=== PATIENT | male | born 1935 | race Caucasian/White ===

== ENCOUNTER 2017-01-01 19:19 | Emergency (ER) | payer OTHER ==
[~2017-01-01] VITALS: Ht 165.1 cm; Wt 78.4 kg
[~2017-01-01 19:19] MED LIST: APOA1CAP PO; CYAN10005 PO; ELDP5 PO; GABA1CAP5 PO; MULT-513 PO; SIMV-151 PO
[2017-01-01 19:21] VITALS: TEMP 36.4; Ht 165.1 cm; Wt 78.4 kg
--- NOTE | 2017-01-01 19:50 | EMERGENCY ROOM VISIT NOTE ---
History Report prepared by Regine: Dominguez Martinez Under the Supervision of: Dr. Jose Elmore M.D. First contact with patient: 19:26 Chief Complaint: NEURO SYMPTOMS Stated Complaint: MEMORY LOSS, FUNNY FEELING IN LEFT ARM Nursing Triage Summary: Pt to triage with . reports pt having difficulty with memory. went to the movies, couldn't remember where he was or if he was able to go into the bathroom, unable to remember his way home. states "he's acting the same way he did 2 years ago when he martino a mini stroke". pt c/o left arm numbness. per and pt everything else is normal for pt. History of Present Illness The patient is an 81 year old male who presents to the Emergency Room with complaints of persistent confusion that started earlier today. The patient was at a movie with his when he noticed that he was unable to understand what he was watching. The patient had left arm numbness during the movie as well, which is resolved. He also was confused when he attempted to use a public restroom after the movie. The patient had similar confusion two years ago when he was diagnosed with a TIA, as per his . She also notes that his sense of direction has seemed to be off since the TIA. He denies fevers or recent illness , headache, vision changes, chest pain, shortness of breath, nausea, vomiting, or abdominal pain. The patient has not taken his baby aspirin for one week. He is not on other blood thinners. The patient has a history of Parkinson's Disease. He is not diabetic. He has not started any new medications. Source of History: patient, spouse/significant other Onset: today Position: other (mentation) Quality: other (confusion) Timing: other (persistent) Associated Symptoms: + numbness, No SOB, No abdominal pain, No chest pain, No fevers, No headache, No nausea, No vomiting Review of Systems See HPI for pertinent positives & negatives. A total of 10 systems reviewed and were otherwise negative. Past Medical & Surgical Medical Problems: (1) Arthritis (2) Hyperlipemia (3) Parkinson disease Surgical Problems: (1) H/O hernia repair (2) Previous back surgery Old medical records were reviewed. Nurse's notes were reviewed and I agree with. Family History Cancer Heart disease Hypertension Social History Smoking Status: Never Smoker Marital Status: Housing Status: lives with significant other Occupation Status: retired Current/Historical Medications Scheduled Apoaequorin (Prevagen), 1 CAP PO QAM Cyanocobalamin (Vitamin B-12), 1,000 MCG PO QAM Gabapentin (Neurontin), 400 MG PO TID Multivitamins/Minerals (Mvi With Minerals), 1 TAB PO QAM Selegiline HCl (Selegiline HCl), 5 MG PO BID Simvastatin (Simvastatin), 20 MG PO QPM Allergies Coded Allergies: Amoxicillin (Verified Allergy, Unknown, RASH, 01/01/17) Lidocaine (Verified Allergy, Unknown, LIDOCAINE SPRAY-COULDN'T REMEMBER AFTER DOSE, 01/01/17) Physical Exam Vital Signs Date Time Temp Pulse Resp B/P Pulse Ox O2 Delivery O2 Flow Rate FiO2 01/01/17 22:04 78 16 134/82 99 01/01/17 21:23 68 16 132/78 97 Room Air 01/01/17 19:38 78 01/01/17 19:21 36.4 80 18 157/88 94 Room Air Physical Exam General: Non ill appearing older male in no acute distress, normal speech, awake alert and oriented x 3. HEENT: Normal cephalic atraumatic. Pupils are equal round and reactive to light. Extraocular movements are intact. Oropharynx is pink with moist mucous membranes. No swelling of the mouth lips or tongue. Neck: Supple with a midline trachea. No meningeal signs or stiffness, no JVD or bruits. No Stridor. Chest: Clear to auscultation bilaterally. No wheezes or rhonchi. No increased work of breathing. Heart: regular rate and rhythm. Abdomen: Soft nontender, nondistended without rebound guarding or rigidity. Extremities: No cyanosis clubbing or edema. No calf tenderness or assymetry Spine/Back. Non tender to palpation. No CVA tenderness Skin: Good turgor without rashes. Neurologic exam: Cranial nerves two through 12 are intact. Motor and sensation are intact and symmetrical throughout. Mild tremor secondary to Parkinson's. Medical Decision & Procedures ER Provider Diagnostic Interpretation: Radiology results as stated below per my review and radiologist interpretation: CHEST ONE VIEW PORTABLE HISTORY: Atypical CHEST PAIN COMPARISON: Chest 02/29/2016. FINDINGS: There are again noted bilateral calcified pleural plaques. No new focal lung consolidations. No evidence for pulmonary edema. The heart remains mildly enlarged. No pleural effusions. No pneumothorax. IMPRESSION: No significant change compared to the prior study. No acute process. Stable cardiomegaly and bilateral calcified pleural plaques. Electronically signed by: Fabian Srinivasan M.D. 01/01/2017 9:00 PM Dictated Date/Time: 01/01/2017 8:[address] CT DOSE: 537.48 mGy.cm HISTORY: eval for episode of confusion, left arm weakness TECHNIQUE: Multiaxial CT images of the head were performed without the use of intravenous contrast. Automated exposure control was utilized for this study. Comparison: Head CT 05/21/2015. Findings: The paranasal sinuses and mastoid air cells are clear. The calvarium and skull base are intact. There is no mass, hematoma, midline shift, acute infarct. White matter hypodensity is nonspecific but suggestive of microvascular ischemic change. The ventricles and sulci demonstrate mild age-related involutional changes. Impression: No significant change compared to the prior study. No acute intracranial abnormality. Electronically signed by: Fabian Srinivasan M.D. 01/01/2017 8:23 PM Dictated Date/Time: 01/01/2017 8:15 PM Laboratory Results 01/01/17 19:50 Red Blood Count 4.36, Mean Corpuscular Volume 99.8, Mean Corpuscular Hemoglobin 34.4, Mean Corpuscular Hemoglobin Concent 34.5, Mean Platelet Volume 9.3, Neutrophils (%) (Auto) 72.2, Lymphocytes (%) (Auto) 14.4, Monocytes (%) (Auto) 9.5, Eosinophils (%) (Auto) 3.5, Basophils (%) (Auto) 0.2, Neutrophils # (Auto) 4.36, Lymphocytes # (Auto) 0.87, Monocytes # (Auto) 0.57, Eosinophils # (Auto) 0.21, Basophils # (Auto) 0.01 01/01/17 19:50 Test 01/01/17 19:50 01/01/17 19:57 01/01/17 21:00 White Blood Count 6.03 K/uL (4.8-10.8) Red Blood Count 4.36 M/uL (4.7-6.1) Hemoglobin 15.0 g/dL (14.0-18.0) Hematocrit 43.5 % (42-52) Mean Corpuscular Volume 99.8 fL (80-100) Mean Corpuscular Hemoglobin 34.4 pg (25-34) Mean Corpuscular Hemoglobin Concent 34.5 g/dl (32-36) Platelet Count 216 K/uL (130-400) Mean Platelet Volume 9.3 fL (7.4-10.4) Neutrophils (%) (Auto) 72.2 % Lymphocytes (%) (Auto) 14.4 % Monocytes (%) (Auto) 9.5 % Eosinophils (%) (Auto) 3.5 % Basophils (%) (Auto) 0.2 % Neutrophils # (Auto) 4.36 K/uL (1.4-6.5) Lymphocytes # (Auto) 0.87 K/uL (1.2-3.4) Monocytes # (Auto) 0.57 K/uL (0.11-0.59) Eosinophils # (Auto) 0.21 K/uL (0-0.5) Basophils # (Auto) 0.01 K/uL (0-0.2) RDW Standard Deviation 43.9 fL (36.4-46.3) RDW Coefficient of Variation 12.1 % (11.5-14.5) Immature Granulocyte % (Auto) 0.2 % Immature Granulocyte # (Auto) 0.01 K/uL (0.00-0.02) Anion Gap 4.0 mmol/L (3-11) Est Creatinine Clear Calc Drug Dose 55.9 ml/min Estimated GFR () 81.4 Estimated GFR (Non- 70.3 BUN/Creatinine Ratio 17.5 (10-20) Calcium Level 8.8 mg/dl (8.5-10.1) Total Bilirubin 0.4 mg/dl (0.2-1) Direct Bilirubin 0.1 mg/dl (0-0.2) Aspartate Amino Transf (AST/SGOT) 23 U/L (15-37) Alanine Aminotransferase (ALT/SGPT) 33 U/L (12-78) Alkaline Phosphatase 84 U/L (45-117) Total Creatine Kinase 232 U/L (39-308) Creatine Kinase MB 2.6 ng/ml (0.5-3.6) Creatine Kinase MB Ratio 1.1 (0-3.0) Total Protein 7.9 gm/dl (6.4-8.2) Albumin 4.1 gm/dl (3.4-5.0) Lipase 140 U/L (73-393) Thyroid Stimulating Hormone (TSH) 2.500 uIu/ml (0.300-4.500) Bedside Troponin I 0.000 ng/ml (0-0.045) Urine Color YELLOW Urine Appearance CLEAR (CLEAR) Urine pH 7.0 (4.5-7.5) Urine Specific [place] 1.022 (1.000-1.030) Urine Protein NEG (NEG) Urine Glucose (UA) NEG (NEG) Urine Ketones NEG (NEG) Urine Occult Blood NEG (NEG) Urine Nitrite NEG (NEG) Urine Bilirubin NEG (NEG) Urine Urobilinogen NEG (NEG) Urine Leukocyte Esterase NEG (NEG) Laboratory studies as stated above per my review. ECG Indication: altered mental status Rate (beats per minute): 71 Rhythm: normal sinus Findings: no acute ischemic change, left axis deviation, no ectopy Comparison ECG Date: 2014 Change: no significant change ED Course 1936: Past medical records reviewed. The patient was evaluated in room C3, and a complete history and physical examination were performed. 2149: The patient is back at baseline. He would like to go home. I told him to follow up with his doctor. Medical Decision Differential diagnosis includes TIA, CVA, electrolyte or metabolic abnormality, arrhythmia, sepsis. This patient comes in as described above. He fell that he couldn't understand the movie as well as typical that he was in today and had some mild pain in his left arm. He also was a little bit confused after he left his back at normal. His said since he had an episode 2 years ago he does get confused with directions. He has a normal neurologic exam at present and no deficits. He had no chest pain. IV access established and he was placed on a curriculum development specialist in room C3 and had an extensive workup and was observed for several hours in the emergency department. During that time, he remained stable and asymptomatic. CAT scan of his head is unremarkable. He has nothing to suggest CVA or intracranial hemorrhage. EKG is unremarkable and he has nothing to suggest acute coronary syndrome or arrhythmia. He has no acute electrolyte or metabolic abnormalities. He has nothing to suggest infection or sepsis. I talked to the patient and his at length and offered him admission for possible TIA or transient global amnesia. He declines and he wants to go home. I think this is reasonable. He typically takes aspirin but has been holding it as he supposed to have hand surgery done this week under local anesthesia. I encouraged him to call his doctor tomorrow or neurologist in check and prior to that. The patient was also encouraged to return if he has recurrence of symptoms, worsening of symptoms, any new problems concerns. He was happy with the plan and discharged to home. Impression Primary Impression: Episode of confusion Scribe Attestation The scribe's documentation has been prepared under my direction and personally reviewed by me in its entirety. I confirm that the note above accurately reflects all work, treatment, procedures, and medical decision making performed by me. Departure Information Dispostion Home / Self-Care Referrals Jorge A Perkins M.D. (PCP) Forms HOME CARE DOCUMENTATION FORM, IMPORTANT VISIT INFORMATION, WORK / SCHOOL INSTRUCTIONS Patient Instructions My [facility] Additional Instructions Rest Return if: worsening of symptoms, numbness or weakness, any new problems or concerns Follow-up with your doctor tommorrow for recheck
[2017-01-01 20:03] LABS: BASO % 0.2 %; BASO ABS # 0.01 K/uL (0-0.2); COMPLETE YES; EOS % 3.5 %; HEMATOCRIT 43.5 % (42-52); IG% 0.2 %; LYMPH % 14.4 %; LYMPH ABS # 0.87 K/uL (1.2-3.4); MEAN CELL VOLUME 99.8 fL (80-100); MEAN CORPUSCULAR HEMOGLOBIN 34.4 pg (25-34); MEAN CORPUSCULAR HGB CONC 34.5 g/dl (32-36); MEAN PLATELET VOLUME 9.3 fL (7.4-10.4); MONO % 9.5 %; NEUT % 72.2 %; PLATELET COUNT 216 K/uL (130-400); RED BLOOD COUNT 4.36 M/uL (4.7-6.1); WHITE BLOOD COUNT 6.03 K/uL (4.8-10.8)
[2017-01-01 20:20] LABS: BUN/CREATININE RATIO 17.5 (10-20); CALCIUM 8.8 mg/dl (8.5-10.1); POTASSIUM 4.3 mmol/L (3.5-5.1)
--- NOTE | 2017-01-01 20:25 | DIAGNOSTIC IMAGING REPORT ---
HEAD CT NONCONTRAST CT DOSE: 537.48 mGy.cm HISTORY: eval for episode of confusion, left arm weakness TECHNIQUE: Multiaxial CT images of the head were performed without the use of intravenous contrast. Automated exposure control was utilized for this study. Comparison: Head CT 05/21/2015. Findings: The paranasal sinuses and mastoid air cells are clear. The calvarium and skull base are intact. There is no mass, hematoma, midline shift, acute infarct. White matter hypodensity is nonspecific but suggestive of microvascular ischemic change. The ventricles and sulci demonstrate mild age-related involutional changes. Impression: No significant change compared to the prior study. No acute intracranial abnormality. Electronically signed by: Fabian Srinivasan M.D. 01/01/2017 8:23 PM Dictated Date/Time: 01/01/2017 8:15 PM
[2017-01-01 20:31] LABS: CKMB/CK RATIO 1.1 (0-3.0); THYROID STIMULATING HORMONE 2.5 uIu/ml (0.300-4.500)
--- NOTE | 2017-01-01 21:02 | DIAGNOSTIC IMAGING REPORT ---
CHEST ONE VIEW PORTABLE HISTORY: Atypical CHEST PAIN COMPARISON: Chest 02/29/2016. FINDINGS: There are again noted bilateral calcified pleural plaques. No new focal lung consolidations. No evidence for pulmonary edema. The heart remains mildly enlarged. No pleural effusions. No pneumothorax. IMPRESSION: No significant change compared to the prior study. No acute process. Stable cardiomegaly and bilateral calcified pleural plaques. Electronically signed by: Fabian Srinivasan M.D. 01/01/2017 9:00 PM Dictated Date/Time: 01/01/2017 8:59 PM
[2017-01-01 22:04] VITALS: BP 134/82; PULSE 78; O2SAT 99
[2017-01-01 22:08] LABS: MANUAL MICROSCOPIC REQUIRED? NO; REVIEW REQ? NO; URINE APPEARANCE CLEAR (CLEAR); URINE BILIRUBIN NEG (NEG); URINE COLOR YELLOW; URINE NITRITE NEG (NEG); URINE SPECIFIC GRAVITY 1.022 (1.000-1.030); UROBILINOGEN NEG (NEG)
[2017-01-18] MEDS ORDERED: ACET-749 PO (07:54)
[2017-07-05] MEDS ORDERED: ASPI81TA28 PO (12:07)
== END 2017-01-01 22:05 | disposition home or self-care (01) ==
LOC: C.EDB 19:20 → C.EDC 22:05
DX: R41.0 Disorientation, unspecified (principal); E78.5 Hyperlipidemia, unspecified; G20 Parkinson's disease; M19.90 Unspecified osteoarthritis, unspecified site; Z98.890 Other specified postprocedural states; Z79.899 Other long term (current) drug therapy; Z88.1 Allergy status to other antibiotic agents; Z88.8 Allergy status to other drugs, medicaments and biological substances; Z80.9 Family history of malignant neoplasm, unspecified; Z82.49 Family history of ischemic heart disease and other diseases of the circulatory system

== ENCOUNTER → 2017-01-18 | Day surgery (SDC) | payer OTHER ==
[2016-12-27 10:00] VITALS: Ht 165.1 cm; Wt 76.4 kg
[~2017-01-18] VITALS: Ht 165.1 cm; Wt 76.4 kg
[~2017-01-18] MED LIST changes: +ACET-749 PO; +ACETAMINOPHEN/CODEINE 300/30MG TAB PO PRN; +ASPI81TA28 PO; +ATROPINE SULFATE 0.1 MG/ML 5ML SYR IV PRN; +BUPIVACAINE 0.5 % 5 MG/1 ML PF 10ML VIAL ONE; +CEFAZOLIN 1000MG/55 ML D5W IV SCH; +EpHEDrine SULFATE INJ 50 MG/ML AMP IV PRN; +FENTANYL CITRATE INJ 50 MCG/1 ML 2 ML VIAL IV PRN; +FENTANYL CITRATE INJ 50 MCG/1 ML 2 ML VIAL ONE; +LACTATED RINGER'S 1000ML 1,000 ML IV SCH; +LIDOCAINE HCL 2% 2 ML VIAL (20MG/ML) ONE; +LIDOCAINE HCL 2% LOCAL 20 ML VIAL ONE; +MIDAZOLAM HCL 1 MG/ML 2ML VIAL ONE; +ONDANSETRON INJ 2 MG/ML 2 ML VIAL ONE; +PROPOFOL IV EMULSION 10 MG/ML 20 ML VIAL IV ONE; +SODIUM CHLORIDE 0.9% 1000ML 1,000 ML IV SCH
--- NOTE | 2017-01-18 06:54 | History & Physical Bridge - SC ---
H&P Re-Evaluation Bridge Note: I have examined the patient, reviewed the History & Physical and in the interval since the performance of the History & Physical I have noted the following changes of clinical significance: No changes noted
[2017-01-18 07:53] VITALS: TEMP 36.9
--- NOTE | 2017-01-18 07:56 | Discharge Instructions-SurgCtr ---
Discharge Instructions Date of Service January 18, 2017. Visit Reason for Visit: Right Carpal Tunnel Syndrome & Radial Styloid Teno Discharge Discharge Diagnosis / Problem: RIGHT CARPAL TUNNEL SYNDROME AND DEQUARVAIN'S TENOSYNOVITIS Discharge Goals Goal(s): Decrease discomfort, Improve function, Therapeutic intervention Activity Recommendations Activity Limitations: per Instructions/Follow-up section LIMITED USE OF RIGHT HAND. KEEP SPLINT CLEAN AND DRY. Anesthesia . Post Anesthesia Instructions: If you have had General Anesthesia or IV Sedation: * Do not drive today. * Resume driving when surgeon permits. * Do not make important decisions or sign legal documents today. * Call surgeon for: 1. Temperature elevations greater than 101 degrees F. 2. Uncontrollable pain. 3. Excessive bleeding. 4. Persistent nausea and vomiting. 5. Medication intolerance (nausea, vomiting or rash). * For nausea and vomiting use only clear liquids such as: tea, soda, bouillon until nausea subsides, then gradually increase diet as tolerated. * If you have any concerns or questions, call your surgeon's office. If physician is unavailable and it is an emergency, call 911 or go to the nearest emergency room. . Instructions / Follow-Up Instructions / Follow-Up MEDICATIONS: * Resume previous medications unless instructed otherwise by your surgeon. * Always take pain medication on a full stomach or with food to avoid upset stomach. * Do not drink alcohol or drive while taking narcotics. * Ibuprofen or Tylenol may be taken if narcotic not needed. SPECIAL CARE INSTRUCTIONS: __ None __ Keep extremity elevated and iced x 48 hours; apply ice 20-30 minutes 8-10 times/day. May remove at night. __ Sling __24 hrs/day __ Remove at night __ Shoulder Immobilizer __ 24 hrs/day __ Remove at night _X_ Dressing _X_ Maintain until seen in office, may shower with plastic over site __ Remove dressings in 24-48 hours and then may shower __ Cover incisions with band-aids after showering __ Do not remove steri-strips Call physician if chills or temperature rises above 102 degrees or pain unrelieved by prescribed pain medications at . . FOLLOW UP IN 2 WEEKS Diet Recommendations Home Diet: resume previous diet Procedures Procedures Performed: Right Carpal Tunnel And Dequervain's Release Pending Studies Studies pending at discharge: no Medical Emergencies . Who to Call and When: Medical Emergencies: If at any time you feel your situation is an emergency, please call 911 immediately. . Non-Emergent Contact Non-Emergency issues call your: Surgeon . . "Provider Documentation" section prepared by Darryl Hoffman. .
--- NOTE | 2017-01-18 08:00 | [facility] Post Operative Brief Note ---
Immediate Operative Summary Operative Date January 18, 2017. Pre-Operative Diagnosis Right Carpal Tunnel Syndrome and Radial DeQuervain"s Tenosynovitis Post-Operative Diagnosis Same Procedure(s) Performed Right Carpal Tunnel And Dequervain's Release Surgeon Dr. Jackelyn Gomez Talcer Surgeon(s) Amy Hoffman PA-C Estimated Blood Loss 5 CC Findings Right Carpal Tunnel Syndrome + DeQuervain's Tenosynovitis Specimens None Anesthesia Local with sedation Complication(s) None Disposition Recovery Room / PACU
[2017-01-18 08:24] VITALS: BP 129/82; PULSE 65; O2SAT 95
--- NOTE | 2017-01-18 08:32 | Anesthesia Progress Nt - [facility] ---
Anesthesia Post Op Note Date & Time January 18, 2017 at 08:33 Vital Signs Pain Intensity: 0 Vital Signs Past 12 Hours Date Time Temp Pulse Resp B/P Pulse Ox O2 Delivery O2 Flow Rate FiO2 01/18/17 08:24 65 16 129/82 95 Room Air 01/18/17 07:53 36.9 74 16 156/85 95 Room Air 01/18/17 06:30 36.5 72 18 137/83 94 Room Air Notes Mental Status: alert / awake / arousable, participated in evaluation Pt Amnestic to Procedure: Yes Nausea / Vomiting: adequately controlled Pain: adequately controlled Airway Patency, RR, SpO2: stable & adequate BP & HR: stable & adequate Hydration State: stable & adequate Anesthetic Complications: no major complications apparent
--- NOTE | 2017-01-18 09:17 | OPERATIVE REPORT ---
DATE OF OPERATION: 01/18/2017 SURGEON: Dr. Loco Gomez. VEGETABLE PACKER: WENDY Galindo. PREOPERATIVE DIAGNOSES: 1. Right carpal tunnel syndrome. 2. Right de Quervain's tenosynovitis. POSTOPERATIVE DIAGNOSES: Same. PROCEDURES PERFORMED: 1. Right carpal tunnel release. 2. Right de Quervain's/first dorsal compartment release. COMPLICATIONS: None. ESTIMATED BLOOD LOSS: 5 mL. TOURNIQUET TIME: 14 minutes at 250 mmHg. ANESTHESIA: Local with IV sedation. OPERATIVE INDICATIONS: The patient is an 81-year-old gentleman who has had a fairly long history of bilateral hand pain, discomfort and numbness, right side greater than left. He failed conservative treatment. Nerve studies revealed carpal tunnel syndrome. He also had pretty significant swelling and tenderness over the first dorsal compartment with pain with thumb motion. He elected to proceed with de Quervain's release as well. OPERATIVE PROCEDURE: The patient was taken to the operating room, identified and placed on the operating table in supine position. All contact areas were appropriately padded. IV antibiotics were provided by the anesthesia team. A right forearm tourniquet was placed. Some IV sedation was provided. A 20 mL of a 50:50 combination of 0.5% Marcaine and 2% lidocaine were then injected in and around the proposed incision sites. The right hand was then prepped and draped in the usual sterile fashion. The right arm was elevated and exsanguinated with the use of an Esmarch and tourniquet was placed at 250 mmHg. A 2.5-cm incision was made in the palm just ulnar to the palmaris longus tendon. Blunt dissection was carried through to the subcutaneous tissues down to the level of the palmar fascia. The palmar fascia was incised longitudinally in line with skin incision. The underlying transverse carpal ligament was identified. It was transected distally with use of a Lares blade knife and then bluntly spread. Attention was drawn proximally. Blunt dissection was carried out above and below the ligament proximally. The ligament was transected for a minimum distance of 3 cm proximal to the wrist flexion crease. The ligament was bluntly spread and found to be completely released. The wound was irrigated with copious amounts of normal saline. Attention was drawn to the radial styloid. A slightly oblique incision was made just proximal to the radial styloid. Blunt dissection was carried out through to the subcutaneous tissue down to the extensor retinaculum. I then identified the first dorsal compartment. With the use of scissors, I released this on the dorsal side, leaving a large flap for volar stability. I dissected proximally and distally and released both the abductor pollicis longus and extensor pollicis tendon in this. I retracted them out of the compartment to make sure all compartments were released. There were no separate compartments. There were multiple slips of the abductor and there was clear degeneration of the tendon right in the area of the retinaculum. Once this was completely released, the wound was irrigated. The tourniquet was then let down for a tourniquet time of 14 minutes. Hemostasis was assured with use of electrocautery. Both wounds were then irrigated. The carpal tunnel incision was closed with 5-0 nylon suture in a horizontal mattress fashion. The radial styloid incision was closed with 3-0 Vicryl suture in the subcutaneous tissues in a buried interrupted fashion. The skin was closed with 5-0 nylon suture in a horizontal mattress fashion. The hand was then cleaned and dried and a sterile dressing of Xeroform, 4 x 4's, sterile cast padding, and a volar splint with the wrist in slightly extension were applied. The patient then transferred to the recovery room in stable condition. The patient tolerated the procedure well with no complications. All needle and sponge counts were correct at the end of the operation. I attest to the content of the Intraoperative Record and any orders documented therein. Any exceptio ns are noted below.
== END | disposition home or self-care (01) ==
LOC: X.SURG 06:18
PROVIDERS: ATTEND Orthopaedic Surgery Sports Medicine
DX: G56.01 Carpal tunnel syndrome, right upper limb (principal); M65.4 Radial styloid tenosynovitis [de Quervain]; M19.90 Unspecified osteoarthritis, unspecified site; G20 Parkinson's disease; Z88.0 Allergy status to penicillin; Z98.890 Other specified postprocedural states; Z86.73 Personal history of transient ischemic attack (TIA), and cerebral infarction without residual deficits

== ENCOUNTER → 2017-02-28 | Outpatient (CLI) | payer OTHER ==
[~2017-02-28] MED LIST changes: -ACETAMINOPHEN/CODEINE 300/30MG TAB PO PRN; -ATROPINE SULFATE 0.1 MG/ML 5ML SYR IV PRN; -BUPIVACAINE 0.5 % 5 MG/1 ML PF 10ML VIAL ONE; -CEFAZOLIN 1000MG/55 ML D5W IV SCH; -EpHEDrine SULFATE INJ 50 MG/ML AMP IV PRN; -FENTANYL CITRATE INJ 50 MCG/1 ML 2 ML VIAL IV PRN; -FENTANYL CITRATE INJ 50 MCG/1 ML 2 ML VIAL ONE; -LACTATED RINGER'S 1000ML 1,000 ML IV SCH; -LIDOCAINE HCL 2% 2 ML VIAL (20MG/ML) ONE; -LIDOCAINE HCL 2% LOCAL 20 ML VIAL ONE; -MIDAZOLAM HCL 1 MG/ML 2ML VIAL ONE; -ONDANSETRON INJ 2 MG/ML 2 ML VIAL ONE; -PROPOFOL IV EMULSION 10 MG/ML 20 ML VIAL IV ONE; -SODIUM CHLORIDE 0.9% 1000ML 1,000 ML IV SCH
--- NOTE | 2017-02-28 08:39 | DIAGNOSTIC IMAGING REPORT ---
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 Diminished and STIR volumes. Some crowding of the bronchovascular markings. Mild stable cardiomegaly. IMPRESSION: Stable bilateral calcified pleural plaques. Prominent pulmonary vasculature. Electronically signed by: Sorin Lazo M.D. 02/28/2017 8:37 AM Dictated Date/Time: 02/28/2017 8:36 AM
== END | disposition home or self-care (01) ==
LOC: C.RAD1850 08:15
PROVIDERS: ATTEND Internal Medicine Pulmonary Disease
DX: J92.0 Pleural plaque with presence of asbestos (principal)

== ENCOUNTER → 2017-06-15 | Outpatient (CLI) | payer OTHER ==
[~2017-06-15] MED LIST changes: -ASPI81TA28 PO
[2017-06-15 13:52] LABS: ALB/GLOB RATIO 1.1 (0.9-2); ALT/SGPT 31 U/L (12-78); BLOOD UREA NITROGEN 19 mg/dl (7-18); BUN/CREATININE RATIO 18.8 (10-20); CALCIUM 8.6 mg/dl (8.5-10.1); CARBON DIOXIDE 28 mmol/L (21-32); CHLORIDE 107 mmol/L (98-107); GLUCOSE 89 mg/dl (70-99); POTASSIUM 4.3 mmol/L (3.5-5.1); SODIUM 140 mmol/L (136-145)
[2017-06-15 14:02] LABS: ALKALINE PHOSPHATASE 84 U/L (45-117); AST/SGOT 25 U/L (15-37); CHOLESTEROL 117 mg/dl (0-200); CHOLESTEROL/HDL RATIO 2.4; HDL CHOLESTEROL 49 mg/dl; LDL CHOLESTEROL CALCULATED 57 mg/dl; TRIGLYCERIDES 54 mg/dl (0-150); VERY LOW DENSITY LIPOPROT CALC 11 mg/dl
== END | disposition home or self-care (01) ==
LOC: C.LABPVFM 07:21
PROVIDERS: ATTEND Family Medicine
DX: Z00.00 Encounter for general adult medical examination without abnormal findings (principal); E78.5 Hyperlipidemia, unspecified

== ENCOUNTER → 2017-07-05 | Day surgery (SDC) | payer OTHER ==
[2017-06-20 09:49] VITALS: Ht 165.1 cm; Wt 76.4 kg
[~2017-07-05] VITALS: Ht 165.1 cm; Wt 76.4 kg
[~2017-07-05] MED LIST changes: -ACET-749 PO; +ASPI81TA28 PO; +ATROPINE SULFATE 0.1 MG/ML 5ML SYR IV PRN; +BUPIVACAINE 0.5 % 5 MG/1 ML MPF 30ML VIAL ONE; +CLINDAMYCIN PHOS 150 MG/ML 2 ML VIAL IV SCH; +DEXAMETHASONE SOD INJ 4 MG/ML VIAL ONE; +EpHEDrine SULFATE INJ 50 MG/ML AMP IV PRN; +FENTANYL CITRATE INJ 50 MCG/1 ML 2 ML VIAL IV PRN; +FENTANYL CITRATE INJ 50 MCG/1 ML 2 ML VIAL ONE; +LACTATED RINGER'S 1000ML 1,000 ML IV SCH; +LIDOCAINE HCL 2% 2 ML VIAL (20MG/ML) ONE; +LIDOCAINE HCL 2% LOCAL 20 ML VIAL ONE; +MIDAZOLAM HCL 1 MG/ML 2ML VIAL ONE; +ONDANSETRON INJ 2 MG/ML 2 ML VIAL IV PRN; +ONDANSETRON INJ 2 MG/ML 2 ML VIAL ONE; +PROPOFOL IV EMULSION 10 MG/ML 20 ML VIAL IV ONE; +SODIUM CHLORIDE 0.9% 1000ML 1,000 ML IV SCH
--- NOTE | 2017-07-05 14:24 | Discharge Instructions-SurgCtr ---
Discharge Instructions Date of Service Jul 05, 2017. Visit Reason for Visit: Left Ring Trigger Finger, Left Cts Discharge Discharge Diagnosis / Problem: left ring trigger finger, carpal tunnel syndrome Discharge Goals Goal(s): Decrease discomfort, Improve function, Therapeutic intervention Activity Recommendations Activity Limitations: per Instructions/Follow-up section Anesthesia . Post Anesthesia Instructions: If you have had General Anesthesia or IV Sedation: * Do not drive today. * Resume driving when surgeon permits. * Do not make important decisions or sign legal documents today. * Call surgeon for: 1. Temperature elevations greater than 101 degrees F. 2. Uncontrollable pain. 3. Excessive bleeding. 4. Persistent nausea and vomiting. 5. Medication intolerance (nausea, vomiting or rash). * For nausea and vomiting use only clear liquids such as: tea, soda, bouillon until nausea subsides, then gradually increase diet as tolerated. * If you have any concerns or questions, call your surgeon's office. If physician is unavailable and it is an emergency, call 911 or go to the nearest emergency room. . Instructions / Follow-Up Instructions / Follow-Up MEDICATIONS: * Resume previous medications unless instructed otherwise by your surgeon. * Always take pain medication on a full stomach or with food to avoid upset stomach. * Do not drink alcohol or drive while taking narcotics. * Ibuprofen or Tylenol may be taken if narcotic not needed. SPECIAL CARE INSTRUCTIONS: __ None __ Keep extremity elevated and iced x 48 hours; apply ice 20-30 minutes 8-10 times/day. May remove at night. __ Sling __24 hrs/day __ Remove at night __ Shoulder Immobilizer __ 24 hrs/day __ Remove at night _x_ Dressing _x_ Maintain until seen in office, may shower with plastic over site __ Remove dressings in 24-48 hours and then may shower __ Cover incisions with band-aids after showering __ Do not remove steri-strips Call physician if chills or temperature rises above 102 degrees or pain unrelieved by prescribed pain medications at . . follow up in 2 weeks Diet Recommendations Home Diet: resume previous diet Procedures Procedures Performed: Left Ring Trigger Finger Release; Left Carpal Tunnel Release Pending Studies Studies pending at discharge: no Medical Emergencies . Who to Call and When: Medical Emergencies: If at any time you feel your situation is an emergency, please call 911 immediately. . Non-Emergent Contact Non-Emergency issues call your: Surgeon . . "Provider Documentation" section prepared by Darryl Hoffman. .
[2017-07-05 14:25] VITALS: TEMP 36.7
--- NOTE | 2017-07-05 14:40 | Anesthesiology Progress Note ---
Anesthesia Post Op Note Date & Time Jul 05, 2017 at 14:39 Vital Signs Pain Intensity: 0 Vital Signs Past 12 Hours Date Time Temp Pulse Resp B/P (MAP) Pulse Ox O2 Delivery O2 Flow Rate FiO2 07/05/17 12:09 36.5 60 18 127/71 (89) 94 Room Air Notes Mental Status: alert / awake / arousable, participated in evaluation Pt Amnestic to Procedure: Yes Nausea / Vomiting: adequately controlled Pain: adequately controlled Airway Patency, RR, SpO2: stable & adequate BP & HR: stable & adequate Hydration State: stable & adequate Anesthetic Complications: no major complications apparent
[2017-07-05 14:58] VITALS: BP 126/73; PULSE 61; O2SAT 95
--- NOTE | 2017-07-05 20:20 | OPERATIVE REPORT ---
DATE OF OPERATION: 07/05/2017 SURGEON: Loco Gomez MD. FINANCIAL REPORTING SPECIALIST: WENDY Galindo. PREOPERATIVE DIAGNOSES: 1. Left carpal tunnel syndrome. 2. Left ring trigger finger. POSTOPERATIVE DIAGNOSES: 1. Left carpal tunnel syndrome. 2. Left ring trigger finger. PROCEDURE PERFORMED: 1. Left carpal tunnel release. 2. Left ring trigger finger release. COMPLICATIONS: None. ESTIMATED BLOOD LOSS: Minimal. TOURNIQUET TIME: 8 minutes at 250 mmHg. ANESTHESIA: Local with IV sedation. HISTORY OF PRESENT ILLNESS: The patient is an 81-year-old gentleman fairly hampered by underlying Parkinson's disease. He had a several year history of bilateral hand pain, discomfort and numbness. He underwent a right carpal tunnel release and a de Quervain's release several months ago with good result. He has continued to have numbness and tingling in his left hand as well as triggering of his ring finger. He had nerve studies that revealed moderate carpal tunnel syndrome. He elected to proceed with operative treatment. OPERATIVE PROCEDURE: The patient was taken to the operating room, identified and placed on the operating table in supine position. All contact areas were appropriately padded. IV antibiotics were provided by anesthesia team. A left forearm tourniquet was placed. Some IV sedation was provided. I then cleaned the hand with alcohol and injected locally in the carpal tunnel area as well as the base of the ring finger with a total of 15 mL of a combination of 0.5% Marcaine and 2% lidocaine. The right hand was then prepped and draped in usual sterile fashion. Left arm was elevated and exsanguinated with Esmarch and tourniquet was placed at 250 mmHg. Attention was first drawn to the trigger finger. A transverse incision was made at the base of the ring finger just distal to the distal palmar crease. Blunt dissection was carried out through the subcutaneous tissue directly down to the flexor tendon sheath. The A1 gerry was identified and cleaned of soft tissues. It was transected with use of scissors. The finger was taken through an active and active assisted range of motion and there was no further catching or locking. Attention was then drawn to the carpal tunnel release. A 3 cm incision was made in the palm just ulnar to the palmaris longus tendon. Blunt dissection was carried through the subcutaneous tissue down to the level of the palmar fascia. The palmar fascia was incised longitudinally in line with skin incision. The underlying transverse carpal ligament was identified. It was cleaned of all soft tissues. Transected distally with use of a [place] blade knife and then bluntly spread. Attention was then drawn proximally. Blunt dissection was carried out above and below the ligament proximally. The ligament was then transected for a minimum distance of 3 cm proximal to the wrist flexion crease. The ligament was bluntly spread and found to be completely released. The wound was irrigated with copious amounts of normal saline. The tourniquet was then let down for a tourniquet time of 8 minutes. Hemostasis was assured with use of electrocautery. Both incisions were then closed with 5-0 nylon suture in a horizontal mattress fashion. The hand was then cleaned and dried and a sterile dressing of Xeroform, 4 x 4, sterile cast padding and Job bandage were applied. The patient then transferred to the recovery room in stable condition. The patient tolerated the procedure without complications. All needle and sponge counts were correct at the end of the operation. I attest to the content of the Intraoperative Record and any orders documented therein. Any exceptions are noted below. MTDD
== END | disposition home or self-care (01) ==
LOC: X.SURG 11:34
PROVIDERS: ATTEND Orthopaedic Surgery Sports Medicine
DX: G56.02 Carpal tunnel syndrome, left upper limb (principal); M65.342 Trigger finger, left ring finger; G20 Parkinson's disease; Z86.73 Personal history of transient ischemic attack (TIA), and cerebral infarction without residual deficits; K44.9 Diaphragmatic hernia without obstruction or gangrene; M19.90 Unspecified osteoarthritis, unspecified site; Z85.820 Personal history of malignant melanoma of skin

== ENCOUNTER 2019-11-10 05:56 | Inpatient (IN) ==
[2019-11-10 06:38] LABS: Hematocrit (blood only) 27.5 % (42-52); Mean Corpuscular Hemoglobin 33.3 pg (25-34); Mean Corpuscular Hgb Conc 32.7 g/dL (32-36); Mean Corpuscular Volume 101.9 fL (80-100); RDW Coefficient of Variation 16.2 % (11.5-14.5); RDW Standard Deviation 60.7 fL (36.4-46.3); White Blood Count 11.94 K/uL (4.8-10.8)
[2019-11-10 06:47] LABS: INR 1.2 (0.9-1.1); Partial Thromboplastin Ratio 0.9; Partial Thromboplastin Time 25.1 Seconds (21.0-31.0); Prothrombin Time 11.9 Seconds (9.0-12.0)
--- NOTE | 2019-11-10 06:51 | Emergency Department Note ---
Entered by Allen Saab acting as a scribe for Narayan Echols DO History of Present Illness General Chief complaint: Cardiac Assessment Stated complaint: HIP PAIN Time Seen by Provider: 11/10/19 06:23 Source: patient History of Present Illness Onset (ago): hour(s) (5.5) Location: chest Pain Consistency: + now resolved Quality: + sharp Associated symptoms: + denies other symptoms (abdominal pain) and + shortness of breath; no nausea/vomiting The patient is an 84 y/o male who presents to the ED w/ CC of now resolved, sharp, chest pain that occurred 5.5 hours ago. The patient states he was sleeping last night when he developed a sharp pain in his side that moved up into his chest. He reports he was also short of breath, and his discomfort lasted for quite a while. The patient notes he would sit up in his bed and feel better and then comeback when he lays back down. He states he has had intermittent back pain for a month now and is not sure if this caused it. The patient reports he now feels well after receiving aspirin from EMS. He notes a history of two TIAs. The patient denies a history of reflux, MO, nausea, vomiting, and abdominal pain. Home Medications Home Medications Medication Instructions Recorded Confirmed Type carbidopa-levodopa [Sinemet] 1 tab PO TID 07/01/18 11/10/19 History gabapentin [Neurontin] 400 mg PO TID 07/01/18 11/10/19 History selegiline HCl 5 mg PO BID 07/01/18 11/10/19 History meloxicam 15 mg tablet 15 mg PO DAILY PRN 05/24/19 11/10/19 History apixaban 2.5 mg tablet 2.5 mg PO BID 06/26/19 11/10/19 History oxycodone 10 mg tablet 10 mg PO Q6H PRN tab 07/03/19 11/10/19 History doxycycline hyclate 100 mg tablet 100 mg PO BID #60 tab 10/24/19 11/10/19 Rx acetaminophen [Tylenol Extra 500 mg PO Q6H PRN 10/25/19 11/10/19 History Strength] baclofen 10 mg PO TID PRN 10/25/19 11/10/19 History hydromorphone [Dilaudid] 4 mg PO Q6H PRN #10 tab 10/25/19 11/10/19 Rx simvastatin 20 mg tablet See Rx Instructions .ROUTE 10/31/19 11/10/19 Rx .COMPLEX #90 tablet dexamethasone 4 mg PO DIRECTED 11/10/19 11/10/19 History omeprazole 20 mg PO DAILY 11/10/19 11/10/19 History Allergies Allergy/AdvReac Type Severity Reaction Status Date / Time Cephalosporins Allergy Intermediate Rash Verified 11/10/19 06:17 doxycycline Allergy Intermediate skin Verified 11/10/19 06:17 irritation Penicillins Allergy Intermediate HIVES Verified 11/10/19 06:17 amoxicillin Allergy Unknown RASH Verified 11/10/19 06:17 sulfamethoxazole AdvReac Intermediate skin rash Verified 11/10/19 06:17 [From Bactrim] trimethoprim [From Bactrim] AdvReac Intermediate skin rash Verified 11/10/19 06:17 Past Med/Surg History Family History Mother Coronary heart disease Myocardial infarction Stroke Father Glaucoma Unknown Acute urticaria Sister Breast cancer Other Family history non-contributory Denies family history of Ovarian cancer Prostate cancer Diabetes Dyslipidemia Colorectal cancer Hypertension Social History Preferred Language: [place] Visual Impairment: Limited Hearing Ability: Normal Beliefs That Will Affect Care: None marital status: Current Living Situation: Spouse current occupational status: retired Feels Safe at Home: Yes Smoking Status: Never smoker Hx Alcohol Use: Yes Alcohol type: beer Alcohol Intake Frequency: Weekly Hx Substance Use: No Review of Systems See HPI for pertinent positives & negatives. and A total of 10 systems reviewed and were otherwise negative Physical Exam Vital Signs Vital Signs - 24 hr 11/10/19 06:02 11/10/19 06:04 11/10/19 06:23 Temperature 37 C Temperature Source Oral Pulse Rate 102 H Pulse Rate [Finger] 95 H Pulse Rhythm Pulse Rhythm [Finger] Regular Pulse Strength [Finger] Normal Respiratory Rate 18 18 Respiratory Effort / Characteristics Non-Labored Spontaneous Respiratory Depth Normal Respiratory Pattern Regular Blood Pressure 163/88 H Blood Pressure [Right Arm] 150/80 H Blood Pressure Mean 113 Blood Pressure Mean [Right Arm] 103 Blood Pressure Position [Right Arm] Lying Pulse Oximetry 95 95 95 Oxygen Delivery Method Room Air Room Air Room Air Sepsis Recent Fever Within 48 Hours No Sepsis Action Taken by Nursing No Action Required 11/10/19 06:31 Temperature Temperature Source Pulse Rate 95 H Pulse Rate [Finger] Pulse Rhythm Regular Pulse Rhythm [Finger] Pulse Strength [Finger] Respiratory Rate 18 Respiratory Effort / Characteristics Respiratory Depth Respiratory Pattern Blood Pressure Blood Pressure [Right Arm] Blood Pressure Mean Blood Pressure Mean [Right Arm] Blood Pressure Position [Right Arm] Pulse Oximetry 95 Oxygen Delivery Method Room Air Sepsis Recent Fever Within 48 Hours Sepsis Action Taken by Nursing CONSTITUTIONAL/VITAL SIGNS: Reviewed / noted above. GENERAL: Non-toxic in appearance. INTEGUMENTARY: Warm, dry, and [place]. HEAD: Normocephalic. EYES: without scleral icterus or trauma. ENT/OROPHARYNX: clear and moist. LYMPHADENOPATHY/NECK: Is supple without lymphadenopathy or meningismus. RESPIRATORY: Lungs clear and equal. CARDIOVASCULAR: Regular rate and rhythm. GI/ABDOMEN: Soft and nontender. No organomegaly or pulsatile mass. No rebound or guarding. Normal bowel sounds. EXTREMITIES: Warm and well perfused. BACK: No CVA tenderness. NEUROLOGICAL: Intact without focal deficits. PSYCHIATRIC: normal affect. MUSCULOSKELETAL: Normally developed with good muscle tone. Course Course 0636: Past medical records reviewed. The patient was evaluated in room B07. A complete history and physical exam was performed. 0731: Upon reevaluation, the patient is resting comfortably. I discussed laboratory and radiographic results with the patient and family. They verbalized agreement of the treatment plan. The patient will be evaluated for further management and care. 0741: I reviewed the patient's case with Dr. Jordan, [facility] Hospitalist. He will evaluate the patient for further management. Administered Medications Discontinued Medications Sodium Chloride (Nss 1000ml) 500 mls @ 999 mls/hr IV .Q31M ONE Stop: 11/10/19 07:27 Last Admin: 11/10/19 07:45 Dose: 999 mls/hr Documented by: [id number] Medical Decision Making Differential Diagnosis The differential that was considered includes acute myocardial infarction, acute coronary syndrome, myocarditis, pericarditis, pericardial effusions /tamponade, esophageal perforation, thoracic aortic dissection, pulmonary embolism, pneumonia, pneumothorax, pancreatitis, shingles, acute cholecystitis, perforated abdominal viscus. Medical Records Attestation: I reviewed the patient's medical records. Home Medications Current Medication List: was personally reviewed by me Laboratory Data Attestation: I reviewed the patient's lab results. Result diagrams: 11/10/19 06:13 11/10/19 06:13 Lab Results 11/10/19 11/10/19 11/10/19 Range/Units 06:13 06:13 06:13 WBC 11.94 H (4.8-10.8) K/uL RBC 2.70 L (4.7-6.1) M/uL Hgb 9.0 L (14.0-18.0) g/dL Hct 27.5 L (42-52) % MCV 101.9 H (80-100) fL MCH 33.3 (25-34) pg MCHC 32.7 (32-36) g/dL RDW Std Deviation 60.7 H (36.4-46.3) fL RDW Coeff of Rahul 16.2 H (11.5-14.5) % Plt Count 68 L (130-400) K/uL MPV 11.8 H (7.4-10.4) fL Immature Gran % (Auto) 0.6 % Neut % (Auto) 85.4 % Lymph % (Auto) 7.0 % [place] % (Auto) 5.1 % Eos % (Auto) 1.8 % Baso % (Auto) 0.1 % Immature Gran # (Auto) 0.07 H (0.00-0.02) K/uL Neut # (Auto) 10.21 H (1.4-6.5) K/uL Lymph # (Auto) 0.83 L (1.2-3.4) K/uL [place] # (Auto) 0.61 H (0.11-0.59) K/uL Eos # (Auto) 0.21 (0-0.5) K/uL Baso # (Auto) 0.01 (0-0.2) K/uL Platelet Estimate Decreased L (Normal) PT 11.9 (9.0-12.0) Seconds INR 1.2 H (0.9-1.1) APTT 25.1 (21.0-31.0) Seconds PTT Ratio 0.9 Sodium 144 (136-145) mmol/L Potassium 4.1 (3.5-5.1) mmol/L Chloride 111 H (98-107) mmol/L Carbon Dioxide 29 (21-32) mmol/L Anion Gap 4.0 (3-11) BUN 49 H (7-18) mg/dl Creatinine 1.97 H (0.6-1.4) mg/dl Est Cr Clr Drug Dosing 27.0 ml/min Est GFR ( Amer) 35.1 Est GFR (Non-Af Amer) 30.3 BUN/Creatinine Ratio 24.6 H (10-20) Glucose 99 (70-99) mg/dl Calcium 9.3 (8.5-10.1) mg/dl Total Bilirubin 0.6 (0.2-1) mg/dl AST 25 (15-37) U/L ALT 11 L (12-78) U/L Alkaline Phosphatase 79 (45-117) U/L Total Creatine Kinase 30 L (39-308) U/L Troponin I 0.192 H* (0-0.045) ng/ml Total Protein 6.2 L (6.4-8.2) gm/dl Albumin 2.0 L (3.4-5.0) gm/dl Globulin 4.2 H (2.5-4.0) gm/dl Albumin/Globulin Ratio 0.5 L (0.9-2) Lipase 42 L (73-393) U/L Imaging Data Radiologist's Impression: Radiology results as stated below per my review and the radiologist's interpretation: XR chest 1V portable HISTORY: 84 years-old Male Chest Pain acute atypical chest pain COMPARISON: Chest radiograph 01/01/2017, PET CT 06/24/2019 TECHNIQUE: Portable AP view of the chest FINDINGS: Cardiac silhouette is enlarged, unchanged. Calcified plaque of the thoracic aorta. No pneumothorax, large pleural effusion, overt pulmonary edema or airspace consolidation typical for pneumonia. Bilateral calcified pleural plaques with multifocal bilateral interstitial coarsening redemonstrated. Degenerative changes of the shoulders and spine. IMPRESSION: 1. Cardiomegaly without acute process. 2. 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 ACT 112: Negative or not required by law. The above report was generated using voice recognition software. It may contain grammatical, syntax or spelling errors. Electronically signed by: Arturo Oviedo M.D. 11/10/2019 7:37 AM ABDOMEN AND PELVIS CT WITHOUT CONTRAST CT DOSE: 439.19 mGy.cm HISTORY: Acute right-sided flank pain rt flank pain TECHNIQUE: Multiaxial CT images of the abdomen and pelvis were performed without contrast. A dose lowering technique was utilized adhering to the principles of ALARA. COMPARISON STUDY: Chest radiograph of same day, PET CT 06/24/2019, CT abdomen 02/12/2007 FINDINGS: Calcified bilateral pleural plaques redemonstrated with bibasilar subpleural reticulation groundglass densities suggestive of fibrosis with atelectasis. No pneumatosis or pneumoperitoneum. The imaged inferior cardiac chambers are moderately enlarged with coronary arterial calcifications. Limited evaluation of the solid abdominal organs without the use of IV contrast. Within the limitations of the study, the spleen, pancreas, adrenal glands, gallbladder and liver appear unremarkable. Hypodense circumscribed lesion of the right hepatic lobe measuring 4.6 cm previously measured 2.1 cm in 2006 and measured 4.5 cm and 06/24/2019 suggestive of a probable cyst. Mild nonspecific bilateral perinephric stranding. 2.0 cm hypodense lesion of the inferior pole left kidney suggest probable cyst. Additional probable cyst involves the superior pole left kidney. There are a few hyperdense foci of the inferior pole right kidney measuring up to 3 mm suggestive of nonobstructing calculi. No ureteral calculi or obstructive uropathy. Partial distention of the bladder with wall thickening. Mild prostamegaly. Soft tissue density of the left inguinal Canal suggest prior hernia repair. Moderate calcified plaque the abdominal aorta without aneurysm. No adenopathy. Partially calcified subpleural nodule of the level of the medial right lung base measuring 1.9 x 0.8 cm is suggestive of a probable lymph node. No bowel obstruction or bowel wall thickening. Colonic diverticulosis without acute diverticulitis. Moderate fecal retention. Terminal ileum and appendix are unremarkable. Degenerative changes of the spine, pelvis and hips. There are m ultiple ill-defined lucent foci noted throughout the vertebral bodies and to lesser extent within the ribs including a with 0.6 cm lucent lesion of the L1 vertebral body on image 122 series 3 which appear to be new/progressed from comparison PET/CT. 12 mm lucent lesion involving the L3 vertebral body previously measured 8 mm. No epidural extension identified. 20% anterior endplate compression deformity of the T11 vertebral body without retropulsion is new from 06/24/2019. 20% superior endplate compression deformity of the L1 vertebral body is also new. Less than 20% superior endplate compression deformity at T12. IMPRESSION: 1. Nonobstructing right nephrolithiasis. No ureteral calculi or obstructive uropathy. 2. Mild prostamegaly with urinary bladder wall thickening and partial distenti on. Correlate with urinalysis. 3. No bowel obstruction or bowel wall thickening. Normal appendix. 4. Colonic diverticulosis without acute diverticulitis. 5. Moderate fecal retention. 6. Multiple scattered lucent osseous lesions are suggestive of patient's stated clinical history of multiple myeloma. Mild superior endplate compression deformities of the T11, T12 and L1 vertebral bodies are new from the 06/24/2019 exam compatible with acute or subacute fractures and may be on a pathologic basi s. No associated retropulsion or significant central canal narrowing. 7. Additional findings as above. ACT 112: Negative or not required by law. The above report was generated using voice recognition software. It may contain grammatical, syntax or spelling errors. Electronically signed by: Arturo Oviedo M.D. 11/10/2019 7:56 AM ECG Data Attestation: I personally reviewed and interpreted this ECG as follows: Indication: + chest pain Rate (beats per minute): 99 Rhythm: + normal sinus ECG Intervals/blocks: + Normal QT-c ECG ST segments: no ST elevation ECG Findings: no PVCs Comparison ECG Date: from (01/01/17) Change: no significant change Additional Comments: Blood Pressure Blood Pressure Findings: Elevated blood pressure Blood Pressure Disposition: further management by hospitalist JUAN MANUEL Chu This is a 84-year-old male who presents to the ED with a chief complaint of chest pain and dyspnea overnight. The patient reported a sharp chest pain. So me of the history was obtained from the as the patient did not seem to recall what symptoms he had. The patient apparently started having the discomfort around 2 AM. Sitting up in bed seem to help with symptoms. He was brought to the ED for evaluation by the this morning for his symptoms. The patient does have a history of melanoma and last received chemotherapy in August. The patient's pain was on the right side of his chest. Currently he is not having any of the pain in his chest but does report some right-sided flank pain. He is sitting in bed comfortably. He did receive aspirin by EMS. The patient's vital signs reveal hypertension. He was initially tachycardic with a heart rate of 102 as well. This improved during his stay. Twelve-lead EKG shows a normal sinus rhythm at a rate of 99 without acute injury. I did compare this to an EKG from 2017 and there is no significant change other than the rate being slightly increased. The CBC is unremarkable. Chemistry panel reveals an elevated BUN of 49 and a creatinine of 1.97. The patient's troponin is elevated. The patient did receive aspirin by EMS. He is currently not having any symptoms. He will be seen by the hospitalist for further inpatient evaluation and care. CT scan of the abdomen pelvis was performed. The patient does have findings of multiple myeloma which is already known. The patient also has what appears to be some new compression fractures of the T11-L1 vertebrae's. There is no acute abnormalities with regards to the kidneys. Impression & Plan Non-ST elevation MO (NSTEMI), Acute renal failure (ARF), Compression fracture Discharge Plan Visit Data Chief Complaint: Cardiac Assessment Stated Complaint: HIP PAIN ED Provider: Narayan Echols Discharge Problem: Non-ST elevation MO (NSTEMI), Acute renal failure (ARF), Compression fracture Patient Disposition: Being Evaluated by Hospitalist Forms Stand Alone Forms: My [facility] [employer] Prescriptions Prescriptions: No Action oxycodone 10 mg tablet 10 mg PO Q6H PRN (Reason: Pain) RF: 0 doxycycline hyclate 100 mg tablet 100 mg PO BID Qty: 60 RF: 5 Eliquis 2.5 mg tablet 2.5 mg PO BID RF: 0 simvastatin 20 mg tablet See Rx Instructions .ROUTE .COMPLEX Qty: 90 RF: 1 meloxicam [Mobic] 15 mg tablet 15 mg PO DAILY PRN (Reason: arthritis) RF: 0 Hold Instructions: on blood thinner gabapentin [Neurontin] 400 mg capsule 400 mg PO TID RF: 0 selegiline HCl 5 mg tablet 5 mg PO BID RF: 0 carbidopa-levodopa [Sinemet] 25-100 mg tablet 1 tab PO TID RF: 0 acetaminophen [Tylenol Extra Strength] 500 mg Tablet 500 mg PO Q6H PRN (Reason: Pain) RF: 0 baclofen 10 mg tablet 10 mg PO TID PRN (Reason: Muscle Spasm) RF: 0 hydromorphone [Dilaudid] 4 mg tablet 4 mg PO Q6H PRN (Reason: pain) Qty: 10 RF: 0 dexamethasone 4 mg Tablet 4 mg PO DIRECTED RF: 0 omeprazole 20 mg Tablet,Delayed Release (Dr/Ec) 20 mg PO DAILY RF: 0 Referrals Referrals: Teodora Mancini MD [Primary Care Provider] - Discharge Problem: Acute renal failure (ARF) Qualifiers: Acute renal failure type: unspecified Qualified Code(s): N17.9 - Acute kidney failure, unspecified The scribe's documentation has been prepared under my direction and personally reviewed by me in its entirety. I confirm that the note above accurately reflects all work, treatment, procedures, and medical decision making performed by me.
[2019-11-10 06:52] LABS: BUN Creatinine Ratio 24.6 (10-20); Calcium 9.3 mg/dl (8.5-10.1); Est GFR (African American) 35.1; Est GFR (Non-African American) 30.3; Potassium 4.1 mmol/L (3.5-5.1)
[2019-11-10] MEDS ORDERED: SODIUM CHLORIDE 0.9% 1000ML 500 ML IV ONE (06:57)
[2019-11-10 07:01] LABS: Basophils # (auto) 0.01 K/uL (0-0.2); Basophils % (auto) 0.1 %; Eosinophils # (auto) 0.21 K/uL (0-0.5); Eosinophils % (auto) 1.8 %; Immature Granulocytes # (auto) 0.07 K/uL (0.00-0.02); Immature Granulocytes % (auto) 0.6 %; Lymphocytes # (auto) 0.83 K/uL (1.2-3.4); Mean Platelet Volume 11.8 fL (7.4-10.4); Monocytes # (auto) 0.61 K/uL (0.11-0.59); Monocytes % (auto) 5.1 %; Neutrophils # (auto) 10.21 K/uL (1.4-6.5); Neutrophils % (auto) 85.4 %; Platelet Count 68 K/uL (130-400); Platelet Estimate Decreased (Normal)
[2019-11-10 07:02] LABS: Albumin Globulin Ratio 0.5 (0.9-2); Bilirubin,Total 0.6 mg/dl (0.2-1); Globulin 4.2 gm/dl (2.5-4.0); Total Protein 6.2 gm/dl (6.4-8.2); Troponin I 0.192 ng/ml (0-0.045)
--- NOTE | 2019-11-10 07:38 | XRay Report ---
XR chest 1V portable HISTORY: 84 years-old Male Chest Pain acute atypical chest pain COMPARISON: Chest radiograph 01/01/2017, PET CT 06/24/2019 TECHNIQUE: Portable AP view of the chest FINDINGS: Cardiac silhouette is enlarged, unchanged. Calcified plaque of the thoracic aorta. No pneumothorax, l arge pleural effusion, overt pulmonary edema or airspace consolidation typical for pneumonia. Bilater al calcified pleural plaques with multifocal bilateral interstitial coarsening redemonstrated. Degene rative changes of the shoulders and spine. IMPRESSION: 1. Cardiomegaly without acute process. 2. 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 ACT 112: Negative or not required by law. The above report was generated using voice recognition software. It may contain grammatical, syntax o r spelling errors. Electronically signed by: Arturo Oviedo M.D. 11/10/2019 7:37 AM
--- NOTE | 2019-11-10 07:57 | CT Scan Report ---
ABDOMEN AND PELVIS CT WITHOUT CONTRAST CT DOSE: 439.19 mGy.cm HISTORY: Acute right-sided flank pain rt flank pain TECHNIQUE: Multiaxial CT images of the abdomen and pelvis were performed without contrast. A dose lo wering technique was utilized adhering to the principles of ALARA. COMPARISON STUDY: Chest radiograph of same day, PET CT 06/24/2019, CT abdomen 02/12/2007 FINDINGS: Calcified bilateral pleural plaques redemonstrated with bibasilar subpleural reticulation groundglass densities suggestive of fibrosis with atelectasis. No pneumatosis or pneumoperitoneum. The imaged in ferior cardiac chambers are moderately enlarged with coronary arterial calcifications. Limited evaluation of the solid abdominal organs without the use of IV contrast. Within the limitatio ns of the study, the spleen, pancreas, adrenal glands, gallbladder and liver appear unremarkable. Hyp odense circumscribed lesion of the right hepatic lobe measuring 4.6 cm previously measured 2.1 cm in 2006 and measured 4.5 cm and 06/24/2019 suggestive of a probable cyst. Mild nonspecific bilateral perinephric stranding. 2.0 cm hypodense lesion of the inferior pole left k idney suggest probable cyst. Additional probable cyst involves the superior pole left kidney. There a re a few hyperdense foci of the inferior pole right kidney measuring up to 3 mm suggestive of nonobst ructing calculi. No ureteral calculi or obstructive uropathy. Partial distention of the bladder with wall thickening. Mild prostamegaly. Soft tissue density of the left inguinal Canal suggest prior indy ia repair. Moderate calcified plaque the abdominal aorta without aneurysm. No adenopathy. Partially c alcified subpleural nodule of the level of the medial right lung base measuring 1.9 x 0.8 cm is sugge stive of a probable lymph node. No bowel obstruction or bowel wall thickening. Colonic diverticulosis without acute diverticulitis. M oderate fecal retention. Terminal ileum and appendix are unremarkable. Degenerative changes of the sp ine, pelvis and hips. There are multiple ill-defined lucent foci noted throughout the vertebral nj s and to lesser extent within the ribs including a with 0.6 cm lucent lesion of the L1 vertebral body on image 122 series 3 which appear to be new/progressed from comparison PET/CT. 12 mm lucent lesion involving the L3 vertebral body previously measured 8 mm. No epidural extension identified. 20% anter ior endplate compression deformity of the T11 vertebral body without retropulsion is new from 019. 20% superior endplate compression deformity of the L1 vertebral body is also new. Less than 20% superior endplate compression deformity at T12. IMPRESSION: 1. Nonobstructing right nephrolithiasis. No ureteral calculi or obstructive uropathy. 2. Mild prostamegaly with urinary bladder wall thickening and partial distention. Correlate with urin alysis. 3. No bowel obstruction or bowel wall thickening. Normal appendix. 4. Colonic diverticulosis without acute diverticulitis. 5. Moderate fecal retention. 6. Multiple scattered lucent osseous lesions are suggestive of patient's stated clinical history of m ultiple myeloma. Mild superior endplate compression deformities of the T11, T12 and L1 vertebral bodi es are new from the 06/24/2019 exam compatible with acute or subacute fractures and may be on a patho logic basis. No associated retropulsion or significant central canal narrowing. 7. Additional findings as above. ACT 112: Negative or not required by law. The above report was generated using voice recognition software. It may contain grammatical, syntax o r spelling errors. Electronically signed by: Arturo Oviedo M.D. 11/10/2019 7:56 AM
--- NOTE | 2019-11-10 08:07 | History & Physical Report ---
Date of Service November 10, 2019 Assessment & Plan (1) Non-ST elevation DE (NSTEMI): Presenting symptoms, risk factors (family history CAD, HTN, hyperlipidemia), EKG changes (lateral ST changes), etc along with his rising troponin are consistent with mild NSTEMI. He is chest-pain free with stable vitals. Plan: * admit to telemetry * hold eliquis * start heparin drip about 12 hours after last dose of eliquis; plan 48 hours of heparin * start asa 81mg daily * start metoprolol 25mg BID * cont statin; check lipids in am * serial troponins until peak is seen * echo to check EF and wall motion * spoke with Dr Oglesby, on-call cardiology, and he recommends formal consult in am; plan as above is acceptable * in light of comorbidities, low platelets, ARF, etc he is poor cath candidate; medical management may be best * EKG again in am (2) Acute renal failure (ARF): FeNa >1 c/w intrinsic cause. ATN? Medication (cyclophosphamide)? NSAID use (meloxicam)? other? Check u/a and micro, look for casts. Give 1 L of NS then saline lock. Repeat BMP tonight and again in am. Will lower gabapentin dose due to ARF. NO NSAIDs except asa. (3) Multiple myeloma: Follows with Dr Dick Antony, [facility]. CBC abnormalities are 2nd to multiple myeloma. To be complete consider checking b12/folate given the mild macrocytosis. CBC in am for stability. Low threshold to consult Dr Antony if any worsening of his CBC parameters. 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 Numerous vasculitic lesions/ulcers on legs. Takes doxycycline chronically for suppressive therapy as he has had MRSA in the past. Wound care consult in am. Contact isolation precautions. Is vasculitis playing any role in NSTEMI? (5) Hyperlipemia: Continue statin. Check lipids am. (6) Parkinson disease: Continue sinemet. Continue selegiline. PT, OT while here. (7) Altered mental status: Etiology uncertain. Obtain head CT, rule out ICH given his chronic anticoagulation use. Check u/a, r/o UTI. HOLD po dilaudid. LOWER gabapentin dose in light of acute renal failure. HOLD baclofen. HOLD oxycodone. Recent heavy steroid use for multiple myeloma could contribute. Avoid benzos/sedatives. (8) Foot pain, bilateral: Likely due to vasculitis. Check b/l foot x-rays - r/o fracture, etc - to be complete. (9) Right hip pain: Check hip x-rays although recent pelvic x-rays were negative. Low suspicion for fracture. Exam not c/w trochanteric bursitis. Hip OA? Referred pain from lumbar spine? other? Pain control. Follow. (10) Wound of lower extremity: Numerous, due to vasculitis. Wound care consult. Continue dressings. (11) GERD (gastroesophageal reflux disease): Continue PPI. (12) Anemia: 2nd to multiple myeloma. CBC am. Consider Fe studies, b12, folate to be complete. (13) Thrombocytopenia: Platelet count of 68 today. He has known multiple myeloma and is currently undergoing treatment for such. Platelet count has decreased steadily over time. Check CBC in am. Heparin drip to be started for NSTEMI this evening. VERY LOW THRESHOLD to stop heparin if platelets go any lower as risks may outweigh benefits. (14) Chronic kidney disease, stage 3a: baseline CrCl 40s now with superimposed JULY/ARF see above in "acute renal failure" (15) Subconjunctival hemorrhage of left eye: Reassurance given to patient & family. NO rx needed. Family updated at bedside. Full code but would not want prolonged intubation time, long-term vent, etc. Obtain Pt/Ot consults. History of Present Illness Chief Complaint: chest pain Primary Care Provider: Teodora Mancini MD 84yo male with history of multiple myeloma and cryoglobulinemic vasculitis presents with right-sided chest pain and shortness of breath that awoke him from sleep about 0200 this am. The patient is confused and a very poor historian; thus, his provides most of the historical details. His reports that he had to sit up in bed to get comfortable. He apparently tried to go back to sleep but couldn't due to ongoing pain. He did not take anything for the pain. At about 0400 his summoned EMS to their house. By report he was given aspirin by EMS. Upon arrival to [facility] he was chest-pain free and had no shortness of breath. During my admission assessment the patient was quite focused on his right hip pain. reports this was relatively new in the last day or so. Patient has not had chest pain prior to this morning. Additionally, the patient's family reports confusion over the last 2 weeks, perhaps longer. They attribute this to pain meds given by the ER over the last 1-2 weeks (pain in both legs). Patient is followed by Dr Dick Antony at [facility]. His current regimen for the multiple myeloma - decadron 40mg and cyclophosphamide - both are due this . He also takes Velcade 2.5mg IM x 1 weekly but did not have it this past week. Follows with wound care center for his vasculitic lesions on his legs. Allergies Allergy/AdvReac Type Severity Reaction Status Date / Time Cephalosporins Allergy Intermediate Rash Verified 11/10/19 06:17 doxycycline Allergy Intermediate skin Verified 11/10/19 06:17 irritation Penicillins Allergy Intermediate HIVES Verified 11/10/19 06:17 amoxicillin Allergy Unknown RASH Verified 11/10/19 06:17 sulfamethoxazole AdvReac Intermediate skin rash Verified 11/10/19 06:17 [From Bactrim] trimethoprim [From Bactrim] AdvReac Intermediate skin rash Verified 11/10/19 06:17 Home Medications Home Medications Medication Instructions Recorded Confirmed Type carbidopa-levodopa [Sinemet] 1 tab PO TID 07/01/18 11/10/19 History gabapentin [Neurontin] 400 mg PO TID 07/01/18 11/10/19 History selegiline HCl 5 mg PO BID 07/01/18 11/10/19 History meloxicam 15 mg tablet 15 mg PO DAILY PRN 05/24/19 11/10/19 History apixaban 2.5 mg tablet 2.5 mg PO BID 06/26/19 11/10/19 History oxycodone 10 mg tablet 10 mg PO Q6H PRN tab 07/03/19 11/10/19 History doxycycline hyclate 100 mg tablet 100 mg PO BID #60 tab 10/24/19 11/10/19 Rx acetaminophen [Tylenol Extra 500 mg PO Q6H PRN 10/25/19 11/10/19 History Strength] baclofen 10 mg PO TID PRN 10/25/19 11/10/19 History hydromorphone [Dilaudid] 4 mg PO Q6H PRN #10 tab 10/25/19 11/10/19 Rx simvastatin 20 mg tablet See Rx Instructions .ROUTE 10/31/19 11/10/19 Rx .COMPLEX #90 tablet dexamethasone 4 mg PO DIRECTED 11/10/19 11/10/19 History omeprazole 20 mg PO DAILY 11/10/19 11/10/19 History Past Med/Surg History Family History (Updated 11/10/19 @ 08:15 by Rigoberto Jordan) Mother , in her 70s Coronary heart disease Myocardial infarction Stroke Father , age 94 Glaucoma Unknown Acute urticaria Sister Breast cancer Denies family history of Ovarian cancer Prostate cancer Diabetes Dyslipidemia Colorectal cancer Hypertension Social History (Updated 11/10/19 @ 08:16 by Rigoberto Jordan) Preferred Language: Vietnamese Communication Ability: Effective Visual Impairment: Limited Hearing Ability: Normal Reciprocating Drill Operator Required: No Beliefs That Will Affect Care: None marital status: marital status details: 2 children Current Living Situation: Spouse current occupational status: retired Other Information That Helps Us Care for You: No other: 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 Feels Safe at Home: Yes Safety Concerns: Feels Safe At This Time Smoking Status: Never smoker Hx Alcohol Use: Yes Alcohol type: hard liquor Alcohol Intake Frequency: Holidays/Special Occasions Hx Substance Use: No Review of Systems Constitutional: no fever, no anorexia and no weight loss Eyes: + problem reported (left eye subconjunctival hemorrhage - happened overnight ) Ear, Nose, Mouth, Throat: no sore throat and no dysphagia Respiratory: + dyspnea (middle of night ) and + dyspnea on exertion (going up steps ); no cough Cardiovascular: + chest pain (just this am; no prior episodes ) and + orthopnea (just last night ) Gastrointestinal: + constipation; no abdominal pain, no nausea and no vomiting Genitourinary: + nocturia; no dysuria Musculoskeletal: legs, both heels, right hip Integumentary: + non-healing lesions (legs - due to cryoglobulinemia ) Neurologic: + tremor(s) Psychiatric: + confusion Endocrine: + polydipsia and + polyuria Hematologic / Lymphatic: + easy bruising Physical Exam Constitutional: + altered mental status and + frail appearing; no acute distress tremors of facial muscles noted Eyes: + conjunctival abnormality (subconjunctival hemorrhage, left eye) and PERRL (lens implants b/l ) ENMT: Ears: no TM abnormality Mouth: + dry oral mucous membranes (mild) Neck: trachea midline, no thyromegaly Respiratory: normal respiratory effort, lungs clear to auscultation no respiratory distress Cardiovascular: Rate/Rhythm: regular rate and regular rhythm Heart Sounds: normal S1 and normal S2; no murmur Vessels: posterior tibial pulses present and dorsalis pedis pulses present; no JVD Extremities: + edema (focal, over both feet, R>L ) Chest (Breasts): Additional Comments: no reproducible chest wall pain to palpation Gastrointestinal (Abdomen): normal bowel sounds, soft, nontender, no hepatosplenomegaly Musculoskeletal: no tenderness to palpation over trochanteric bursa, right hip; no tenderness of right hip with passive flexion/extension or rotation right heel on plantar surface is tender to palpation and swollen relative to left heel Skin: numerous vasculitic ulcerations on both shins and posterior distal legs; numerous smaller vasculitic type lesions on both feet; no superimposed cellulitis process of either leg. Tips of both ears with healed vasculitic lesions. Gelfoam type dressings are in place over the ulcerations. Neurologic: deep tendon reflexes 2+ bilaterally and moves all extremities Motor/Sensory: + tremor Psychiatric: Orientation: alert, oriented to person and oriented to place; + not oriented to time Lymphatic: no cervical lymphadenopathy Results & Data Vital Signs (Past 12 Hours) Vital Signs Temp Pulse Pulse Resp BP BP Pulse Ox 11/10/19 06:31 95 H 18 95 11/10/19 06:23 95 H 18 150/80 H 95 11/10/19 06:04 95 11/10/19 06:02 37 C 102 H 18 163/88 H 95 Laboratory Results Laboratory Results - last 24 hr 11/10/19 11/10/19 11/10/19 06:13 06:13 06:13 WBC 11.94 H RBC 2.70 L Hgb 9.0 L Hct 27.5 L MCV 101.9 H MCH 33.3 MCHC 32.7 RDW Std Deviation 60.7 H RDW Coeff of Rahul 16.2 H Plt Count 68 L MPV 11.8 H Immature Gran % (Auto) 0.6 Neut % (Auto) 85.4 Lymph % (Auto) 7.0 [place] % (Auto) 5.1 Eos % (Auto) 1.8 Baso % (Auto) 0.1 Immature Gran # (Auto) 0.07 H Neut # (Auto) 10.21 H Lymph # (Auto) 0.83 L [place] # (Auto) 0.61 H Eos # (Auto) 0.21 Baso # (Auto) 0.01 Platelet Estimate Decreased L PT 11.9 INR 1.2 H APTT 25.1 PTT Ratio 0.9 Sodium 144 Potassium 4.1 Chloride 111 H Carbon Dioxide 29 Anion Gap 4.0 BUN 49 H Creatinine 1.97 H Est Cr Clr Drug Dosing 27.0 Est GFR ( Amer) 35.1 Est GFR (Non-Af Amer) 30.3 BUN/Creatinine Ratio 24.6 H Glucose 99 Calcium 9.3 Total Bilirubin 0.6 AST 25 ALT 11 L Alkaline Phosphatase 79 Total Creatine Kinase 30 L Troponin I 0.192 H* Total Protein 6.2 L Albumin 2.0 L Globulin 4.2 H Albumin/Globulin Ratio 0.5 L Lipase 42 L Ur Random Creatinine Ur Random Sodium 11/10/19 11/10/19 11/10/19 06:45 11:57 18:13 WBC RBC Hgb Hct MCV MCH MCHC RDW Std Deviation RDW Coeff of Rahul Plt Count MPV Immature Gran % (Auto) Neut % (Auto) Lymph % (Auto) [place] % (Auto) Eos % (Auto) Baso % (Auto) Immature Gran # (Auto) Neut # (Auto) Lymph # (Auto) [place] # (Auto) Eos # (Auto) Baso # (Auto) Platelet Estimate PT INR APTT PTT Ratio Sodium 140 Potassium 4.0 Chloride 108 H Carbon Dioxide 28 Anion Gap 4.0 BUN 44 H Creatinine 1.97 H Est Cr Clr Drug Dosing 27.0 Est GFR ( Amer) 35.1 Est GFR (Non-Af Amer) 30.3 BUN/Creatinine Ratio 22.3 H Glucose 128 H Calcium 8.9 Total Bilirubin AST ALT Alkaline Phosphatase Total Creatine Kinase Troponin I 1.160 H* 1.600 H* Total Protein Albumin Globulin Albumin/Globulin Ratio Lipase Ur Random Creatinine 63.6 Ur Random Sodium 62 Diagnostic Findings 1. cxr - IMPRESSION: 1. Cardiomegaly without acute process. 2. 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 2. EKG - my reading - NSR, voltage criteria for LVH; V4-V6 mild ST depression Code Status & VTE Plan Code Status full code VTE Prophylaxis Plan VTE Prophylaxis will be ordered: Yes PG Care Time/CCT Total # of Minutes Spent Total Time Spent with Patient: Total time spent is greater than 50% in coordination of care (as documented) at patient's floor/unit and/or counseling patient: Coding Level of Care Code 11327 Initial Inpt Care Lvl 3 Diagnoses Non-ST elevation DE (NSTEMI) I21.4 Acute renal failure (ARF) N17.9 Acute renal failure type: unspecified Multiple myeloma C90.00 Multiple myeloma remission status: unspecified Cryoglobulinemic vasculitis D89.1 Hyperlipemia E78.2 Hyperlipidemia type: mixed hyperlipidemia Parkinson disease G20 Altered mental status R41.0 Altered mental status type: delirium Foot pain, bilateral M79.671; M79.672 Right hip pain M25.551 Wound of lower extremity S81.809A Encounter type: initial encounter Laterality: unspecified laterality GERD (gastroesophageal reflux disease) K21.9 Esophagitis presence: without esophagitis Anemia D64.89 Anemia type: other cause Other causes of anemia: other cause, not classified Thrombocytopenia D69.6 Chronic kidney disease, stage 3a N18.3 Subconjunctival hemorrhage of left eye H11.32 (1) Acute renal failure (ARF) Acute renal failure type: unspecified Qualified Code(s): N17.9 - Acute kidney failure, unspecified (2) Hyperlipemia Hyperlipidemia type: mixed hyperlipidemia Qualified Code(s): E78.2 - Mixed hyperlipidemia (3) Multiple myeloma Multiple myeloma remission status: unspecified Qualified Code(s): C90.00 - Multiple myeloma not having achieved remission (4) Altered mental status Altered mental status type: delirium Qualified Code(s): R41.0 - Disorientation, unspecified (5) Wound of lower extremity Encounter type: initial encounter Laterality: unspecified laterality Qualified Code(s): S81.809A - Unspecified open wound, unspecified lower leg, initial encounter (6) GERD (gastroesophageal reflux disease) Esophagitis presence: without esophagitis Qualified Code(s): K21.9 - Gastro- esophageal reflux disease without esophagitis (7) Anemia Anemia type: other cause Other causes of anemia: other cause, not classified Qualified Code(s): D64.89 - Other specified anemias
--- NOTE | 2019-11-10 09:32 | CT Scan Report ---
CT head/brain wo con CLINICAL HISTORY: 84 years-old Male with confusion, on blood thinners; eval ICH. Acutely altered men rocío status TECHNIQUE: Multiple axial CT images of the head were obtained without contrast. A dose lowering tech nique was utilized adhering to the principles of ALARA. CT DOSE: 537.48 mGy.cm COMPARISON: Head CT 07/01/2018. FINDINGS: No acute intracranial hemorrhage, midline shift, intracranial mass, hydrocephalus, territorial ischem ia or abnormal extra-axial collection. Age-related involutional changes. Moderate white matter hypode nsities suggest chronic microvascular ischemic disease. Cerebral vascular calcifications are noted. The calvarium is intact. Mastoid air cells are clear. Moderate mucosal thickening of the ethmoid air cells with mucosal thickening also noted within the maxillary sinuses. Secretions are seen within th e nasal turbinates. Soft tissues are unremarkable. Prior bilateral lens replacement. IMPRESSION: No acute intracranial abnormality. ACT 112: Negative or not required by law. The above report was generated using voice recognition software. It may contain grammatical, syntax o r spelling errors. Electronically signed by: Arturo Oviedo M.D. 11/10/2019 9:30 AM
--- NOTE | 2019-11-10 10:29 | XRay Report ---
XR hip RT min 2V HISTORY: 84 years-old Male right hip pain; multiple myeloma acute right hip pain with multiple myelo ma COMPARISON: CT abdomen and pelvis of same day, right femur radiographs 10/24/2019 TECHNIQUE: 2 views of the right hip FINDINGS: Moderate right hip osteoarthritis with chondrocalcinosis. No acute fracture, dislocation, or avascula r necrosis. Multiple tiny lucent foci are noted within the medullary space. No cortical erosive lesio ns or acute pathologic fracture. IMPRESSION: 1. No acute fracture or dislocation. 2. Moderate right hip osteoarthritis with chondrocalcinosis. 3. Ill-defined subcentimeter lucent foci throughout the medullary space are suggestive of pathologic lesions associated with patient's reported clinical history of multiple melanoma. ACT 112: Negative or not required by law. The above report was generated using voice recognition software. It may contain grammatical, syntax o r spelling errors. Electronically signed by: Arturo Oviedo M.D. 11/10/2019 10:28 AM
--- NOTE | 2019-11-10 10:38 | XRay Report ---
XR foot LT 2V, XR foot RT 2V HISTORY: 84 years-old Male left heel pain/swelling acute bilateral foot pain COMPARISON: None TECHNIQUE: 2 views of the bilateral feet FINDINGS: LEFT: Severe osteoarthritis with prominent subcortical cystic changes of the first MTP joint. Mostly mild m ultidigit interphalangeal and metatarsal phalangeal osteoarthritis with mild osteoarthritis of the mi dfoot and hindfoot. No acute fracture or dislocation. Small plantar enthesophyte of the plantar calca neus. Arterial calcifications are noted. Moderate dorsal forefoot soft tissue swelling. RIGHT: Severe osteoarthritis with prominent marginal osteophytic spurring of the first MTP joint. Mostly mil d multidigit interphalangeal and metatarsal phalangeal osteoarthritis with additional mild osteoarthr itis of the midfoot and hindfoot. Minimal marginal spurring of the calcaneus. No acute fracture or di slocation. Diffuse soft tissue prominence, spouse within the dorsal forefoot. Arterial calcifications are noted. IMPRESSION: 1. Bilateral soft tissue swelling without acute fracture or dislocation. 2. Osteoarthritis of the bilateral feet as above, severe within the first MTP joints. ACT 112: Negative or not required by law. The above report was generated using voice recognition software. It may contain grammatical, syntax o r spelling errors. Electronically signed by: Arturo Oviedo M.D. 11/10/2019 10:37 AM
[2019-11-10] MEDS ORDERED: ONDANSETRON INJ 2 MG/ML 2 ML VIAL IV PRN (11:32)
[2019-11-10] MEDS ORDERED: SODIUM CHLORIDE 0.9% 1000ML 1,000 ML IV SCH (11:32)
[2019-11-10] MEDS ORDERED: ACETAMINOPHEN 500 MG TAB PO PRN (11:32)
[2019-11-10] MEDS ORDERED: NITROGLYCERIN SL 0.4 MG/TAB TAB SL PRN (11:32)
[2019-11-10] MEDS: PANTOprazole 40 MG TAB PO SCH (12:43)
[2019-11-10] MEDS: APIXABAN 2.5 MG TAB PO SCH (12:43)
[2019-11-10] MEDS: GABAPENTIN 100 MG CAP PO SCH ×3 (12:43→21:53)
[2019-11-10] MEDS: POLYETHYLENE (MIRALAX) 17 GM PACK PO SCH (12:43)
[2019-11-10] MEDS: SELEGILINE HCL 5 MG TAB PO SCH ×2 (12:43→21:52)
[2019-11-10] MEDS: CARBIDOPA/LEVODOPA 25/100MG TAB PO SCH ×3 (12:44→21:53)
[2019-11-10] MEDS: SIMVASTATIN 20 MG TAB PO SCH (12:44)
[2019-11-10 12:46] LABS: Creatinine Urine Random 63.6 mg/dl
--- NOTE | 2019-11-10 12:55 | Electrocardiogram Report ---
Test Reason : Blood Pressure : / mmHG Vent. Rate : 099 BPM Atrial Rate : 099 BPM P-R Int : 154 ms QRS Dur : 100 ms QT Int : 348 ms P-R-T Axes : 048 -29 008 degrees QTc Int : 446 ms Normal sinus rhythm Minimal voltage criteria for LVH, may be normal variant Nonspecific ST and T wave abnormality Abnormal ECG When compared with ECG of 01-JAN-2017 19:30, ST now depressed in Lateral leads Confirmed by David Oglesby ([id number]) on 11/10/2019 12:55:35 PM Referred By: REFERRED SELF Confirmed By:David Oglesby
[2019-11-10] MEDS: HYDROCODONE/ACETAMOPHEN 5/325MG TAB PO PRN (18:23)
[2019-11-10 18:43] LABS: BUN Creatinine Ratio 22.3 (10-20); Calcium 8.9 mg/dl (8.5-10.1); Est GFR (African American) 35.1; Est GFR (Non-African American) 30.3
[2019-11-10 19:07] LABS: Troponin I 1.6 ng/ml (0-0.045)
[2019-11-10] MEDS: MoRPHine SULFATE 2 MG/ML CARP IV PRN (19:46)
[2019-11-10] MEDS: DOXYCYCLINE HYCLATE 100 MG CAP PO SCH (21:54)
[2019-11-10] MEDS: METOPROLOL TARTRATE 25 MG TAB PO SCH (22:07)
[2019-11-10] MEDS ORDERED: Heparin IV Standard *NO* Bolus IV SCH (23:00)
[2019-11-11] MEDS ORDERED: Heparin Adult STANDARD Wt-Based Dextrose 5% 25,000 units/500 mL IV SCH
[2019-11-11 02:39] LABS: Appearance Urine Clear (Clear); Bacteria Urine Automated Negative (Negative); Bilirubin Urine Negative (Negative); Blood Urine 2+ (Negative); Color Urine Yellow; Glucose Urine UA Negative (Negative); Ketones Urine Negative (Negative); Leukocyte Esterase Urine Negative (Negative); Nitrite Urine Negative (Negative); Protein Urine 1+ (Negative); Specific Gravity Urine 1.015 (1.000-1.030); Urobilinogen Urine Negative (Negative)
[2019-11-11 06:06] LABS: Hematocrit (blood only) 27.3 % (42-52); Hemoglobin 8.9 g/dL (14.0-18.0); Mean Corpuscular Hemoglobin 33.1 pg (25-34); Mean Corpuscular Hgb Conc 32.6 g/dL (32-36); Mean Corpuscular Volume 101.5 fL (80-100); RDW Coefficient of Variation 15.7 % (11.5-14.5); RDW Standard Deviation 58.2 fL (36.4-46.3); Red Blood Count 2.69 M/uL (4.7-6.1); White Blood Count 12.94 K/uL (4.8-10.8)
[2019-11-11 06:08] LABS: Mean Platelet Volume 11.5 fL (7.4-10.4); Platelet Count 65 K/uL (130-400)
[2019-11-11 06:31] LABS: Partial Thromboplastin Ratio 3.9
[2019-11-11] MEDS: MoRPHine SULFATE 2 MG/ML CARP IV PRN (06:32)
[2019-11-11 06:38] LABS: BUN Creatinine Ratio 19.2 (10-20); Creatinine Clr Calc Pharmacy 28.5 ml/min; Est GFR (African American) 37.4; Est GFR (Non-African American) 32.3
[2019-11-11 06:49] LABS: Troponin I 1.55 ng/ml (0-0.045)
[2019-11-11] MEDS: SIMVASTATIN 20 MG TAB PO SCH (07:34)
[2019-11-11] MEDS: DOXYCYCLINE HYCLATE 100 MG CAP PO SCH ×2 (07:34→20:01)
[2019-11-11] MEDS: METOPROLOL TARTRATE 25 MG TAB PO SCH ×2 (07:35→20:03)
[2019-11-11] MEDS: ASPIRIN 81 MG ECTAB PO SCH (07:35)
[2019-11-11] MEDS: GABAPENTIN 100 MG CAP PO SCH ×3 (07:36→20:02)
[2019-11-11] MEDS: PANTOprazole 40 MG TAB PO SCH (07:37)
[2019-11-11] MEDS: SELEGILINE HCL 5 MG TAB PO SCH ×2 (07:38→20:02)
[2019-11-11] MEDS: CARBIDOPA/LEVODOPA 25/100MG TAB PO SCH ×3 (07:38→20:02)
[2019-11-11] MEDS: POLYETHYLENE (MIRALAX) 17 GM PACK PO SCH (07:39)
--- NOTE | 2019-11-11 09:41 | Cardiology Consultation ---
Date of Consultation November 11, 2019 Assessment & Plan (1) Elevated troponin: Minor troponin elevation of uncertain significance. The patient has numerous risk factors for coronary artery disease. At this point, would simply follow conservative measures with aspirin, metoprolol, simvastatin, and Eliquis. (2) Abnormal EKG: The patient is minor nonspecific ST T wave changes. (3) Hyperlipemia: Continue simvastatin. (4) Aortic valve insufficiency: Mild in degree on echocardiogram performed in May 2015. History of Present Illness Attending Physician: Mike Ferrari MD History of Present Illness Mr. Smith is an 84-year-old male admitted earlier today with a chest pain syndrome and elevated troponin. This consultation was ordered to assist in his management. History is obtained from the chart as the patient is currently confused. Apparently, the patient awoke at 2 o'clock this morning with a right-sided chest discomfort and shortness of breath. His discomfort seemed to improve when sitting up verses supine. No other associated symptoms were identified. The ambulance was summoned at approximately 4 a.m. and the patient received aspirin upon their arrival. When the patient presented to our emergency room, he was chest pain-free. There is no apparent history of coronary artery disease. The patient follows closely [facility] due to lower extremity lesions. Currently, the patient is resting comfortably in bed without complaints. Past medical and surgical history 1. Hypercholesterolemia 2. Chronic renal failure 3. Parkinson's disease 4. Multiple myeloma 5. Cryoglobulinemia vasculitis 6. GERD 7. DJD 8. History of CVA x2 Social history and lives with his No tobacco Rare alcohol Family history Mother in her 70s from a CVA Father at 94 from "old age." Review of systems A 10 point review of systems was negative except for that described above. Allergies Allergy/AdvReac Type Severity Reaction Status Date / Time Cephalosporins Allergy Intermediate Rash Verified 11/10/19 06:17 doxycycline Allergy Intermediate skin Verified 11/10/19 06:17 irritation Penicillins Allergy Intermediate HIVES Verified 11/10/19 06:17 amoxicillin Allergy Unknown RASH Verified 11/10/19 06:17 sulfamethoxazole AdvReac Intermediate skin rash Verified 11/10/19 06:17 [From Bactrim] trimethoprim [From Bactrim] AdvReac Intermediate skin rash Verified 11/10/19 06:17 Home Medications Home Medications Medication Instructions Recorded Confirmed Type carbidopa-levodopa [Sinemet] 1 tab PO TID 07/01/18 11/10/19 History gabapentin [Neurontin] 400 mg PO TID 07/01/18 11/10/19 History selegiline HCl 5 mg PO BID 07/01/18 11/10/19 History meloxicam 15 mg tablet 15 mg PO DAILY PRN 05/24/19 11/10/19 History apixaban 2.5 mg tablet 2.5 mg PO BID 06/26/19 11/10/19 History oxycodone 10 mg tablet 10 mg PO Q6H PRN tab 07/03/19 11/10/19 History doxycycline hyclate 100 mg tablet 100 mg PO BID #60 tab 10/24/19 11/10/19 Rx acetaminophen [Tylenol Extra 500 mg PO Q6H PRN 10/25/19 11/10/19 History Strength] baclofen 10 mg PO TID PRN 10/25/19 11/10/19 History hydromorphone [Dilaudid] 4 mg PO Q6H PRN #10 tab 10/25/19 11/10/19 Rx simvastatin 20 mg tablet See Rx Instructions .ROUTE 10/31/19 11/10/19 Rx .COMPLEX #90 tablet dexamethasone 4 mg PO DIRECTED 11/10/19 11/10/19 History omeprazole 20 mg PO DAILY 11/10/19 11/10/19 History Patient History Family History (Updated 11/10/19 @ 08:15 by Rigoberto Jordan) Mother , in her 70s Coronary heart disease Myocardial infarction Stroke Father , age 94 Glaucoma Unknown Acute urticaria Sister Breast cancer Denies family history of Ovarian cancer Prostate cancer Diabetes Dyslipidemia Colorectal cancer Hypertension Social History (Updated 11/10/19 @ 08:16 by Rigoberto Jordan) Preferred Language: Taiwanese Communication Ability: Effective Visual Impairment: Limited Hearing Ability: Normal Pattern Fitter Required: No Beliefs That Will Affect Care: None marital status: marital status details: 2 children Current Living Situation: Spouse current occupational status: retired Other Information That Helps Us Care for You: No other: 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 HEENT exam is negative. Neck is supple with full carotid upstrokes. No carotid bruits. Jugular venous pressure is flat at 90 degrees. There is no thyromegaly. Cardiovascular exam reveals a regular rhythm with normal S1 and S2. A 1/6 decrescendo diastolic murmur is heard along left sternal border. No S3 or S4. Lungs are clear without rales, rhonchi or wheezes. Abdomen is soft without bruits. Extremities reveal intact radial artery pulses bilaterally. Large ecchymosis seen on the left thigh. Pretibial regions are dressed. 2+ pedal edema is noted. Results & Data ([facility]) Vital Signs (Past 12 Hours) Vital Signs Temp Pulse Pulse Resp BP BP Pulse Ox 11/11/19 07:34 36.7 C 87 18 161/79 H 94 11/11/19 04:44 36.6 C 80 20 154/77 H 95 11/11/19 01:00 94 H 11/11/19 00:13 36.5 C 76 20 145/76 H 93 Laboratory Results CBC notes a hemoglobin of 8.9, hematocrit 27.3, white count 12.94, [place] [address]. Electrolytes noted a sodium of 139, potassium 4.0, chloride 107, bicarb 29, BUN 36, creatinine 1.87, and glucose of 99. Initial troponin was 0.192 with follow-up values of 1.16, 1.6, 1.75, and 1.55. LDL cholesterol is 42 with an HDL low at 35. Diagnostic Findings EKG notes normal sinus rhythm and a nonspecific ST and T-wave abnormality. chest x-ray notes cardiomegaly but no acute disease. PG Care Time/CCT Total # of Minutes Spent Total Time Spent with Patient: Total time spent is greater than 50% in coordination of care (as documented) at patient's floor/unit and/or counseling patient: Coding Level of Care Code 81063 Initial Inpt Care Lvl 3 Diagnoses Elevated troponin R79.89 Abnormal EKG R94.31 Hyperlipemia E78.2 Hyperlipidemia type: mixed hyperlipidemia Aortic valve insufficiency I35.1 (1) Hyperlipemia Hyperlipidemia type: mixed hyperlipidemia Qualified Code(s): E78.2 - Mixed hyperlipidemia
--- NOTE | 2019-11-11 09:56 | XCELERA ---
[id number] \\[email or web address]\[id number]_[email or web address]\[id number]
--- NOTE | 2019-11-11 11:05 | Electrocardiogram Report ---
Test Reason : Blood Pressure : / mmHG Vent. Rate : 084 BPM Atrial Rate : 084 BPM P-R Int : 138 ms QRS Dur : 096 ms QT Int : 360 ms P-R-T Axes : 051 -23 -01 degrees QTc Int : 425 ms Normal sinus rhythm Nonspecific ST and T wave abnormality Abnormal ECG When compared with ECG of 10-NOV-2019 06:04, No significant change was found Confirmed by Anton Kang ([id number]) on 11/11/2019 11:05:09 AM Referred By: REFERRED SELF Confirmed By:Anton Kang
--- NOTE | 2019-11-11 13:08 | Hospitalist Progress Note ---
Date of Service November 11, 2019 Assessment & Plan (1) Non-ST elevation PR (NSTEMI): Presenting symptoms, risk factors (family history CAD, HTN, hyperlipidemia), EKG changes (lateral ST changes), and rising troponin were consistent with mild NSTEMI. - Troponin peaked at 1.7, down by 11/10. - Seen by cardiology -> Given CKD from his myeloma and low troponin, no role for intervention. - Continue home medical therapy: ASA, apixaban, and statin (2) Multiple myeloma: Follows with Dr Dick Antony, [facility]. CBC abnormalities are 2nd to multiple myeloma. - Will continue cyclophosphamide, Decadron, & Velcade as outpatient weekly. Per , last dose was on , 11/07/2019. - Discussed with Dr. Antony on 11/10. 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 Takes doxycycline chronically for suppressive therapy as he has had MRSA in the past. - Wound care consult in am. - Contact isolation precautions. (4) Parkinson disease: Clear signs on exam today. Per daughter, he can only walk 10 feet at home with 2-person support. - Continue Sinemet & selegiline. - PT, OT. Likely placement. (5) Chronic kidney disease, stage 3a: Baseline Cr ~2 per oncologist; eGFR ~30. - At baseline (6) Altered mental status: On presentation, though appears to be back to baseline by 11/10. Per oncologist, oral Dilaudid caused sedation, so medications may play a role. - Lower dose of pain medications. - Avoid benzos/sedatives as able (7) GERD (gastroesophageal reflux disease): No complaints today. - Continue PPI. 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 - Monitor (9) Thrombocytopenia: He has known multiple myeloma and is currently undergoing treatment for such. - Platelet count of 65 today. - Monitor (10) Subconjunctival hemorrhage of left eye: Reassurance given to patient & family. reports it is improved today. - NO rx needed. (11) DVT prophylaxis: Apixaban Admission and Anticipated Discharge Date Admission Date: November 10, 2019 Subjective Feels well overall. No indication of chest pain to me on interview. Has pain in his lower legs. Reports no fevers/chills, chest pain, shortness of breath, abdominal pain, nausea, or vomiting. Physical Exam Constitutional: WD/WN, vitals as above Eyes: EOM intact bilaterally; no conjunctival abnormality ENMT: external ear and nose normal, oropharynx normal Neck: trachea midline, no thyromegaly normal visual inspection Respiratory: normal respiratory effort, lungs clear to auscultation no respiratory distress Cardiovascular: RRR, no murmur, no edema Gastrointestinal (Abdomen): Inspection/Auscultation: abdomen normal to inspection; abdomen not distended Musculoskeletal: no cyanosis or clubbing, extremities motor strength 5/5 Skin: + ulcer (Areas of black necrotic tissue.) Neurologic: moves all extremities and awake Psychiatric: Orientation: alert, oriented to person and cooperative Results & Data ([facility]) Vital Signs (Past 12 Hours) Vital Signs Temp Pulse Pulse Resp BP BP Pulse Ox 11/11/19 12:04 36.7 C 80 18 148/80 H 94 11/11/19 07:34 36.7 C 87 18 161/79 H 94 11/11/19 04:44 36.6 C 80 20 154/77 H 95 11/11/19 01:00 94 H PG Care Time/CCT Total # of Minutes Spent Total Time Spent with Patient: Total time spent is greater than 50% in coordination of care (as documented) at patient's floor/unit and/or counseling patient: Coding Level of Care Code 32526 Subseq Hosp Care Lvl 3 Diagnoses Non-ST elevation PR (NSTEMI) I21.4 Multiple myeloma C90.00 Multiple myeloma remission status: unspecified Cryoglobulinemic vasculitis D89.1 Parkinson disease G20 Chronic kidney disease, stage 3a N18.3 Altered mental status R41.0 Altered mental status type: delirium GERD (gastroesophageal reflux disease) K21.9 Esophagitis presence: without esophagitis Anemia D64.89 Anemia type: other cause Other causes of anemia: other cause, not classified Thrombocytopenia D69.6 Subconjunctival hemorrhage of left eye H11.32 DVT prophylaxis Z29.9 (1) Multiple myeloma Multiple myeloma remission status: unspecified Qualified Code(s): C90.00 - Multiple myeloma not having achieved remission (2) Altered mental status Altered mental status type: delirium Qualified Code(s): R41.0 - Disorientation, unspecified (3) GERD (gastroesophageal reflux disease) Esophagitis presence: without esophagitis Qualified Code(s): K21.9 - Gastro-esophageal reflux disease without esophagitis (4) Anemia Anemia type: other cause Other causes of anemia: other cause, not classified Qualified Code(s): D64.89 - Other specified anemias
[2019-11-11 14:56] LABS: Partial Thromboplastin Ratio 4.2
[2019-11-11 15:11] LABS: Partial Thromboplastin Time 112.9 Seconds (21.0-31.0)
[2019-11-11] MEDS ORDERED: HEPARIN DRIP~STOP ORDER ONE (18:00)
[2019-11-11] MEDS: APIXABAN 2.5 MG TAB PO SCH (23:54)
[2019-11-12 07:31] LABS: Hematocrit (blood only) 27.3 % (42-52); Mean Corpuscular Hemoglobin 33.3 pg (25-34); Mean Corpuscular Volume 101.1 fL (80-100); RDW Coefficient of Variation 15.2 % (11.5-14.5); RDW Standard Deviation 56.5 fL (36.4-46.3)
[2019-11-12 07:34] LABS: Mean Platelet Volume 11.9 fL (7.4-10.4); Platelet Count 80 K/uL (130-400)
[2019-11-12 07:41] LABS: Partial Thromboplastin Ratio 1.3; Partial Thromboplastin Time 33.9 Seconds (21.0-31.0)
[2019-11-12] MEDS: DOXYCYCLINE HYCLATE 100 MG CAP PO SCH ×2 (07:51→21:32)
[2019-11-12] MEDS: METOPROLOL TARTRATE 25 MG TAB PO SCH ×2 (07:52→21:30)
[2019-11-12] MEDS: SELEGILINE HCL 5 MG TAB PO SCH ×2 (07:52→21:29)
[2019-11-12] MEDS: SIMVASTATIN 20 MG TAB PO SCH (07:52)
[2019-11-12] MEDS: GABAPENTIN 100 MG CAP PO SCH ×3 (07:53→21:31)
[2019-11-12] MEDS: ASPIRIN 81 MG ECTAB PO SCH (07:54)
[2019-11-12] MEDS: APIXABAN 2.5 MG TAB PO SCH ×2 (07:54→21:30)
[2019-11-12] MEDS: POLYETHYLENE (MIRALAX) 17 GM PACK PO SCH (07:54)
[2019-11-12 07:55] LABS: Alanine Aminotransferase < 6 U/L (12-78); Albumin Level 1.9 gm/dl (3.4-5.0); Aspartate Aminotransferase 28 U/L (15-37); Blood Urea Nitrogen 35 mg/dl (7-18); Calcium 9.2 mg/dl (8.5-10.1); Carbon Dioxide 27 mmol/L (21-32); Chloride 107 mmol/L (98-107); Creatinine Clr Calc Pharmacy 28.5 ml/min; Est GFR (African American) 38.2; Est GFR (Non-African American) 32.9; Glucose 99 mg/dl (70-99); Magnesium 1.9 mg/dl (1.8-2.4); Potassium 3.8 mmol/L (3.5-5.1); Sodium 140 mmol/L (136-145)
[2019-11-12] MEDS: CARBIDOPA/LEVODOPA 25/100MG TAB PO SCH ×3 (07:55→21:31)
[2019-11-12] MEDS: PANTOprazole 40 MG TAB PO SCH (07:55)
[2019-11-12 07:58] LABS: Albumin Globulin Ratio 0.4 (0.9-2); Alkaline Phosphatase 74 U/L (45-117); Bilirubin,Total 0.7 mg/dl (0.2-1); Globulin 4.3 gm/dl (2.5-4.0); Total Protein 6.2 gm/dl (6.4-8.2)
--- NOTE | 2019-11-12 09:15 | Palliative Care Consultation ---
Date of Consultation November 12, 2019 Assessment & Plan (1) Goals of care, counseling/discussion: This is an 84 year old male who presented to the [facility] with symptoms of chest pain. This patient has an extensive past medical history that includes: Parkinson's disease, CAD, Multiple Myeloma, cryoglobuline microvascular vasculitis, HTN, HLD, and GERD. The patient sees Dr. Dick Antony for management of his Multiple Myeloma and his last chemotherapy was September 2019, but he is due on November 13. His current regimen is Decadron 40mg and cyclophosphamide. He also takes Velcade 2.5mg IM x 1 weekly but did not have it this past week. He lives in a 2 story home with his , Cheryl and has two adult children, his son a nurse at [employer]. Cardiology was consulted and conservative medical management was recommended as he is not a good catheterization candidate with his extensive history. Physical Therapy and Occupational Therapy have been involved in his care, with recommendations for some post hospitalization rehabilitation. The patient has had some 'wifty' mental status since his admission, but appears to be returning to his baseline and possibly related to overall steady cognitive decline. Palliative Care was consulted to discuss goals of care. -I met with the patient and his , Cheryl in room 277. The patient was sitting upright in his bedside chair in no apparent distress. -He is awake, alert, oriented x3, but does have flat affect and is an overall poor historian regarding the details for his hospitalization. -The patient lives at home with his in a 2-story home. He realizes that he can no longer do the steps to get upstairs as it 'takes it out of him'. -The patient and his feel he has restored to his baseline. He reports no chest pain but does state that his knees and legs 'hurt' fromthe vasculitis. He is on Neurontin 200mg po TID which was decreased due to altered mental status. This was discussed with Dr. Ferrari (hospitalist) and dosing will return to pre- hospital dosing. 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 He reports that he does have a goal to return home but understands that he may need some rehab. -We discussed [facility] [facility] vs SNF and its capabilities and expectations. They decided that, if accepted, they would want to go to [facility] as their son is a nurse there and can provide additional support too. -The patients stated that she has been in contact with Case Management and has had a hospital bed, bedside table and commode delivered to the house. -At baseline the patient can walk with a walker, but his provides assistance with all of his ADL's otherwise. She appears in well health. -He does have weekly and sometimes bi-weekly appointments at the wound clinic for his legs and they will start utilizing the [facility] van that will make transportation easier and he will use a wheelchair for this. -We discussed supplemental at home caregivers to have extra support. She was willing to have case management provide a list of agencies typically used/. -We discussed code status and both were in agreement that he is to remain a Full Code at this time. They both stated that should he require intubation and be on a vent, they would like to try that but would want him to be terminally extubated should no improvement be noticed within 3 days of the event. -The patient and his were happy to hear about Palliative Care and how it can be utilized. An outpatient follow up could be helpful to continue with evolving goals of care down the line. -PPS: 40% -Should palliative care be of benefit further, please let us know. (2) Chronic kidney disease, stage 3a: (3) Non-ST elevation ND (NSTEMI): (4) Multiple myeloma: Multiple myeloma remission status: unspecified Qualified Code(s): C90.00 - Multiple myeloma not having achieved remission (5) Cryoglobulinemic vasculitis: (6) Aortic valve insufficiency: Supervising Physician Co-Signing Physician Notes Chart reviewed, patient seen and examined. Patient's at bedside Patient fatigued after walking with PT. Patient requesting pain medication for his lower extremity pain. reports that symptoms of his cryoglobulin vasculitis started in May. PE: Patient awake, fatigued HEENT: EOMI, ALTURAS, necrotic lesion seen on left outer pinna Respirations: Unlabored CV: Regular rate on exam Abdomen: Soft, nontender Extremities: Lower extremity dressings in place, large area of necrotic skin across left knee and thigh-painful Neuro: Alert, positive cognitive deficits Agree with above note, assessment and plan as per ESTHELA Camacho-goal at this time is for patient to go to rehab and be able to return home. History of Present Illness Reason for Consultation: goals of care Requesting Physician: Dr. Ferrari Attending Physician: Mike Ferrari MD History of Present Illness This is an 84 year old male who presented to the [facility] with symptoms of chest pain. This patient has an extensive past medical history that includes: Parkinson's disease, CAD, Multiple Myeloma, cryoglobuline microvascular vasculitis, HTN, HLD, and GERD. The patient sees Dr. Dick Antony for management of his Multiple Myeloma and his last chemotherapy was September 2019, but he is due on November 13. His current regimen is Decadron 40mg and cyclophosphamide. He also takes Velcade 2.5mg IM x 1 weekly but did not have it this past week. He lives in a 2 story home with his , Cheryl and has two adult children, his son a nurse at [employer]. Cardiology was consulted and conservative medical management was recommended as he is not a good cath eterization candidate with his extensive history. Physical Therapy and Occupational Therapy have been involved in his care, with recommendations for some post hospitalization rehabilitation. The patient has had some 'wifty' mental status since his admission, but appears to be returning to his baseline and possibly related to overall steady cognitive decline. Palliative Care was consulted to discuss goals of care. Please see A/P for further details. Thank you kindly for involving the Palliative Care team with this patient. We will follow as needed. Allergies Allergy/AdvReac Type Severity Reaction Status Date / Time Cephalosporins Allergy Intermediate Rash Verified 11/10/19 06:17 doxycycline Allergy Intermediate skin Verified 11/10/19 06:17 irritation Penicillins Allergy Intermediate HIVES Verified 11/10/19 06:17 amoxicillin Allergy Unknown RASH Verified 11/10/19 06:17 sulfamethoxazole AdvReac Intermediate skin rash Verified 11/10/19 06:17 [From Bactrim] trimethoprim [From Bactrim] AdvReac Intermediate skin rash Verified 11/10/19 06:17 Home Medications Home Medications Medication Instructions Recorded Confirmed Type carbidopa-levodopa [Sinemet] 1 tab PO TID 07/01/18 11/10/19 History gabapentin [Neurontin] 400 mg PO TID 07/01/18 11/10/19 History selegiline HCl 5 mg PO BID 07/01/18 11/10/19 History meloxicam 15 mg tablet 15 mg PO DAILY PRN 05/24/19 11/10/19 History apixaban 2.5 mg tablet 2.5 mg PO BID 06/26/19 11/10/19 History oxycodone 10 mg tablet 10 mg PO Q6H PRN tab 07/03/19 11/10/19 History doxycycline hyclate 100 mg tablet 100 mg PO BID #60 tab 10/24/19 11/10/19 Rx acetaminophen [Tylenol Extra 500 mg PO Q6H PRN 10/25/19 11/10/19 History Strength] baclofen 10 mg PO TID PRN 10/25/19 11/10/19 History hydromorphone [Dilaudid] 4 mg PO Q6H PRN #10 tab 10/25/19 11/10/19 Rx simvastatin 20 mg tablet See Rx Instructions .ROUTE 10/31/19 11/10/19 Rx .COMPLEX #90 tablet dexamethasone 4 mg PO DIRECTED 11/10/19 11/10/19 History omeprazole 20 mg PO DAILY 11/10/19 11/10/19 History Patient History Medical History (Updated 11/12/19 @ 09:17 by ESTHELA Camacho) Abnormal EKG (Acute) Acid reflux disease Altered mental status (Acute) Arthritis (Chronic) Basal cell carcinoma (BCC) Chest pain syndrome (Acute 05/20/14) Confusion (Acute) Cryoglobulinemic vasculitis (Acute) Goals of care, counseling/discussion Hyperlipemia (Chronic) Multiple myeloma (Acute) Parkinson disease (Chronic) Shortness of breath (Acute 05/20/14) Surgical History H/O hernia repair (Resolved) inguinal History of back surgery x 2 History of carpal tunnel surgery Family History Mother , in her 70s Coronary heart disease Myocardial infarction Stroke Father , age 94 Glaucoma Unknown Acute urticaria Sister Breast cancer Denies family history of Ovarian cancer Prostate cancer Diabetes Dyslipidemia Colorectal cancer Hypertension Social History Preferred Language: Telugu Communication Ability: Effective Visual Impairment: Limited Hearing Ability: Normal Director Of Dietary Required: No Beliefs That Will Affect Care: None marital status: marital status details: 2 children Current Living Situation: Spouse current occupational status: retired Other Information That Helps Us Care for You: No 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 Feels Safe at Home: Yes Safety Concerns: Feels Safe At This Time Smoking Status: Never smoker Hx Alcohol Use: Yes Alcohol type: hard liquor Alcohol Intake Frequency: Holidays/Special Occasions Hx Substance Use: No Review of Systems Review of Systems: General: Patient reports pain in bilateral lower ext remities HEENT: Pt denies BARONE, dizziness CV: Pt denies chest pain, palpitations Resp: Pt denies shortness of breath GI: Pt reports poor appetite, (-) N/V/D : Pt denies urinary changes Skin: Pt reports multiple open seeping areas on legs/knees Musculoskeletal: Pt reports some weakness Physical Exam Constitutional: + frail appearing, cooperative and comfortable Respiratory: normal respiratory effort, lungs clear to auscultation symmetric chest movement Cardiovascular: RRR, no murmur, no edema Gastrointestinal (Abdomen): normal bowel sounds, soft, nontender, no hepatosplenomegaly Musculoskeletal: Extremities: strength 5/5 throughout (bilateral UE strength 4/5, bilateral LE strength 4/5 ) Skin: + lesion and + eschar multiple necoritc seeping lesions on his bilateral shins, calves, and heels. Additional lesions noted on his left knee and lower thigh. Psychiatric: Orientation: alert, oriented x 3 and cooperative Eye Contact: + fair eye contact Affect: + flat affect and + tearful affect Insight: + limited insight Judgement: + limited judgement Results & Data Vital Signs (Past 12 Hours) Vital Signs Temp Pulse Pulse Resp BP BP Pulse Ox 11/12/19 07:28 36.4 C L 87 19 161/75 H 94 11/12/19 04:07 36.4 C L 82 18 157/76 H 94 11/12/19 01:53 61 11/12/19 00:00 36.7 C 80 20 149/74 H 95 PG Care Time/CCT Total # of Minutes Spent Total Time Spent with Patient: Total time spent is greater than 50% in coordination of care (as documented) at patient's floor/unit and/or counseling patient: 70 Coding Level of Care Code 00280 Inpt Consult Level 3 Diagnoses Goals of care, counseling/discussion Z71.89 Chronic kidney disease, stage 3a N18.3 Non-ST elevation ND (NSTEMI) I21.4 Multiple myeloma C90.00 Multiple myeloma remission status: unspecified Cryoglobulinemic vasculitis D89.1 Aortic valve insufficiency I35.1 Time Spent (min) 70 Time Spent Midlevel Total time spent 70 minutes with > 50% of that time spent assessing the patient, discussing goals of care and code status with the patient and . Attending Spent 20 minutes in addition to this 70 minutes spent by ESTHELA Camacho for a total of 90 minutes with greater than 50% of the time spent at bedside discussing goals of care.
--- NOTE | 2019-11-12 13:20 | Hospitalist Progress Note ---
Date of Service November 12, 2019 Assessment & Plan (1) Non-ST elevation HI (NSTEMI): Presenting symptoms, risk factors (family history CAD, HTN, hyperlipidemia), EKG changes (lateral ST changes), and rising troponin were consistent with mild NSTEMI. - Troponin peaked at 1.7, down by 11/10. - Seen by cardiology -> Given CKD from his myeloma and low troponin, no role for intervention. - Continue home medical therapy: ASA, apixaban, and statin (2) Multiple myeloma: Follows with Dr Dick Antony, [facility]. CBC abnormalities are 2nd to multiple myeloma. - Will continue cyclophosphamide, Decadron, & Velcade as outpatient weekly. Per , last dose was on , 11/07/2019. - Discussed with Dr. Antony on 11/10 & 11/11. Will resume chemo as able. 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 Takes doxycycline chronically for suppressive therapy as he has had MRSA in the past. - Wound care consult in am. - Contact isolation precautions. (4) Parkinson disease: Clear signs on exam today. Per daughter, he can only walk 10 feet at home with 2-person support. - Continue Sinemet & selegiline. - PT, OT. Likely placement. Requesting [facility]. (5) Chronic kidney disease, stage 3a: Baseline Cr ~2 per oncologist; eGFR ~30. - At baseline (6) Altered mental status: On presentation, though appears to be back to baseline by 11/10. Per oncologist, oral Dilaudid caused sedation, so medications may play a role. - Lower dose of pain medications. - Avoid benzos/sedatives as able (7) GERD (gastroesophageal reflux disease): No complaints today. - Continue PPI. 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 - Monitor (9) Thrombocytopenia: He has known multiple myeloma and is currently undergoing treatment for such. - Platelet count of 80 today. - Monitor (10) Subconjunctival hemorrhage of left eye: Reassurance given to patient & family. reports it is improved today. - No rx needed. (11) DVT prophylaxis: Apixaban Admission and Anticipated Discharge Date Admission Date: November 10, 2019 Subjective Doing better today. No chest pain. Legs are painful. Reports no fevers/chills, chest pain, shortness of breath, abdominal pain, nausea, or vomiting. Physical Exam Constitutional: WD/WN, vitals as above Eyes: EOM intact bilaterally; no conjunctival abnormality ENMT: external ear and nose normal, oropharynx normal Neck: trachea midline, no thyromegaly normal visual inspection Respiratory: normal respiratory effort, lungs clear to auscultation no respiratory distress Cardiovascular: RRR, no murmur, no edema Gastrointestinal (Abdomen): Inspection/Auscultation: abdomen normal to inspection; abdomen not distended Musculoskeletal: no cyanosis or clubbing, extremities motor strength 5/5 Skin: + ulcer (Areas of black necrotic tissue.) Neurologic: moves all extremities and awake Psychiatric: Orientation: alert, oriented to person and cooperative Results & Data ([facility]) Vital Signs (Past 12 Hours) Vital Signs Temp Pulse Pulse Resp BP BP Pulse Ox 11/12/19 11:39 36.6 C 78 18 107/62 90 11/12/19 07:28 36.4 C L 87 19 161/75 H 94 11/12/19 04:07 36.4 C L 82 18 157/76 H 94 11/12/19 01:53 61 PG Care Time/CCT Total # of Minutes Spent Total Time Spent with Patient: Total time spent is greater than 50% in coordination of care (as documented) at patient's floor/unit and/or counseling patient: Coding Level of Care Code 26039 Subseq Hosp Care Lvl 3 Diagnoses Non-ST elevation HI (NSTEMI) I21.4 Multiple myeloma C90.00 Multiple myeloma remission status: unspecified Cryoglobulinemic vasculitis D89.1 Parkinson disease G20 Chronic kidney disease, stage 3a N18.3 Altered mental status R41.0 Altered mental status type: delirium GERD (gastroesophageal reflux disease) K21.9 Esophagitis presence: without esophagitis Anemia D64.89 Anemia type: other cause Other causes of anemia: other cause, not classified Thrombocytopenia D69.6 Subconjunctival hemorrhage of left eye H11.32 DVT prophylaxis Z29.9 (1) Multiple myeloma Multiple myeloma remission status: unspecified Qualified Code(s): C90.00 - Multiple myeloma not having achieved remission (2) Altered mental status Altered mental status type: delirium Qualified Code(s): R41.0 - Disorientation, unspecified (3) GERD (gastroesophageal reflux disease) Esophagitis presence: without esophagitis Qualified Code(s): K21.9 - Gastro- esophageal reflux disease without esophagitis (4) Anemia Anemia type: other cause Other causes of anemia: other cause, not classified Qualified Code(s): D64.89 - Other specified anemias
[2019-11-12] MEDS: HYDROCODONE/ACETAMOPHEN 5/325MG TAB PO PRN ×2 (15:00→21:25)
[2019-11-13] MEDS: DOXYCYCLINE HYCLATE 100 MG CAP PO SCH (08:39)
[2019-11-13] MEDS: SIMVASTATIN 20 MG TAB PO SCH (08:39)
[2019-11-13] MEDS: PANTOprazole 40 MG TAB PO SCH (08:39)
[2019-11-13] MEDS: GABAPENTIN 100 MG CAP PO SCH ×2 (08:39→14:28)
[2019-11-13] MEDS: ASPIRIN 81 MG ECTAB PO SCH (08:39)
[2019-11-13] MEDS: METOPROLOL TARTRATE 25 MG TAB PO SCH (08:39)
[2019-11-13] MEDS: CARBIDOPA/LEVODOPA 25/100MG TAB PO SCH ×2 (08:40→14:28)
[2019-11-13] MEDS: SELEGILINE HCL 5 MG TAB PO SCH (08:41)
[2019-11-13] MEDS: APIXABAN 2.5 MG TAB PO SCH (08:41)
[2019-11-13] MEDS: POLYETHYLENE (MIRALAX) 17 GM PACK PO SCH (08:42)
[2019-11-13 08:50] LABS: Hematocrit (blood only) 27.3 % (42-52); Hemoglobin 9.2 g/dL (14.0-18.0); Mean Corpuscular Hemoglobin 33.6 pg (25-34); Mean Corpuscular Hgb Conc 33.7 g/dL (32-36); Mean Corpuscular Volume 99.6 fL (80-100); Mean Platelet Volume 12.1 fL (7.4-10.4); Platelet Count 61 K/uL (130-400); RDW Coefficient of Variation 15.4 % (11.5-14.5); RDW Standard Deviation 55.6 fL (36.4-46.3); Red Blood Count 2.74 M/uL (4.7-6.1); White Blood Count 10.12 K/uL (4.8-10.8)
[2019-11-13 09:00] LABS: Partial Thromboplastin Time 28.4 Seconds (21.0-31.0)
[2019-11-13 09:15] LABS: BUN Creatinine Ratio 20.4 (10-20); Creatinine Clr Calc Pharmacy 32.7 ml/min; Est GFR (African American) 45.9; Est GFR (Non-African American) 39.6; Potassium 3.3 mmol/L (3.5-5.1)
[2019-11-13] MEDS: HYDROCODONE/ACETAMOPHEN 5/325MG TAB PO PRN (09:59)
[2019-11-13] MEDS ORDERED: POTASSIUM CHLORIDE 20 MEQ TABCR PO ONE (10:15)
--- NOTE | 2019-11-13 16:50 | Discharge Summary ---
Date of Service November 13, 2019 Admission HPI Per Admitting Provider 84yo male with history of multiple myeloma and cryoglobulinemic vasculitis presents with right-sided chest pain and shortness of breath that awoke him from sleep about 0200 this am. The patient is confused and a very poor historian; thus, his provides most of the historical details. His reports that he had to sit up in bed to get comfortable. He apparently tried to go back to sleep but couldn't due to ongoing pain. He did not take anything for the pain. At about 0400 his summoned EMS to their house. By report he was given aspirin by EMS. Upon arrival to [facility] he was chest-pain free and had no shortness of breath. During my admission assessment the patient was quite focused on his right hip pain. reports this was relatively new in the last day or so. Patient has not had chest pain prior to this morning. Additionally, the patient's family reports confusion over the last 2 weeks, perhaps longer. They attribute this to pain meds given by the ER over the last 1-2 weeks (pain in both legs). Patient is followed by Dr Dick Antony at [facility]. His current regimen for the multiple myeloma - decadron 40mg and cyclophosphamide - both are due this . He also takes Velcade 2.5mg IM x 1 weekly but did not have it this past week. Follows with wound care center for his vasculitic lesions on his legs. Principal Diagnosis NSTEMI Discharge Exam Constitutional WD/WN, vitals as above Eyes EOM intact bilaterally; no conjunctival abnormality ENMT external ear and nose normal, oropharynx normal Neck trachea midline, no thyromegaly normal visual inspection Respiratory normal respiratory effort, lungs clear to auscultation no respiratory distress Cardiovascular RRR, no murmur, no edema Gastrointestinal (Abdomen) Inspection/Auscultation: abdomen normal to inspection; abdomen not distended Musculoskeletal no cyanosis or clubbing, extremities motor strength 5/5 Skin + ulcer (Areas of black necrotic tissue.) Neurologic moves all extremities and awake Psychiatric Orientation: alert, oriented to person and cooperative Discharge Data Allergies Allergy/AdvReac Type Severity Reaction Status Date / Time Cephalosporins Allergy Intermediate Rash Verified 11/10/19 06:17 doxycycline Allergy Intermediate skin Verified 11/10/19 06:17 irritation Penicillins Allergy Intermediate HIVES Verified 11/10/19 06:17 amoxicillin Allergy Unknown RASH Verified 11/10/19 06:17 sulfamethoxazole AdvReac Intermediate skin rash Verified 11/10/19 06:17 [From Bactrim] trimethoprim [From Bactrim] AdvReac Intermediate skin rash Verified 11/10/19 06:17 Consultations 11/10/19 07:28 ED Decision to Admit Stat 11/10/19 07:51 ED Decision to Admit Stat 11/11/19 08:00 Consult Cardiology Routine 11/11/19 13:09 Consult Palliative Care Routine Ordered Studies 11/10/19 06:59 CT abd pelvis wo con Stat 11/10/19 09:07 CT head/brain wo con Stat Hospital Course (1) Non-ST elevation SC (NSTEMI): Presenting symptoms, risk factors (family history CAD, HTN, hyperlipidemia), EKG changes (lateral ST changes), and rising troponin were consistent with mild NSTEMI. - Troponin peaked at 1.7, down by 11/10. - Seen by cardiology -> Given CKD from his myeloma and low troponin, no role for intervention. - Continue home medical therapy: ASA, apixaban, beta-sergey, and statin - Discussed with Dr. Antony. We will have to watch his platelets on aspirin and stop if plts fall below 50. (2) Multiple myeloma: Follows with Dr Dick Antony, [facility]. CBC abnormalities are 2nd to multiple myeloma. - Will continue cyclophosphamide, Decadron, & Velcade as outpatient weekly. Per , last dose was on , 11/07/2019. - He was instructed to take his normal dose of Decadron on , 11/14/2019. Dr. Antony will discuss with him taking his other chemotherapy medications in the future. 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 Takes doxycycline chronically for suppressive therapy as he has had MRSA in the past. - Wound care consult in am. - Contact isolation precautions. (4) Parkinson disease: Clear signs on exam today. Per daughter, he can only walk 10 feet at home with 2-person support. - Continue Sinemet & selegiline. (5) Chronic kidney disease, stage 3a: Baseline Cr ~2 per oncologist; eGFR ~30. - At baseline (6) Altered mental status: On presentation, though appears to be back to baseline by 11/10. Per oncologist, oral Dilaudid caused sedation, so medications may play a role. - Lower dose of pain medications. - Lowered dose of gabapentin to 200 mg PO TID. - Avoid benzos/sedatives as able (7) GERD (gastroesophageal reflux disease): No complaints today. - Continue PPI. 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 - Monitor (9) Thrombocytopenia: He has known multiple myeloma and is currently undergoing treatment for such. - Platelet count of 80 today. - Monitor (10) Subconjunctival hemorrhage of left eye: Reassurance given to patient & family. reports it is improved today. - No rx needed. Essentially resolved by discharge. (11) DVT prophylaxis: Apixaban Total Time Total Time Spent Total Time Spent (In Minutes): 35 Discharge Plan Discharge Items Patient Disposition: Transfer Inpatient Rehab Fac Reason For Visit: CHEST PAIN, ACUTE RENAL FAILURE Discharge Diagnosis: Very mild heart attack Activity: Resume your previous activity Non-emergency contact: Primary Care Provider and Oncologist Call non-emergency contact if: your symptoms worsen and your temperature is above 101 Follow-up/Referrals: Teodora Mancini MD [Primary Care Provider] - 11/19/19 1:00 pm (Your hospital follow up is scheduled with Yuli Alva on 11/19/19 at 1:00 pm) Dick Antony MD [Surgeon] - (Please follow up with Dr. Antony at your next normal visit.) Diet: Dialysis Renal Addtl Attending Provider Instructions: You were admitted to the hospital with chest pain. Our testing indicated a very mild heart attack. Your peak troponin was only 1.7 which is very low as an indication of any stress or damage to your heart. Given our concern of your kidneys (from your multiple myeloma), we did not want to do a catheterization. We did start aspirin for you. This is something to take for now while your platelets remain stable. We also started metoprolol which helps reduce stress on the heart. We did lower the gabapentin by half to 200 mg PO TID which we hope will help you be more alert and have less confusion. If your platelets go lower with chemotherapy, we may need to hold your aspirin for some time. For now, Dr. Antony wants you to take the dexamethasone only tomorrow (). You can use your home supply and work with the doctors and nurses at [facility] to get it. Dr. Antony does not want you to take your Cytoxan (cyclophosphamide) tomorrow and you will not get the Velcade (the injection) either. Dr. Antony will monitor your counts and discuss when to restart those medications. Pending Studies at Discharge: No Stand-Alone Forms: My [facility] Skilled Items Patient informed of condition?: Yes DNR: No Discharge Level of Care: Acute rehab Communicable Disease: Yes (MRSA) Discharge Prognosis: Stable Lines: None Urinary Catheter: No Medications and DC Order Prescriptions: New aspirin 81 mg Tablet,Delayed Release (Dr/Ec) 81 mg PO QAM Qty: 1 RF: 0 metoprolol tartrate 25 mg Tablet 25 mg PO BID Qty: 1 RF: 0 Continued oxycodone 10 mg tablet 10 mg PO Q6H PRN (Reason: Pain) RF: 0 doxycycline hyclate 100 mg tablet 100 mg PO BID Qty: 60 RF: 5 Eliquis 2.5 mg tablet 2.5 mg PO BID RF: 0 simvastatin 20 mg tablet See Rx Instructions .ROUTE .COMPLEX Qty: 90 RF: 1 selegiline HCl 5 mg tablet 5 mg PO BID RF: 0 carbidopa-levodopa [Sinemet] 25-100 mg tablet 1 tab PO TID RF: 0 acetaminophen [Tylenol Extra Strength] 500 mg Tablet 500 mg PO Q6H PRN (Reason: Pain) RF: 0 baclofen 10 mg tablet 10 mg PO TID PRN (Reason: Muscle Spasm) RF: 0 dexamethasone 4 mg Tablet 4 mg PO DIRECTED RF: 0 omeprazole 20 mg Tablet,Delayed Release (Dr/Ec) 20 mg PO DAILY RF: 0 Changed gabapentin [Neurontin] 400 mg capsule 200 mg PO TID Qty: 0 RF: 0 Discontinued meloxicam [Mobic] 15 mg tablet 15 mg PO DAILY PRN (Reason: arthritis) RF: 0 Hold Instructions: on blood thinner hydromorphone [Dilaudid] 4 mg tablet 4 mg PO Q6H PRN (Reason: pain) Qty: 10 RF: 0 Discharge Orders: Discharge Order (Routine); Ordered 11/13/19 Ordered By: Mike Ferrari Admission Data Admit Date/Time: 11/10/19 08:57 Attending Provider: Mike Ferrari Admit Provider: Rigoberto Jordan Primary Care Provider: Teodora Mancini Other Providers: David Fisher ; Mike Ferrari ; Rashmi Nath ; [facility] Coding Level of Care Code D/C Day Management >30 mins Diagnoses Non-ST elevation SC (NSTEMI) I21.4 Multiple myeloma C90.00 Multiple myeloma remission status: unspecified Cryoglobulinemic vasculitis D89.1 Parkinson disease G20 Chronic kidney disease, stage 3a N18.3 Altered mental status R41.0 Altered mental status type: delirium GERD (gastroesophageal reflux disease) K21.9 Esophagitis presence: without esophagitis Anemia D64.89 Anemia type: other cause Other causes of anemia: other cause, not classified Thrombocytopenia D69.6 Subconjunctival hemorrhage of left eye H11.32 DVT prophylaxis Z29.9
== END 2019-11-13 18:18 | DRG 281 ==
LOC: ED 05:56 → SUATTDRO 08:57 → 2N 08:57 → 2W 11-12 20:04

== ENCOUNTER 2020-03-24 10:28 | Inpatient (IN) ==
--- NOTE | 2020-03-24 11:26 | Emergency Department Note ---
Impression & Plan Weakness, Anemia, Thrombocytopenia, Hypercalcemia, Parkinson disease ED Provider Note NAME: ABBE ARCEO AGE: 84 SEX: M : 1935 ARRIVES VIA: Walk-In INFORMANT: Patient, ED PROVIDER(S): Caleb Nagel MD Chief Complaint: Fall, confusion, back pain, weak HPI: Patient does present status post fall. The patient has had some recurrent falls but last night had gotten up out of the bed which he normally does not do and did have a subsequent fall. The patient has complained of some right-sided mid lumbar paraspinal discomfort. The patient has had some worsening falls secondary to weakness and the patient does have an history of Parkinson's as well as multiple myeloma. Patient is currently on apixaban. The patient did take an oxycodone this morning which did help his back pain. The patient has no enid some lower extremity weakness but does not complain of any focal weakness or slurred speech. The did state that she thought he was somewhat confused last evening but when describing the confusion she states that he had to take a very long time to think about his answers. The patient has not had any slurred speech. The patient did not strike his head during the falls. No LOC. Patient's weakness is gotten progressively worse. Patient is also had recurrence of falls and the patient does use a walker. Patient does have physical therapy that does come into the home twice per week but this is soon to and. Patient has stated he is had some constipation but is passing gas. Patient denies any saddle anesthesia or bowel or bladder incontinence. ROS: See HPI for pertinent positives and negatives. A total of 10 systems were reviewed and otherwise negative. Past medical history: See below Surgical history: See below Social history: See below Physical Exam: GENERAL: Wearing a mask. NAD, non-toxic. EYE EXAM: Normal conjunctiva. PERRL, no anisocoria and EOM's grossly intact w/o pain. Head: Normocephalic atraumatic without pain or obvious deformity. NECK: Supple, no nuchal rigidity, no adenopathy, non-tender. No signs of meningismus. No midline C-spine TTP LUNGS: Clear to auscultation. Normal chest wall mechanics. HEART: NSR, no MRG. ABDOMEN: Abdomen soft, non-tender, normo-active bowel sounds, no masses, no rebound or guarding. BACK: Mild pain to the right mid lumbar paraspinal area without obvious skin changes or bruising. SKIN: No rashes and no bruising. UPPER EXTREMITIES: Upper extremities are grossly normal. TTP no bruising and no pain. LOWER EXTREMITIES: Grossly normal, no edema. No TTP no bruising no pain. NEURO EXAM: A&O x3, cranial nerves II-XII grossly intact, normal speech, bilateral upper extremities with good strength, 2 out of 5 strength bilateral lower extremities, no saddle anesthesia. Differential diagnoses: Infection, dehydration, metabolic abnormality, hypo/hyperglycemia, electrolyte disturbance, anemia, hypoxia, cardiac sources, intracerebral event, toxicologic, neurologic, as well as other pathologies. Course: Patient was seen and evaluated the bedside. Full history physical exam was performed. EKG: Indication: Weakness Normal sinus rhythm, rate of 93, normal intervals, left axis deviation, no obvious ST elevations. Nonspecific ST-T wave abnormality. No significant change from November 11, 2019 with the exception of nonspecific T wave no other present inferiorly. There is a fair amount of motion artifact likely secondary to the patient's essential tremor and associated Parkinson's. Imaging Studies: Radiology results as stated below per my review in the radiologist's interpretation: CT SCAN OF THE BRAIN WITHOUT IV CONTRAST CLINICAL HISTORY: Recent fall. Posterior head injury. COMPARISON STUDY: CT of the brain dated 11/10/2019. TECHNIQUE: Unenhanced axial CT scan of the brain is performed from the vertex to the skull base. A dose lowering technique was utilized adhering to the principles of ALARA. CT DOSE: 1458.63 mGy.cm FINDINGS: Brain parenchyma: There are age-related involutional changes noting moderate confluent subcortical and periventricular microangiopathic change. There is no hemorrhage, mass effect, or evidence of acute territorial ischemia by CT criteria. Yoder-white matter differentiation is preserved. No extra-axial fluid collection is seen. Ventricles, sulci, cisterns: Prominent secondary to involutional change. Intracranial vasculature: There is atherosclerotic calcification of the cavernous carotid and vertebral arteries. Calvarium: The skeletal structures are osteopenic. No depressed calvarial fracture is identified. Sinuses and mastoids: There is trace mucosal thickening within the maxillary antra. Mild mucosal thickening is also seen in the posterior ethmoid sinuses. The remaining visualized paranasal sinuses are clear. The mastoid air cells are well pneumatized. Orbits: The bony orbits are grossly intact. There are bilateral ocular lens implants. IMPRESSION: There is no hemorrhage, mass effect, or evidence of acute territorial ischemia by CT criteria. ACT 112: Negative or not required by law. Electronically signed by: Lincoln Tucker M.D. 03/24/2020 12:40 PM Dictated: 03/24/20 1235 Transcribed: 03/24/[address] abd pelvis wo con CT DOSE: HISTORY: Trauma. Pain. fall back pain TECHNIQUE: Multiaxial CT images of the abdomen and pelvis were performed without contrast. A dose lowering technique was utilized adhering to the principles of ALARA. COMPARISON STUDY: 11/10/2019 FINDINGS: Chronic pleural and parenchymal changes both lung bases. Chronic pleural plaques are stable. Hepatic cysts are unaltered. Kidneys negative for hydronephrosis. Exophytic left renal cyst is unchanged. Chronic colonic diverticulosis. No evidence for acute diverticulitis. Moderate increase in fecal load within the transverse and ascending colonic r egions. Stable lytic changes of the abdomen and pelvis. Degenerative changes of the thoracolumbar spine. Slight wedge deformity superior endplate T12 and T11. T11 is consider old with T12 possibly acute/subacute. IMPRESSION: 1. Extensive chronic changes with no acute abnormality of the abdomen or pelvis. 2. Slight wedge deformity superior endplate T12 considered acute/subacute. 3. No evidence for compromise of the spinal canal. 4. Multifocal lytic changes which have been described previously and are unchanged. ACT 112: Negative or not required by law. The above report was generated using voice recognition software. It may contain grammatical, syntax or spelling errors. Electronically signed by: Sorin Lazo M.D. 03/24/2020 12:43 PM Dictated: 03/24/20 1236 Transcribed: 03/24/20 1236 XR chest 1V portable CLINICAL HISTORY: weakness dyspnea COMPARISON STUDY: 11/10/2019 FINDINGS: Chronic pleural plaques bilaterally. Lungs are clear. No acute infiltrate. Diaphragms are smooth. IMPRESSION: Chronic change. No acute process. ACT 112: Negative or not required by law. The above report was generated using voice recognition software. It may contain grammatical, syntax or spelling errors. Electronically signed by: Sorin Lazo M.D. 03/24/2020 12:02 PM MRI OF THE BRAIN WITHOUT IV CONTRAST CLINICAL HISTORY: Strokelike symptoms. COMPARISON STUDY: CT of the brain dated 03/24/2020. TECHNIQUE: MRI of the brain was performed utilizing various T1 and T2-weighted sequences in the axial, sagittal, and coronal planes. IV contrast was not administered for this examination. FINDINGS: Brain parenchyma: There is age-related involutional change noting moderate confluent subcortical and periventricular microangiopathic disease. There is no hemorrhage or mass effect. There is no restricted diffusion to suggest acute ischemia. Yoder-white matter differentiation is preserved. No extra-axial fluid collection is seen. The cerebellar tonsils are normal in configuration. Ventricles, sulci, and cisterns: Prominent secondary to involutional change. Pituitary and sella: Unremarkable. Intracranial vasculature: Normal flow voids are maintained at the skull base. Orbits: The bony orbits are grossly intact. Orbital contents are normal in appearance noting bilateral ocular lens implants. Sinuses and mastoids: There is trace mucosal thickening in the right maxillary antrum. Moderate mucosal thickening is noted in the posterior ethmoid sinuses. The mastoid air cells are clear. Calvarium: Unremarkable. Cervical cord: Partially visualized cervical spinal cord is normal in morphology and signal intensity. IMPRESSION: No acute intracranial abnormality. ACT 112: Negative or not required by law. Electronically signed by: Lincoln Tucker M.D. 03/24/2020 4:24 PM Dictated: 03/24/20 1622 Transcribed: 03/24/20 1622 Dictated: 03/24/20 1159 Transcribed: 03/24/20 1159 Cardiac monitoring: An order was placed for continuous cardiac monitoring. The monitor shows a rate of 90 with [] rhythm. MDM: Patient seen due to concern for weakness, fall, back pain and confusion. Blood work was obtained along with urinalysis. The patient was given IV fluids and did have a CT of the head and CT abdomen pelvis completed along with EKG. Patient has a normal white count chronic and stable anemia. The patient does have thrombocytopenia which is fairly unchanged from prior. The patient does have an elevated bicarb. Patient has not been hypoxic and is not on chronic oxygen. The patient does have slight elevated calcium at 10.7. The patient did receive IV fluids. Troponin is not checked well. EKG with no acute changes and the patient denies chest pains or shortness of breath. CT of the abdomen pelvis did show a possible T12 fracture. The patient does have chronic changes with nothing acute and does have his lytic changes which are likely given his known history of multiple myeloma. CT the head is negative and the patient's chest x-ray does not show any acute findings at this time. Patient was able to ambulate but still was unable to give a urine. The patient was given additional IV fluids. Patient did have an acute change in mental status. I did evaluate the patient. The patient was not following commands and was not was cleared with his speech with a very questionable left-sided facial droop. Code stroke was initiated. The patient did have CT of the head and CT of the head neck. 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 I had spoken with the on-call tele-stroke neurologist who recommended looking for possible bleed versus large vessel occlusion but given the patient is on Eliquis aspirin and is thrombocytopenic would not be a TPA candidate. I did speak the on-call hospitalist Dr. Herrera. Patient was admitted to the [facility] physician group service. Past Med/Surg History Medical History Abnormal EKG (Inactive) Acute renal failure (ARF) (Inactive) Altered mental status (Inactive) Arthritis (Chronic) Basal cell carcinoma (BCC) Bursitis of right hip Chest pain syndrome (Resolved 05/20/14) Non-ST elevation PR (NSTEMI) (Inactive) Sacroiliac dysfunction Family History Mother , in her 70s Coronary heart disease Myocardial infarction Stroke Father , age 94 Glaucoma Unknown Acute urticaria Sister Breast cancer Denies family history of Ovarian cancer Prostate cancer Diabetes Dyslipidemia Colorectal cancer Hypertension Social History Preferred Language: Bengali Communication Ability: Effective Visual Impairment: Limited Hearing Ability: Normal Group Home Supervisor Required: No Beliefs That Will Affect Care: None marital status: marital status details: 2 children Current Living Situation: Spouse current occupational status: retired Other Information That Helps Us Care for You: No other: 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 Feels Safe at Home: Yes Safety Concerns: Feels Safe At This Time Smoking Status: Never smoker Hx Alcohol Use: Yes Alcohol type: hard liquor Alcohol Intake Frequency: Holidays/Special Occasions Hx Substance Use: No Allergies Allergies Allergy/AdvReac Type Severity Reaction Status Date / Time Cephalosporins Allergy Intermediate Rash Verified 03/24/20 12:04 doxycycline Allergy Intermediate skin Verified 03/24/20 12:04 irritation Penicillins Allergy Intermediate HIVES Verified 03/24/20 12:04 amoxicillin Allergy Unknown RASH Verified 03/24/20 12:04 sulfamethoxazole AdvReac Intermediate skin rash Verified 03/24/20 12:04 [From Bactrim] trimethoprim [From Bactrim] AdvReac Intermediate skin rash Verified 03/24/20 12:04 Home Meds Home Medications Medication Instructions Recorded Confirmed carbidopa-levodopa [Sinemet] 1 tab PO TID 07/01/18 03/24/20 selegiline HCl 5 mg PO TID 07/01/18 03/24/20 apixaban 2.5 mg tablet 2.5 mg PO BID 06/26/19 03/24/20 oxycodone 10 mg tablet 10 mg PO Q6H PRN tab 07/03/19 03/24/20 dexamethasone 4 mg PO TH@0800 11/10/19 03/24/20 Prevagen 1 cap PO DAILY@1500 03/24/20 03/24/20 acyclovir 400 mg PO BID 03/24/20 03/24/20 aspirin 81 mg PO DAILY@1500 03/24/20 03/24/20 bortezomib [Velcade] 0 mg IV TH 03/24/20 03/24/20 cyclophosphamide 0 mg PO TH@0800 03/24/20 03/24/20 docusate sodium [Colace] 300 mg PO HS 03/24/20 03/24/20 gabapentin 400 mg PO TID 03/24/20 03/24/20 hydrochlorothiazide 25 mg PO QAM 03/24/20 03/24/20 omeprazole 20 mg PO QAM 03/24/20 03/24/20 oxycodone 5 mg PO Q4H PRN 03/24/20 03/24/20 prochlorperazine maleate 10 mg PO QAM 03/24/20 03/24/20 simvastatin 20 mg PO HS 03/24/20 03/24/20 Previous Rx's Medication Instructions Recorded doxycycline hyclate 100 mg tablet 100 mg PO BID #60 tab 12/24/19 metoprolol tartrate 25 mg tablet 6.25 mg PO BID #30 tab 01/21/20 Results & Data (ED) Vital Signs Vital Signs - 24 hr 03/24/20 10:47 03/24/20 11:40 03/24/20 12:46 Temperature 36.8 C Temperature Source Oral Pulse Rate 90 Pulse Rate [Left Finger] 99 H Pulse Rhythm Regular Pulse Strength Normal Respiratory Rate 18 20 Respiratory Effort / Characteristics Non-Labored Spontaneous Respiratory Depth Normal Blood Pressure 95/60 L Blood Pressure [Left Arm] 115/61 Blood Pressure Mean 71 Blood Pressure Mean [Left Arm] 79 Blood Pressure Position Sitting Pulse Oximetry 96 94 91 Oxygen Delivery Method Room Air Room Air Room Air Sepsis Recent Fever Within 48 Hours No Sepsis New/Unexplained Change in Mental Status Yes Sepsis Action Taken by Nursing No Action Required 03/24/20 14:25 Temperature Temperature Source Pulse Rate Pulse Rate [Left Finger] 115 H Pulse Rhythm Pulse Strength Respiratory Rate 24 Respiratory Effort / Characteristics Respiratory Depth Blood Pressure Blood Pressure [Left Arm] 123/56 L Blood Pressure Mean Blood Pressure Mean [Left Arm] 78 Blood Pressure Position Pulse Oximetry 91 Oxygen Delivery Method Room Air Sepsis Recent Fever Within 48 Hours Sepsis New/Unexplained Change in Mental Status Sepsis Action Taken by Detention Medications Current Medication List: was personally reviewed by me Laboratory Data Attestation: I reviewed the patient's lab results. Result diagrams: 03/24/20 11:40 03/24/20 11:40 Lab Results 03/24/20 03/24/20 03/24/20 Range/Units 11:40 11:40 11:40 WBC 8.37 (4.8-10.8) K/uL RBC 2.80 L (4.7-6.1) M/uL Hgb 9.1 L (14.0-18.0) g/dL Hct 28.4 L (42-52) % MCV 101.4 H (80-100) fL MCH 32.5 (25-34) pg MCHC 32.0 (32-36) g/dL RDW Std Deviation 63.0 H (36.4-46.3) fL RDW Coeff of Rahul 16.9 H (11.5-14.5) % Plt Count 75 L (130-400) K/uL MPV 11.6 H (7.4-10.4) fL Immature Gran % (Auto) 0.6 % Neut % (Auto) 89.2 % Lymph % (Auto) 3.0 % [place] % (Auto) 2.6 % Eos % (Auto) 4.4 % Baso % (Auto) 0.2 % Neut # (Auto) 7.46 H (1.4-6.5) K/uL Lymph # (Auto) 0.25 L (1.2-3.4) K/uL [place] # (Auto) 0.22 (0.11-0.59) K/uL Eos # (Auto) 0.37 (0-0.5) K/uL Baso # (Auto) 0.02 (0-0.2) K/uL Immature Gran # (Auto) 0.05 H (0.00-0.02) K/uL PT 11.9 (9.0-12.0) Seconds INR 1.1 (0.9-1.1) Sodium 140 (136-145) mmol/L Potassium 3.9 (3.5-5.1) mmol/L Chloride 104 (98-107) mmol/L Carbon Dioxide 33 H (21-32) mmol/L Anion Gap 3.0 (3-11) BUN 23 H (7-18) mg/dl Creatinine 1.28 (0.6-1.4) mg/dl Est Cr Clr Drug Dosing 37.4 ml/min Est GFR ( Amer) 59.2 Est GFR (Non-Af Amer) 51.1 BUN/Creatinine Ratio 18.0 (10-20) Glucose 98 (70-99) mg/dl Calcium 10.7 H (8.5-10.1) mg/dl Magnesium 2.1 (1.8-2.4) mg/dl Total Bilirubin 0.4 (0.2-1) mg/dl AST 34 (15-37) U/L ALT 6 L (12-78) U/L Alkaline Phosphatase 116 (45-117) U/L Troponin I < 0.015 (0-0.045) ng/ml Total Protein 6.9 (6.4-8.2) gm/dl Albumin 2.1 L (3.4-5.0) gm/dl Globulin 4.8 H (2.5-4.0) gm/dl Albumin/Globulin Ratio 0.4 L (0.9-2) TSH 2.300 (0.300-4.500) uIu/ml Urine Color Urine Appearance (Clear) Urine pH (4.5-7.5) Ur Specific [place] (1.000-1.030) Urine Protein (Negative) Urine Glucose (UA) (Negative) Urine Ketones (Negative) Urine Blood (Negative) Urine Nitrite (Negative) Urine Bilirubin (Negative) Urine Urobilinogen (Negative) Ur Leukocyte Esterase (Negative) Urine WBC (Auto) (0-5) /hpf Urine RBC (Auto) (0-4) /hpf U Hyaline Cast (Auto) (0-5) /lpf U Epithel Cells (Auto) (0-5) /lpf Urine Bacteria (Auto) (Negative) 03/24/20 Range/Units 15:20 WBC (4.8-10.8) K/uL RBC (4.7-6.1) M/uL Hgb (14.0-18.0) g/dL Hct (42-52) % MCV (80-100) fL MCH (25-34) pg MCHC (32-36) g/dL RDW Std Deviation (36.4-46.3) fL RDW Coeff of Rahul (11.5-14.5) % Plt Count (130-400) K/uL MPV (7.4-10.4) fL Immature Gran % (Auto) % Neut % (Auto) % Lymph % (Auto) % [place] % (Auto) % Eos % (Auto) % Baso % (Auto) % Neut # (Auto) (1.4-6.5) K/uL Lymph # (Auto) (1.2-3.4) K/uL [place] # (Auto) (0.11-0.59) K/uL Eos # (Auto) (0-0.5) K/uL Baso # (Auto) (0-0.2) K/uL Immature Gran # (Auto) (0.00-0.02) K/uL PT (9.0-12.0) Seconds INR (0.9-1.1) Sodium (136-145) mmol/L Potassium (3.5-5.1) mmol/L Chloride (98-107) mmol/L Carbon Dioxide (21-32) mmol/L Anion Gap (3-11) BUN (7-18) mg/dl Creatinine (0.6-1.4) mg/dl Est Cr Clr Drug Dosing ml/min Est GFR ( Amer) Est GFR (Non-Af Amer) BUN/Creatinine Ratio (10-20) Glucose (70-99) mg/dl Calcium (8.5-10.1) mg/dl Magnesium (1.8-2.4) mg/dl Total Bilirubin (0.2-1) mg/dl AST (15-37) U/L ALT (12-78) U/L Alkaline Phosphatase (45-117) U/L Troponin I (0-0.045) ng/ml Total Protein (6.4-8.2) gm/dl Albumin (3.4-5.0) gm/dl Globulin (2.5-4.0) gm/dl Albumin/Globulin Ratio (0.9-2) TSH (0.300-4.500) uIu/ml Urine Color Yellow Urine Appearance Clear (Clear) Urine pH 5.5 (4.5-7.5) Ur Specific [place] 1.023 (1.000-1.030) Urine Protein Trace H (Negative) Urine Glucose (UA) Negative (Negative) Urine Ketones Negative (Negative) Urine Blood Negative (Negative) Urine Nitrite Negative (Negative) Urine Bilirubin Negative (Negative) Urine Urobilinogen Negative (Negative) Ur Leukocyte Esterase Negative (Negative) Urine WBC (Auto) 1-5 (0-5) /hpf Urine RBC (Auto) 0-4 (0-4) /hpf U Hyaline Cast (Auto) 1-5 (0-5) /lpf U Epithel Cells (Auto) 5-10 H (0-5) /lpf Urine Bacteria (Auto) Negative (Negative) Administered Medications Ioversol (Optiray 320 125ml) 112 ml IV ONCE PRN PRN Reason: Interaction Checking Stop: 03/28/20 14:34 Last Admin: 03/24/20 14:36 Dose: 112 ml Documented by: [id number] Discontinued Medications Sodium Chloride (Nss) 500 mls @ 999 mls/hr IV .Q31M ELIDA Stop: 03/24/20 12:00 Last Infusion: 03/24/20 14:35 Dose: 0 mls/hr Documented by: [id number] Admin: 03/24/20 12:45 Dose: 999 mls/hr Documented by: [id number] Lorazepam (Ativan) 0.5 mg in 1 mls @ 1 mls/min IV NOW STA Stop: 03/24/20 14:23 Last Admin: 03/24/20 15:27 Dose: Not Given Documented by: [id number] Discharge Plan Visit Data Chief Complaint: Fall Stated Complaint: AMS/CONFUSION ED Provider: Caleb Nagel Discharge Problem: Weakness, Anemia, Thrombocytopenia, Hypercalcemia, Parkinson disease Forms Stand Alone Forms: [facility] [employer] Prescriptions Prescriptions: No Action oxycodone 10 mg tablet 10 mg PO Q6H PRN (Reason: Pain) RF: 0 metoprolol tartrate 25 mg tablet 6.25 mg PO BID Qty: 30 RF: 2 doxycycline hyclate 100 mg tablet 100 mg PO BID Qty: 60 RF: 3 Eliquis 2.5 mg tablet 2.5 mg PO BID RF: 0 selegiline HCl 5 mg tablet 5 mg PO TID RF: 0 carbidopa-levodopa [Sinemet] 25-100 mg tablet 1 tab PO TID RF: 0 prochlorperazine maleate 10 mg Tablet 10 mg PO QAM RF: 0 acyclovir 400 mg tablet 400 mg PO BID RF: 0 docusate sodium [Colace] 100 mg Capsule 300 mg PO HS RF: 0 hydrochlorothiazide 25 mg tablet 25 mg PO QAM RF: 0 oxycodone 5 mg tablet 5 mg PO Q4H PRN (Reason: Pain) RF: 0 Velcade 3.5 mg Recon Soln 0 mg IV TH RF: 0 cyclophosphamide 50 mg Capsule 0 mg PO TH@0800 RF: 0 Prevagen 1 cap PO DAILY@1500 RF: 0 aspirin 81 mg tablet,delayed release (DR/EC) 81 mg PO DAILY@1500 RF: 0 simvastatin 20 mg tablet 20 mg PO HS RF: 0 omeprazole 20 mg tablet,delayed release (DR/EC) 20 mg PO QAM RF: 0 gabapentin 400 mg capsule 400 mg PO TID RF: 0 dexamethasone 4 mg Tablet 4 mg PO TH@0800 RF: 0 Discharge Problem: Anemia Qualifiers: Anemia type: other cause Other causes of anemia: other cause, not classified Qualified Code(s): D64.89 - Other specified anemias
[2020-03-24] MEDS ORDERED: SODIUM CHLORIDE 0.9% 500 ML IV SCH (11:30)
[2020-03-24 11:53] LABS: Hematocrit (blood only) 28.4 % (42-52); Hemoglobin 9.1 g/dL (14.0-18.0); Mean Corpuscular Hemoglobin 32.5 pg (25-34); Mean Corpuscular Volume 101.4 fL (80-100); Mean Platelet Volume 11.6 fL (7.4-10.4); Platelet Count 75 K/uL (130-400); RDW Coefficient of Variation 16.9 % (11.5-14.5); White Blood Count 8.37 K/uL (4.8-10.8)
[2020-03-24 12:03] LABS: INR 1.1 (0.9-1.1); Prothrombin Time 11.9 Seconds (9.0-12.0)
--- NOTE | 2020-03-24 12:03 | XRay Report ---
XR chest 1V portable CLINICAL HISTORY: weakness dyspnea COMPARISON STUDY: 11/10/2019 FINDINGS: Chronic pleural plaques bilaterally. Lungs are clear. No acute infiltrate. Diaphragms are smooth. IMPRESSION: Chronic change. No acute process. ACT 112: Negative or not required by law. The above report was generated using voice recognition software. It may contain grammatical, syntax or spelling errors. Electronically signed by: Sorin Lazo M.D. 03/24/2020 12:02 PM
[2020-03-24 12:09] LABS: Alanine Aminotransferase 6 U/L (12-78); Albumin Level 2.1 gm/dl (3.4-5.0); Aspartate Aminotransferase 34 U/L (15-37); Blood Urea Nitrogen 23 mg/dl (7-18); Calcium 10.7 mg/dl (8.5-10.1); Carbon Dioxide 33 mmol/L (21-32); Chloride 104 mmol/L (98-107); Creatinine Clr Calc Pharmacy 37.4 ml/min; Est GFR (African American) 59.2; Est GFR (Non-African American) 51.1; Glucose 98 mg/dl (70-99); Magnesium 2.1 mg/dl (1.8-2.4); Potassium 3.9 mmol/L (3.5-5.1); Sodium 140 mmol/L (136-145)
[2020-03-24 12:20] LABS: Albumin Globulin Ratio 0.4 (0.9-2); Alkaline Phosphatase 116 U/L (45-117); Bilirubin,Total 0.4 mg/dl (0.2-1); Globulin 4.8 gm/dl (2.5-4.0); Total Protein 6.9 gm/dl (6.4-8.2); Troponin I < 0.015 ng/ml (0-0.045)
[2020-03-24 12:28] LABS: Basophils # (auto) 0.02 K/uL (0-0.2); Basophils % (auto) 0.2 %; Eosinophils # (auto) 0.37 K/uL (0-0.5); Eosinophils % (auto) 4.4 %; Immature Granulocytes # (auto) 0.05 K/uL (0.00-0.02); Immature Granulocytes % (auto) 0.6 %; Lymphocytes # (auto) 0.25 K/uL (1.2-3.4); Monocytes # (auto) 0.22 K/uL (0.11-0.59); Monocytes % (auto) 2.6 %; Neutrophils # (auto) 7.46 K/uL (1.4-6.5); Neutrophils % (auto) 89.2 %
--- NOTE | 2020-03-24 12:41 | CT Scan Report ---
CT SCAN OF THE BRAIN WITHOUT IV CONTRAST CLINICAL HISTORY: Recent fall. Posterior head injury. COMPARISON STUDY: CT of the brain dated 11/10/2019. TECHNIQUE: Unenhanced axial CT scan of the brain is performed from the vertex to the skull base. A do se lowering technique was utilized adhering to the principles of ALARA. CT DOSE: 1458.63 mGy.cm FINDINGS: Brain parenchyma: There are age-related involutional changes noting moderate confluent subcortical a nd periventricular microangiopathic change. There is no hemorrhage, mass effect, or evidence of acute territorial ischemia by CT criteria. Yoder-white matter differentiation is preserved. No extra-axial fluid collection is seen. Ventricles, sulci, cisterns: Prominent secondary to involutional change. Intracranial vasculature: There is atherosclerotic calcification of the cavernous carotid and vertebr al arteries. Calvarium: The skeletal structures are osteopenic. No depressed calvarial fracture is identified. Sinuses and mastoids: There is trace mucosal thickening within the maxillary antra. Mild mucosal thic kening is also seen in the posterior ethmoid sinuses. The remaining visualized paranasal sinuses are clear. The mastoid air cells are well pneumatized. Orbits: The bony orbits are grossly intact. There are bilateral ocular lens implants. IMPRESSION: There is no hemorrhage, mass effect, or evidence of acute territorial ischemia by CT alexandria hua. ACT 112: Negative or not required by law. Electronically signed by: Lincoln Tucker M.D. 03/24/2020 12:40 PM
--- NOTE | 2020-03-24 12:44 | CT Scan Report ---
CT abd pelvis wo con CT DOSE: HISTORY: Trauma. Pain. fall back pain TECHNIQUE: Multiaxial CT images of the abdomen and pelvis were performed without contrast. A dose lo wering technique was utilized adhering to the principles of ALARA. COMPARISON STUDY: 11/10/2019 FINDINGS: Chronic pleural and parenchymal changes both lung bases. Chronic pleural plaques are stable . Hepatic cysts are unaltered. Kidneys negative for hydronephrosis. Exophytic left renal cyst is unchanged. Chronic colonic diverticulosis. No evidence for acute diverticulitis. Moderate increase in fecal load within the transverse and ascending colonic regions. Stable lytic bianca nges of the abdomen and pelvis. Degenerative changes of the thoracolumbar spine. Slight wedge deformi ty superior endplate T12 and T11. T11 is consider old with T12 possibly acute/subacute. IMPRESSION: 1. Extensive chronic changes with no acute abnormality of the abdomen or pelvis. 2. Slight wedge deformity superior endplate T12 considered acute/subacute. 3. No evidence for compromise of the spinal canal. 4. Multifocal lytic changes which have been described previously and are unchanged. ACT 112: Negative or not required by law. The above report was generated using voice recognition software. It may contain grammatical, syntax or spelling errors. Electronically signed by: Sorin Lazo M.D. 03/24/2020 12:43 PM
[2020-03-24] MEDS ORDERED: LORazepam 0.5 MG/1 ML VIAL IV STA (14:22)
[2020-03-24] MEDS ORDERED: OPTIRAY 320 125ml IV PRN (14:35)
--- NOTE | 2020-03-24 14:47 | CT Scan Report ---
CT head/brain wo con CT DOSE: HISTORY: Mental status change not following commands, baseline tremor TECHNIQUE: Multiaxial CT images of the head were performed without the use of intravenous contrast. A dose lowering technique was utilized adhering to the principles of ALARA. Comparison: 03/24/2020 Findings: The paranasal sinuses and mastoid air cells are clear. The calvarium and skull base are int act. The ventricles and sulci are within normal limits. There is no mass, hematoma, midline shift, or acute infarct. Impression: No acute intracranial abnormality. Age-related atrophy and chronic small vessel change ACT 112: Negative or not required by law. The above report was generated using voice recognition software. It may contain grammatical, syntax or spelling errors. Electronically signed by: Sorin Lazo M.D. 03/24/2020 2:45 PM
--- NOTE | 2020-03-24 14:49 | CT Scan Report ---
CT angio head w con CLINICAL HISTORY: Acute stroke TECHNIQUE: CT angiography of the head was performed in a dynamic helical fashion during intravenous a dministration of 112 cc of Optiray 320. MIP imaging was performed. A dose lowering technique was util ized adhering to the principles of ALARA. CT DOSE: COMPARISON STUDY: No previous studies for comparison. FINDINGS: There are no lesion suspicious for aneurysm. There are no major intracranial branch occlusi ons. The dural venous sinuses appear patent. There mild atheromatous changes involving the carotid si phons and distal vertebral arteries. IMPRESSION: 1. No evidence of aneurysm 2. No evidence of major intracranial branch occlusion or major intracranial stenosis ACT 112: Negative or not required by law. Electronically signed by: Bal Bay M.D. 03/24/2020 2:48 PM
--- NOTE | 2020-03-24 14:56 | CT Scan Report ---
CT ANGIOGRAM OF THE NECK CLINICAL HISTORY: Change in mental status. COMPARISON STUDY: Carotid artery ultrasound dated 05/21/2015. TECHNIQUE: Following the IV administration of 112 of Optiray 320, CT angiogram of the neck was perfor med from the aortic arch to the skull base. Images are reviewed in the axial, sagittal, and coronal p lanes. 3-D MIPS images are created and assessed. IV contrast was administered without complication. A ll measurements were calculated based on NASCET criteria. A dose lowering technique was utilized adh ering to the principles of ALARA. CT DOSE: 1090.53 mGy.cm FINDINGS: Thoracic aorta: There is atherosclerotic calcification of the thoracic aorta. Visualized portions of the thoracic aorta are normal in caliber. The aortic arch demonstrates standard 3-vessel anatomy. Right carotid arterial system: The right common carotid artery is widely patent. There is advanced at herosclerotic plaque in the carotid bulb with greater than 75% focal stenosis of the proximal right i nternal carotid artery. This extends approximately 7 mm in length, and is best seen on axial image #1 89. The mid to distal right internal carotid artery are patent. There is tortuosity and focal ectasia of the distal internal carotid artery below the skull base measuring up to 8 mm. There is mild steno sis of the origin of the right external carotid artery. Left carotid arterial system: The left common carotid artery is widely patent, as are the left senior internet sales consultant al and external carotid arteries. Advanced atherosclerotic plaque is noted in the carotid bulb. There is tortuosity of the distal internal carotid artery. Vertebral arteries: Vertebral arteries are patent bilaterally and codominant in the neck. Subclavian arteries: Widely patent bilaterally. Intracranial vasculature: The partially imaged intracranial vessels at the skull base appear patent. Jugular veins: Widely patent bilaterally. Brain parenchyma: The visualized brain parenchyma the skull base is within normal limits noting age-r elated involutional change. Lung apices: Calcified pleural plaques are present in the upper lobes bilaterally, left greater than right. No airspace consolidation is seen in the upper lobe lung parenchyma. Soft tissues: The visualized pharyngeal soft tissues are normal in appearance noting angiographic pha se technique. The oropharyngeal airway appears widely patent. The salivary and thyroid glands are nor mal in appearance. No cervical lymphadenopathy is seen. Sinuses and mastoids: There is trace mucosal thickening within the maxillary antra. Mild to moderate mucosal thickening seen within the posterior ethmoid sinuses. The mastoid air cells are well pneumati zed. Skeletal structures: The skeletal structures are osteopenic. The visualized calvarium at the skull ba se appears intact. The imaged cervical spine is maintained noting multilevel spondylosis. No lytic or blastic lesion is seen. There are mild superior endplate compression deformities of T3, T4, and T5. IMPRESSION: 1. There is greater than 75% focal stenosis of the proximal right internal carotid artery. 2. The remainder of the right internal carotid artery is patent. 3. The left internal carotid artery and the vertebral arteries are clear. 4. 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 ACT 112: Negative or not required by law. Electronically signed by: Lincoln Tucker M.D. 03/24/2020 2:55 PM
--- NOTE | 2020-03-24 15:39 | Electrocardiogram Report ---
Test Reason : Blood Pressure : / mmHG Vent. Rate : 093 BPM Atrial Rate : 093 BPM P-R Int : 116 ms QRS Dur : 094 ms QT Int : 340 ms P-R-T Axes : 043 -25 049 degrees QTc Int : 422 ms Poor data quality, interpretation may be adversely affected Normal sinus rhythm Nonspecific ST and T wave abnormality Abnormal ECG When compared with ECG of 11-NOV-2019 06:25, Nonspecific T wave abnormality no longer evident in Inferior leads Confirmed by Juma Yoon ([id number]) on 03/24/2020 3:38:42 PM Referred By: REFERRED SELF Confirmed By:Gigi Yoon
--- NOTE | 2020-03-24 15:40 | History & Physical Report ---
Date of Service March 24, 2020 Assessment & Plan (1) Fall: Patient had a fall at home with subsequent back pain patient was brought into the ER and is being worked up for TIA/stroke eval. No acute injuries were seen on the CT head but there is some concern for right internal carotid artery stenosis. This patient looks like he is sustained a T12 superior endplate compression fracture with a fall which is resulted in his back pain. Is unclear if the carotid stenosis has significant impact will ask neurology to weigh in however given his age and comorbidities surgery may not be an option. Patient is already therapeutically coagulated on antiplatelet agents. Since his initial fall was associated going to the bathroom of those urinalysis is unremarkable he did have some urinary frequency symptoms and subsequently a urine culture will be sent that this could create encephalopathy which would result in his falls (2) Vertebral compression fracture: We will pursue a plan of pain control with scheduled Tylenol Lidoderm patch and mild PRN opiates. The patient is previously been on opiates so he may have a tolerance PT OT to be evaluated (3) Hypercalcemia: Patient has mild hypercalcemia associate with multiple myeloma will hydrate him initially try to determine if he would require any bisphosphonates for calcium control or when his last dose was (4) Thrombocytopenia: This is noted in mild, counts are 75 on presentation. Likely related to his history of multiple myeloma and also use of chemotherapeutic medications (5) Chronic kidney disease, stage 3a: BUN and creatinine are stable on presentation avoid nephrotoxic medications (6) Multiple myeloma: (7) Parkinson disease: Patient will continue on his Sinemet and selegiline (8) Anemia: Patient has anemia of chronic disease associated with his multiple myeloma. 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 He is following with the wound care center wound care nursing consult be placed at this time History of Present Illness Primary Care Provider: ESTHELA Salinas I was asked to meet this patient for TIA work-up. The patient had a fall last evening which is not unusual for him but the circumstances around it are slightly unusual. Patient typically calls his asked for help when ambulating to the bathroom with a walker he did not do this. His found him on the ground. He was found to have a T12 acute subacute superior endplate compression fracture, the patient has complained of some right-sided mid lumbar paraspinal discomfort. 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 He has a previous history of thrombophilia and pulmonary embolism patient is currently on apixaban. The patient did take an oxycodone this morning which did help his back pain. Patient did not sustain any injuries from his fall being on anticoagulation. There is no evidence of stroke. There is a suggestion of a right internal carotid artery 75% stenosis on angiogram. MRI of the brain is pending at this time. Patiently admitted for stroke protocol, he will see Dr. Dotson or a partner of Dr. Dotson within the stroke protocol work-up as Dr. Dotson is his typical outpatient neurologist. Patient does have physical therapy that does come into the home twice per week but this is soon to end. In the emergency department patient had no focal loss but did have obvious parkinsonian symptoms and was bradykinetic and slow with speech Allergies Allergy/AdvReac Type Severity Reaction Status Date / Time Cephalosporins Allergy Intermediate Rash Verified 03/24/20 12:04 doxycycline Allergy Intermediate skin Verified 03/24/20 12:04 irritation Penicillins Allergy Intermediate HIVES Verified 03/24/20 12:04 amoxicillin Allergy Unknown RASH Verified 03/24/20 12:04 sulfamethoxazole AdvReac Intermediate skin rash Verified 03/24/20 12:04 [From Bactrim] trimethoprim [From Bactrim] AdvReac Intermediate skin rash Verified 03/24/20 12:04 Home Medications Home Medications Medication Instructions Recorded Confirmed Type carbidopa-levodopa [Sinemet] 1 tab PO TID 07/01/18 03/24/20 History selegiline HCl 5 mg PO TID 07/01/18 03/24/20 History apixaban 2.5 mg tablet 2.5 mg PO BID 06/26/19 03/24/20 History oxycodone 10 mg tablet 10 mg PO Q6H PRN tab 07/03/19 03/24/20 History dexamethasone 4 mg PO TH@0800 11/10/19 03/24/20 History doxycycline hyclate 100 mg tablet 100 mg PO BID #60 tab 12/24/19 03/24/20 Rx metoprolol tartrate 25 mg tablet 6.25 mg PO BID #30 tab 01/21/20 03/24/20 Rx Prevagen 1 cap PO DAILY@1500 03/24/20 03/24/20 History acyclovir 400 mg PO BID 03/24/20 03/24/20 History aspirin 81 mg PO DAILY@1500 03/24/20 03/24/20 History bortezomib [Velcade] 0 mg IV TH 03/24/20 03/24/20 History cyclophosphamide 0 mg PO TH@0800 03/24/20 03/24/20 History docusate sodium [Colace] 300 mg PO HS 03/24/20 03/24/20 History gabapentin 400 mg PO TID 03/24/20 03/24/20 History hydrochlorothiazide 25 mg PO QAM 03/24/20 03/24/20 History omeprazole 20 mg PO QAM 03/24/20 03/24/20 History oxycodone 5 mg PO Q4H PRN 03/24/20 03/24/20 History prochlorperazine maleate 10 mg PO QAM 03/24/20 03/24/20 History simvastatin 20 mg PO HS 03/24/20 03/24/20 History Past Med/Surg History Medical History Abnormal EKG (Inactive) Acute renal failure (ARF) (Inactive) Altered mental status (Inactive) Arthritis (Chronic) Basal cell carcinoma (BCC) Bursitis of right hip Chest pain syndrome (Resolved 05/20/14) Non-ST elevation RI (NSTEMI) (Inactive) Sacroiliac dysfunction Family History Mother , in her 70s Coronary heart disease Myocardial infarction Stroke Father , age 94 Glaucoma Unknown Acute urticaria Sister Breast cancer Denies family history of Ovarian cancer Prostate cancer Diabetes Dyslipidemia Colorectal cancer Hypertension Social History Preferred Language: Faroese Communication Ability: Effective Visual Impairment: Limited Hearing Ability: Normal Cloth Sander Required: No Beliefs That Will Affect Care: None marital status: marital status details: 2 children Current Living Situation: Spouse current occupational status: retired Other Information That Helps Us Care for You: No other: 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 Feels Safe at Home: Yes Safety Concerns: Feels Safe At This Time Smoking Status: Never smoker Hx Alcohol Use: Yes Alcohol type: hard liquor Alcohol Intake Frequency: Holidays/Special Occasions Hx Substance Use: No Review of Systems Review of Systems: Mild distress and fatigue no headache, blurry or double vision no speech or swallowing issues but very slow methodical speech no chest pain, pressure or palpitations no shortness of breath, cough or wheezes no abdominal pain, nausea or vomiting, diarrhea or constipation no dysuria, hematuria or frequency He has significant discomfort associate with his dermatitis Focal lower back pain, without CVA tenderness or radicular pain Significant petechiae bilateral lower extremities multiple areas of open dermatitis including the worst being on his lower left anterior thigh and knee no focal signs of weakness or numbness or altered sensation but markedly weak bradykinetic and slow of speech and movement with resting tremors no complaints or anxiety or depression. Physical Exam Physical Exam: The patient appeared chronically ill and limited by his Parkinson's disease Vital signs as documented. Head exam is normocephalic atraumatic no scleral icterus pupils however are small and he did receive opiates earlier in the day Neck is without JVD, thyromegaly, or carotid bruits. Lungs are clear to auscultation, no focal loss of breath sounds Cardiac exam, Rhythm is regular.. No murmurs, rubs or gallops. Abdominal exam reveals normal bowel sounds, soft non tender, no masses Extremities are nonedematous and both pedal pulses are normal. Neurologic exam is alert and oriented x2, no focal loss of strength or sensation, resting tremors present Skin is with marked changes including significant petechia to his lower legs areas of abrasions and eschar and small areas on both lower legs and a large left distal upper thigh denuded area with granulation tissue seen Results & Data Results & Data ([facility]) Vital Signs (Past 12 Hours) Vital Signs Temp Pulse Pulse Resp BP BP Pulse Ox 03/24/20 14:25 115 H 24 123/56 L 91 03/24/20 12:46 99 H 20 115/61 91 03/24/20 11:40 94 03/24/20 10:47 98.2 F 90 18 95/[address] brain 03/24/2020 no hemorrhage mass-effect or acute ischemia, there are 2 studies 1 at 11 AM and [address] angiogram of head 03/24/2020no evidence of aneurysms or intracranial branch occlusion or stenosis CT angiogram of neck 03/24/2020 greater than 75% focal stenosis of the proximal right internal carotid artery remainder is patent left internal carotid artery and vertebral arteries are clear CT abdomen pelvis 03/24/2020 no acute abnormality in the abdomen or pelvis, wedge deformity superior endplate T12 considered acute/subacute. Multifocal lytic changes consistent with history of multiple myeloma Chest x-ray 03/24/2020 unremarkable EKG 03/24/2020 normal sinus rhythm with baseline tremor seen PG Care Time/CCT Total # of Minutes Spent Total Time Spent with Patient: Total time spent is greater than 50% in c oordination of care (as documented) at patient's floor/unit and/or counseling patient: Coding Level of Care Code 91671 Initial Inpt Care Lvl 3 Diagnoses Fall W19.XXXA Vertebral compression fracture M48.50XA Hypercalcemia E83.52 Thrombocytopenia D69.6 Chronic kidney disease, stage 3a N18.3 Multiple myeloma C90.00 Multiple myeloma remission status: unspecified Parkinson disease G20 Anemia D64.89 Anemia type: other cause Other causes of anemia: other cause, not classified DVT prophylaxis Z29.9 Cryoglobulinemic purpura D89.1 (1) Anemia Anemia type: other cause Other causes of anemia: other cause, not classified Qualified Code(s): D64.89 - Other specified anemias (2) Multiple myeloma Multiple myeloma remission status: unspecified Qualified Code(s): C90.00 - Multiple myeloma not having achieved remission
[2020-03-24 15:55] LABS: Appearance Urine Clear (Clear); Bacteria Urine Automated Negative (Negative); Bilirubin Urine Negative (Negative); Blood Urine Negative (Negative); Color Urine Yellow; Glucose Urine UA Negative (Negative); Ketones Urine Negative (Negative); Leukocyte Esterase Urine Negative (Negative); Nitrite Urine Negative (Negative); Protein Urine Trace (Negative); RBC Urine Automated 0-4 /hpf (0-4); Specific Gravity Urine 1.023 (1.000-1.030); Urobilinogen Urine Negative (Negative); pH Urine 5.5 (4.5-7.5)
--- NOTE | 2020-03-24 16:26 | Magnetic Resonance Report ---
MRI OF THE BRAIN WITHOUT IV CONTRAST CLINICAL HISTORY: Strokelike symptoms. COMPARISON STUDY: CT of the brain dated 03/24/2020. TECHNIQUE: MRI of the brain was performed utilizing various T1 and T2-weighted sequences in the axial , sagittal, and coronal planes. IV contrast was not administered for this examination. FINDINGS: Brain parenchyma: There is age-related involutional change noting moderate confluent subcortical and periventricular microangiopathic disease. There is no hemorrhage or mass effect. There is no restrict ed diffusion to suggest acute ischemia. Yoder-white matter differentiation is preserved. No extra-axia l fluid collection is seen. The cerebellar tonsils are normal in configuration. Ventricles, sulci, and cisterns: Prominent secondary to involutional change. Pituitary and sella: Unremarkable. Intracranial vasculature: Normal flow voids are maintained at the skull base. Orbits: The bony orbits are grossly intact. Orbital contents are normal in appearance noting bilatera l ocular lens implants. Sinuses and mastoids: There is trace mucosal thickening in the right maxillary antrum. Moderate mucos al thickening is noted in the posterior ethmoid sinuses. The mastoid air cells are clear. Calvarium: Unremarkable. Cervical cord: Partially visualized cervical spinal cord is normal in morphology and signal intensity . IMPRESSION: No acute intracranial abnormality. ACT 112: Negative or not required by law. Electronically signed by: Lincoln Tucker M.D. 03/24/2020 4:24 PM
[2020-03-24] MEDS ORDERED: ALUMINUM/MAGNESIUM SUSP 30 ML UDC PO PRN (19:45)
[2020-03-24] MEDS ORDERED: OXYCODONE HCL IR 5 MG TAB (IMMEDIATE RELEASE) PO PRN ×2 (19:45)
[2020-03-24] MEDS ORDERED: ONDANSETRON INJ 2 MG/ML 2 ML VIAL IV PRN (19:45)
[2020-03-24] MEDS ORDERED: POLYETHYLENE (MIRALAX) 17 GM PACK PO PRN (19:45)
[2020-03-24] MEDS ORDERED: PHARMACIST DISCHARGE MED REC CONSULT PRN (19:45)
[2020-03-24] MEDS ORDERED: SODIUM CHLORIDE 0.9% 1000ML 1,000 ML IV SCH (19:45)
[2020-03-24] MEDS: DOCUSATE SODIUM 100 MG CAP PO SCH ×2 (22:31→22:43)
[2020-03-24] MEDS: METOPROLOL TARTRATE 25 MG TAB PO SCH (22:31)
[2020-03-24] MEDS: GABAPENTIN 400 MG CAP PO SCH ×2 (22:31→22:44)
[2020-03-24] MEDS: CARBIDOPA/LEVODOPA 25/100MG TAB PO SCH ×2 (22:32→22:42)
[2020-03-24] MEDS: APIXABAN 2.5 MG TAB PO SCH ×2 (22:32→22:44)
[2020-03-24] MEDS: SIMVASTATIN 20 MG TAB PO SCH ×2 (22:33→22:44)
[2020-03-24] MEDS: DOXYCYCLINE HYCLATE 100 MG CAP PO SCH ×2 (22:33→22:44)
[2020-03-24] MEDS: ACETAMINOPHEN 500 MG TAB PO SCH ×2 (22:38→22:44)
[2020-03-24] MEDS: ACYCLOVIR 400 MG TAB PO SCH (22:42)
[2020-03-25 06:02] LABS: Estimated Average Glucose 114 mg/dl; Hemoglobin A1C 5.6 % (4.5-5.6)
[2020-03-25 07:33] LABS: Hematocrit (blood only) 22.8 % (42-52); Hemoglobin 7.5 g/dL (14.0-18.0); Mean Corpuscular Hemoglobin 33.3 pg (25-34); Mean Corpuscular Hgb Conc 32.9 g/dL (32-36); Mean Corpuscular Volume 101.3 fL (80-100); RDW Coefficient of Variation 17.1 % (11.5-14.5); RDW Standard Deviation 64.1 fL (36.4-46.3); Red Blood Count 2.25 M/uL (4.7-6.1); White Blood Count 7.04 K/uL (4.8-10.8)
[2020-03-25 07:39] LABS: Platelet Count 77 K/uL (130-400)
[2020-03-25 08:01] LABS: Anisocytosis Present; Basophils # (auto) 0.01 K/uL (0-0.2); Basophils % (auto) 0.1 %; Eosinophils # (auto) 0.27 K/uL (0-0.5); Eosinophils % (auto) 3.8 %; Immature Granulocytes # (auto) 0.03 K/uL (0.00-0.02); Immature Granulocytes % (auto) 0.4 %; Lymphocytes # (auto) 0.37 K/uL (1.2-3.4); Lymphocytes % (auto) 5.3 %; Monocytes # (auto) 0.88 K/uL (0.11-0.59); Monocytes % (auto) 12.5 %; Neutrophils # (auto) 5.48 K/uL (1.4-6.5); Neutrophils % (auto) 77.9 %
[2020-03-25 08:13] LABS: BUN Creatinine Ratio 19.3 (10-20); Calcium 9.7 mg/dl (8.5-10.1); Creatinine Clr Calc Pharmacy 44.7 ml/min; Est GFR (African American) 73.5; Est GFR (Non-African American) 63.4; Potassium 3.2 mmol/L (3.5-5.1)
[2020-03-25] MEDS ORDERED: SODIUM CHLORIDE 0.9% 250 ML IV PRN (08:24)
[2020-03-25] MEDS: DOCUSATE SODIUM 100 MG CAP PO SCH ×2 (09:12→20:59)
[2020-03-25] MEDS: METOPROLOL TARTRATE 25 MG TAB PO SCH ×2 (09:13→21:03)
[2020-03-25] MEDS: PANTOprazole 40 MG TAB PO SCH (09:13)
[2020-03-25] MEDS: PROCHLORPERAZINE MALEATE 10 MG TAB PO SCH (09:13)
[2020-03-25] MEDS: DOXYCYCLINE HYCLATE 100 MG CAP PO SCH ×2 (09:14→21:06)
[2020-03-25] MEDS: CARBIDOPA/LEVODOPA 25/100MG TAB PO SCH ×3 (09:15→21:07)
[2020-03-25] MEDS: GABAPENTIN 400 MG CAP PO SCH ×3 (09:15→21:06)
[2020-03-25] MEDS: APIXABAN 2.5 MG TAB PO SCH ×2 (09:15→21:01)
[2020-03-25] MEDS: ACETAMINOPHEN 500 MG TAB PO SCH ×3 (09:24→21:08)
[2020-03-25] MEDS: ACYCLOVIR 400 MG TAB PO SCH ×2 (09:24→21:10)
[2020-03-25] MEDS: LIDOCAINE 5% 1 PATCH TD SCH (09:24)
[2020-03-25] MEDS ORDERED: SOD PHOSPHATE/SOD BIPHOSPHATE ENEMA 132 ML BTL PR ONE (11:15)
[2020-03-25] MEDS ORDERED: ACYCLOVIR 400 MG TAB PO ONE (11:30)
[2020-03-25] MEDS ORDERED: ASPIRIN 81 MG ECTAB PO SCH (15:00)
--- NOTE | 2020-03-25 16:10 | Hospitalist Progress Note ---
Date of Service March 25, 2020 Assessment & Plan (1) Fall: Patient had a fall at home with subsequent back pain patient was brought into the ER and is being worked up for TIA/stroke eval. No acute injuries were seen on the CT head but there is some concern for right internal carotid artery stenosis. This patient looks like he is sustained a T12 superior endplate compression fracture with a fall which is resulted in his back pain. Is unclear if the carotid stenosis has significant impact will ask neurology to weigh in however given his age and comorbidities surgery may not be an option. Patient is already therapeutically coagulated on antiplatelet agents. Since his initial fall was associated going to the bathroom of those urinalysis is unremarkable he did have some urinary frequency symptoms and subsequently a urine culture shows pinpoint growth and will be re incubated, that this could create encephalopathy which would result in his falls (2) Vertebral compression fracture: We will pursue a plan of pain control with scheduled Tylenol Lidoderm patch and mild PRN opiates. The patient is previously been on opiates so he may have a tolerance PT OT to be evaluated, however seems resistant to the discussion of rehab and prefers the pt go home (3) Hypercalcemia: Patient has mild hypercalcemia associate with multiple myeloma improved with hydation (4) Thrombocytopenia: remains in the 70's Likely related to his history of multiple myeloma and also use of chemotherapeutic medications (5) Chronic kidney disease, stage 3a: BUN and creatinine are stable on presentation avoid nephrotoxic medications, bun is 20:1 to cr so be wary of blood loss, no ugi sx at present (6) Multiple myeloma: (7) Parkinson disease: Patient will continue on his Sinemet and selegiline (8) Anemia: Patient has anemia of chronic disease associated with his multiple myeloma. 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 He is following with the wound care center wound care nursing consult be placed at this time Admission and Anticipated Discharge Date Admission Date: March 24, 2020 Subjective Patient is much more vibrant awake and alert today compared to on admission. He did have a MRI scan which did not confirm any stroke. He did have reduction in his hemoglobin despite having no melena or obvious loss of blood however he did not have stool. He has marked tremor and parkinsonian symptoms at the bedside Review of Systems Review of Systems: Mild distress and fatigue no headache, blurry or double vision no speech or swallowing issues but very slow methodical speech no chest pain, pressure or palpitations no shortness of breath, cough or wheezes no abdominal pain, nausea or vomiting, diarrhea or constipation no dysuria, hematuria or frequency He remains with discomfort associate with his dermatitis Having significant focal lower back pain, without CVA tenderness or radicular pain Significant petechiae bilateral lower extremities multiple areas of open dermatitis including the worst being on his lower left anterior thigh and knee no focal signs of weakness or numbness or altered sensation but markedly weak bradykinetic and with resting tremors no complaints or anxiety or depression. Physical Exam Physical Exam: The patient appeared chronically ill and limited by his Parkinson's disease Vital signs as documented. Head exam is normocephalic atraumatic no scleral icterus pupils however are small and he did receive opiates earlier in the day Neck is without JVD, thyromegaly, or carotid bruits. Lungs are clear to auscultation, no focal loss of breath sounds Cardiac exam, Rhythm is regular.. No murmurs, rubs or gallops. Abdominal exam reveals normal bowel sounds, soft non tender, no masses Extremities are nonedematous and both pedal pulses are normal. Neurologic exam is alert and oriented x2, no focal loss of strength or sensation, resting tremors present Skin is with marked changes including significant petechia to his lower legs areas of abrasions and eschar and small areas on both lower legs and a large left distal upper thigh denuded area with granulation tissue seen Results & Data Results & Data ([facility]) Vital Signs (Past 12 Hours) Vital Signs Temp Pulse Pulse Resp BP BP Pulse Ox 03/25/20 15:01 97.5 F L 76 16 99/48 L 95 03/25/20 14:20 97.5 F L 73 16 105/58 L 94 03/25/20 13:20 97.7 F 76 16 101/60 95 03/25/20 12:20 97.3 F L 77 16 107/59 L 94 03/25/20 11:50 97.3 F L 76 18 102/59 L 95 03/25/20 11:35 97.7 F 75 18 111/63 98 03/25/20 11:20 97.7 F 72 18 118/72 96 03/25/20 11:06 97.7 F 74 18 111/65 94 03/25/20 07:02 97.9 F 85 18 113/64 91 PG Care Time/CCT Total # of Minutes Spent Total Time Spent with Patient: Total time spent is greater than 50% in coordination of care (as documented) at patient's floor/unit and/or counseling patient: Coding Level of Care Code 06093 Subseq Hosp Care Lvl 3 Diagnoses Fall W19.XXXA Vertebral compression fracture M48.50XA Hypercalcemia E83.52 Thrombocytopenia D69.6 Chronic kidney disease, stage 3a N18.3 Multiple myeloma C90.00 Multiple myeloma remission status: unspecified Parkinson disease G20 Anemia D64.89 Anemia type: other cause Other causes of anemia: other cause, not classified DVT prophylaxis Z29.9 Cryoglobulinemic purpura D89.1 (1) Anemia Anemia type: other cause Other causes of anemia: other cause, not classified Qualified Code(s): D64.89 - Other specified anemias (2) Multiple myeloma Multiple myeloma remission status: unspecified Qualified Code(s): C90.00 - Multiple myeloma not having achieved remission
--- NOTE | 2020-03-25 18:33 | Consultation Report ---
DATE OF CONSULTATION: 03/25/2020 NEUROLOGY CONSULTATION NOTE CHIEF COMPLAINT: Confusion and fall. HISTORY OF PRESENT ILLNESS: An 84-year-old male with a history of Parkinson's disease and gait instability, followed by Dr. Dotson as an outpatient, admitted for intermittent confusion and a fall last evening. His is at bedside who helps clarify the history. The patient is currently back to his normal baseline, although the noted some confusion yesterday when she was attempting to ask him some questions. Today, he has been disoriented to the month. Otherwise, he is following commands and acting appropriately. Early this morning, he did attempt to get out of bed and sustained a fall. He was taken to an outside medical center for evaluation of the fall and some confusion and was sent to the ER due to concern for stroke. The patient's did note an intermittent right facial droop, although that has since resolved. Otherwise, there was no focal weakness or numbness noted. The patient reports feeling okay at this time. He does ambulate with a walker. He has not had similar episodes of delirium in the past per his . She does note a prior history of a possible TIA and he does take aspirin 81 mg daily. Of note, he does have a history of multiple myeloma and is on chemotherapeutic medications, and as a result, has chronic thrombocytopenia. He is on Eliquis for DVT prophylaxis. ALLERGIES: THE PATIENT IS ALLERGIC TO CEPHALOSPORINS AND DOXYCYCLINE, BOTH OF WHICH CAUSE A RASH OR SKIN IRRITATION. HE IS ALLERGIC TO PENICILLIN, WHICH CAUSES HIVES. HE IS ALSO ALLERGIC TO AMOXICILLIN, BACTRIM, WHICH IS ASSOCIATED WITH A SKIN RASH. HOME MEDICATIONS: Include Sinemet, which he takes 25/100 one tab 3 times daily. He is on selegiline 5 mg 3 times daily. He is on Eliquis 2.5 mg twice daily, he takes metoprolol 6.25 mg twice daily. He is on aspirin 81 mg daily, cyclophosphamide, gabapentin 400 mg 3 times daily, he is on simvastatin 20 mg nightly. PAST MEDICAL HISTORY: Parkinson's disease, chronic kidney disease, multiple myeloma, anemia, arthritis, basal cell carcinoma, TIA. PAST SURGICAL HISTORY: The patient has not had any recent surgeries. He has a remote history of back surgery, hernia repair, history of carpal tunnel release surgery. FAMILY HISTORY: His mother had coronary artery disease, myocardial infarction as well as a stroke. His father had glaucoma. SOCIAL HISTORY: He is . He is retired. He is a nonsmoker. No history of alcohol use. PHYSICAL EXAMINATION: VITAL SIGNS: Blood pressure 99/48 mmHg, pulse is 76, respiratory rate is 16, his temperature is 36.4 and his O2 sat is 95% on room air. CONSTITUTIONAL: The patient appears chronically ill, he appears his stated age. He is a thin -appearing male in no distress. HEENT: His face is normocephalic and atraumatic. His eyes, he has normal lids and normal conjunctivae. NECK: Supple. RESPIRATORY: Appears to have a normal effort with no cough. CARDIOVASCULAR: Normal pulses. ABDOMEN: Nondistended. SKIN: He does have an abrasion or open wound on his left leg. PSYCHIATRIC: Flat affect. NEUROLOGIC EXAMINATION: APPEARANCE: He is in no distress. He is awake. He is alert. He is oriented to person, place and year. His attention is normal. His knowledge is poor. His language comprehension is intact and he is following complex commands. His speech is soft. CRANIAL NERVES: Cranial nerve II: He blinks to threat on confrontation. His visual lopez are full. Cranial nerves III, IV and : His extraocular muscles are intact, although appear restricted with limited upgaze. His facial sensation is intact. His face is symmetric with smile. His hearing is grossly intact. His palate is symmetric. He is holding his head up and his shoulder shrug is okay. His tongue is midline. His gait is bradykinetic, wide-based, shuffling gait. He has stooped posture, ambulating with a 4-point walker. He turns en bloc. COORDINATION: He has a left pill rolling tremor. He is bradykinetic and has some intention tremor with [id number]. There is also a prominent chin tremor. Sensation is intact to light touch. He has some cogwheeling in regards to his muscle tone. MOTOR: Muscle examination, he is moving all 4 extremities equally against gravity. REFLEXES: Carlos sign is negative bilaterally. DIAGNOSTIC TESTING: LABORATORIES: WBC 7.04, hemoglobin 7.8, platelet count is 77. His INR is 1.1. Chemistries; his sodium is 143, his potassium is 3.2, his chloride is 109, his BUN is 21, his creatinine is 1.07, his glucose is 82. His hemoglobin A1c is 5.6. His calcium is 9.7. His troponin is 0.015. His LDL cholesterol is 48. His vitamin B12 was 470. His TSH is 2.3. Urinalysis, trace protein, negative for ketones, negative for nitrites, leukocyte esterase was negative. Urine bacteria was negative. IMAGING STUDIES: Included a brain MRI without contrast, which showed no acute intracranial abnormality. No evidence of acute ischemic stroke. CTA of the neck, there was a greater than 75% focal stenosis of proximal right internal carotid artery. The remainder of the right internal carotid artery is patent. The left internal carotid artery and vertebral arteries are clear. Head CT noncontrast, no acute intracranial abnormality. Age-related atrophy and chronic small vessel ischemic changes. 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 History provided by the patient's spouse was devoid of any features to suggest transient ischemic attack or stroke. The carotid stenosis noted in the right internal carotid artery is likely an incidental finding and agree with continuing medical management. The patient is currently on Eliquis as well as aspirin. In regards to his Parkinson's disease, recommend to continue current medications. Agree with physical therapy evaluation for any outpatient rehabilitation needs. Please consult me or contact me with any further questions or concerns.
[2020-03-25] MEDS: POTASSIUM CHLORIDE 20 MEQ TABCR PO SCH (21:02)
[2020-03-25] MEDS: SIMVASTATIN 20 MG TAB PO SCH (21:09)
[2020-03-26] MEDS ORDERED: CYCLOPHOSPHAMIDE 25 MG TAB PO SCH (08:00)
[2020-03-26] MEDS ORDERED: dexAMETHasone 4 MG TAB PO SCH (08:00)
[2020-03-26 08:43] LABS: Hematocrit (blood only) 28.8 % (42-52); Hemoglobin 9.5 g/dL (14.0-18.0); Mean Corpuscular Hemoglobin 32.4 pg (25-34); Mean Corpuscular Volume 98.3 fL (80-100); Mean Platelet Volume 11.8 fL (7.4-10.4); Platelet Count 96 K/uL (130-400); RDW Coefficient of Variation 18.7 % (11.5-14.5); RDW Standard Deviation 67.6 fL (36.4-46.3); Red Blood Count 2.93 M/uL (4.7-6.1); White Blood Count 6.59 K/uL (4.8-10.8)
[2020-03-26 08:45] LABS: Basophils # (auto) 0.02 K/uL (0-0.2); Basophils % (auto) 0.3 %; Eosinophils # (auto) 0.67 K/uL (0-0.5); Eosinophils % (auto) 10.2 %; Immature Granulocytes % (auto) 6.1 %; Lymphocytes # (auto) 0.34 K/uL (1.2-3.4); Lymphocytes % (auto) 5.2 %; Monocytes # (auto) 1.05 K/uL (0.11-0.59); Monocytes % (auto) 15.9 %; Neutrophils # (auto) 4.11 K/uL (1.4-6.5); Neutrophils % (auto) 62.3 %; Toxic Vacuolation 2+
[2020-03-26 08:48] LABS: BUN Creatinine Ratio 17.1 (10-20); Calcium 10.3 mg/dl (8.5-10.1); Creatinine Clr Calc Pharmacy 46.9 ml/min; Est GFR (African American) 77.9; Est GFR (Non-African American) 67.2; Potassium 3.5 mmol/L (3.5-5.1)
[2020-03-26] MEDS: CARBIDOPA/LEVODOPA 25/100MG TAB PO SCH (09:35)
[2020-03-26] MEDS: ACYCLOVIR 400 MG TAB PO SCH (09:35)
[2020-03-26] MEDS: APIXABAN 2.5 MG TAB PO SCH (09:36)
[2020-03-26] MEDS: DOXYCYCLINE HYCLATE 100 MG CAP PO SCH (09:36)
[2020-03-26] MEDS: POTASSIUM CHLORIDE 20 MEQ TABCR PO SCH (09:36)
[2020-03-26] MEDS: METOPROLOL TARTRATE 25 MG TAB PO SCH (09:36)
[2020-03-26] MEDS: GABAPENTIN 400 MG CAP PO SCH (09:36)
[2020-03-26] MEDS: PANTOprazole 40 MG TAB PO SCH (09:37)
[2020-03-26] MEDS: PROCHLORPERAZINE MALEATE 10 MG TAB PO SCH (09:37)
[2020-03-26] MEDS: LIDOCAINE 5% 1 PATCH TD SCH (09:38)
[2020-03-26] MEDS: ACETAMINOPHEN 500 MG TAB PO SCH (09:42)
[2020-03-26] MEDS ORDERED: STROKE PATIENT DISCHARGE STA (12:20)
[2020-03-26] MEDS ORDERED: ZOLEDRONIC ACID 4 MG in 0.9 % SODIUM CHLORIDE 100 ML IV ONE (13:00)
--- NOTE | 2020-03-26 17:30 | Discharge Summary ---
Date of Service March 26, 2020 Admission HPI Per Admitting Provider I was asked to meet this patient for TIA work-up. The patient had a fall last evening which is not unusual for him but the circumstances around it are slightly unusual. Patient typically calls his asked for help when ambulating to the bathroom with a walker he did not do this. His found him on the ground. He was found to have a T12 acute subacute superior endplate compression fracture, the patient has complained of some right-sided mid lumbar paraspinal discomfort. 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 He has a previous history of thrombophilia and pulmonary embolism patient is currently on apixaban. The patient did take an oxycodone this morning which did help his back pain. Patient did not sustain any injuries from his fall being on anticoagulation. There is no evidence of stroke. There is a suggestion of a right internal carotid artery 75% stenosis on angiogram. MRI of the brain is pending at this time. Patiently admitted for stroke protocol, he will see Dr. Dotson or a partner of Dr. Dotson within the stroke protocol work-up as Dr. Dotson is his typical outpatient neurologist. Patient does have physical therapy that does come into the home twice per week but this is soon to end. In the emergency department patient had no focal loss but did have obvious parkinsonian symptoms and was bradykinetic and slow with speech Principal Diagnosis T12 compression fracture Anemia associated with malignancy Hypercalcemia Discharge Exam The patient appeared chronically ill with parkinsonian symptoms easily to see Vital signs as documented. Lungs are clear to auscultation and appear unlabored Cardiac exam, Rhythm is regular.. Slight systolic ejection murmurs heard Abdominal exam reveals normal bowel sounds, soft non tender, no masses Extremities are nonedematous and both pedal pulses are normal. Neurologic exam is alert and oriented he is bradykinetic he has resting tremor he is tremulous jaw Skin is with a series of bruises and bleeding likely from mild trauma Discharge Data Allergies Allergy/AdvReac Type Severity Reaction Status Date / Time Cephalosporins Allergy Intermediate Rash Verified 03/24/20 12:04 doxycycline Allergy Intermediate skin Verified 03/24/20 12:04 irritation Penicillins Allergy Intermediate HIVES Verified 03/24/20 12:04 amoxicillin Allergy Unknown RASH Verified 03/24/20 12:04 sulfamethoxazole AdvReac Intermediate skin rash Verified 03/24/20 12:04 [From Bactrim] trimethoprim [From Bactrim] AdvReac Intermediate skin rash Verified 03/24/20 12:04 Consultations 03/24/20 15:11 ED Decision to Admit Stat 03/24/20 19:45 Consult Case Management - Discharge Planning Routine Consult Neurology Routine Ordered Studies 03/24/20 11:19 CT abd pelvis wo con Stat CT head/brain wo con Stat 03/24/20 14:22 CT head/brain wo con Stat 03/24/20 14:33 CT angio head w con Stat CT angio neck with con Stat 03/24/20 15:11 MR brain wo con Stat Hospital Course (1) Fall: Patient had a fall at home with subsequent back pain patient was brought into the ER and is being worked up for TIA/stroke eval. No acute injuries were seen on the CT head but there is some concern for right internal carotid artery stenosis. This patient looks like he is sustained a T12 superior endplate compression fracture with a fall which is resulted in his back pain. Is unclear if the carotid stenosis has significant impact will ask neurology to weigh in however given his age and comorbidities surgery may not be an option. Patient is already therapeutically anti-coagulated and on antiplatelet agents. Since his initial fall was associated going to the bathroom of those urinalysis is unremarkable he did have some urinary frequency symptoms and subsequently a urine culture shows pinpoint growth and will be re incubated, he was not discharged on antibiotics given his lack of confirming infection (2) Vertebral compression fracture: We will pursue a plan of pain control with scheduled Tylenol Lidoderm patch and mild PRN opiates. PT OT to be evaluated, however seems resistant to the discussion of rehab and prefers the pt go home will arrange home health and home PT OT (3) Hypercalcemia: Patient has mild hypercalcemia associate with multiple myeloma improved with hydation however since returned to greater than normal levels he was given a dose of zoledronic acid prior to discharge (4) Thrombocytopenia: remains in the 70's Likely related to his history of multiple myeloma and also use of chemotherapeutic medications (5) Chronic kidney disease, stage 3a: BUN and creatinine are stable on presentation avoid nephrotoxic medications, bun is 20:1 to cr so be wary of blood loss, no ugi sx at present (6) Multiple myeloma: Patient will follow-up with Dr. Antony (7) Parkinson disease: Patient will continue on his Sinemet and selegiline (8) Anemia: Patient has anemia of chronic disease associated with his multiple myeloma. however his hgb has dropped from admission, agrees to transfusion Patient's had bowel movement without melena hemoglobin augmented appropriately with transfusion we will discharge without further work-up at this time given his multiple comorbid conditions (9) Cryoglobulinemic purpura: Patient has multiple open areas on his lower extremities likely associated with his vasculitis or dermatitis. He is following with the wound care center wound care nursing consult be placed at this time. I did speak to Dr. Antony who is his oncologist and we will delay his infusion of Velcade for 1 week he did get his Cytoxan and dexamethasone here in the hospital Total Time Total Time Spent Total Time Spent (In Minutes): It required greater than 30 minutes to prepare this patient for discharge Discharge Plan Discharge Items Patient Disposition: Home - Home Health Services Reason For Visit: TIA,T12 COMPRESSION FX,HYPERCALCEMIA Discharge Diagnosis: 1)12th thoracic vertebral body endplate frature after fall 2)anemia 3)constipation Activity: Resume your previous activity Non-emergency contact: Primary Care Provider and Oncologist Call non-emergency contact if: you have any medication questions Follow-up/Referrals: Yuli Alva CRNP [Primary Care Provider] - 03/31/20 2:00 pm (You have an appointment with Dr. De Los Santos at [facility] location on March 31 at 2:00. Please arrive 15 minutes early. If you can not keep this appointment please call [phone].) Dick Antony MD [Surgeon] - 04/02/20 Diet: Regular Addtl Attending Provider Instructions: you should have decreasing pain in your back each day, if pain worsens please see your doctor you did have some narrowing identified in your right carotid artery, Dr Landry partner did review and does not recommend any further intervention please take tylenol three time a day until you have no further back pain then take only as needed please have Dr Antony follow your calcium Pending Studies at Discharge: No Stand-Alone Forms: [facility] [place] [facility] [place], Smoking Cessation Medications and DC Order Prescriptions: New lidocaine 5 % Adhesive Patch,Medicated 1 patch transdermal QAM Qty: 10 RF: 3 Continued oxycodone 10 mg tablet 10 mg PO Q6H PRN (Reason: Pain) RF: 0 metoprolol tartrate 25 mg tablet 6.25 mg PO BID Qty: 30 RF: 2 Eliquis 2.5 mg tablet 2.5 mg PO BID Qty: 60 RF: 2 doxycycline hyclate 100 mg tablet 100 mg PO BID Qty: 60 RF: 3 selegiline HCl 5 mg tablet 5 mg PO TID RF: 0 carbidopa-levodopa [Sinemet] 25-100 mg tablet 1 tab PO TID RF: 0 prochlorperazine maleate 10 mg Tablet 10 mg PO QAM RF: 0 acyclovir 400 mg tablet 400 mg PO BID RF: 0 docusate sodium [Colace] 100 mg Capsule 300 mg PO HS RF: 0 hydrochlorothiazide 25 mg tablet 25 mg PO QAM RF: 0 oxycodone 5 mg tablet 5 mg PO Q4H PRN (Reason: Pain) RF: 0 Velcade 3.5 mg Recon Soln 0 mg IV TH RF: 0 cyclophosphamide 50 mg Capsule 0 mg PO TH@0800 RF: 0 Prevagen 1 cap PO DAILY@1500 RF: 0 aspirin 81 mg tablet,delayed release (DR/EC) 81 mg PO DAILY@1500 RF: 0 simvastatin 20 mg tablet 20 mg PO HS RF: 0 omeprazole 20 mg tablet,delayed release (DR/EC) 20 mg PO QAM RF: 0 gabapentin 400 mg capsule 400 mg PO TID RF: 0 dexamethasone 4 mg Tablet 4 mg PO TH@0800 RF: 0 Discharge Orders: Discharge Order (Routine); Ordered 03/26/20 Ordered By: Oneil Monroy Admission Data Admit Date/Time: 03/24/20 16:50 Attending Provider: Oneil Monroy Admit Provider: Oneil Monroy Primary Care Provider: Yuli Alva Other Providers: Tam Turk ; Odin Dotson ; Son[facility],Home [facility] Other Interventions: Discharge Summary Assessment (RN) Last Done: 03/26/20 08:00 DC Date/Time DO NOT enter until pt leaves facility: 03/26/20 14:00 Coding Level of Care Code D/C Day Management >30 mins Diagnoses Fall W19.XXXA Vertebral compression fracture M48.50XA Hypercalcemia E83.52 Thrombocytopenia D69.6 Chronic kidney disease, stage 3a N18.3 Multiple myeloma C90.00 Multiple myeloma remission status: unspecified Parkinson disease G20 Anemia D64.89 Anemia type: other cause Other causes of anemia: other cause, not classified Cryoglobulinemic purpura D89.1
== END 2020-03-26 14:00 | disposition home health service (06) | DRG 552 ==
LOC: ED 10:28 → 2N 16:50

== ENCOUNTER 2020-04-01 10:41 | Inpatient (IN) ==
[2020-04-01 11:28] LABS: Basophils # (auto) 0.01 K/uL (0-0.2); Basophils % (auto) 0.1 %; Eosinophils # (auto) 0.34 K/uL (0-0.5); Eosinophils % (auto) 3.7 %; Hematocrit (blood only) 26.7 % (42-52); Hemoglobin 8.8 g/dL (14.0-18.0); Immature Granulocytes # (auto) 0.15 K/uL (0.00-0.02); Immature Granulocytes % (auto) 1.6 %; Lymphocytes # (auto) 0.24 K/uL (1.2-3.4); Lymphocytes % (auto) 2.6 %; Mean Corpuscular Hemoglobin 33.2 pg (25-34); Mean Corpuscular Volume 100.8 fL (80-100); Mean Platelet Volume 11.3 fL (7.4-10.4); Monocytes # (auto) 0.35 K/uL (0.11-0.59); Monocytes % (auto) 3.8 %; Neutrophils # (auto) 8.21 K/uL (1.4-6.5); Neutrophils % (auto) 88.2 %; Platelet Count 120 K/uL (130-400); RDW Coefficient of Variation 17.5 % (11.5-14.5); RDW Standard Deviation 63.9 fL (36.4-46.3); Red Blood Count 2.65 M/uL (4.7-6.1)
[2020-04-01 11:41] LABS: Alanine Aminotransferase < 6 U/L (12-78); Albumin Level 1.6 gm/dl (3.4-5.0); Aspartate Aminotransferase 27 U/L (15-37); BUN Creatinine Ratio 11.1 (10-20); Blood Urea Nitrogen 12 mg/dl (7-18); Calcium 7.4 mg/dl (8.5-10.1); Carbon Dioxide 26 mmol/L (21-32); Chloride 108 mmol/L (98-107); Creatinine Clr Calc Pharmacy 45.1 ml/min; Est GFR (African American) 74.3; Est GFR (Non-African American) 64.1; Glucose 115 mg/dl (70-99); Magnesium 1.9 mg/dl (1.8-2.4); Potassium 3.4 mmol/L (3.5-5.1); Sodium 141 mmol/L (136-145)
[2020-04-01 11:44] LABS: INR 1.1 (0.9-1.1); Partial Thromboplastin Time 26.6 Seconds (21.0-31.0); Prothrombin Time 11.9 Seconds (9.0-12.0)
[2020-04-01 11:45] LABS: Albumin Globulin Ratio 0.3 (0.9-2); Alkaline Phosphatase 97 U/L (45-117); Bilirubin,Total 0.6 mg/dl (0.2-1); Globulin 4.6 gm/dl (2.5-4.0); Total Protein 6.2 gm/dl (6.4-8.2); Troponin I < 0.015 ng/ml (0-0.045)
--- NOTE | 2020-04-01 12:06 | XRay Report ---
XR shoulder LT min 2V routine HISTORY: 84 years-old Male falll acute left shoulder pain status post fall COMPARISON: Chest radiograph of same day TECHNIQUE: 2 views of the left shoulder FINDINGS: Moderate glenohumeral and AC joint osteoarthritis. Minimal rotator cuff calcific tendinosis. Probable chondrocalcinosis of the glenohumeral joint. No acute fracture or dislocation. Cardiomegaly. Pleural calcifications redemonstrated. Cardiomegaly. IMPRESSION: 1. Moderate osteoarthritis about acute fracture or dislocation. 2. 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 The above report was generated using voice recognition software. It may contain grammatical, syntax o r spelling errors. Electronically signed by: Arturo Oviedo M.D. 04/01/2020 12:05 PM
--- NOTE | 2020-04-01 12:09 | XRay Report ---
XR chest 1V portable HISTORY: 84 years-old Male SEPSIS acute sepsis COMPARISON: CT abdomen pelvis and chest radiograph 03/24/2020 TECHNIQUE: Portable AP view of the chest FINDINGS: Cardiomegaly. Calcified plaque of the thoracic aorta. Bilateral calcified pleural plaques redemonstra enid along with chronic fibrosis. There is no pneumothorax or large pleural effusion. Pulmonary vascul ar congestion with progressively worsened interstitial opacities. Probable trace pleural effusions. D egenerative changes of the shoulders and spine. IMPRESSION: 1. 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 2. Cardiomegaly with pulmonary vascular congestion and progressive interstitial opacities suspicious for pulmonary edema. Pneumonitis could appear similarly. 3. Probable trace pleural effusions. ACT 112: Negative or not required by law. The above report was generated using voice recognition software. It may contain grammatical, syntax o r spelling errors. Electronically signed by: Arturo Oviedo M.D. 04/01/2020 12:08 PM
--- NOTE | 2020-04-01 12:49 | Electrocardiogram Report ---
Test Reason : Blood Pressure : / mmHG Vent. Rate : 082 BPM Atrial Rate : 234 BPM P-R Int : 000 ms QRS Dur : 102 ms QT Int : 304 ms P-R-T Axes : 027 -29 017 degrees QTc Int : 355 ms Poor data quality, interpretation may be adversely affected Normal sinus rhythm Nonspecific ST and T wave abnormality Abnormal ECG When compared with ECG of 24-MAR-2020 11:49, Non-specific change in ST segment in Inferior leads Nonspecific T wave abnormality now evident in Inferior leads Nonspecific T wave abnormality, worse in Anterolateral leads Confirmed by Anton Kang ([id number]) on 04/01/2020 12:48:55 PM Referred By: Confirmed By:Anton Kang
[2020-04-01] MEDS ORDERED: SODIUM CHLORIDE 0.9% 1000ML 500 ML IV ONE ×2 (14:10→16:01)
--- NOTE | 2020-04-01 14:10 | Emergency Department Note ---
Impression & Plan Syncope, Anemia, Acidosis, lactic, Head injury, Acute hypotension ED Provider Note NAME: ABBE ARCEO AGE: 84 SEX: M : 1935 ARRIVES VIA: Ambulance INFORMANT: Patient, ED PROVIDER(S): Anton Lizarraga DO CHIEF COMPLAINT: Syncope HPI: The patient is an 84-year-old male who presented to the emergency department with his significant other via ambulance for an evaluation after having a syncopal episode. The patient went to a standing position and that he passed out. His significant other found him unresponsive and on the ground. He did not have any specific injury but he may have struck his head. He has had similar symptoms in the past according to his significant other. The patient normally has a low blood pressure. He received IV fluids prior to arrival. He has had no fever or chills. He has had no nausea or vomiting recently. He has no dysuria or frequency. The patient did not have any changes in his medications according to his significant other. The patient appears to be at his baseline at this point according to his significant other. ROS: See above HPI for pertinent positives & negatives. A total of 10 systems reviewed and were otherwise negative. PAST MEDICAL HISTORY: See Below PAST SURGICAL HISTORY: See Below FAMILY HISTORY: See Below SOCIAL HISTORY: See Below HOME MEDICATIONS: See Below ALLERGIES: See Below VITALS: See Below PHYSICAL EXAMINATION: GENERAL: Patient is awake alert in no acute distress patient is resting comfortably and showing no signs of anxiety EYES: The conjunctivae are clear. The pupils are round and reactive. EARS, NOSE, MOUTH AND THROAT: The nose is without any evidence of any deformity. Mucous membranes are moist. Tongue is midline. NECK: The neck is nontender and supple. RESPIRATORY: Diminished breath sounds are noted throughout. There were scattered rales noted throughout. There is no tachypnea or conversational dysp art appreciated. CARDIOVASCULAR: Regular rate and rhythm was noted to auscultation. GASTROINTESTINAL: The abdomen is soft. Abdomen is nontender. BACK: No midline tenderness or or step-off noted range of motion in flexion extension as well as rotation no signs of muscle spasm noted MUSCULOSKELETAL/EXTREMITIES: There is no evidence of gross deformity full range of motion is noted in the hips and shoulders. SKIN: Pedal edema was noted bilaterally. NEUROLOGIC: Patient is awake alert and oriented x3. Strength was symmetric but diminished bilaterally. There is no facial droop. MEDICAL DECISION MAKING: The patient is an 84-year-old male who presented to the emergency department by ambulance for an evaluation after having a syncopal episode. The patient had a syncopal episode upon standing and struck his head. The patient arrived at the emergency department via ambulance. His significant other came with him. The patient was treated with IV fluids prior to arrival. His lung sounds were abnormal so further IV hydration was withheld until a chest x-ray was obtained. This appeared to show more chronic changes so further IV hydration was given to the patient. I discussed the patient's laboratory and radiographic studies with him and his significant other. He continued to have very significant symptoms upon standing. For this reason I [facility] He continued to have hypotension but no definite source of infection could be found. His urinalysis did not appear to be consistent with infection. Blood cultures were obtained. Chest x-ray showed no acute changes from previous. I discussed the possibility of antibiotic coverage for this patient but at this time he still continues to be afebrile and I will defer any antibiotic choices to the admitting team. I discussed this plan with the patient and his significant other and they were agreeable. Triage Nursing notes reviewed. Prior medical records reviewed Vital Signs: reviewed and remarkable for hypotension Differential diagnosis: Vasovagal event, dehydration, infection, hypoglycemia, electrolyte abnormalities, cardiac sources, intracerebral event, pulmonary embolism, seizure, toxicologic, neurologic, as well as other pathologies. ER treatment provided: See below Diagnostics interpreted by me: ECG: EKG was obtained in the emergency department. My interpretation is normal sinus rhythm at 82 bpm. There is no ectopy. Lateral ST depressions were noted. This was compared to a tracing from March 242019. No significant changes were noted. Cardiac Monitoring: An order was placed for continuous cardiac monitoring. The monitor shows a rate of 88 with sinus rhythm. Laboratory studies: As stated above and show below. Imaging studies: See below Consultation(s): [id number]: I discussed this case with Dr. Mabry who is on-call for the [facility] hospitalist group. He will evaluate the patient for further management and d isposition in the ER. Past Med/Surg History Medical History Abnormal EKG (Inactive) Acute renal failure (ARF) (Inactive) Altered mental status (Inactive) Arthritis (Chronic) Basal cell carcinoma (BCC) Bursitis of right hip Chest pain syndrome (Resolved 05/20/14) Non-ST elevation UT (NSTEMI) (Inactive) Sacroiliac dysfunction Surgical History H/O hernia repair (Resolved) inguinal History of back surgery x 2 History of carpal tunnel surgery History of lumbar fusion Lumbar Vertebral Fusion Family History Mother , in her 70s Coronary heart disease Myocardial infarction Stroke Father , age 94 Glaucoma Unknown Acute urticaria Sister Breast cancer Denies family history of Ovarian cancer Prostate cancer Diabetes Dyslipidemia Colorectal cancer Hypertension Social History Smoking Status: Never smoker Second Hand Exposure: Yes; Do You Dip or Chew Tobacco: No; Hx Alcohol Use: No Hx Substance Use: No Preferred Language: Yoruba Communication Ability: Effective Visual Impairment: Limited Hearing Ability: Normal Doll Wig Maker Required: No Beliefs That Will Affect Care: None marital status: marital status details: 2 children Current Living Situation: Spouse current occupational status: 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 Feels Safe at Home: Yes Safety Concerns: Feels Safe At This Time Allergies Allergies Allergy/AdvReac Type Severity Reaction Status Date / Time Cephalosporins Allergy Intermediate Rash Verified 04/01/20 12:15 doxycycline Allergy Intermediate skin Verified 04/01/20 12:15 irritation Penicillins Allergy Intermediate HIVES Verified 04/01/20 12:15 amoxicillin Allergy Unknown RASH Verified 04/01/20 12:15 sulfamethoxazole AdvReac Intermediate skin rash Verified 04/01/20 12:15 [From Bactrim] trimethoprim [From Bactrim] AdvReac Intermediate skin rash Verified 04/01/20 12:15 Home Meds Home Medications Medication Instructions Recorded Confirmed carbidopa-levodopa [Sinemet] 1 tab PO TID 07/01/18 04/01/20 selegiline HCl 5 mg PO BID 07/01/18 04/01/20 Prevagen 1 cap PO DAILY@1500 03/24/20 04/01/20 Velcade 0 mg IV TH 03/24/20 04/01/20 acyclovir 400 mg PO BID 03/24/20 04/01/20 aspirin 81 mg PO DAILY@1500 03/24/20 04/01/20 cyclophosphamide 500 mg PO TH@0800 03/24/20 04/01/20 docusate sodium [Colace] 300 mg PO HS 03/24/20 04/01/20 gabapentin 400 mg PO TID 03/24/20 04/01/20 hydrochlorothiazide 25 mg PO QAM 03/24/20 04/01/20 omeprazole 20 mg PO QAM 03/24/20 04/01/20 oxycodone 5 mg PO Q4H PRN 03/24/20 04/01/20 simvastatin 20 mg PO HS 03/24/20 04/01/20 dexamethasone 20 mg PO TH@0800 04/01/20 04/01/20 doxycycline hyclate 100 mg PO DAILY 04/01/20 04/01/20 Previous Rx's Medication Instructions Recorded lidocaine 1 patch TRANSDERMAL QAM #10 ea 03/26/20 apixaban 2.5 mg tablet 2.5 mg PO BID #60 tab 03/27/20 metoprolol tartrate 25 mg tablet 6.25 mg PO BID #30 tab 03/27/20 Results & Data (ED) Vital Signs Vital Signs - 24 hr 04/01/20 10:52 04/01/20 10:54 04/01/20 11:00 Temperature Temperature Source Pulse Rate 83 82 81 Pulse Rate from SpO2 Sensor 83 82 81 Respiratory Rate 19 19 18 Respiratory Effort / Characteristics Respiratory Depth Respiratory Pattern Blood Pressure 91/52 L 92/52 L Blood Pressure Mean 66 70 Pulse Oximetry 97 98 98 Oxygen Delivery Method Sepsis Recent Fever Within 48 Hours Sepsis New/Unexplained Change in Mental Status Sepsis Action Taken by Nursing 04/01/20 11:13 04/01/20 11:28 04/01/20 11:30 Temperature 36.4 C L Temperature Source Oral Pulse Rate 82 82 76 Pulse Rate from SpO2 Sensor 76 Respiratory Rate 20 20 15 Respiratory Effort / Characteristics Non-Labored Spontaneous Respiratory Depth Normal Respiratory Pattern Regular Blood Pressure 97/53 L 109/55 L Blood Pressure Mean 67 68 Pulse Oximetry 96 96 100 Oxygen Delivery Method Room Air Room Air Sepsis Recent Fever Within 48 Hours No Sepsis New/Unexplained Change in Mental Status No Sepsis Action Taken by Nursing No Action Required 04/01/20 12:00 04/01/20 12:10 04/01/20 12:30 Temperature Temperature Source Pulse Rate 80 82 84 Pulse Rate from SpO2 Sensor 79 82 Respiratory Rate 22 21 22 Respiratory Effort / Characteristics Respiratory Depth Respiratory Pattern Blood Pressure 113/56 L 113/56 L 117/54 L Blood Pressure Mean 93 93 63 Pulse Oximetry 100 Oxygen Delivery Method Sepsis Recent Fever Within 48 Hours Sepsis New/Unexplained Change in Mental Status Sepsis Action Taken by Nursing 04/01/20 13:00 04/01/20 13:01 04/01/20 13:30 Temperature Temperature Source Pulse Rate 94 H 96 H 100 H Pulse Rate from SpO2 Sensor Respiratory Rate 20 20 24 Respiratory Effort / Characteristics Respiratory Depth Respiratory Pattern Blood Pressure 117/66 118/63 Blood Pressure Mean 80 69 Pulse Oximetry 99 98 Oxygen Delivery Method Sepsis Recent Fever Within 48 Hours Sepsis New/Unexplained Change in Mental Status Sepsis Action Taken by Nursing 04/01/20 14:12 04/01/20 14:13 04/01/20 14:30 Temperature Temperature Source Pulse Rate 108 H 109 H 107 H Pulse Rate from SpO2 Sensor Respiratory Rate 15 24 22 Respiratory Effort / Characteristics Respiratory Depth Respiratory Pattern Blood Pressure 119/67 110/61 Blood Pressure Mean 80 67 Pulse Oximetry 97 93 Oxygen Delivery Method Sepsis Recent Fever Within 48 Hours Sepsis New/Unexplained Change in Mental Status Sepsis Action Taken by Nursing 04/01/20 15:00 04/01/20 15:20 04/01/20 15:34 Temperature Temperature Source Pulse Rate 105 H 102 H 111 H Pulse Rate from SpO2 Sensor 101 H Respiratory Rate 22 15 22 Respiratory Effort / Characteristics Respiratory Depth Respiratory Pattern Blood Pressure 114/63 124/70 Blood Pressure Mean 88 83 Pulse Oximetry 97 Oxygen Delivery Method Sepsis Recent Fever Within 48 Hours Sepsis New/Unexplained Change in Mental Status Sepsis Action Taken by Nursing 04/01/20 15:35 04/01/20 16:00 04/01/20 16:30 Temperature 37.5 C Temperature Source Pulse Rate 108 H 108 H 104 H Pulse Rate from SpO2 Sensor 109 H 108 H 104 H Respiratory Rate 23 22 17 Respiratory Effort / Characteristics Respiratory Depth Respiratory Pattern Blood Pressure 107/63 95/54 L 100/56 L Blood Pressure Mean 74 58 64 Pulse Oximetry 99 98 100 Oxygen Delivery Method Room Air Sepsis Recent Fever Within 48 Hours Sepsis New/Unexplained Change in Mental Status Sepsis Action Taken by Nursing 04/01/20 17:00 04/01/20 17:30 04/01/20 18:00 Temperature Temperature Source Pulse Rate 107 H 107 H 106 H Pulse Rate from SpO2 Sensor 107 H 107 H 106 H Respiratory Rate 18 17 18 Respiratory Effort / Characteristics Respiratory Depth Respiratory Pattern Blood Pressure 94/55 L 92/55 L 88/54 L Blood Pressure Mean 71 67 65 Pulse Oximetry 95 95 95 Oxygen Delivery Method Sepsis Recent Fever Within 48 Hours Sepsis New/Unexplained Change in Mental Status Sepsis Action Taken by Nursing 04/01/20 18:14 04/01/20 18:15 04/01/20 18:30 Temperature Temperature Source Pulse Rate 107 H 106 H 106 H Pulse Rate from SpO2 Sensor 107 H 105 H 106 H Respiratory Rate 20 19 19 Respiratory Effort / Characteristics Respiratory Depth Respiratory Pattern Blood Pressure 96/55 L 93/53 L Blood Pressure Mean 63 59 Pulse Oximetry 96 98 96 Oxygen Delivery Method Sepsis Recent Fever Within 48 Hours Sepsis New/Unexplained Change in Mental Status Sepsis Action Taken by [facility] Medications Current Medication List: was personally reviewed by me Laboratory Data Attestation: I reviewed the patient's lab results. Result diagrams: 04/02/20 07:17 04/01/20 11:04 Lab Results 04/01/20 04/01/20 04/01/20 Range/Units 11:04 11:04 11:04 WBC 9.30 (4.8-10.8) K/uL RBC 2.65 L (4.7-6.1) M/uL Hgb 8.8 L (14.0-18.0) g/dL Hct 26.7 L (42-52) % MCV 100.8 H (80-100) fL MCH 33.2 (25-34) pg MCHC 33.0 (32-36) g/dL RDW Std Deviation 63.9 H (36.4-46.3) fL RDW Coeff of Rahul 17.5 H (11.5-14.5) % Plt Count 120 L (130-400) K/uL MPV 11.3 H (7.4-10.4) fL Immature Gran % (Auto) 1.6 % Neut % (Auto) 88.2 % Lymph % (Auto) 2.6 % Armstrong % (Auto) 3.8 % Eos % (Auto) 3.7 % Baso % (Auto) 0.1 % Neut # (Auto) 8.21 H (1.4-6.5) K/uL Lymph # (Auto) 0.24 L (1.2-3.4) K/uL Armstrong # (Auto) 0.35 (0.11-0.59) K/uL Eos # (Auto) 0.34 (0-0.5) K/uL Baso # (Auto) 0.01 (0-0.2) K/uL Immature Gran # (Auto) 0.15 H (0.00-0.02) K/uL PT 11.9 (9.0-12.0) Seconds INR 1.1 (0.9-1.1) APTT 26.6 (21.0-31.0) Seconds PTT Ratio 1.0 Sodium 141 (136-145) mmol/L Potassium 3.4 L (3.5-5.1) mmol/L Chloride 108 H (98-107) mmol/L Carbon Dioxide 26 (21-32) mmol/L Anion Gap 7.0 (3-11) BUN 12 (7-18) mg/dl Creatinine 1.06 (0.6-1.4) mg/dl Est Cr Clr Drug Dosing 45.1 ml/min Est GFR ( Amer) 74.3 Est GFR (Non-Af Amer) 64.1 BUN/Creatinine Ratio 11.1 (10-20) Glucose 115 H (70-99) mg/dl Lactate (0.4-2.0) mmol/L Calcium 7.4 L (8.5-10.1) mg/dl Magnesium 1.9 (1.8-2.4) mg/dl Total Bilirubin 0.6 (0.2-1) mg/dl AST 27 (15-37) U/L ALT < 6 L (12-78) U/L Alkaline Phosphatase 97 (45-117) U/L Troponin I < 0.015 (0-0.045) ng/ml NT-Pro-B Natriuret Pep 2084 H (0-1800) pg/ml Total Protein 6.2 L (6.4-8.2) gm/dl Albumin 1.6 L (3.4-5.0) gm/dl Globulin 4.6 H (2.5-4.0) gm/dl Albumin/Globulin Ratio 0.3 L (0.9-2) Procalcitonin (0-0.5) ng/ml Urine Color Urine Appearance (Clear) Urine pH (4.5-7.5) Ur Specific Stafford (1.000-1.030) Urine Protein (Negative) Urine Glucose (UA) (Negative) Urine Ketones (Negative) Urine Blood (Negative) Urine Nitrite (Negative) Urine Bilirubin (Negative) Urine Urobilinogen (Negative) Ur Leukocyte Esterase (Negative) Urine WBC (Auto) (0-5) /hpf Urine RBC (Auto) (0-4) /hpf U Hyaline Cast (Auto) (0-5) /lpf U Epithel Cells (Auto) (0-5) /lpf Urine Bacteria (Auto) (Negative) Ur Renal Epithelial Cell (0-5) /lpf Nasal Influ A H1 2009 PCR Nasal Screen MRSA (PCR) (Negative) Adenovirus (PCR) B. pertussis DNA (PCR) B.parapertussis DNA PCR C. pneumoniae DNA (PCR) Coronavirus OC43 (PCR) Coronavirus HKU1 (PCR) Coronavirus 229E (PCR) COVID-19 PCR (Negative) Coronavirus NL63 (PCR) Human Metapneumovir PCR Influenza A (H1) PCR Influenza A (H3) PCR Influenza Type A (PCR) Influenza A Untype (PCR) Influenza Type B (PCR) M. pneumoniae (PCR) Parainfluenza 1 (PCR) Parainfluenza 2 (PCR) Parainfluenza 3 (PCR) Parainfluenza 4 (PCR) RSV (PCR) Entero/Rhino (PCR) SARS-CoV-2 RNA (RT-PCR) 04/01/20 04/01/20 04/01/20 Range/Units 11:04 11:57 13:55 WBC (4.8-10.8) K/uL RBC (4.7-6.1) M/uL Hgb (14.0-18.0) g/dL Hct (42-52) % MCV (80-100) fL MCH (25-34) pg MCHC (32-36) g/dL RDW Std Deviation (36.4-46.3) fL RDW Coeff of Rahul (11.5-14.5) % Plt Count (130-400) K/uL MPV (7.4-10.4) fL Immature Gran % (Auto) % Neut % (Auto) % Lymph % (Auto) % Armstrong % (Auto) % Eos % (Auto) % Baso % (Auto) % Neut # (Auto) (1.4-6.5) K/uL Lymph # (Auto) (1.2-3.4) K/uL Armstrong # (Auto) (0.11-0.59) K/uL Eos # (Auto) (0-0.5) K/uL Baso # (Auto) (0-0.2) K/uL Immature Gran # (Auto) (0.00-0.02) K/uL PT (9.0-12.0) Seconds INR (0.9-1.1) APTT (21.0-31.0) Seconds PTT Ratio Sodium (136-145) mmol/L Potassium (3.5-5.1) mmol/L Chloride (98-107) mmol/L Carbon Dioxide (21-32) mmol/L Anion Gap (3-11) BUN (7-18) mg/dl Creatinine (0.6-1.4) mg/dl Est Cr Clr Drug Dosing ml/min Est GFR ( Amer) Est GFR (Non-Af Amer) BUN/Creatinine Ratio (10-20) Glucose (70-99) mg/dl Lactate 2.5 H* 2.9 H* (0.4-2.0) mmol/L Calcium (8.5-10.1) mg/dl Magnesium (1.8-2.4) mg/dl Total Bilirubin (0.2-1) mg/dl AST (15-37) U/L ALT (12-78) U/L Alkaline Phosphatase (45-117) U/L Troponin I (0-0.045) ng/ml NT-Pro-B Natriuret Pep (0-1800) pg/ml Total Protein (6.4-8.2) gm/dl Albumin (3.4-5.0) gm/dl Globulin (2.5-4.0) gm/dl Albumin/Globulin Ratio (0.9-2) Procalcitonin 0.59 H (0-0.5) ng/ml Urine Color Urine Appearance (Clear) Urine pH (4.5-7.5) Ur Specific Stafford (1.000-1.030) Urine Protein (Negative) Urine Glucose (UA) (Negative) Urine Ketones (Negative) Urine Blood (Negative) Urine Nitrite (Negative) Urine Bilirubin (Negative) Urine Urobilinogen (Negative) Ur Leukocyte Esterase (Negative) Urine WBC (Auto) (0-5) /hpf Urine RBC (Auto) (0-4) /hpf U Hyaline Cast (Auto) (0-5) /lpf U Epithel Cells (Auto) (0-5) /lpf Urine Bacteria (Auto) (Negative) Ur Renal Epithelial Cell (0-5) /lpf Nasal Influ A H1 2009 PCR Nasal Screen MRSA (PCR) (Negative) Adenovirus (PCR) B. pertussis DNA (PCR) B.parapertussis DNA PCR C. pneumoniae DNA (PCR) Coronavirus OC43 (PCR) Coronavirus HKU1 (PCR) Coronavirus 229E (PCR) COVID-19 PCR (Negative) Coronavirus NL63 (PCR) Human Metapneumovir PCR Influenza A (H1) PCR Influenza A (H3) PCR Influenza Type A (PCR) Influenza A Untype (PCR) Influenza Type B (PCR) M. pneumoniae (PCR) Parainfluenza 1 (PCR) Parainfluenza 2 (PCR) Parainfluenza 3 (PCR) Parainfluenza 4 (PCR) RSV (PCR) Entero/Rhino (PCR) SARS-CoV-2 RNA (RT-PCR) 04/01/20 04/01/20 04/01/20 Range/Units 14:16 18:15 18:15 WBC (4.8-10.8) K/uL RBC (4.7-6.1) M/uL Hgb (14.0-18.0) g/dL Hct (42-52) % MCV (80-100) fL MCH (25-34) pg MCHC (32-36) g/dL RDW Std Deviation (36.4-46.3) fL RDW Coeff of Rahul (11.5-14.5) % Plt Count (130-400) K/uL MPV (7.4-10.4) fL Immature Gran % (Auto) % Neut % (Auto) % Lymph % (Auto) % Armstrong % (Auto) % Eos % (Auto) % Baso % (Auto) % Neut # (Auto) (1.4-6.5) K/uL Lymph # (Auto) (1.2-3.4) K/uL Armstrong # (Auto) (0.11-0.59) K/uL Eos # (Auto) (0-0.5) K/uL Baso # (Auto) (0-0.2) K/uL Immature Gran # (Auto) (0.00-0.02) K/uL PT (9.0-12.0) Seconds INR (0.9-1.1) APTT (21.0-31.0) Seconds PTT Ratio Sodium (136-145) mmol/L Potassium (3.5-5.1) mmol/L Chloride (98-107) mmol/L Carbon Dioxide (21-32) mmol/L Anion Gap (3-11) BUN (7-18) mg/dl Creatinine (0.6-1.4) mg/dl Est Cr Clr Drug Dosing ml/min Est GFR ( Amer) Est GFR (Non-Af Amer) BUN/Creatinine Ratio (10-20) Glucose (70-99) mg/dl Lactate (0.4-2.0) mmol/L Calcium (8.5-10.1) mg/dl Magnesium (1.8-2.4) mg/dl Total Bilirubin (0.2-1) mg/dl AST (15-37) U/L ALT (12-78) U/L Alkaline Phosphatase (45-117) U/L Troponin I (0-0.045) ng/ml NT-Pro-B Natriuret Pep (0-1800) pg/ml Total Protein (6.4-8.2) gm/dl Albumin (3.4-5.0) gm/dl Globulin (2.5-4.0) gm/dl Albumin/Globulin Ratio (0.9-2) Procalcitonin (0-0.5) ng/ml Urine Color Yellow Urine Appearance Clear (Clear) Urine pH 6.0 (4.5-7.5) Ur Specific Stafford 1.014 (1.000-1.030) Urine Protein Trace H (Negative) Urine Glucose (UA) Negative (Negative) Urine Ketones Negative (Negative) Urine Blood Negative (Negative) Urine Nitrite Negative (Negative) Urine Bilirubin Negative (Negative) Urine Urobilinogen Negative (Negative) Ur Leukocyte Esterase Trace H (Negative) Urine WBC (Auto) 1-5 (0-5) /hpf Urine RBC (Auto) 0-4 (0-4) /hpf U Hyaline Cast (Auto) 1-5 (0-5) /lpf U Epithel Cells (Auto) >30 H (0-5) /lpf Urine Bacteria (Auto) Negative (Negative) Ur Renal Epithelial Cell 0-5 (0-5) /lpf Nasal Influ A H1 2008 PCR Cancelled Nasal Screen MRSA (PCR) Negative (Negative) Adenovirus (PCR) Cancelled B. pertussis DNA (PCR) Cancelled B.parapertussis DNA PCR Cancelled C. pneumoniae DNA (PCR) Cancelled Coronavirus OC43 (PCR) Cancelled Coronavirus HKU1 (PCR) Cancelled Coronavirus 229E (PCR) Cancelled COVID-19 PCR (Negative) Coronavirus NL63 (PCR) Cancelled Human Metapneumovir PCR Cancelled Influenza A (H1) PCR Cancelled Influenza A (H3) PCR Cancelled Influenza Type A (PCR) Cancelled Influenza A Untype (PCR) Cancelled Influenza Type B (PCR) Cancelled M. pneumoniae (PCR) Cancelled Parainfluenza 1 (PCR) Cancelled Parainfluenza 2 (PCR) Cancelled Parainfluenza 3 (PCR) Cancelled Parainfluenza 4 (PCR) Cancelled RSV (PCR) Cancelled Entero/Rhino (PCR) Cancelled SARS-CoV-2 RNA (RT-PCR) 04/01/20 04/01/20 Range/Units 18:15 18:15 WBC (4.8-10.8) K/uL RBC (4.7-6.1) M/uL Hgb (14.0-18.0) g/dL Hct (42-52) % MCV (80-100) fL MCH (25-34) pg MCHC (32-36) g/dL RDW Std Deviation (36.4-46.3) fL RDW Coeff of Rahul (11.5-14.5) % Plt Count (130-400) K/uL MPV (7.4-10.4) fL Immature Gran % (Auto) % Neut % (Auto) % Lymph % (Auto) % Armstrong % (Auto) % Eos % (Auto) % Baso % (Auto) % Neut # (Auto) (1.4-6.5) K/uL Lymph # (Auto) (1.2-3.4) K/uL Armstrong # (Auto) (0.11-0.59) K/uL Eos # (Auto) (0-0.5) K/uL Baso # (Auto) (0-0.2) K/uL Immature Gran # (Auto) (0.00-0.02) K/uL PT (9.0-12.0) Seconds INR (0.9-1.1) APTT (21.0-31.0) Seconds PTT Ratio Sodium (136-145) mmol/L Potassium (3.5-5.1) mmol/L Chloride (98-107) mmol/L Carbon Dioxide (21-32) mmol/L Anion Gap (3-11) BUN (7-18) mg/dl Creatinine (0.6-1.4) mg/dl Est Cr Clr Drug Dosing ml/min Est GFR ( Amer) Est GFR (Non-Af Amer) BUN/Creatinine Ratio (10-20) Glucose (70-99) mg/dl Lactate (0.4-2.0) mmol/L Calcium (8.5-10.1) mg/dl Magnesium (1.8-2.4) mg/dl Total Bilirubin (0.2-1) mg/dl AST (15-37) U/L ALT (12-78) U/L Alkaline Phosphatase (45-117) U/L Troponin I (0-0.045) ng/ml NT-Pro-B Natriuret Pep (0-1800) pg/ml Total Protein (6.4-8.2) gm/dl Albumin (3.4-5.0) gm/dl Globulin (2.5-4.0) gm/dl Albumin/Globulin Ratio (0.9-2) Procalcitonin (0-0.5) ng/ml Urine Color Urine Appearance (Clear) Urine pH (4.5-7.5) Ur Specific Stafford (1.000-1.030) Urine Protein (Negative) Urine Glucose (UA) (Negative) Urine Ketones (Negative) Urine Blood (Negative) Urine Nitrite (Negative) Urine Bilirubin (Negative) Urine Urobilinogen (Negative) Ur Leukocyte Esterase (Negative) Urine WBC (Auto) (0-5) /hpf Urine RBC (Auto) (0-4) /hpf U Hyaline Cast (Auto) (0-5) /lpf U Epithel Cells (Auto) (0-5) /lpf Urine Bacteria (Auto) (Negative) Ur Renal Epithelial Cell (0-5) /lpf Nasal Influ A H1 2009 PCR Nasal Screen MRSA (PCR) (Negative) Adenovirus (PCR) B. pertussis DNA (PCR) B.parapertussis DNA PCR C. pneumoniae DNA (PCR) Coronavirus OC43 (PCR) Coronavirus HKU1 (PCR) Coronavirus 229E (PCR) COVID-19 PCR NEGATIVE (Negative) Coronavirus NL63 (PCR) Human Metapneumovir PCR Influenza A (H1) PCR Influenza A (H3) PCR Influenza Type A (PCR) Influenza A Untype (PCR) Influenza Type B (PCR) M. pneumoniae (PCR) Parainfluenza 1 (PCR) Parainfluenza 2 (PCR) Parainfluenza 3 (PCR) Parainfluenza 4 (PCR) RSV (PCR) Entero/Rhino (PCR) SARS-CoV-2 RNA (RT-PCR) Cancelled Administered Medications Acyclovir (Zovirax) 400 mg PO BID [facility] Stop: 05/01/20 21:31 Last Admin: 04/01/20 22:35 Dose: 400 mg Documented by: [id number] Apixaban (Eliquis) 2.5 mg PO BID [facility] Stop: 05/01/20 21:31 Last Admin: 04/01/20 22:37 Dose: 2.5 mg Documented by: [id number] Carbidopa/Levodopa (Sinemet 25/100 Mg) 1 tab PO TID [facility] Stop: 05/01/20 21:31 Last Admin: 04/01/20 22:37 Dose: 1 tab Documented by: [id number] Docusate Sodium (Colace) 300 mg PO HS [facility] Stop: 05/01/20 21:31 Last Admin: 04/01/20 22:36 Dose: 300 mg Documented by: [id number] Gabapentin (Neurontin) 400 mg PO TID [facility] Stop: 05/01/20 21:31 Last Admin: 04/01/20 22:36 Dose: 400 mg Documented by: [id number] Imipenem/Cilastatin Sodium 300 (mg/ Dextrose) 106 mls @ 106 mls/hr IV Q6H [facility] Stop: 04/09/20 01:59 Last Infusion: 04/02/20 05:08 Dose: 0 mls/hr Documented by: [id number] Admin: 04/02/20 02:54 Dose: 106 mls/hr Documented by: [id number] Lactated Ringer's (Lr) 1,000 mls @ 80 mls/hr IV .[id number] [facility] Stop: 04/03/20 00:44 Last Admin: 04/02/20 01:12 Dose: 80 mls/hr Documented by: [id number] Metoprolol Tartrate (Lopressor) 6.25 mg PO BID [facility] Stop: 05/01/20 21:31 Last Admin: 04/01/20 22:41 Dose: 6.25 mg Documented by: [id number] Miscellaneous (Remove Lidoderm Patch) 1 ea N/A DAILY@2100 [facility] Stop: 05/01/20 21:31 Last Admin: 04/01/20 22:37 Dose: Not Given Documented by: [id number] Oxycodone HCl (Roxicodone Immediate Rel) 5 mg PO Q4H PRN PRN Reason: Pain Stop: 04/15/20 21:38 Last Admin: 04/01/20 22:35 Dose: 5 mg Documented by: [id number] Selegiline HCl (Eldepryl) 5 mg PO BID ELIDA Stop: 05/01/20 21:31 Last Admin: 04/01/20 22:41 Dose: 5 mg Documented by: [id number] Simvastatin (Zocor) 20 mg PO HS [facility] Stop: 05/01/20 21:31 Last Admin: 04/01/20 22:37 Dose: 20 mg Documented by: [id number] Discontinued Medications Aspirin (Ecotrin Ectab) 81 mg PO NOW STA Stop: 04/01/20 17:28 Last Admin: 04/01/20 18:10 Dose: 81 mg Documented by: [id number] Carbidopa/Levodopa (Sinemet 25/100 Mg) 1 tab PO NOW ONE Stop: 04/01/20 18:01 Last Admin: 04/01/20 18:11 Dose: 1 tab Documented by: [id number] Gabapentin (Neurontin) 400 mg PO NOW ONE Stop: 04/01/20 18:01 Last Admin: 04/01/20 18:11 Dose: 400 mg Documented by: [id number] Sodium Chloride (Nss 1000ml) 500 mls @ 999 mls/hr IV .Q31M ONE Stop: 04/01/20 14:40 Last Infusion: 04/01/20 15:37 Dose: 0 mls/hr Documented by: [id number] Admin: 04/01/20 14:45 Dose: 999 mls/hr Documented by: [id number] Sodium Chloride (Nss 1000ml) 500 mls @ 999 mls/hr IV .Q31M ONE Stop: 04/01/20 16:31 Last Infusion: 04/01/20 16:46 Dose: 0 mls/hr Documented by: [id number] Admin: 04/01/20 16:14 Dose: 999 mls/hr Documented by: [id number] Imipenem/Cilastatin Sodium 500 (mg/ Dextrose) 110 mls @ 100 mls/hr IV NOW STA Stop: 04/01/20 18:45 Last Infusion: 04/01/20 20:29 Dose: 0 mls/hr Documented by: [id number] Admin: 04/01/20 19:01 Dose: 100 mls/hr Documented by: [id number] Lactated Ringer's (Lr) 1,000 mls @ 999 mls/hr IV .Q1H1M ONE Stop: 04/01/20 19:28 Last Admin: 04/01/20 20:28 Dose: Not Given Documented by: [id number] Oxycodone HCl (Roxicodone Immediate Rel) 5 mg PO NOW STA Stop: 04/01/20 16:20 Last Admin: 04/01/20 16:28 Dose: 5 mg Documented by: [id number] Potassium Chloride (Klor-Con M20) 20 meq PO NOW STA Stop: 04/01/20 22:14 Last Admin: 04/01/20 23:50 Dose: 20 meq Documented by: [id number] Imaging Data Radiologist's Impression: CERVICAL SPINE CT CT DOSE: 1838.06 mGy.cm HISTORY: fall TECHNIQUE: Multiaxial CT images of the cervical spine were performed and reformatted in the sagittal and coronal plane without the use of contrast. A dose lowering technique was utilized adhering to the principles of ALARA. COMPARISON: None. FINDINGS: No fractures. No subluxation. Prevertebral soft tissues and the C1-C2 interval are intact. No pneumothorax. Severe disc space narrowing at C5-C6. Mild disc space narrowing seen throughout the remaining cervical spine. The right C2-C3 facets are fused. Moderate to severe facet osteoarthritis within the cervical spine. IMPRESSION: No fractures within the cervical spine. ACT 112: Negative or not required by law. Electronically signed by: Fabian Srinivasan M.D. 04/01/2020 2:16 PM Dictated: 04/01/20 1411 Transcribed: 04/01/20 1411 XR chest 1V portable HISTORY: 84 years-old Male SEPSIS acute sepsis COMPARISON: CT abdomen pelvis and chest radiograph 03/24/2020 TECHNIQUE: Portable AP view of the chest FINDINGS: Cardiomegaly. Calcified plaque of the thoracic aorta. Bilateral calcified pleural plaques redemonstrated along with chronic fibrosis. There is no pneumothorax or large pleural effusion. Pulmonary vascular congestion with progressively worsened interstitial opacities. Probable trace pleural effusions. Degenerative changes of the shoulders and spine. IMPRESSION: 1. 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 2. Cardiomegaly with pulmonary vascular congestion and progressive interstitial opacities suspicious for pulmonary edema. Pneumonitis could appear similarly. 3. Probable trace pleural effusions. ACT 112: Negative or not required by law. The above report was generated using voice recognition software. It may contain grammatical, syntax or spelling errors. Electronically signed by: Arturo Oviedo M.D. 04/01/2020 12:08 PM Dictated: 04/01/20 1206 Transcribed: 04/01/[address] head/brain wo con CLINICAL HISTORY: 84 years-old Male with fall. Acute head and neck injury status post fall TECHNIQUE: Multiple axial CT images of the head were obtained without contrast. A dose lowering technique was utilized adhering to the principles of ALARA. COMPARISON: Head CT 03/24/2020 FINDINGS: No acute intracranial hemorrhage, midline shift, intracranial mass, hydrocephalus, territorial ischemia or abnormal extra-axial collection. Age- related involutional changes with mild ex vacuo ventriculomegaly. Confluent white matter hypodensities suggest advanced chronic microvascular ischemic disease. Cerebral vascular calcifications. The calvarium is intact. Trace mastoid effusions. There is opacification involving a few posterior ethmoid air cells bilaterally. Soft tissues and orbits are unremarkable. Streak artifact from dental amalgam hardware. Bilateral lens replacement. IMPRESSION: No acute intracranial abnormality or calvarial fracture. ACT 112: Negative or not required by law. The above report was generated using voice recognition software. It may contain grammatical, syntax or spelling errors. Electronically signed by: Arturo Oviedo M.D. 04/01/2020 2:15 PM Dictated: 04/01/20 1410 Transcribed: 04/01/20 141 XR shoulder LT min 2V routine HISTORY: 84 years-old Male falll acute left shoulder pain status post fall COMPARISON: Chest radiograph of same day TECHNIQUE: 2 views of the left shoulder FINDINGS: Moderate glenohumeral and AC joint osteoarthritis. Minimal rotator cuff calcific tendinosis. Probable chondrocalcinosis of the glenohumeral joint. No acute fracture or dislocation. Cardiomegaly. Pleural calcifications redemonstrated. Cardiomegaly. IMPRESSION: 1. Moderate osteoarthritis about acute fracture or dislocation. 2. 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 The above report was generated using voice recognition software. It may contain grammatical, syntax or spelling errors. Electronically signed by: Arturo Oviedo M.D. 04/01/2020 12:05 PM Dictated: 04/01/20 1203 Transcribed: 04/01/20 120 Blood Pressure Blood Pressure Findings: Low blood pressure Blood Pressure Disposition: further management by hospitalist Discharge Plan Visit Data *Final* Discharge Date/Time: 04/01/20 21:09 Chief Complaint: Illness Stated Complaint: Syncopal Episode/Hypotension ED Provider: Anton Lizarraga Discharge Problem: Syncope, Anemia, Acidosis, lactic, Head injury, Acute hypotension Patient Disposition: Admitted As Inpatient Condition: Good Discharge Instructions Interventions: ED Discharge Assessment Last Done: 04/01/20 21:09 Discharge Problem: Syncope Qualifiers: Syncope type: unspecified Qualified Code(s): R55 - Syncope and collapse Anemia Qualifiers: Anemia type: unspecified type Qualified Code(s): D64.9 - Anemia, unspecified Head injury Qualifiers: Encounter type: initial encounter Qualified Code(s): S09.90XA - Unspecified injury of head, initial encounter
--- NOTE | 2020-04-01 14:16 | CT Scan Report ---
CT head/brain wo con CLINICAL HISTORY: 84 years-old Male with fall. Acute head and neck injury status post fall TECHNIQUE: Multiple axial CT images of the head were obtained without contrast. A dose lowering tech nique was utilized adhering to the principles of ALARA. COMPARISON: Head CT 03/24/2020 FINDINGS: No acute intracranial hemorrhage, midline shift, intracranial mass, hydrocephalus, territorial ischem ia or abnormal extra-axial collection. Age-related involutional changes with mild ex vacuo ventriculo megaly. Confluent white matter hypodensities suggest advanced chronic microvascular ischemic disease. Cerebral vascular calcifications. The calvarium is intact. Trace mastoid effusions. There is opacification involving a few posterior e thmoid air cells bilaterally. Soft tissues and orbits are unremarkable. Streak artifact from dental a malgam hardware. Bilateral lens replacement. IMPRESSION: No acute intracranial abnormality or calvarial fracture. ACT 112: Negative or not required by law. The above report was generated using voice recognition software. It may contain grammatical, syntax o r spelling errors. Electronically signed by: Arturo Oviedo M.D. 04/01/2020 2:15 PM
--- NOTE | 2020-04-01 14:18 | CT Scan Report ---
CERVICAL SPINE CT CT DOSE: 1838.06 mGy.cm HISTORY: fall TECHNIQUE: Multiaxial CT images of the cervical spine were performed and reformatted in the sagittal and coronal plane without the use of contrast. A dose lowering technique was utilized adhering to th e principles of ALARA. COMPARISON: None. FINDINGS: No fractures. No subluxation. Prevertebral soft tissues and the C1-C2 interval are intact. No pneumothorax. Severe disc space narrowing at C5-C6. Mild disc space narrowing seen throughout the remaining cervical spine. The right C2-C3 facets are fused. Moderate to severe facet osteoarthritis w ithin the cervical spine. IMPRESSION: No fractures within the cervical spine. ACT 112: Negative or not required by law. Electronically signed by: Fabian Srinivasan M.D. 04/01/2020 2:16 PM
[2020-04-01 15:21] LABS: Appearance Urine Clear (Clear); Bacteria Urine Automated Negative (Negative); Bilirubin Urine Negative (Negative); Blood Urine Negative (Negative); Color Urine Yellow; Epithelial Cell Urine Auto >30 /lpf (0-5); Glucose Urine UA Negative (Negative); Ketones Urine Negative (Negative); Leukocyte Esterase Urine Trace (Negative); Nitrite Urine Negative (Negative); Protein Urine Trace (Negative); RBC Urine Automated 0-4 /hpf (0-4); Specific Gravity Urine 1.014 (1.000-1.030); Urobilinogen Urine Negative (Negative)
[2020-04-01 15:47] LABS: Renal Epithelial Cells Urine 0-5 /lpf (0-5)
[2020-04-01] MEDS ORDERED: OXYCODONE HCL IR 5 MG TAB (IMMEDIATE RELEASE) PO STA (16:19)
--- NOTE | 2020-04-01 17:15 | History & Physical Report ---
Date of Service April 01, 2020 Assessment & Plan (1) Hypotension: Suspect due to current PNA and HCTZ use with hypovolemic state. NSS 1L bolus given in ER. Continue LR @ 80ml/hr as above. (2) Syncope: Monitor on telemetry for arrhythmias. Appears to be orthostatic. Once blood pressure improves recommend orthostatic vital signs. ACS not suspected and no current symptoms of this but gien EKG changes will repeat troponin and get TTE in AM (3) Healthcare-associated pneumonia: New onset cough, procalcitonin positive. Patient dose not appear to be septic. Increased lung consolidation on CXR from prior as per my read although inspiratory effort less than prior and chronic lung scarring with possible pulmonary edema makes it difficult to interpret. Reported as pulmonary vascular congestion with progressive interstitial opacities suspicious for pulmonary edema although pneumonitis could appear similar. COVID-19 negative MRSA nose swab negative Allergies to penicillins, cephalosporins and and Bactrim and chronic doxycycline use limits antibiotic choice Will cover for pseudomonas/aspiration with imipenem and continue his usual doxycycline at treatment dose for atypical coverage. Speech consult as noticed occasional choking on eating ?dry mouth due to dehydration on HCTZ (4) Acidosis, lactic: Repeat down to 1.3 therefore suggestive fluid resuscitation was helpful, start gentle IV fluids Lr 80ml/hr (5) Multiple myeloma: Patient scheduled to take cyclophosphamide and dexamethasone tomorrow. In light of current suspected infection these will be temporary placed on hold. Recommend touching base with his oncologist Dr. Antony in the morning to determine risk versus benefit of continuing these. No urgent need for blood transfusion I do not suspect his anemia is contributing significantly to his syncopal episode. 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 Suspected OA + bone met (14) DVT prophylaxis: Continue Eliquis 2.5mg PO BID Admission and Anticipated Discharge Date Admission Date: 04/01/2020 History of Present Illness Chief Complaint: Syncope, anemia, hypotension Primary Care Provider: ESTHELA Salinas Jun Smith is an 84 year old male with multiple myeloma, vasculitis, Parkinson's, cryoglobulinemia type I, IgG kappa paraproteinemia who presents to the ER after a syncopal episode at home. Episode occurred at 9 AM today. While standing up he collapsed over onto the sink. Witnessed by his . Became unresponsive with his eyes rolling back, increased respiratory rate with lips vibrating. He slid down his stool onto the floor without a significant impact as per his . He notes having a new nonproductive cough over the last week, started during his last hospitalization. He denies any new onset fever, chills, chest pain, shortness of breath, PND, orthopnea. No CVA tenderness, dysuria, change in urine frequency, smell, color. No abdominal pain, nausea, vomiting, change in bowels. He was recently hospitalized from March 24- due to a fall at home, worked up for TIA and felt more consistent with delirium by neurology. He sustained a T12 compression fracture on that occasion. Allergies Allergy/AdvReac Type Severity Reaction Status Date / Time Cephalosporins Allergy Intermediate Rash Verified 04/01/20 12:15 doxycycline Allergy Intermediate skin Verified 04/01/20 12:15 irritation Penicillins Allergy Intermediate HIVES Verified 04/01/20 12:15 amoxicillin Allergy Unknown RASH Verified 04/01/20 12:15 sulfamethoxazole AdvReac Intermediate skin rash Verified 04/01/20 12:15 [From Bactrim] trimethoprim [From Bactrim] AdvReac Intermediate skin rash Verified 04/01/20 12:15 Home Medications Home Medications Medication Instructions Recorded Confirmed Type carbidopa-levodopa [Sinemet] 1 tab PO TID 07/01/18 04/01/20 History selegiline HCl 5 mg PO BID 07/01/18 04/01/20 History Prevagen 1 cap PO DAILY@1500 03/24/20 04/01/20 History Velcade 0 mg IV TH 03/24/20 04/01/20 History acyclovir 400 mg PO BID 03/24/20 04/01/20 History aspirin 81 mg PO DAILY@1500 03/24/20 04/01/20 History cyclophosphamide 500 mg PO TH@0800 03/24/20 04/01/20 History docusate sodium [Colace] 300 mg PO HS 03/24/20 04/01/20 History gabapentin 400 mg PO TID 03/24/20 04/01/20 History hydrochlorothiazide 25 mg PO QAM 03/24/20 04/01/20 History omeprazole 20 mg PO QAM 03/24/20 04/01/20 History oxycodone 5 mg PO Q4H PRN 03/24/20 04/01/20 History simvastatin 20 mg PO HS 03/24/20 04/01/20 History lidocaine 1 patch TRANSDERMAL QAM #10 ea 03/26/20 04/01/20 Rx apixaban 2.5 mg tablet 2.5 mg PO BID #60 tab 03/27/20 04/01/20 Rx metoprolol tartrate 25 mg tablet 6.25 mg PO BID #30 tab 03/27/20 04/01/20 Rx dexamethasone 20 mg PO TH@0800 04/01/20 04/01/20 History doxycycline hyclate 100 mg PO DAILY 04/01/20 04/01/20 History Past Med/Surg History Medical History Abnormal EKG (Inactive) Acute renal failure (ARF) (Inactive) Altered mental status (Inactive) Arthritis (Chronic) Basal cell carcinoma (BCC) Bursitis of right hip Chest pain syndrome (Resolved 05/20/14) Non-ST elevation ID (NSTEMI) (Inactive) Sacroiliac dysfunction Surgical History H/O hernia repair (Resolved) inguinal History of back surgery x 2 History of carpal tunnel surgery History of lumbar fusion Lumbar Vertebral Fusion Family History Mother , in her 70s Coronary heart disease Myocardial infarction Stroke Father , age 94 Glaucoma Unknown Acute urticaria Sister Breast cancer Denies family history of Ovarian cancer Prostate cancer Diabetes Dyslipidemia Colorectal cancer Hypertension Social History Smoking Status: Never smoker Second Hand Exposure: Yes; Do You Dip or Chew Tobacco: No; Hx Alcohol Use: No Hx Substance Use: No Preferred Language: Spanish Communication Ability: Effective Visual Impairment: Limited Hearing Ability: Normal Facilities Engineering Manager Required: No Beliefs That Will Affect Care: None marital status: marital status details: 2 children Current Living Situation: Spouse current occupational status: 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 Feels Safe at Home: Yes Safety Concerns: Feels Safe At This Time Review of Systems Review of Systems: All systems reviewed & are unremarkable except as noted in HPI & below Constitutional: + chills (Chronically), + fatigue and + weight loss Physical Exam Constitutional: well developed and + frail appearing; + not well nourished and no acute distress Eyes: + anicteric sclerae and + abnormal pupil size (Bilateral equal miotic) ENMT: external ear and nose normal, oropharynx normal Neck: trachea midline, no thyromegaly Respiratory: normal respiratory effort and able to speak in complete sentences; no respiratory distress, no labored breathing, does not use accessory muscles and no cough Auscultation: + crackles (Bibasal); no diminished lung sounds, no rales, no rhonchi and no wheezes Cardiovascular: Rate/Rhythm: regular rhythm and + tachycardic Gastrointestinal (Abdomen): Inspection/Auscultation: abdomen normal to inspection and normal bowel sounds Percussion/Palpation: abdomen soft; abdomen nontender, no guarding and abdomen not rigid Musculoskeletal: Multiple pains on palpation over the right lateral hip, lower back, anterior left ribs, left biceps and anterior shoulder. 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 the largest of which is over his left patella which his reports has been improving without surrounding cellulitis Neurologic: moves all extremities and awake; not confused Motor/Sensory: + tremor (Most apparent on his jaw, resting pinwheel in b/l hands) and + abnormal movement (Significant cogwheel rigidity in all 4 extremities); no pronator drift Psychiatric: Orientation: alert and oriented x 3 Genitourinary: no CVA tenderness Results & Data Results & Data ([facility]) Vital Signs (Past 12 Hours) Vital Signs Temp Pulse Resp BP Pulse Ox 04/01/20 17:00 107 H 18 94/55 L 95 04/01/20 16:30 104 H 17 100/56 L 100 04/01/20 16:00 37.5 C 108 H 22 95/54 L 98 04/01/20 15:35 108 H 23 107/63 99 04/01/20 15:34 111 H 22 04/01/20 15:20 102 H 15 124/70 97 04/01/20 15:00 105 H 22 114/63 04/01/20 14:30 107 H 22 110/61 93 04/01/20 14:13 109 H 24 119/67 97 04/01/20 14:12 108 H 15 04/01/20 13:30 100 H 24 118/63 98 04/01/20 13:01 96 H 20 117/66 99 04/01/20 13:00 94 H 20 04/01/20 12:30 84 22 117/54 L 04/01/20 12:10 82 21 113/56 L 04/01/20 12:00 80 22 113/56 L 100 04/01/20 11:30 76 15 109/55 L 100 04/01/20 11:28 82 20 96 04/01/20 11:13 36.4 C L 82 20 97/53 L 96 04/01/20 11:00 81 18 92/52 L 98 04/01/20 10:54 82 19 98 04/01/20 10:52 83 19 91/52 L 97 Diagnostic Findings XR hip RT 2V w pelvis IMPRESSION: 1. No acute fracture within the pelvis or hips. 2. Lytic lesions consistent with known multiple myeloma could better depicted on prior CT. 3. Moderate osteoarthritis of the hips. XR shoulder LT min 2V routine IMPRESSION: 1. Moderate osteoarthritis about acute fracture or dislocation. 2. Minimal rotator cuff calcific tendinosis (hydroxyapatite deposition disease) CT head/brain wo con IMPRESSION: No acute intracranial abnormality or calvarial fracture. XR chest 1V portable IMPRESSION: 1. 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 2. Cardiomegaly with pulmonary vascular congestion and progressive interstitial opacities suspicious for pulmonary edema. Pneumonitis could appear similarly. 3. Probable trace pleural effusions. CERVICAL SPINE CT IMPRESSION: No fractures within the cervical spine. ECG Indication: chest pain Rate (beats per minute): 82 Rhythm: normal sinus Findings: + other (non-specific T wave abnormality in inferior/anterolateral leads) and + nonspecific-ST abn (inferior) Comparison ECG Date: from (March 24, 2020) Change: the following changes noted (Nonspecific ST and T wave changes as above) Code Status & VTE Plan Code Status Full as per prior wishes although not rediscussed on this admission VTE Prophylaxis Plan VTE Prophylaxis will be ordered: Yes PG Care Time/CCT Total # of Minutes Spent Total Time Spent with Patient: Total time spent is greater than 50% in coordination of care (as documented) at patient's floor/unit and/or counseling patient: Coding Level of Care Code 74185 Initial Inpt Care Lvl 3 Diagnoses Hypotension I95.9 Hypotension type: unspecified hypotension type Syncope R55 Syncope type: unspecified Healthcare-associated pneumonia J18.9 Acidosis, lactic E87.2 Multiple myeloma C90.00 Multiple myeloma remission status: unspecified Cryoglobulinemic vasculitis D89.1 Cryoglobulinemic purpura D89.1 Cryoglobulinemia type 1 D89.1 Vertebral compression fracture M48.50XA Acid reflux disease K21.9 Parkinson disease G20 GERD (gastroesophageal reflux disease) K21.9 Esophagitis presence: without esophagitis Right groin pain R10.31 DVT prophylaxis Z29.9 (1) Syncope Syncope type: unspecified Qualified Code(s): R55 - Syncope and collapse (2) GERD (gastroesophageal reflux disease) Esophagitis presence: without esophagitis Qualified Code(s): K21.9 - Gastro- esophageal reflux disease without esophagitis (3) Multiple myeloma Multiple myeloma remission status: unspecified Qualified Code(s): C90.00 - Multiple myeloma not having achieved remission (4) Hypotension Hypotension type: unspecified hypotension type Qualified Code(s): I95.9 - Hypotension, unspecified
[2020-04-01] MEDS ORDERED: ASPIRIN 81 MG ECTAB PO STA (17:27)
[2020-04-01] MEDS ORDERED: IMIPENEM/CILASTATIN CONSULT ACTIVE PRN (17:40)
[2020-04-01] MEDS ORDERED: IMIPENEM/CILASTATIN SODIUM 500 MG in DEXTROSE 5% 100 ML IV STA (17:40)
[2020-04-01] MEDS ORDERED: ERTAPENEM SODIUM 1,000 MG in SODIUM CHLORIDE 0.9% 50 ML IV SCH (17:45)
[2020-04-01] MEDS ORDERED: CARBIDOPA/LEVODOPA 25/100MG TAB PO ONE (18:00)
[2020-04-01] MEDS ORDERED: GABAPENTIN 400 MG CAP PO ONE (18:00)
[2020-04-01] MEDS ORDERED: LACTATED RINGER'S 1,000 ML IV ONE (18:28)
[2020-04-01 20:29] LABS: NT Pro B Type Natriuretic Pept 2084 pg/ml (0-1800)
--- NOTE | 2020-04-01 20:49 | XRay Report ---
XR hip RT 2V w pelvis CLINICAL HISTORY: Right groin pain. Recent fall. Multiple myeloma. COMPARISON: CT of the abdomen and pelvis March 24, 2020. Right hip radiographs November 10, 2019. FINDINGS: Sacroiliac joints and symphysis pubis are intact. No acute fracture is identified within t he pelvis or hips. Moderate osteoarthritis of the hips is noted. Lytic skeletal lesions are better de picted on CT of March 24, 2020. IMPRESSION: 1. No acute fracture within the pelvis or hips. 2. Lytic lesions consistent with known multiple myeloma could better depicted on prior CT. 3. Moderate osteoarthritis of the hips. ACT 112: Negative or not required by law. Electronically signed by: Driss Mirza M.D. 04/01/2020 8:47 PM
[2020-04-01] MEDS ORDERED: POTASSIUM CHLORIDE 20 MEQ TABCR PO STA (22:13)
[2020-04-01] MEDS: OXYCODONE HCL IR 5 MG TAB (IMMEDIATE RELEASE) PO PRN (22:35)
[2020-04-01] MEDS: ACYCLOVIR 400 MG TAB PO SCH (22:35)
[2020-04-01] MEDS: DOCUSATE SODIUM 100 MG CAP PO SCH (22:36)
[2020-04-01] MEDS: GABAPENTIN 400 MG CAP PO SCH (22:36)
[2020-04-01] MEDS: CARBIDOPA/LEVODOPA 25/100MG TAB PO SCH (22:37)
[2020-04-01] MEDS: SIMVASTATIN 20 MG TAB PO SCH (22:37)
[2020-04-01] MEDS: APIXABAN 2.5 MG TAB PO SCH (22:37)
[2020-04-01] MEDS: METOPROLOL TARTRATE 25 MG TAB PO SCH (22:41)
[2020-04-01] MEDS: SELEGILINE HCL 5 MG TAB PO SCH (22:41)
[2020-04-02] MEDS: LACTATED RINGER'S 1,000 ML IV SCH ×2 (01:12→13:20)
[2020-04-02] MEDS: IMIPENEM/CILASTATIN SODIUM 300 MG in DEXTROSE 5% 100 ML IV SCH ×4 (02:54→20:09)
[2020-04-02 07:29] LABS: Hematocrit (blood only) 24.2 % (42-52); Hemoglobin 7.9 g/dL (14.0-18.0); Mean Corpuscular Hemoglobin 32.8 pg (25-34); Mean Corpuscular Hgb Conc 32.6 g/dL (32-36); Mean Corpuscular Volume 100.4 fL (80-100); Mean Platelet Volume 10.5 fL (7.4-10.4); Platelet Count 111 K/uL (130-400); RDW Coefficient of Variation 17.9 % (11.5-14.5); RDW Standard Deviation 64.1 fL (36.4-46.3); Red Blood Count 2.41 M/uL (4.7-6.1); White Blood Count 8.93 K/uL (4.8-10.8)
[2020-04-02 07:53] LABS: Alanine Aminotransferase < 6 U/L (12-78); Albumin Level 1.6 gm/dl (3.4-5.0); Aspartate Aminotransferase 27 U/L (15-37); BUN Creatinine Ratio 11.1 (10-20); Blood Urea Nitrogen 12 mg/dl (7-18); Calcium 7.3 mg/dl (8.5-10.1); Carbon Dioxide 26 mmol/L (21-32); Chloride 107 mmol/L (98-107); Creatinine Clr Calc Pharmacy 43.9 ml/min; Est GFR (African American) 71.9; Glucose 89 mg/dl (70-99); Potassium 3.6 mmol/L (3.5-5.1); Sodium 138 mmol/L (136-145)
[2020-04-02 07:57] LABS: Basophils # (auto) 0.01 K/uL (0-0.2); Basophils % (auto) 0.1 %; Dohle Bodies 1+; Eosinophils # (auto) 0.14 K/uL (0-0.5); Eosinophils % (auto) 1.6 %; Immature Granulocytes # (auto) 0.04 K/uL (0.00-0.02); Immature Granulocytes % (auto) 0.4 %; Lymphocytes # (auto) 0.58 K/uL (1.2-3.4); Lymphocytes % (auto) 6.5 %; Monocytes # (auto) 0.43 K/uL (0.11-0.59); Monocytes % (auto) 4.8 %; Neutrophils # (auto) 7.73 K/uL (1.4-6.5); Neutrophils % (auto) 86.6 %
[2020-04-02 07:58] LABS: Albumin Globulin Ratio 0.3 (0.9-2); Alkaline Phosphatase 89 U/L (45-117); Bilirubin,Total 0.5 mg/dl (0.2-1); Globulin 4.6 gm/dl (2.5-4.0); Total Protein 6.2 gm/dl (6.4-8.2); Troponin I 0.023 ng/ml (0-0.045)
[2020-04-02] MEDS: LIDOCAINE 5% 1 PATCH TD SCH (08:20)
[2020-04-02] MEDS: APIXABAN 2.5 MG TAB PO SCH ×2 (08:22→21:27)
[2020-04-02] MEDS: SELEGILINE HCL 5 MG TAB PO SCH ×2 (08:22→21:28)
[2020-04-02] MEDS: DOXYCYCLINE HYCLATE 100 MG CAP PO SCH ×2 (08:22→21:27)
[2020-04-02] MEDS: ACYCLOVIR 400 MG TAB PO SCH ×2 (08:35→21:29)
[2020-04-02] MEDS: GABAPENTIN 400 MG CAP PO SCH ×3 (08:35→21:28)
[2020-04-02] MEDS: CARBIDOPA/LEVODOPA 25/100MG TAB PO SCH ×3 (08:36→21:28)
[2020-04-02] MEDS: PANTOprazole 40 MG TAB PO SCH (08:36)
[2020-04-02] MEDS: METOPROLOL TARTRATE 25 MG TAB PO SCH ×2 (09:25→21:27)
--- NOTE | 2020-04-02 12:38 | Hospitalist Progress Note ---
Date of Service April 02, 2020 Assessment & Plan (1) Hypotension: Suspect due to autonomic dysfunction with Parkinson's disease as well as HCTZ. Possibly pneumonia as well, though it seems less likely given lack of respiratory symptoms. - Continue abx for 48 hours to watch for culture return - Hold HCTZ & beta-sergey (2) Syncope: Monitor on telemetry for arrhythmias. Once blood pressure improved, orthostatic vital signs were negative on 04/02. Troponins negative, so no ACS. Seizure or CVA not supported by history. - Monitor (3) Healthcare-associated pneumonia: Unclear if this is true infection or not. Patient denies cough today (though reported cough to admitted provider). Procalcitonin is positive. Patient dose not appear to be septic. COVID-19 negative; MRSA nose swab negative. - Continue abx x 48 hours to watch cultures - Will repeat standing CXR today - Follow up ELECTRO TECH recommendations (4) Multiple myeloma: Patient scheduled to take cyclophosphamide and dexamethasone on 04/02. In light of current suspected infection, these will be temporary placed on hold. - Will discuss with Dr. Antony today. 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 - Nurse wound care consult for stage IV skin ulcers (6) Vertebral compression fracture: From prior fall. - PT/OT evals - Continue lidocaine patches (7) Acid reflux disease: - Switch omeprazole to pantoprazole as per hospital formulary (8) Parkinson disease: Follows with Dr. Dotson. - Continue home medications Sinemet 25/100 1 tab 3 times daily. - Neurology consult (9) Right groin pain: X-ray obtained in the ER despite chronicity given recent falls, no hip fracture seen. 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 (10) DVT prophylaxis: Eliquis 2.5mg PO BID Admission and Anticipated Discharge Date Admission Date: April 01, 2020 Subjective No syncope today. His BP is running low. No shortness of breath or cough. Never had any issues with that. Reports no fevers/chills, chest pain, shortness of breath, abdominal pain, nausea, or vomiting. Physical Exam Constitutional: WD/WN, vitals as above Eyes: EOM intact bilaterally; no conjunctival abnormality ENMT: external ear and nose normal, oropharynx normal Neck: trachea midline, no thyromegaly normal visual inspection Respiratory: normal respiratory effort, lungs clear to auscultation no respiratory distress Cardiovascular: RRR, no murmur, no edema Gastrointestinal (Abdomen): Inspection/Auscultation: abdomen normal to inspection; abdomen not distended Musculoskeletal: no cyanosis or clubbing, extremities motor strength 5/5 Skin: no rashes, warm and dry Neurologic: moves all extremities and awake Psychiatric: Orientation: alert, oriented to person and cooperative Results & Data Results & Data ([facility]) Vital Signs (Past 12 Hours) Vital Signs Temp Pulse Pulse Resp BP Pulse Ox 04/02/20 11:44 37.0 C 84 16 101/52 L 93 04/02/20 07:50 37.1 C 91 H 18 113/61 92 04/02/20 07:26 87 04/02/20 03:25 36.6 C 86 18 95/52 L 94 04/02/20 00:35 94 H PG Care Time/CCT Total # of Minutes Spent Total Time Spent with Patient: Total time spent is greater than 50% in coordination of care (as documented) at patient's floor/unit and/or counseling patient: Coding Level of Care Code 19668 Subseq Hosp Care Lvl 3 Diagnoses Hypotension I95.9 Hypotension type: unspecified hypotension type Syncope R55 Syncope type: unspecified Healthcare-associated pneumonia J18.9 Multiple myeloma C90.00 Multiple myeloma remission status: unspecified Cryoglobulinemic vasculitis D89.1 Vertebral compression fracture M48.50XA Acid reflux disease K21.9 Parkinson disease G20 Right groin pain R10.31 DVT prophylaxis Z29.9 (1) Hypotension Hypotension type: unspecified hypotension type Qualified Code(s): I95.9 - Hypotension, unspecified (2) Syncope Syncope type: unspecified Qualified Code(s): R55 - Syncope and collapse (3) Multiple myeloma Multiple myeloma remission status: unspecified Qualified Code(s): C90.00 - Multiple myeloma not having achieved remission
[2020-04-02] MEDS: OXYCODONE HCL IR 5 MG TAB (IMMEDIATE RELEASE) PO PRN ×2 (13:48→21:25)
[2020-04-02] MEDS ORDERED: NON-FORMULARY MEDICATION (Prevagen 1 CAP) PO SCH (15:00)
[2020-04-02] MEDS: ASPIRIN 81 MG ECTAB PO SCH (15:17)
--- NOTE | 2020-04-02 16:17 | XRay Report ---
XR chest 2V PA/lateral CLINICAL HISTORY: Concern for PNA COMPARISON STUDY: Chest CT March 03, 2016. Chest radiograph April 01, 2020 FINDINGS: No pneumothorax or pleural effusion is noted. Cardiomegaly is unchanged. Numerous calcified and noncalcified pleural plaques are again noted. This makes evaluation of the chest somewhat diffic ult. Interstitial thickening persists. This is similar to prior exam. No consolidation is identified. IMPRESSION: No significant change in interstitial thickening. This favors mild pulmonary edema. An i nfectious process could appear similar. No consolidation identified. ACT 112: Negative or not required by law. Electronically signed by: Driss Mirza M.D. 04/02/2020 4:16 PM
[2020-04-02] MEDS: SIMVASTATIN 20 MG TAB PO SCH (21:28)
[2020-04-02] MEDS: DOCUSATE SODIUM 100 MG CAP PO SCH (21:28)
[2020-04-02] MEDS ORDERED: MELATONIN 3 MG TAB PO PRN (22:05)
[2020-04-03] MEDS: IMIPENEM/CILASTATIN SODIUM 300 MG in DEXTROSE 5% 100 ML IV SCH ×4 (01:43→21:25)
[2020-04-03] MEDS: OXYCODONE HCL IR 5 MG TAB (IMMEDIATE RELEASE) PO PRN ×3 (01:45→18:51)
[2020-04-03 07:32] LABS: Hematocrit (blood only) 24.4 % (42-52); Hemoglobin 7.8 g/dL (14.0-18.0); Mean Corpuscular Hemoglobin 32.1 pg (25-34); Mean Corpuscular Volume 100.4 fL (80-100); Mean Platelet Volume 10.1 fL (7.4-10.4); Platelet Count 114 K/uL (130-400); RDW Coefficient of Variation 17.7 % (11.5-14.5); RDW Standard Deviation 65.6 fL (36.4-46.3); Red Blood Count 2.43 M/uL (4.7-6.1); White Blood Count 8.35 K/uL (4.8-10.8)
[2020-04-03 08:07] LABS: Calcium 7.3 mg/dl (8.5-10.1); Creatinine Clr Calc Pharmacy 53.7 ml/min; Est GFR (Non-African American) 78.5; Potassium 3.5 mmol/L (3.5-5.1)
[2020-04-03] MEDS: GABAPENTIN 400 MG CAP PO SCH ×3 (08:33→20:08)
[2020-04-03] MEDS: METOPROLOL TARTRATE 25 MG TAB PO SCH ×2 (08:33→20:07)
[2020-04-03] MEDS: APIXABAN 2.5 MG TAB PO SCH ×2 (08:33→20:07)
[2020-04-03] MEDS: DOXYCYCLINE HYCLATE 100 MG CAP PO SCH ×2 (08:33→20:09)
[2020-04-03] MEDS: ACYCLOVIR 400 MG TAB PO SCH ×2 (08:33→20:08)
[2020-04-03] MEDS: SELEGILINE HCL 5 MG TAB PO SCH ×2 (08:34→20:08)
[2020-04-03] MEDS: CARBIDOPA/LEVODOPA 25/100MG TAB PO SCH ×3 (08:34→20:08)
[2020-04-03] MEDS: PANTOprazole 40 MG TAB PO SCH (08:34)
[2020-04-03] MEDS: LIDOCAINE 5% 1 PATCH TD SCH (08:34)
--- NOTE | 2020-04-03 14:53 | Hospitalist Progress Note ---
Date of Service April 03, 2020 Assessment & Plan (1) Hypotension: Suspect due to autonomic dysfunction with Parkinson's disease as well as HCTZ. Possibly pneumonia as well. - Continue antibiotics for a course of pneumonia - Hold HCTZ & beta-sergey (2) Syncope: Monitor on telemetry for arrhythmias. Once blood pressure improved, orthostatic vital signs were negative on 04/02. Troponins negative, so no ACS. Seizure or CVA not supported by history. - Monitor (3) Healthcare-associated pneumonia: Unclear if this is true infection or not. Patient denies cough today (though reported cough to admitted provider). Procalcitonin is positive. Patient dose not appear to be septic. COVID-19 negative; MRSA nose swab negative. Repeat CXR on 04/02 was stable. Procalcitonin continues to be positive and is mildly higher from prior. - Continue abx for a course of simple pneumonia. - CYCLE REPAIRER recommendations are generally positive without signs of aspiration: * Easy to Chew diet * General aspiration precautions like being awake and upright for meals (4) Multiple myeloma: Patient scheduled to take cyclophosphamide and dexamethasone on 04/02. In light of current suspected infection, these will be temporary placed on hold. - Discussed with Dr. Antony -> Hold cyclophosphamide and dexamethasone while hospitalized. Follow up outpatient. 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 - Nurse wound care consult for stage IV skin ulcers (6) Vertebral compression fracture: From prior fall. - PT/OT evals - Continue lidocaine patches (7) Acid reflux disease: - Switch omeprazole to pantoprazole as per hospital formulary (8) Parkinson disease: Follows with Dr. Dotson. - Continue home medications Sinemet 25/100 1 tab 3 times daily. - Neurology consult -> Discussed with Dr. Dotson on 04/03; he will see him today, but unlikely to have major changes. (9) Right groin pain: X-ray obtained in the ER despite chronicity given recent falls, no hip fracture seen. 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 (10) DVT prophylaxis: Eliquis 2.5mg PO BID Admission and Anticipated Discharge Date Admission Date: April 01, 2020 Subjective Feeling well today. No major concerns. Cough is stable. Left knee's area is improving. Reports no fevers/chills, chest pain, shortness of breath, abdominal pain, nausea, or vomiting. Physical Exam Constitutional: WD/WN, vitals as above Eyes: EOM intact bilaterally; no conjunctival abnormality ENMT: external ear and nose normal, oropharynx normal Neck: trachea midline, no thyromegaly normal visual inspection Respiratory: normal respiratory effort, lungs clear to auscultation no respiratory distress Cardiovascular: RRR, no murmur, no edema Gastrointestinal (Abdomen): Inspection/Auscultation: abdomen normal to inspection; abdomen not distended Musculoskeletal: no cyanosis or clubbing, extremities motor strength 5/5 Skin: no rashes, warm and dry Neurologic: moves all extremities and awake Psychiatric: Orientation: alert, oriented to person and cooperative Results & Data Results & Data ([facility]) Vital Signs (Past 12 Hours) Vital Signs Temp Pulse Resp BP Pulse Ox 04/03/20 10:58 36.7 C 83 20 103/56 L 95 04/03/20 07:38 37.0 C 86 19 119/65 94 04/03/20 03:57 36.6 C 85 19 108/59 L 93 PG Care Time/CCT Total # of Minutes Spent Total Time Spent with Patient: Total time spent is greater than 50% in coordination of care (as documented) at patient's floor/unit and/or counseling patient: Coding Level of Care Code 15324 Subseq Hosp Care Lvl 3 Diagnoses Hypotension I95.9 Hypotension type: unspecified hypotension type Syncope R55 Syncope type: unspecified Healthcare-associated pneumonia J18.9 Multiple myeloma C90.00 Multiple myeloma remission status: unspecified Cryoglobulinemic vasculitis D89.1 Vertebral compression fracture M48.50XA Acid reflux disease K21.9 Parkinson disease G20 Right groin pain R10.31 DVT prophylaxis Z29.9 (1) Hypotension Hypotension type: unspecified hypotension type Qualified Code(s): I95.9 - Hypotension, unspecified (2) Syncope Syncope type: unspecified Qualified Code(s): R55 - Syncope and collapse (3) Multiple myeloma Multiple myeloma remission status: unspecified Qualified Code(s): C90.00 - Multiple myeloma not having achieved remission
[2020-04-03] MEDS: ASPIRIN 81 MG ECTAB PO SCH (15:45)
--- NOTE | 2020-04-03 16:42 | Communication Note ---
Date of Service: April 03, 2020 I saw Jun today in neurologic consultation. He was admitted 2 days ago for a hypotensive episode with syncope at home is subsequently been rehydrated some of his medications have been adjusted and the question now has been raised about whether he has significant autonomic dysfunction related to his Parkinson's disease. 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 He came around and then was able to converse but seemed a little more devoid of content than he usually was. 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 He also has severe neuropathy of the lower extremities but T cutaneous manifestations of his cryoglobulin deposition have disappeared in the warmer weather He currently takes a combination of gabapentin and Sinemet and relatively low doses and frankly I think the contribution of these agents to his hypotension is minimal as he is responded very nicely to fluid replacement and adjustment of some of his other agents more antihypertensive effect At this point I am going to try to arrange to see him earlier in the office than his scheduled return in late June but I see no point in changing his medication schedule. He inadvertently had his gabapentin reduced or eliminated during several of his handoff during a series of hospitalizations last spring and he deteriorated significantly so I would leave his medication list pretty much stable in terms of the neurologic agents I see no point addressing the cognitive impairment at this point. We could at some point add a little Aricept but frankly I think his prognosis from the myeloma is so poor that he did add any more agents which might produce significant gastric side effects weight loss etc. and have minimal benefit Odin Dotson MD
[2020-04-03] MEDS: DOCUSATE SODIUM 100 MG CAP PO SCH (20:07)
[2020-04-03] MEDS ORDERED: SIMVASTATIN 40 MG TAB PO SCH (21:00)
[2020-04-04] MEDS: IMIPENEM/CILASTATIN SODIUM 300 MG in DEXTROSE 5% 100 ML IV SCH ×2 (02:10→08:27)
[2020-04-04] MEDS: OXYCODONE HCL IR 5 MG TAB (IMMEDIATE RELEASE) PO PRN ×2 (02:16→14:00)
[2020-04-04] MEDS: SELEGILINE HCL 5 MG TAB PO SCH (08:28)
[2020-04-04] MEDS: GABAPENTIN 400 MG CAP PO SCH ×2 (08:28→14:01)
[2020-04-04] MEDS: CARBIDOPA/LEVODOPA 25/100MG TAB PO SCH ×2 (08:28→14:01)
[2020-04-04] MEDS: APIXABAN 2.5 MG TAB PO SCH (08:29)
[2020-04-04] MEDS: METOPROLOL TARTRATE 25 MG TAB PO SCH (08:29)
[2020-04-04] MEDS: LIDOCAINE 5% 1 PATCH TD SCH (08:30)
[2020-04-04] MEDS: DOXYCYCLINE HYCLATE 100 MG CAP PO SCH (08:31)
[2020-04-04] MEDS: ACYCLOVIR 400 MG TAB PO SCH (08:31)
[2020-04-04] MEDS: PANTOprazole 40 MG TAB PO SCH (08:31)
[2020-04-04 10:05] LABS: Hematocrit (blood only) 25.1 % (42-52); Hemoglobin 8.2 g/dL (14.0-18.0); Mean Corpuscular Hemoglobin 32.5 pg (25-34); Mean Corpuscular Hgb Conc 32.7 g/dL (32-36); Mean Corpuscular Volume 99.6 fL (80-100); Mean Platelet Volume 10.6 fL (7.4-10.4); Platelet Count 147 K/uL (130-400); RDW Coefficient of Variation 17.7 % (11.5-14.5); RDW Standard Deviation 63.9 fL (36.4-46.3); Red Blood Count 2.52 M/uL (4.7-6.1); White Blood Count 6.88 K/uL (4.8-10.8)
[2020-04-04 10:29] LABS: BUN Creatinine Ratio 6.3 (10-20); Calcium 7.4 mg/dl (8.5-10.1); Creatinine Clr Calc Pharmacy 51.4 ml/min; Est GFR (African American) 87.1; Est GFR (Non-African American) 75.1; Potassium 3.5 mmol/L (3.5-5.1)
--- NOTE | 2020-04-04 11:39 | Communication Note ---
Date of Service: April 04, 2020 I saw Rj today and he looks unchanged. He was sleeping we aroused him he could recognize me almost immediately knew where he was knew he was being discharged and then developed his left unilateral parkinsonian tremor superimposed upon a mild generalized tremor of his head and speech and contralateral extremity. At this point again I do not want to change his medications which from a neurologic point of view consists of gabapentin and Sinemet both in reasonably low doses and some [id number] Privigen for his memory loss I will arrange to see him back in my office in about a month Odin Dotson MD
--- NOTE | 2020-04-04 13:43 | Discharge Summary ---
Date of Service April 04, 2020 Admission HPI Per Admitting Provider Jun Smith is an 84 year old male with multiple myeloma, vasculitis, Parkinson's, cryoglobulinemia type I, IgG kappa paraproteinemia who presents to the ER after a syncopal episode at home. Episode occurred at 9 AM today. While standing up he collapsed over onto the sink. Witnessed by his . Became unresponsive with his eyes rolling back, increased respiratory rate with lips vibrating. He slid down his stool onto the floor without a significant impact as per his . He notes having a new nonproductive cough over the last week, started during his last hospitalization. He denies any new onset fever, chills, chest pain, shortness of breath, PND, orthopnea. No CVA tenderness, dysuria, change in urine frequency, smell, color. No abdominal pain, nausea, vomiting, change in bowels. He was recently hospitalized from March 24- due to a fall at home, worked up for TIA and felt more consistent with delirium by neurology. He sustained a T12 compression fracture on that occasion. Principal Diagnosis Low blood pressure, possibly due to medication or infection. Discharge Exam Constitutional WD/WN, vitals as above Eyes EOM intact bilaterally; no conjunctival abnormality ENMT external ear and nose normal, oropharynx normal Neck trachea midline, no thyromegaly normal visual inspection Respiratory normal respiratory effort, lungs clear to auscultation no respiratory distress Cardiovascular RRR, no murmur, no edema Gastrointestinal (Abdomen) Inspection/Auscultation: abdomen normal to inspection; abdomen not distended Musculoskeletal no cyanosis or clubbing, extremities motor strength 5/5 Skin no rashes, warm and dry Neurologic moves all extremities and awake Psychiatric Orientation: alert, oriented to person and cooperative Discharge Data Allergies Allergy/AdvReac Type Severity Reaction Status Date / Time Cephalosporins Allergy Intermediate Rash Verified 04/01/20 12:15 doxycycline Allergy Intermediate skin Verified 04/01/20 12:15 irritation Penicillins Allergy Intermediate HIVES Verified 04/01/20 12:15 amoxicillin Allergy Unknown RASH Verified 04/01/20 12:15 sulfamethoxazole AdvReac Intermediate skin rash Verified 04/01/20 12:15 [From Bactrim] trimethoprim [From Bactrim] AdvReac Intermediate skin rash Verified 04/01/20 12:15 Consultations 04/01/20 16:40 ED Decision to Admit Stat 07/22/20 22:18 Consult Oncology Routine 04/02/20 12:38 Consult Neurology Routine Ordered Studies 04/01/20 11:17 CT cervical spine wo con Stat CT head/brain wo con Stat Hospital Course (1) Hypotension: Suspect due to autonomic dysfunction with Parkinson's disease as well as HCTZ. Possibly pneumonia as well. - Continue antibiotics for a course of pneumonia -> Discharged on 2 more days of levofloxacin for 5-day treatment course. - Hold HCTZ on discharge - Continue beta-sergey for heart rate control when he goes into afib. (2) Syncope: Monitored on telemetry for arrhythmias. Only a few self-resolved runs of afib were seen. Troponins negative, so no ACS. Seizure or CVA not supported by history. - Once blood pressure improved, orthostatic vital signs were negative on 04/02. - Hopefully related to iatrogenic low BP from his HCTZ which was held on discharge. (3) Healthcare-associated pneumonia: Unclear if this is true infection or not. Patient denies cough today (though reported cough to admitted provider). Procalcitonin is positive. Patient dose not appear to be septic. COVID-19 negative; MRSA nose swab negative. Repeat CXR on 04/02 was stable. Procalcitonin continues to be positive and is mildly higher from prior. - Continued IV imipenem inpatient - SAFETY GLASS INSTALLER recommendations are generally positive without signs of aspiration: * Easy to Chew diet * General aspiration precautions like being awake and upright for meals - Discharged on levofloxacin x 2 more days. (4) Multiple myeloma: Patient scheduled to take cyclophosphamide and dexamethasone on 04/02. In light of current suspected infection, these will be temporary placed on hold. - Discussed with Dr. Antony -> Hold cyclophosphamide and dexamethasone while hospitalized. Follow up outpatient next . 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 - Nurse wound care consult for stage IV skin ulcers (6) Vertebral compression fracture: From prior fall. - PT/OT evals - Continue lidocaine patches (7) Acid reflux disease: - Switch omeprazole to pantoprazole as per hospital formulary (8) Parkinson disease: Follows with Dr. Dotson. - Continue home medications Sinemet 25/100 1 tab 3 times daily. - Neurology consult -> Discussed with Dr. Dotson on 04/03. No changes. (9) Right groin pain: X-ray obtained in the ER despite chronicity given recent falls, no hip fracture seen. 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 (10) DVT prophylaxis: Eliquis 2.5mg PO BID Total Time Total Time Spent Total Time Spent (In Minutes): 35 Discharge Plan Discharge Items Patient Disposition: Home - Home Health Services Reason For Visit: PNEUMONIA,SYNCOPE Discharge Diagnosis: Pneumonia, low blood pressure Condition on Discharge: Good Activity: Resume your previous activity Non-emergency contact: Primary Care Provider and Oncologist Call non-emergency contact if: your symptoms worsen and your temperature is above 101 Follow-up/Referrals: Yuli Alva CRNP [Primary Care Provider] - Diet: Regular Addtl Attending Provider Instructions: , You were admitted to the hospital with low blood pressure that was a concern for pneumonia. We treated you with fluids and IV antibiotics, and you are feeling better. We also stopped your blood pressure medications as I think they were making your blood pressure go too low. Stop your HCTZ (hydrochlorothiazide) completely. Continue your metoprolol as this helps keep your heart in a steady rate if you go into atrial fibrillation. Please take your next dose of antibiotic tomorrow with lunch, then Monday with lunch, then you are done. Please follow up with Dr. Antony next and keep track of your blood pressures for him to check. Pending Studies at Discharge: No Stand-Alone [facility]: [facility] Medications and DC Order Prescriptions: New levofloxacin 750 mg tablet 750 mg PO DAILY Qty: 2 RF: 0 Continued Eliquis 2.5 mg tablet 2.5 mg PO BID Qty: 60 RF: 0 metoprolol tartrate 25 mg tablet 6.25 mg PO BID Qty: 30 RF: 0 selegiline HCl 5 mg tablet 5 mg PO BID RF: 0 carbidopa-levodopa [Sinemet] 25-100 mg tablet 1 tab PO TID RF: 0 acyclovir 400 mg tablet 400 mg PO BID RF: 0 docusate sodium [Colace] 100 mg Capsule 300 mg PO HS RF: 0 oxycodone 5 mg tablet 5 mg PO Q4H PRN (Reason: Pain) RF: 0 Velcade 3.5 mg Recon Soln 0 mg IV TH RF: 0 cyclophosphamide 50 mg Capsule 500 mg PO TH@0800 RF: 0 Prevagen 1 cap PO DAILY@1500 RF: 0 aspirin 81 mg tablet,delayed release (DR/EC) 81 mg PO DAILY@1500 RF: 0 simvastatin 20 mg tablet 20 mg PO HS RF: 0 omeprazole 20 mg tablet,delayed release (DR/EC) 20 mg PO QAM RF: 0 gabapentin 400 mg capsule 400 mg PO TID RF: 0 lidocaine 5 % Adhesive Patch,Medicated 1 patch transdermal QAM Qty: 10 RF: 3 dexamethasone 4 mg tablet 20 mg PO TH@0800 RF: 0 doxycycline hyclate 100 mg tablet 100 mg PO DAILY RF: 0 Discontinued hydrochlorothiazide 25 mg tablet 25 mg PO QAM RF: 0 Discharge Orders: Discharge Order (Routine); Ordered 04/04/20 Ordered By: Mike Ferrari Admission Data Admit Date/Time: 04/01/20 18:34 Attending Provider: Mike Ferrari Admit Provider: Rigoberto Mabry Primary Care Provider: Yuli Alva Other Providers: Mike Ferrari ; [facility] ; Rigoberto Mabry ; Dick Antony ; Andry Bennett Coding Level of Care Code D/C Day Management >30 mins Diagnoses Hypotension I95.9 Hypotension type: unspecified hypotension type Syncope R55 Syncope type: unspecified Healthcare-associated pneumonia J18.9 Multiple myeloma C90.00 Multiple myeloma remission status: unspecified Cryoglobulinemic vasculitis D89.1 Vertebral compression fracture M48.50XA Acid reflux disease K21.9 Parkinson disease G20 Right groin pain R10.31 DVT prophylaxis Z29.9
[2020-04-04] MEDS ORDERED: levoFLOXacin 750 MG TAB PO ONE (14:00)
[2020-04-04] MEDS: ASPIRIN 81 MG ECTAB PO SCH (14:01)
== END 2020-04-04 14:52 | disposition home health service (06) | DRG 56 ==
LOC: ED 10:41 → SUATTDRO 18:34 → 2E 18:34 → 2N 04-03 18:45

== ENCOUNTER 2020-04-15 15:07 | Inpatient (IN) ==
[2020-04-15] MEDS ORDERED: SODIUM CHLORIDE 0.9% 500 ML IV ONE ×2 (15:29→16:48)
--- NOTE | 2020-04-15 15:42 | XRay Report ---
XR chest 1V portable CLINICAL HISTORY: Atypical chest pain COMPARISON STUDY: 04/10/2020 FINDINGS: The heart is enlarged. There are bilateral calcified pleural plaques. There is no overt florin lure. There is no focal pulmonary consolidation.[There is a small right pleural effusion. Parenchymal evaluation is limited due to the extensive pleural plaques IMPRESSION: 1. Cardiomegaly 2. Small right pleural effusion 3. Extensive bilateral calcified pleural plaques ACT 112: Negative or not required by law. Electronically signed by: Bal Bay M.D. 04/15/2020 3:41 PM
--- NOTE | 2020-04-15 16:01 | CT Scan Report ---
CT SCAN OF THE BRAIN WITHOUT IV CONTRAST CLINICAL HISTORY: Near syncope. Hypertension. COMPARISON STUDY: CT of the brain dated 04/01/2020. TECHNIQUE: Unenhanced axial CT scan of the brain is performed from the vertex to the skull base. A do se lowering technique was utilized adhering to the principles of ALARA. CT DOSE: 537.48 mGy.cm FINDINGS: Brain parenchyma: There are age-related involutional changes noting moderate subcortical and periven tricular microangiopathic change. There is no hemorrhage, mass effect, or evidence of acute territori al ischemia by CT criteria. Yoder-white matter differentiation is preserved. No extra-axial fluid raphael ection is seen. Ventricles, sulci, cisterns: Prominent secondary to involutional change. Intracranial vasculature: There is atherosclerotic calcification of the cavernous carotid and vertebr al arteries. Calvarium: Unremarkable. Sinuses and mastoids: There is mild mucosal thickening in the left maxillary antrum and the ethmoid s inuses. The remaining visualized paranasal sinuses are clear. The mastoid air cells are well pneumati zed. Orbits: The bony orbits are grossly intact. There are bilateral ocular lens implants. IMPRESSION: There is no hemorrhage, mass effect, or evidence of acute territorial ischemia by CT alexandria hua. ACT 112: Negative or not required by law. Electronically signed by: Lincoln Tucker M.D. 04/15/2020 4:00 PM
[2020-04-15 16:06] LABS: Albumin Level 1.4 gm/dl (3.4-5.0); BUN Creatinine Ratio 11.4 (10-20); Calcium 7.1 mg/dl (8.5-10.1); Creatinine Clr Calc Pharmacy 36.8 ml/min; Est GFR (African American) 58.6; Est GFR (Non-African American) 50.6; Magnesium 1.7 mg/dl (1.8-2.4); Potassium 3.8 mmol/L (3.5-5.1)
[2020-04-15 16:07] LABS: INR 1.3 (0.9-1.1); Partial Thromboplastin Ratio 0.9; Prothrombin Time 13.5 Seconds (9.0-12.0)
[2020-04-15 16:15] LABS: Albumin Globulin Ratio 0.3 (0.9-2); Bilirubin Direct 0.1 mg/dl (0-0.2); Bilirubin,Total 0.4 mg/dl (0.2-1); Globulin 4.5 gm/dl (2.5-4.0); Thyroid Stimulating Hormone 2.75 uIu/ml (0.300-4.500); Total Protein 5.9 gm/dl (6.4-8.2); Troponin I 0.036 ng/ml (0-0.045)
[2020-04-15 16:22] LABS: Hemoglobin 7.8 g/dL (14.0-18.0); Mean Corpuscular Hemoglobin 34.2 pg (25-34); Mean Corpuscular Hgb Conc 33.9 g/dL (32-36); Mean Corpuscular Volume 100.9 fL (80-100); Mean Platelet Volume 11.5 fL (7.4-10.4); Platelet Count 60 K/uL (130-400); RDW Standard Deviation 68.8 fL (36.4-46.3); Red Blood Count 2.28 M/uL (4.7-6.1); White Blood Count 3.74 K/uL (4.8-10.8)
[2020-04-15 16:23] LABS: Basophils # (auto) 0.02 K/uL (0-0.2); Basophils % (auto) 0.5 %; Echinocytes 1+; Eosinophils # (auto) 0.12 K/uL (0-0.5); Eosinophils % (auto) 3.2 %; Giant Platelets 1+; Immature Granulocytes # (auto) 0.04 K/uL (0.00-0.02); Immature Granulocytes % (auto) 1.1 %; Lymphocytes # (auto) 0.13 K/uL (1.2-3.4); Lymphocytes % (auto) 3.5 %; Monocytes # (auto) 0.15 K/uL (0.11-0.59); Neutrophils # (auto) 3.28 K/uL (1.4-6.5); Neutrophils % (auto) 87.7 %; Ovalocytes 1+; Platelet Estimate Decreased (Normal); Toxic Vacuolation 2+
[2020-04-15] MEDS ORDERED: MAGNESIUM SULFATE / D5W 1 GM/100 ML BAG IV STA (16:49)
--- NOTE | 2020-04-15 16:57 | Emergency Department Note ---
Impression & Plan Near syncope, Parkinson disease, Dehydration, Multiple myeloma ED Provider Note NAME: ABBE ARCEO AGE: 84 SEX: M ARRIVES VIA: Ambulance INFORMANT: Patient, ED PROVIDER(S): Dallin Pantoja MD CHIEF COMPLAINT: Dizziness, low blood pressure PLAN: Disposition: Admit MEDICAL DECISION MAKING: The patient is a pleasant 84-year-old gentleman with a past medical history of Parkinson disease, multiple myeloma, vasculitis, cryoglobulin bulimia type I, IgG kappa paraproteinemia who presents emergency department with dizziness and low blood pressure after going to her routine wound clinic visit and has been otherwise been feeling well in the setting of recent admission on 04/01-04/04 for hypotension and syncope which was thought to be multifactorial related to the patient's suspected autonomic dysfunction in the setting of his Parkinson disease as well as being on hydrochlorothiazide in addition to the possibility of pneumonia. His hydrochlorothiazide was held and he was treated for pneumonia with Levaquin. They deny any fevers, chills, cough, congestion, shortness of breath, nausea, vomiting, diarrhea, urinary symptoms. On arrival the patient is fatigued appearing but no acute distress, afebrile with blood pressure 90s/50s after receiving IV fluid hydration by EMS when he was found to be in the 80s/50s. The patient appears clinically dry. He has no focal neuro deficits. Baseline resting tremor in the setting of Parkinson disease. EKG without overt acute ischemia. Chest x-ray without focal infiltrates. WBC 3.7, H/H 7.8/23.0 and platelets 60K in the setting of the patient's history of multiple myeloma and similar to prior range of values. Chemistry without acidosis. Magnesium 1.7 with repletion provided. Troponin 0.036, within normal limits. LFTs unremarkable. CT the head was negative for acute process. Upon reevaluation the patient continued to maintain at his baseline though his blood pressure still continued to be low 80s-90s/40s-50s. Suspect related to a component of autonomic dysfunction related to the patient's Parkinson disease as well as component of dehydration in the setting of resuming his hydrochlorothiazide. Given the patient's continued low blood pressure reasonable admit the patient for further management. The patient and his at the bedside are agreeable. Case was discussed with Dr. Mabry, [facility] hospitalist, who will evaluate the patient for admission. Triage Nursing notes reviewed and agree them. Prior medical records reviewed Vital Signs: reviewed and remarkable for no significant abnormalities Differential diagnosis: Vasovagal event, dehydration, infection, hypoglycemia, electrolyte abnormaliti es, cardiac sources, intracerebral event, pulmonary embolism, seizure, toxicologic, neurologic, as well as other pathologies. ER treatment provided: See below. Diagnostics interpreted by me: ECG: Sinus tachycardia, 107 bpm, no ectopy, nonspecific ST and T wave abnormality, no overt ST elevation or depression, QTC 491, QRS 94. Cardiac Monitoring: An order for continuous cardiac monitoring was placed and demonstrated sinus tachycardia, 107 bpm, no ectopy. Laboratory studies: See below Imaging studies: XR chest 1V portable CLINICAL HISTORY: Atypical chest pain COMPARISON STUDY: 04/10/2020 FINDINGS: The heart is enlarged. There are bilateral calcified pleural plaques. There is no overt failure. There is no focal pulmonary consolidation.[There is a small right pleural effusion. Parenchymal evaluation is limited due to the extensive pleural plaques IMPRESSION: 1. Cardiomegaly 2. Small right pleural effusion 3. Extensive bilateral calcified pleural plaques - CT SCAN OF THE BRAIN WITHOUT IV CONTRAST CLINICAL HISTORY: Near syncope. Hypertension. COMPARISON STUDY: CT of the brain dated 04/01/2020. TECHNIQUE: Unenhanced axial CT scan of the brain is performed from the vertex to the skull base. A dose lowering technique was utilized adhering to the principles of ALARA. CT DOSE: 537.48 mGy.cm FINDINGS: Brain parenchyma: There are age-related involutional changes noting moderate subcortical and periventricular microangiopathic change. There is no hemorrhage, mass effect, or evidence of acute territorial ischemia by CT criteria. Yoder- white matter differentiation is preserved. No extra-axial fluid collection is seen. Ventricles, sulci, cisterns: Prominent secondary to involutional change. Intracranial vasculature: There is atherosclerotic calcification of the cavernous carotid and vertebral arteries. Calvarium: Unremarkable. Sinuses and mastoids: There is mild mucosal thickening in the left maxillary antrum and the ethmoid sinuses. The remaining visualized paranasal sinuses are clear. The mastoid air cells are well pneumatized. Orbits: The bony orbits are grossly intact. There are bilateral ocular lens impl ants. IMPRESSION: There is no hemorrhage, mass effect, or evidence of acute territorial ischemia by CT criteria. Consultation(s): Case was discussed with Dr. Mabry, [facility] hospitalist, who will evaluate the patient for admission. HPI: The patient is a pleasant 84-year-old gentleman with a past medical history of Parkinson disease, multiple myeloma, vasculitis, cryoglobulin bulimia type I, IgG kappa paraproteinemia who presents emergency department with dizziness and low blood pressure after going to her routine wound clinic visit and has been otherwise been feeling well in the setting of recent admission on 04/01-04/04 for hypotension and syncope which was thought to be multifactorial related to the patient's suspected autonomic dysfunction in the setting of his Parkinson disease as well as being on hydrochlorothiazide in addition to the possibility of pneumonia. His hydrochlorothiazide was held and he was treated for pneumonia with Levaquin. They deny any fevers, chills, cough, congestion, shortness of breath, nausea, vomiting, diarrhea, urinary symptoms. ROS: See above HPI for pertinent positives & negatives. A total of 10 systems reviewed and were otherwise negative. PAST MEDICAL HISTORY:See Below PAST SURGICAL HISTORY:See Below FAMILY HISTORY:See Below SOCIAL HISTORY:See Below HOME MEDICATIONS:See Below ALLERGIES:See Below VITALS:See Below PHYSICAL EXAMINATION: GENERAL: Awake, alert, fatigued-appearing, in no distress HENT: Normocephalic, atraumatic. Oropharynx with dry mucous membranes and otherwise unremarkable. EYES: Normal conjunctiva. Sclera non-icteric. NECK: Supple. No nuchal rigidity. FROM. No JVD. RESPIRATORY: Clear to auscultation. CARDIAC: Regular rate, normal rhythm. Extremities warm and well perfused. Pulses equal. ABDOMEN: Soft, non-distended. No tenderness to palpation. No rebound or guarding. No masses. RECTAL: Deferred. MUSCULOSKELETAL: Chest examination reveals no tenderness. The back is symmetrical on inspection without obvious abnormality. There is no CVA tenderness to palpation. No joint edema. LOWER EXTREMITIES: Calves are equal size bilaterally and non-tender. No edema. Left pretibial wound dressing, c/d/i. NEURO: Normal sensorium. No sensory or motor deficits noted. 5/5 strength and SILT x 4 extremities. Intact finger to nose. Baseline resting tremor in setting of Parkinson disease. SKIN: No rash or jaundice noted. Dallin Pantoja MD Past Med/Surg History Medical History Abnormal EKG (Inactive) Acute renal failure (ARF) (Inactive) Altered mental status (Inactive) Anemia Arthritis (Chronic) Basal cell carcinoma (BCC) Bursitis of right hip Chest pain syndrome (Resolved 05/20/14) Non-ST elevation MN (NSTEMI) (Inactive) Sacroiliac dysfunction Surgical History H/O hernia repair (Resolved) inguinal History of back surgery x 2 History of carpal tunnel surgery History of lumbar fusion Lumbar Vertebral Fusion Family History Mother , in her 70s Coronary heart disease Myocardial infarction Stroke Father , age 94 Glaucoma Unknown Acute urticaria Sister Breast cancer Denies family history of Ovarian cancer Prostate cancer Diabetes Dyslipidemia Colorectal cancer Hypertension Social History Smoking Status: Never smoker Second Hand Exposure: Yes; Hx Alcohol Use: No Hx Substance Use: No Preferred Language: Uzbek Communication Ability: Effective Visual Impairment: Limited Hearing Ability: Normal Superintendent [employer] Communications Required: No Beliefs That Will Affect Care: None marital status: marital status details: 2 children Current Living Situation: Spouse current occupational status: retired Other Information That Helps Us Care for You: No other: 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 Feels Safe at Home: Yes Safety Concerns: Feels Safe At This Time Allergies Allergies Allergy/AdvReac Type Severity Reaction Status Date / Time Cephalosporins Allergy Intermediate Rash Verified 04/15/20 10:55 doxycycline Allergy Intermediate skin Verified 04/15/20 10:55 irritation Penicillins Allergy Intermediate HIVES Verified 04/15/20 10:55 amoxicillin Allergy Unknown RASH Verified 04/15/20 10:55 sulfamethoxazole AdvReac Intermediate skin rash Verified 04/15/20 10:55 [From Bactrim] trimethoprim [From Bactrim] AdvReac Intermediate skin rash Verified 04/15/20 10:55 Home Meds Home Medications Medication Instructions Recorded Confirmed carbidopa-levodopa [Sinemet] 1 tab PO TID 07/01/18 04/15/20 selegiline HCl 5 mg PO BID 07/01/18 04/15/20 Prevagen 1 cap PO DAILY@1500 03/24/20 04/15/20 Velcade 0 mg IV TH 03/24/20 04/15/20 acyclovir 400 mg PO BID 03/24/20 04/15/20 aspirin 81 mg PO DAILY@1500 03/24/20 04/15/20 cyclophosphamide 500 mg PO TH@0800 03/24/20 04/15/20 docusate sodium [Colace] 300 mg PO HS 03/24/20 04/15/20 gabapentin 400 mg PO TID 03/24/20 04/15/20 omeprazole 20 mg PO QAM 03/24/20 04/15/20 oxycodone 5 mg PO Q4H PRN 03/24/20 04/15/20 simvastatin 20 mg PO HS 03/24/20 04/15/20 dexamethasone 20 mg PO TH@0800 04/01/20 04/15/20 doxycycline hyclate 100 mg PO DAILY 04/01/20 04/15/20 Previous Rx's Medication Instructions Recorded lidocaine 1 patch TRANSDERMAL QAM #10 ea 03/26/20 apixaban 2.5 mg tablet 2.5 mg PO BID #60 tab 03/27/20 metoprolol tartrate 25 mg tablet 6.25 mg PO BID #30 tab 03/27/20 furosemide 20 mg tablet 20 mg PO DAILY PRN #30 tab 04/09/20 Results & Data (ED) Vital Signs Vital Signs - 24 hr 04/15/20 15:14 04/15/20 15:15 04/15/20 15:17 Temperature 37.5 C Temperature Source Oral Pulse Rate 106 H 106 H 105 H Pulse Rate [Left Finger] Pulse Rate from SpO2 Sensor 106 H 105 H Pulse Rhythm Regular Pulse Strength Normal Respiratory Rate 20 15 20 Respiratory Effort / Characteristics Non-Labored Spontaneous Respiratory Depth Normal Respiratory Pattern Regular Blood Pressure 92/56 L 92/56 L Blood Pressure [Right Arm] Blood Pressure Mean 68 79 Blood Pressure Mean [Right Arm] Blood Pressure Position Lying Blood Pressure Position [Right Arm] Pulse Oximetry 94 95 95 Oxygen Delivery Method Room Air Room Air Room Air Oxygen Flow Rate Sepsis Recent Fever Within 48 Hours No Sepsis New/Unexplained Change in Mental Status No Sepsis Action Taken by Nursing Physician Notified 04/15/20 15:22 04/15/20 15:30 04/15/20 15:31 Temperature Temperature Source Pulse Rate 104 H 104 H 103 H Pulse Rate [Left Finger] Pulse Rate from SpO2 Sensor 104 H 101 H 104 H Pulse Rhythm Pulse Strength Respiratory Rate 17 19 19 Respiratory Effort / Characteristics Respiratory Depth Respiratory Pattern Blood Pressure 92/50 L 90/51 L Blood Pressure [Right Arm] Blood Pressure Mean 54 63 Blood Pressure Mean [Right Arm] Blood Pressure Position Blood Pressure Position [Right Arm] Pulse Oximetry 94 92 93 Oxygen Delivery Method Room Air Room Air Room Air Oxygen Flow Rate Sepsis Recent Fever Within 48 Hours Sepsis New/Unexplained Change in Mental Status Sepsis Action Taken by Nursing 04/15/20 15:56 04/15/20 15:57 04/15/20 16:00 Temperature Temperature Source Pulse Rate 103 H 103 H 103 H Pulse Rate [Left Finger] Pulse Rate from SpO2 Sensor 101 H 103 H 102 H Pulse Rhythm Pulse Strength Respiratory Rate 25 H 25 H 18 Respiratory Effort / Characteristics Respiratory Depth Respiratory Pattern Blood Pressure 91/51 L 78/48 L Blood Pressure [Right Arm] Blood Pressure Mean 66 51 Blood Pressure Mean [Right Arm] Blood Pressure Position Blood Pressure Position [Right Arm] Pulse Oximetry 91 93 92 Oxygen Delivery Method Room Air Room Air Room Air Oxygen Flow Rate Sepsis Recent Fever Within 48 Hours Sepsis New/Unexplained Change in Mental Status Sepsis Action Taken by Nursing 04/15/20 16:01 04/15/20 16:13 04/15/20 16:15 Temperature Temperature Source Pulse Rate 102 H 102 H 102 H Pulse Rate [Left Finger] Pulse Rate from SpO2 Sensor 102 H 102 H 102 H Pulse Rhythm Pulse Strength Respiratory Rate 22 16 21 Respiratory Effort / Characteristics Respiratory Depth Respiratory Pattern Blood Pressure 85/48 L 80/50 L 93/57 L Blood Pressure [Right Arm] Blood Pressure Mean 57 61 66 Blood Pressure Mean [Right Arm] Blood Pressure Position Blood Pressure Position [Right Arm] Pulse Oximetry 92 92 93 Oxygen Delivery Method Room Air Room Air Room Air Oxygen Flow Rate Sepsis Recent Fever Within 48 Hours Sepsis New/Unexplained Change in Mental Status Sepsis Action Taken by Nursing 04/15/20 16:16 04/15/20 16:30 04/15/20 16:31 Temperature Temperature Source Pulse Rate 101 H 99 H 99 H Pulse Rate [Left Finger] Pulse Rate from SpO2 Sensor 101 H 99 H 99 H Pulse Rhythm Pulse Strength Respiratory Rate 15 16 17 Respiratory Effort / Characteristics Respiratory Depth Respiratory Pattern Blood Pressure 88/45 L Blood Pressure [Right Arm] Blood Pressure Mean 48 Blood Pressure Mean [Right Arm] Blood Pressure Position Blood Pressure Position [Right Arm] Pulse Oximetry 92 90 90 Oxygen Delivery Method Room Air Room Air Room Air Oxygen Flow Rate Sepsis Recent Fever Within 48 Hours Sepsis New/Unexplained Change in Mental Status Sepsis Action Taken by Nursing 04/15/20 16:45 04/15/20 16:46 04/15/20 17:00 Temperature Temperature Source Pulse Rate 97 H 96 H 98 H Pulse Rate [Left Finger] Pulse Rate from SpO2 Sensor 97 H 97 H 116 H Pulse Rhythm Pulse Strength Respiratory Rate 18 17 18 Respiratory Effort / Characteristics Respiratory Depth Respiratory Pattern Blood Pressure 86/50 L 85/50 L Blood Pressure [Right Arm] Blood Pressure Mean 68 64 Blood Pressure Mean [Right Arm] Blood Pressure Position Blood Pressure Position [Right Arm] Pulse Oximetry 97 98 96 Oxygen Delivery Method Nasal Cannula Nasal Cannula Nasal Cannula Oxygen Flow Rate 2 2 2 Sepsis Recent Fever Within 48 Hours Sepsis New/Unexplained Change in Mental Status Sepsis Action Taken by Nursing 04/15/20 17:01 04/15/20 17:15 04/15/20 17:16 Temperature Temperature Source Pulse Rate 99 H 100 H 99 H Pulse Rate [Left Finger] Pulse Rate from SpO2 Sensor 98 H 100 H 99 H Pulse Rhythm Pulse Strength Respiratory Rate 21 20 15 Respiratory Effort / Characteristics Respiratory Depth Respiratory Pattern Blood Pressure 82/48 L Blood Pressure [Right Arm] Blood Pressure Mean 52 Blood Pressure Mean [Right Arm] Blood Pressure Position Blood Pressure Position [Right Arm] Pulse Oximetry 98 96 96 Oxygen Delivery Method Nasal Cannula Nasal Cannula Nasal Cannula Oxygen Flow Rate 2 2 2 Sepsis Recent Fever Within 48 Hours Sepsis New/Unexplained Change in Mental Status Sepsis Action Taken by Nursing 04/15/20 17:26 04/15/20 17:30 04/15/20 17:31 Temperature Temperature Source Pulse Rate 100 H 99 H 98 H Pulse Rate [Left Finger] Pulse Rate from SpO2 Sensor 99 H 98 H 98 H Pulse Rhythm Pulse Strength Respiratory Rate 21 13 13 Respiratory Effort / Characteristics Respiratory Depth Respiratory Pattern Blood Pressure 88/48 L 84/47 L Blood Pressure [Right Arm] Blood Pressure Mean 56 65 Blood Pressure Mean [Right Arm] Blood Pressure Position Blood Pressure Position [Right Arm] Pulse Oximetry 96 96 97 Oxygen Delivery Method Nasal Cannula Nasal Cannula Nasal Cannula Oxygen Flow Rate 2 2 2 Sepsis Recent Fever Within 48 Hours Sepsis New/Unexplained Change in Mental Status Sepsis Action Taken by Nursing 04/15/20 17:45 04/15/20 17:46 04/15/20 18:00 Temperature Temperature Source Pulse Rate 97 H 98 H 97 H Pulse Rate [Left Finger] Pulse Rate from SpO2 Sensor 97 H 100 H 97 H Pulse Rhythm Pulse Strength Respiratory Rate 12 16 13 Respiratory Effort / Characteristics Respiratory Depth Respiratory Pattern Blood Pressure 91/68 L 84/45 L Blood Pressure [Right Arm] Blood Pressure Mean 79 58 Blood Pressure Mean [Right Arm] Blood Pressure Position Blood Pressure Position [Right Arm] Pulse Oximetry 94 97 96 Oxygen Delivery Method Nasal Cannula Nasal Cannula Nasal Cannula Oxygen Flow Rate 2 2 2 Sepsis Recent Fever Within 48 Hours Sepsis New/Unexplained Change in Mental Status Sepsis Action Taken by Nursing 04/15/20 18:01 04/15/20 18:15 04/15/20 18:16 Temperature Temperature Source Pulse Rate 97 H 98 H 98 H Pulse Rate [Left Finger] Pulse Rate from SpO2 Sensor 97 H 98 H 99 H Pulse Rhythm Pulse Strength Respiratory Rate 17 17 12 Respiratory Effort / Characteristics Respiratory Depth Respiratory Pattern Blood Pressure 83/48 L Blood Pressure [Right Arm] Blood Pressure Mean 62 Blood Pressure Mean [Right Arm] Blood Pressure Position Blood Pressure Position [Right Arm] Pulse Oximetry 96 96 95 Oxygen Delivery Method Nasal Cannula Nasal Cannula Nasal Cannula Oxygen Flow Rate 2 2 2 Sepsis Recent Fever Within 48 Hours Sepsis New/Unexplained Change in Mental Status Sepsis Action Taken by Nursing 04/15/20 18:30 04/15/20 18:45 04/15/20 18:46 Temperature Temperature Source Pulse Rate 99 H 98 H 98 H Pulse Rate [Left Finger] Pulse Rate from SpO2 Sensor 99 H 88 97 H Pulse Rhythm Pulse Strength Respiratory Rate 13 15 19 Respiratory Effort / Characteristics Respiratory Depth Respiratory Pattern Blood Pressure 196/181 H Blood Pressure [Right Arm] Blood Pressure Mean 182 Blood Pressure Mean [Right Arm] Blood Pressure Position Blood Pressure Position [Right Arm] Pulse Oximetry 93 93 94 Oxygen Delivery Method Nasal Cannula Nasal Cannula Nasal Cannula Oxygen Flow Rate 2 2 2 Sepsis Recent Fever Within 48 Hours Sepsis New/Unexplained Change in Mental Status Sepsis Action Taken by Nursing 04/15/20 19:00 04/15/20 19:01 04/15/20 19:15 Temperature Temperature Source Pulse Rate 97 H 98 H 96 H Pulse Rate [Left Finger] Pulse Rate from SpO2 Sensor 93 H 98 H 96 H Pulse Rhythm Pulse Strength Respiratory Rate 14 15 15 Respiratory Effort / Characteristics Respiratory Depth Respiratory Pattern Blood Pressure 83/48 L 79/46 L Blood Pressure [Right Arm] Blood Pressure Mean 62 59 Blood Pressure Mean [Right Arm] Blood Pressure Position Blood Pressure Position [Right Arm] Pulse Oximetry 93 96 97 Oxygen Delivery Method Nasal Cannula Nasal Cannula Nasal Cannula Oxygen Flow Rate 2 2 2 Sepsis Recent Fever Within 48 Hours Sepsis New/Unexplained Change in Mental Status Sepsis Action Taken by Nursing 04/15/20 19:16 04/15/20 19:30 04/15/20 19:31 Temperature Temperature Source Pulse Rate 97 H 97 H 97 H Pulse Rate [Left Finger] Pulse Rate from SpO2 Sensor 96 H 97 H 98 H Pulse Rhythm Pulse Strength Respiratory Rate 15 17 19 Respiratory Effort / Characteristics Respiratory Depth Respiratory Pattern Blood Pressure 82/51 L Blood Pressure [Right Arm] Blood Pressure Mean 60 Blood Pressure Mean [Right Arm] Blood Pressure Position Blood Pressure Position [Right Arm] Pulse Oximetry 97 97 96 Oxygen Delivery Method Nasal Cannula Nasal Cannula Nasal Cannula Oxygen Flow Rate 2 2 2 Sepsis Recent Fever Within 48 Hours Sepsis New/Unexplained Change in Mental Status Sepsis Action Taken by Nursing 04/15/20 19:45 04/15/20 19:46 04/15/20 20:00 Temperature Temperature Source Pulse Rate 96 H 95 H 95 H Pulse Rate [Left Finger] Pulse Rate from SpO2 Sensor 96 H 95 H 95 H Pulse Rhythm Pulse Strength Respiratory Rate 17 16 21 Respiratory Effort / Characteristics Respiratory Depth Respiratory Pattern Blood Pressure 84/49 L 80/48 L Blood Pressure [Right Arm] Blood Pressure Mean 58 62 Blood Pressure Mean [Right Arm] Blood Pressure Position Blood Pressure Position [Right Arm] Pulse Oximetry 96 95 95 Oxygen Delivery Method Nasal Cannula Nasal Cannula Nasal Cannula Oxygen Flow Rate 2 2 2 Sepsis Recent Fever Within 48 Hours Sepsis New/Unexplained Change in Mental Status Sepsis Action Taken by Nursing 04/15/20 20:01 04/15/20 20:10 04/15/20 20:15 Temperature Temperature Source Pulse Rate 95 H 94 H Pulse Rate [Left Finger] 94 H Pulse Rate from SpO2 Sensor 95 H 94 H Pulse Rhythm Pulse Strength Respiratory Rate 17 18 4 L Respiratory Effort / Characteristics Respiratory Depth Respiratory Pattern Blood Pressure Blood Pressure [Right Arm] 80/48 L Blood Pressure Mean Blood Pressure Mean [Right Arm] 58 Blood Pressure Position Blood Pressure Position [Right Arm] Lying Pulse Oximetry 95 94 97 Oxygen Delivery Method Nasal Cannula Nasal Cannula Nasal Cannula Oxygen Flow Rate 2 2 2 Sepsis Recent Fever Within 48 Hours Sepsis New/Unexplained Change in Mental Status Sepsis Action Taken by Nursing Laboratory Data Attestation: I reviewed the patient's lab results. Result diagrams: 04/15/20 15:19 04/15/20 15:19 Lab Results 04/15/20 04/15/20 04/15/20 Range/Units 15:19 15:19 15:19 WBC 3.74 L (4.8-10.8) K/uL RBC 2.28 L (4.7-6.1) M/uL Hgb 7.8 L (14.0-18.0) g/dL Hct 23.0 L (42-52) % MCV 100.9 H (80-100) fL MCH 34.2 H (25-34) pg MCHC 33.9 (32-36) g/dL RDW Std Deviation 68.8 H (36.4-46.3) fL RDW Coeff of Rahul 19.0 H (11.5-14.5) % Plt Count 60 L (130-400) K/uL MPV 11.5 H (7.4-10.4) fL Immature Gran % (Auto) 1.1 % Neut % (Auto) 87.7 % Lymph % (Auto) 3.5 % Lyman % (Auto) 4.0 % Eos % (Auto) 3.2 % Baso % (Auto) 0.5 % Neut # (Auto) 3.28 (1.4-6.5) K/uL Lymph # (Auto) 0.13 L (1.2-3.4) K/uL Lyman # (Auto) 0.15 (0.11-0.59) K/uL Eos # (Auto) 0.12 (0-0.5) K/uL Baso # (Auto) 0.02 (0-0.2) K/uL Immature Gran # (Auto) 0.04 H (0.00-0.02) K/uL Toxic Vacuolation 2+ Platelet Estimate Decreased L (Normal) Giant Platelets 1+ Ovalocytes 1+ Echinocytes 1+ PT 13.5 H (9.0-12.0) Seconds INR 1.3 H (0.9-1.1) APTT 26.0 (21.0-31.0) Seconds PTT Ratio 0.9 Sodium 141 (136-145) mmol/L Potassium 3.8 (3.5-5.1) mmol/L Chloride 109 H (98-107) mmol/L Carbon Dioxide 23 (21-32) mmol/L Anion Gap 9.0 (3-11) BUN 15 (7-18) mg/dl Creatinine 1.29 (0.6-1.4) mg/dl Est Cr Clr Drug Dosing 36.8 ml/min Est GFR ( Amer) 58.6 Est GFR (Non-Af Amer) 50.6 BUN/Creatinine Ratio 11.4 (10-20) Glucose 81 (70-99) mg/dl Calcium 7.1 L (8.5-10.1) mg/dl Phosphorus 3.0 (2.5-4.9) mg/dl Magnesium 1.7 L (1.8-2.4) mg/dl Total Bilirubin 0.4 (0.2-1) mg/dl Direct Bilirubin 0.1 (0-0.2) mg/dl AST 32 (15-37) U/L ALT 6 L (12-78) U/L Alkaline Phosphatase 97 (45-117) U/L Troponin I 0.036 (0-0.045) ng/ml Total Protein 5.9 L (6.4-8.2) gm/dl Albumin 1.4 L (3.4-5.0) gm/dl Globulin 4.5 H (2.5-4.0) gm/dl Albumin/Globulin Ratio 0.3 L (0.9-2) Lipase 39 L (73-393) U/L TSH 2.750 (0.300-4.500) uIu/ml Administered Medications Acyclovir (Zovirax) 400 mg PO BID [facility] Stop: 05/15/20 21:10 Last Admin: 04/15/20 22:16 Dose: 400 mg Documented by: [id number] Apixaban (Eliquis) 2.5 mg PO BID [facility] Stop: 05/15/20 21:10 Last Admin: 04/15/20 22:17 Dose: 2.5 mg Documented by: [id number] Carbidopa/Levodopa (Sinemet 25/100 Mg) 1 tab PO TID [facility] Stop: 05/15/20 21:10 Last Admin: 04/15/20 22:18 Dose: 1 tab Documented by: [id number] Docusate Sodium (Colace) 300 mg PO HS [facility] Stop: 05/15/20 21:10 Last Admin: 04/15/20 22:18 Dose: 300 mg Documented by: [id number] Gabapentin (Neurontin) 400 mg PO TID [facility] Stop: 05/15/20 21:10 Last Admin: 04/15/20 22:17 Dose: 400 mg Documented by: [id number] Miscellaneous (Remove Lidoderm Patch) 1 ea N/A DAILY@2100 [facility] Stop: 05/15/20 21:10 Last Admin: 04/15/20 22:17 Dose: 1 ea Documented by: [id number] Selegiline HCl (Eldepryl) 5 mg PO BID [facility] Stop: 05/15/20 21:10 Last Admin: 04/15/20 22:17 Dose: 5 mg Documented by: [id number] Simvastatin (Zocor) 20 mg PO HS [facility] Stop: 05/15/20 21:10 Last Admin: 04/15/20 22:16 Dose: 20 mg Documented by: [id number] Discontinued Medications Sodium Chloride (Nss) 500 mls @ 999 mls/hr IV .Q31M ONE Stop: 04/15/20 15:59 Last Infusion: 04/15/20 16:03 Dose: 0 mls/hr Documented by: [id number] Admin: 04/15/20 15:32 Dose: 999 mls/hr Documented by: [id number] Sodium Chloride (Nss) 500 mls @ 999 mls/hr IV .Q31M ONE Stop: 04/15/20 17:18 Last Infusion: 04/15/20 17:27 Dose: 0 mls/hr Documented by: [id number] Admin: 04/15/20 16:56 Dose: 999 mls/hr Documented by: [id number] Magnesium Sulfate/Dextrose (Magnesium Sulfate / D5w) 1 gm in 100 mls @ 100 mls/hr IV NOW STA Stop: 04/15/20 17:48 Last Infusion: 04/15/20 18:08 Dose: 0 mls/hr Documented by: [id number] Admin: 04/15/20 17:25 Dose: 100 mls/hr Documented by: [id number] Sodium Chloride (Nss 1000ml) 500 mls @ 999 mls/hr IV .Q31M ONE Stop: 04/15/20 20:34 Last Infusion: 04/15/20 21:57 Dose: 0 mls/hr Documented by: [id number] Admin: 04/15/20 20:33 Dose: 999 mls/hr Documented by: [id number] Oxycodone HCl (Roxicodone Immediate Rel) 2.5 mg PO NOW STA Stop: 04/15/20 19:58 Last Admin: 04/15/20 20:32 Dose: 2.5 mg Documented by: [id number] Blood Pressure Blood Pressure Findings: Low blood pressure Blood Pressure Disposition: further management by hospitalist Discharge Plan Visit Data *Final* Discharge Date/Time: 04/15/20 20:50 Chief Complaint: Hypotension Stated Complaint: NEAR SYNCOPE, HYPOTENSIVE ED Provider: Dallin Pantoja Discharge Problem: Near syncope, Parkinson disease, Dehydration, Multiple myeloma Patient Disposition: Admitted As Inpatient Discharge Instructions Interventions: ED Discharge Assessment Last Done: 04/15/20 20:50
--- NOTE | 2020-04-15 17:18 | Electrocardiogram Report ---
Test Reason : Blood Pressure : / mmHG Vent. Rate : 107 BPM Atrial Rate : 107 BPM P-R Int : 130 ms QRS Dur : 094 ms QT Int : 368 ms P-R-T Axes : 026 -25 051 degrees QTc Int : 491 ms Sinus tachycardia Nonspecific ST and T wave abnormality Abnormal ECG When compared with ECG of 01-APR-2020 10:58, QT has lengthened Confirmed by Juma Yoon ([id number]) on 04/15/2020 5:17:48 PM Referred By: REFERRED SELF Confirmed By:Gigi Yoon
--- NOTE | 2020-04-15 19:50 | History & Physical Report ---
Date of Service April 15, 2020 Assessment & Plan (1) Hypotension: Secondary to lasix use. Additional NSS bolus 500ml now. No maintenance fluids to avoid CHF. Aim for MAP > 65. VS Q3H. Alternatively secondary to adrenal insufficiency with steroid use (due dexamethasone with cyclophosphamide tomorrow). Will get cortisol level in AM. If continued hypotension overnight he should be started on stress dose steroids. Recommend compression stockings rather than lasix for continued treatment of leg edema, I am unclear about his CHF as PCP notes clear about worsening shortness of breath but patient and his deny this today. (2) Cough: Stable CXR findings. Prior COVID-19 test negative on last admission and his cough has been improving since then. 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 Ok to continue dexamet hasone however, hopefully this alone will help his vasculitis Consult wound care for his ongoing multiple vasculitic wounds. (5) Multiple myeloma: Valcade would be due tomorrow however will be held during his hospitalization (6) DVT prophylaxis: Continue apixaban. Will need to be discontinued if Plt continue to drop Admission and Anticipated Discharge Date Admission Date: 04/15/2020 History of Present Illness Chief Complaint: Hypotension, dizziness Primary Care Provider: David Mcnair DO Jun Smith is an 84 year old male with multiple myeloma, vasculitis, Parkinson's, cryoglobulinemia type I, IgG kappa paraproteinemia who presents to the ER from his wound care appointment. In the ER he is hypotensive but without dizziness while lying down but gets orthostatic on standing. He restarted his Valcade, Cyclophosphamide and Dexamethasone last for his treatment of myeloma and vasculitis. His vasculitis has been getting worse since his Dexamethasone and Cyclophosphamide was held during his last admission for possible healthcare-acquired PNA. He reports his cough is still present but confirmed on multiple occasions this has been slowly improving and currently the best is has been since he was discharged. His HCTZ was stopped on his last admission due to hypotension. He followed up with his PCP however and said at that time he was more short of breath with increased leg swelling and CXR concerning for mild congestive changes therefore he was started on Lasix PRN. He has been taking Lasix 20mg PO daily for the past 6 days with improvement of his leg edema. However the patient and his to me decline he was ever short of breath and report this has just been getting slowly better since his last discharge. In the ER he was noted to be hypotensive down to 78/48 which responded to x3 500ml NSS boluses. Allergies Allergy/AdvReac Type Severity Reaction Status Date / Time Cephalosporins Allergy Intermediate Rash Verified 04/15/20 10:55 doxycycline Allergy Intermediate skin Verified 04/15/20 10:55 irritation Penicillins Allergy Intermediate HIVES Verified 04/15/20 10:55 amoxicillin Allergy Unknown RASH Verified 04/15/20 10:55 sulfamethoxazole AdvReac Intermediate skin rash Verified 04/15/20 10:55 [From Bactrim] trimethoprim [From Bactrim] AdvReac Intermediate skin rash Verified 04/15/20 10:55 Home Medications Home Medications Medication Instructions Recorded Confirmed Type carbidopa-levodopa [Sinemet] 1 tab PO TID 07/01/18 04/15/20 History selegiline HCl 5 mg PO BID 07/01/18 04/15/20 History Prevagen 1 cap PO DAILY@1500 03/24/20 04/15/20 History Velcade 0 mg IV TH 03/24/20 04/15/20 History acyclovir 400 mg PO BID 03/24/20 04/15/20 History aspirin 81 mg PO DAILY@1500 03/24/20 04/15/20 History cyclophosphamide 500 mg PO TH@0800 03/24/20 04/15/20 History docusate sodium [Colace] 300 mg PO HS 03/24/20 04/15/20 History gabapentin 400 mg PO TID 03/24/20 04/15/20 History omeprazole 20 mg PO QAM 03/24/20 04/15/20 History oxycodone 5 mg PO Q4H PRN 03/24/20 04/15/20 History simvastatin 20 mg PO HS 03/24/20 04/15/20 History lidocaine 1 patch TRANSDERMAL QAM #10 ea 03/26/20 04/15/20 Rx apixaban 2.5 mg tablet 2.5 mg PO BID #60 tab 03/27/20 04/15/20 Rx metoprolol tartrate 25 mg tablet 6.25 mg PO BID #30 tab 03/27/20 04/15/20 Rx dexamethasone 20 mg PO TH@0800 04/01/20 04/15/20 History doxycycline hyclate 100 mg PO DAILY 04/01/20 04/15/20 History furosemide 20 mg tablet 20 mg PO DAILY PRN #30 tab 04/09/20 04/15/20 Rx Past Med/Surg History Medical History Abnormal EKG (Inactive) Acute renal failure (ARF) (Inactive) Altered mental status (Inactive) Anemia Arthritis (Chronic) Basal cell carcinoma (BCC) Bursitis of right hip Chest pain syndrome (Resolved 05/20/14) Non-ST elevation [place] (NSTEMI) (Inactive) Sacroiliac dysfunction Surgical History H/O hernia repair (Resolved) inguinal History of back surgery x 2 History of carpal tunnel surgery History of lumbar fusion Lumbar Vertebral Fusion Family History Mother , in her 70s Coronary heart disease Myocardial infarction Stroke Father , age 94 Glaucoma Unknown Acute urticaria Sister Breast cancer Denies family history of Ovarian cancer Prostate cancer Diabetes Dyslipidemia Colorectal cancer Hypertension Social History Smoking Status: Never smoker Second Hand Exposure: Yes; Hx Alcohol Use: No Hx Substance Use: No Preferred Language: Italian Communication Ability: Effective Visual Impairment: Limited Hearing Ability: Normal Refractory Specialist Required: No Beliefs That Will Affect Care: None marital status: marital status details: 2 children Current Living Situation: Spouse current occupational status: retired Other Information That Helps Us Care for You: No other: 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 Feels Safe at Home: Yes Safety Concerns: Feels Safe At This Time Review of Systems Review of Systems: All systems reviewed & are unremarkable except as noted in HPI & below Physical Exam Constitutional: + cachectic and + frail appearing; no acute distress Eyes: + anicteric sclerae and PERRL (miotic equal b/l); normal pupil size Neck: trachea midline, no thyromegaly Respiratory: normal respiratory effort, lungs clear to auscultation Cardiovascular: Rate/Rhythm: regular rhythm and + tachycardic Heart Sounds: no murmur Extremities: + edema (trace to knees b/l) Gastrointestinal (Abdomen): Inspection/Auscultation: normal bowel sounds Percussion/Palpation: abdomen soft; abdomen nontender, no guarding and abdomen not rigid Musculoskeletal: Generalized muscle wasting in all 4 limbs. Multiple bone pains to palpation especially right lateral hip (similar to his last admission) Skin: Multiple vasculitic stage IV ulcers, reviewed pictures from wound care today but not undressed to avoid unnecessary exposure Neurologic: moves all extremities and awake Motor/Sensory: + tremor (most apparent in jaw, resting pinwheeling in b/l hands) and + abnormal movement (cogwheel rigidity in all 4 extremities) Psychiatric: A+Ox3, euthymic affect Results & Data Results & Data ([facility]) Vital Signs (Past 12 Hours) Vital Signs Temp Pulse Resp BP Pulse Ox 04/15/20 18:01 97 H 17 96 04/15/20 18:00 97 H 13 84/45 L 96 04/15/20 17:46 98 H 16 91/68 L 97 04/15/20 17:45 97 H 12 94 04/15/20 17:31 98 H 13 97 04/15/20 17:30 99 H 13 84/47 L 96 04/15/20 17:26 100 H 21 88/48 L 96 04/15/20 17:16 99 H 15 96 04/15/20 17:15 100 H 20 82/48 L 96 04/15/20 17:01 99 H 21 98 04/15/20 17:00 98 H 18 85/50 L 96 04/15/20 16:46 96 H 17 98 04/15/20 16:45 97 H 18 86/50 L 97 04/15/20 16:31 99 H 17 90 04/15/20 16:30 99 H 16 88/45 L 90 04/15/20 16:16 101 H 15 92 04/15/20 16:15 102 H 21 93/57 L 93 04/15/20 16:13 102 H 16 80/50 L 92 04/15/20 16:01 102 H 22 85/48 L 92 04/15/20 16:00 103 H 18 78/48 L 92 04/15/20 15:57 103 H 25 H 91/51 L 93 04/15/20 15:56 103 H 25 H 91 04/15/20 15:31 103 H 19 93 04/15/20 15:30 104 H 19 90/51 L 92 04/15/20 15:22 104 H 17 92/50 L 94 04/15/20 15:17 105 H 20 95 04/15/20 15:15 106 H 15 92/56 L 95 04/15/20 15:14 37.5 C 106 H 20 92/56 L [address] SCAN OF THE BRAIN WITHOUT IV CONTRAST IMPRESSION: There is no hemorrhage, mass effect, or evidence of acute territorial ischemia by CT criteria. XR chest 1V portable IMPRESSION: 1. Cardiomegaly 2. Small right pleural effusion 3. Extensive bilateral calcified pleural plaques ECG Indication: tachycardia Rate (beats per minute): 107 Rhythm: sinus tachycardia Findings: + nonspecific-ST abn Comparison ECG Date: from (April 01, 2020) Change: no significant change Code Status & VTE Plan Code Status DNR/DNI as discussed with the patient and his VTE Prophylaxis Plan VTE Prophylaxis will be ordered: Yes PG Care Time/CCT Total # of Minutes Spent Total Time Spent with Patient: Total time spent is greater than 50% in coordination of care (as documented) at patient's floor/unit and/or counseling patient: Coding Level of Care Code 54697 Initial Inpt Care Lvl 3 Diagnoses Hypotension I95.2 Hypotension type: hypotension due to drug Cough R05 Parkinson disease G20 Cryoglobulinemic vasculitis D89.1 Multiple myeloma C90.00 Multiple myeloma remission status: unspecified DVT prophylaxis Z29.9 (1) Hypotension Hypotension type: hypotension due to drug Qualified Code(s): I95.2 - Hypotension due to drugs (2) Multiple myeloma Multiple myeloma remission status: unspecified Qualified Code(s): C90.00 - Multiple myeloma not having achieved remission
[2020-04-15] MEDS ORDERED: OXYCODONE HCL IR 5 MG TAB (IMMEDIATE RELEASE) PO STA (19:57)
[2020-04-15] MEDS ORDERED: SODIUM CHLORIDE 0.9% 1000ML 500 ML IV ONE (20:04)
[2020-04-15] MEDS: ACYCLOVIR 400 MG TAB PO SCH (22:16)
[2020-04-15] MEDS ORDERED: MELATONIN 3 MG TAB PO PRN (22:16)
[2020-04-15] MEDS: SIMVASTATIN 20 MG TAB PO SCH (22:16)
[2020-04-15] MEDS: GABAPENTIN 400 MG CAP PO SCH (22:17)
[2020-04-15] MEDS: SELEGILINE HCL 5 MG TAB PO SCH (22:17)
[2020-04-15] MEDS: APIXABAN 2.5 MG TAB PO SCH (22:17)
[2020-04-15] MEDS: DOCUSATE SODIUM 100 MG CAP PO SCH (22:18)
[2020-04-15] MEDS: CARBIDOPA/LEVODOPA 25/100MG TAB PO SCH (22:18)
[2020-04-16] MEDS ORDERED: ACETAMINOPHEN 325 MG TAB PO PRN (03:58)
[2020-04-16 06:39] LABS: BUN Creatinine Ratio 13.2 (10-20); Creatinine Clr Calc Pharmacy 51.5 ml/min; Est GFR (African American) 77.9; Est GFR (Non-African American) 67.2; Magnesium 2.3 mg/dl (1.8-2.4); Potassium 3.4 mmol/L (3.5-5.1)
[2020-04-16 06:58] LABS: Appearance Urine Cloudy (Clear); Bacteria Urine Automated Negative (Negative); Bilirubin Urine Negative (Negative); Blood Urine Negative (Negative); Color Urine Yellow; Epithelial Cell Urine Auto >30 /lpf (0-5); Glucose Urine UA Negative (Negative); Ketones Urine Negative (Negative); Leukocyte Esterase Urine 1+ (Negative); Nitrite Urine Negative (Negative); Protein Urine 1+ (Negative); RBC Urine Automated 0-4 /hpf (0-4); Specific Gravity Urine 1.016 (1.000-1.030); Urobilinogen Urine Negative (Negative)
[2020-04-16 07:40] LABS: Anisocytosis Present; Basophils # (auto) 0.01 K/uL (0-0.2); Basophils % (auto) 0.2 %; Eosinophils # (auto) 0.18 K/uL (0-0.5); Eosinophils % (auto) 4.5 %; Giant Platelets 1+; Hematocrit (blood only) 21.7 % (42-52); Immature Granulocytes # (auto) 0.01 K/uL (0.00-0.02); Immature Granulocytes % (auto) 0.2 %; Lymphocytes # (auto) 0.56 K/uL (1.2-3.4); Mean Corpuscular Hemoglobin 33.2 pg (25-34); Mean Corpuscular Hgb Conc 32.3 g/dL (32-36); Mean Corpuscular Volume 102.8 fL (80-100); Monocytes # (auto) 0.49 K/uL (0.11-0.59); Monocytes % (auto) 12.2 %; Neutrophils # (auto) 2.76 K/uL (1.4-6.5); Neutrophils % (auto) 68.9 %; Platelet Count 48 K/uL (130-400); Platelet Estimate Decreased (Normal); Poikilocytosis Present; RDW Coefficient of Variation 19.1 % (11.5-14.5); Red Blood Count 2.11 M/uL (4.7-6.1); White Blood Count 4.01 K/uL (4.8-10.8)
[2020-04-16] MEDS ORDERED: dexAMETHasone 4 MG TAB PO SCH (08:00)
[2020-04-16] MEDS: ACYCLOVIR 400 MG TAB PO SCH ×2 (09:27→19:41)
[2020-04-16] MEDS: SELEGILINE HCL 5 MG TAB PO SCH ×2 (09:27→19:41)
[2020-04-16] MEDS: CARBIDOPA/LEVODOPA 25/100MG TAB PO SCH ×3 (09:27→19:41)
[2020-04-16] MEDS: APIXABAN 2.5 MG TAB PO SCH ×2 (09:28→19:41)
[2020-04-16] MEDS: PANTOprazole 40 MG TAB PO SCH (09:29)
[2020-04-16] MEDS: LIDOCAINE 5% 1 PATCH TD SCH (09:29)
[2020-04-16] MEDS: GABAPENTIN 400 MG CAP PO SCH ×3 (09:29→19:41)
[2020-04-16] MEDS: DOXYCYCLINE HYCLATE 100 MG CAP PO SCH (09:31)
[2020-04-16] MEDS: NSS + 20MEQ KCL 20 MEQ/1,000 ML BAG IV SCH ×2 (09:39→20:45)
--- NOTE | 2020-04-16 11:47 | Hospitalist Progress Note ---
Date of Service April 16, 2020 Assessment & Plan (1) Hypotension: Possibly neurogenic related to underlying Parkinson's disease. Lasix diuresis is contributing. He may benefit from midodrine therapy. Continue IV fluid rehydration. Consult neurology. (2) Cough: Stable CXR findings. Prior COVID-19 test negative on last admission and his cough has been improving since then. (3) Parkinson disease: Continue sinemet at usual home dose. Neurology consultation (4) Cryoglobulinemic vasculitis: Medical management. Hematology consultation and management. Consult wound care for his ongoing multiple vasculitic wounds. (5) Multiple myeloma: Hematology consultation and management. Obviously contributing to pancy topenia. Serial lab studies. (6) DVT prophylaxis: Early ambulation Admission and Anticipated Discharge Date Admission Date: April 15, 2020 Subjective Alert and oriented despite persistent mild hypotension which could be neurogenic related to the Parkinson's disease and possibly aggravated by hypovolemia. is at the bedside. IV fluids underway. He may benefit from addition of midodrine therapy. We will consult hematology and neurology to see him while he is here. Review of Systems Review of Systems: Constitutional-no fever or chills ENT-no blurred vision, no double vision, no epistaxis, no sore throat Respiratory-no cough, no wheezing, no shortness of breath Cardiac-no palpitations, no chest pain, no syncope GI-no nausea, vomiting, diarrhea, melena, hematochezia -no urinary retention, no urinary incontinence, no dysuria, no hematuria Musculoskeletal-generalized weakness. No joint pain, no muscle tenderness Skin-easy bruisability with multiple bruises. No rashes, no pruritus Neuro-parkinsonian features, resting tremor. Generalized weakness. Psych-flat affect Physical Exam Physical Exam: General-alert and oriented x3, no fevers, no chills. Appears chronically ill HEENT-head atraumatic and normocephalic, TMs intact bilaterally, pupils equal and reactive to light, extraocular muscles intact Neck-no lymphadenopathy or thyromegaly, trachea midline Chest-clear to auscultation percussion. No rales wheezing or rhonchi Cardiac-regular rate and rhythm, normal S1 and S2, no murmurs Abdomen-normal bowel sounds, nontender, no hepatosplenomegaly Extremities-no cyanosis, clubbing, or edema Skinmultiple scattered ecchymoses on extremities Neuro-parkinsonian features, generalized weakness, resting tremor Psych-flat affect Results & Data Results & Data ([facility]) Vital Signs (Past 12 Hours) Vital Signs Temp Pulse Pulse Resp BP Pulse Ox 04/16/20 11:16 36.6 C 86 20 112/86 96 04/16/20 08:28 36.4 C L 87 20 87/49 L 94 04/16/20 06:00 86 18 95/51 L 95 04/16/20 03:37 36.8 C 85 19 92/60 L 97 04/16/20 02:03 83 04/16/20 00:26 87 18 97/59 L 98 04/15/20 23:57 37.0 C 88 19 91/56 L 96 Laboratory Results 04/16/20 06:48 04/16/20 05:18 PG Care Time/CCT Total # of Minutes Spent Total Time Spent with Patient: Total time spent is greater than 50% in breastfeeding program coordinator rdination of care (as documented) at patient's floor/unit and/or counseling patient: Coding Level of Care Code 42912 Subseq Hosp Care Lvl 3 Diagnoses Hypotension I95.9 Cough R05 Parkinson disease G20 Cryoglobulinemic vasculitis D89.1 Multiple myeloma C90.00 Multiple myeloma remission status: unspecified DVT prophylaxis Z29.9 (1) Multiple myeloma Multiple myeloma remission status: unspecified Qualified Code(s): C90.00 - Multiple myeloma not having achieved remission
--- NOTE | 2020-04-16 14:36 | Consultation Report ---
DATE OF CONSULTATION: 04/16/2020 NEUROLOGY CONSULTATION NOTE CHIEF COMPLAINT: Hypotension and dizziness. HISTORY OF PRESENT ILLNESS: An 84-year-old male with multiple hospital admissions for hypotension and prior history of multiple myeloma, vasculitis, and Parkinson's disease, admitted from the Emergency Department last evening after he was transferred from his wound care appointment for hypotension. He was noted to be orthostatic upon standing. He recently restarted his Velcade, cyclophosphamide and dexamethasone last for the treatment of his multiple myeloma and vasculitis. His vasculitis has been getting worse since his dexamethasone and cyclophosphamide were held. Of note, he was recently admitted for possible healthcare-acquired pneumonia. His cough is still present, but he has been improving from a respiratory standpoint since he was discharged. On his last admission, his hydrochlorothiazide was stopped due to hypotension. He was also recently seen by his primary neurologist, Dr. Dotson, on that admission for Parkinson's and recommended to continue his current dose of Sinemet 25/100 three times daily. On admission in the Emergency Department last evening, his blood pressure was noted to be 78/48, which did respond to IV fluids. He received three 500 mL normal saline boluses. ALLERGIES: CEPHALOSPORINS, DOXYCYCLINE, PENICILLIN, AMOXICILLIN, BACTRIM. HOME MEDICATIONS: Pertinent home medications include Sinemet 25/100 three times daily, selegiline 5 mg 3 times daily, Eliquis 2.5 mg twice daily, metoprolol 6.25 mg twice daily, aspirin 81 mg daily, cyclophosphamide, gabapentin 400 mg 3 times daily, and simvastatin 20 mg daily. PAST MEDICAL HISTORY: Parkinson's disease, chronic kidney disease, multiple myeloma, vasculitis, anemia, arthritis, basal cell carcinoma, history of pneumonia. PAST SURGICAL HISTORY: The patient has had no recent surgeries. He has a remote history of back surgery, hernia repair and prior carpal tunnel release surgery. FAMILY HISTORY: His mother had coronary artery disease as well as a myocardial infarction and a stroke. His father had glaucoma. SOCIAL HISTORY: He is and retired. He is a nonsmoker. He has no history of alcohol use. PHYSICAL EXAMINATION: VITAL SIGNS: Blood pressure 112/86, pulse 86, respiratory rate 20, temperature 36.6 degrees Celsius, oxygen saturation 96% on room air. GENERAL APPEARANCE: He is in no distress. NEUROLOGIC: He is awake, he is alert. He is oriented to person, place. His attention is normal. His knowledge is Ok. Comprehension is intact and following simple commands. His speech is soft. He blinks to threat on confrontation. His visual lopez are full. Cranial nerves III, IV and show that his extraocular muscles are intact with restricted upgaze. Facial sensation is intact. Face is symmetric. Hearing is grossly intact. Palate symmetric. Holding his head up and his shoulder shrug is okay. Tongue is midline. Gait examine deferred. Mild postural tremor in both upper extremities. There is also a prominent chin tremor. Sensation is intact to light touch. He is moving all 4 extremities against gravity without any focal weakness. Reflexes; Carlos sign is negative bilaterally. DIAGNOSTIC TESTING: LABORATORY VALUES: WBC 4.01, hemoglobin 7.0, platelet count 48. Sodium 141, potassium 3.4, chloride 109, BUN is 13, creatinine 1.02, glucose is 75, calcium 7.0, magnesium 2.3. Urinalysis showed yellow, cloudy urine, 1+ protein, negative glucose, negative ketones, negative nitrites, 1+ leukocyte esterase, 10-30 WBCs, greater than 30 epithelial cells, no bacteria. CT head noncontrast performed on 04/15/2020 shows no hemorrhage, mass effect, or evidence of acute ischemic stroke. There is age involutional changes noted with moderate subcortical and periventricular microangiopathic changes. Chest x-ray showed cardiomegaly, small right pleural effusion, and extensive bilateral calcified pleural plaques. ASSESSMENT AND PLAN: An 84-year-old male with presumed idiopathic Parkinson's disease, on Sinemet 25/100 three times daily, admitted with hypotension and orthostatic dizziness. Blood pressure responded IV to fluids. The patient has been seen multiple times in the last 2 months for orthostasis and hypotension. Recommend stopping Sinemet 25/100 mg TID for now. Discussed with patient and to monitor parkinsonian symptoms. Hopefully holding or stopping Sinemet may help with hypotension. He is scheduled for outpatient neurology follow up later this month. Neurology will otherwise sign off for now. MTDD
[2020-04-16] MEDS ORDERED: ASPIRIN 81 MG ECTAB PO SCH (15:00)
[2020-04-16] MEDS: SIMVASTATIN 20 MG TAB PO SCH (19:40)
[2020-04-16] MEDS: DOCUSATE SODIUM 100 MG CAP PO SCH (19:41)
[2020-04-16] MEDS: OXYCODONE HCL IR 5 MG TAB (IMMEDIATE RELEASE) PO PRN (23:31)
[2020-04-17] MEDS: OXYCODONE HCL IR 5 MG TAB (IMMEDIATE RELEASE) PO PRN ×2 (03:31→12:27)
[2020-04-17 06:53] LABS: Mean Corpuscular Hemoglobin 32.6 pg (25-34); Mean Corpuscular Hgb Conc 31.8 g/dL (32-36); Mean Corpuscular Volume 102.3 fL (80-100); Mean Platelet Volume 12.7 fL (7.4-10.4); Platelet Count 30 K/uL (130-400); RDW Coefficient of Variation 18.9 % (11.5-14.5); RDW Standard Deviation 70.3 fL (36.4-46.3); Red Blood Count 2.15 M/uL (4.7-6.1); White Blood Count 3.15 K/uL (4.8-10.8)
[2020-04-17 07:31] LABS: Calcium 7.2 mg/dl (8.5-10.1); Creatinine Clr Calc Pharmacy 48.8 ml/min; Est GFR (African American) 71.9; Potassium 4.1 mmol/L (3.5-5.1)
[2020-04-17 07:38] LABS: Immature Granulocytes # (auto) 0.01 K/uL (0.00-0.02); Immature Granulocytes % (auto) 0.3 %; Lymphocytes # (auto) 0.34 K/uL (1.2-3.4); Lymphocytes % (auto) 10.8 %; Monocytes # (auto) 0.29 K/uL (0.11-0.59); Monocytes % (auto) 9.2 %; Neutrophils # (auto) 2.51 K/uL (1.4-6.5); Neutrophils % (auto) 79.7 %; Tear Drop Cells 1+
[2020-04-17] MEDS: NSS + 20MEQ KCL 20 MEQ/1,000 ML BAG IV SCH (08:56)
[2020-04-17] MEDS: GABAPENTIN 400 MG CAP PO SCH (08:57)
[2020-04-17] MEDS: ACYCLOVIR 400 MG TAB PO SCH (08:58)
[2020-04-17] MEDS: CARBIDOPA/LEVODOPA 25/100MG TAB PO SCH (08:58)
[2020-04-17] MEDS: SELEGILINE HCL 5 MG TAB PO SCH (08:58)
[2020-04-17] MEDS: PANTOprazole 40 MG TAB PO SCH (08:59)
[2020-04-17] MEDS: APIXABAN 2.5 MG TAB PO SCH (08:59)
[2020-04-17] MEDS: DOXYCYCLINE HYCLATE 100 MG CAP PO SCH (08:59)
[2020-04-17] MEDS: LIDOCAINE 5% 1 PATCH TD SCH (09:00)
--- NOTE | 2020-04-17 11:31 | Discharge Summary ---
Date of Service April 17, 2020 Admission HPI Per Admitting Provider Jun Smith is an 84 year old male with multiple myeloma, vasculitis, Parkinson's, cryoglobulinemia type I, IgG kappa paraproteinemia who presents to the ER from his wound care appointment. In the ER he is hypotensive but without dizziness while lying down but gets orthostatic on standing. He restarted his Valcade, Cyclophosphamide and Dexamethasone last for his treatment of myeloma and vasculitis. His vasculitis has been getting worse since his Dexamethasone and Cyclophosphamide was held during his last admission for possible healthcare-acquired PNA. He reports his cough is still present but confirmed on multiple occasions this has been slowly improving and currently the best is has been since he was discharged. His HCTZ was stopped on his last admission due to hypotension. He followed up with his PCP however and said at that time he was more short of breath with increased leg swelling and CXR concerning for mild congestive changes therefore he was started on Lasix PRN. He has been taking Lasix 20mg PO daily for the past 6 days with improvement of his leg edema. However the patient and his to me decline he was ever short of breath and report this has just been getting slowly better since his last discharge. In the ER he was noted to be hypotensive down to 78/48 which responded to x3 500ml NSS boluses. Principal Diagnosis Pt states he is feeling much better. He states he feels at his usual. is present and agrees with this. Nursing changed his LE bandages this AM and no concerns. was not present, but pt states that the ulcerations look better. He has been eating well. tells me that his baseline BP is lower in general, around 112-118 systolic. He has felt well today at 104 systolic. is concerned because pt had several facial skin eruptions develop overnight and this happens when he doesn't have his chemo. Pt denies fever, SOB, chest pain, abd pain, n/v/c/d. He does have LE pain related to his ulcerations, but manageable. Discharge Exam Constitutional WD/WN, vitals as above Eyes normal visual lopez by confrontation and + anicteric sclerae Neck normal visual inspection and trachea midline Respiratory normal respiratory effort; no respiratory distress Auscultation: no crackles and no wheezes coughing with deep inspiration noted Cardiovascular Rate/Rhythm: regular rate and regular rhythm Gastrointestinal (Abdomen) Inspection/Auscultation: abdomen not distended Percussion/Palpation: abdomen soft; abdomen nontender Musculoskeletal Head/Neck/Chest: normocephalic and head atraumatic L LE with mild swelling related to wound sites R LE neg for swelling Skin no rashes, warm and dry Neurologic awake; not confused Speech / Cognition: normal speech Psychiatric A+Ox3, euthymic affect Discharge Data Allergies Allergy/AdvReac Type Severity Reaction Status Date / Time Cephalosporins Allergy Intermediate Rash Verified 04/15/20 10:55 doxycycline Allergy Intermediate skin Verified 04/15/20 10:55 irritation Penicillins Allergy Intermediate HIVES Verified 04/15/20 10:55 amoxicillin Allergy Unknown RASH Verified 04/15/20 10:55 sulfamethoxazole AdvReac Intermediate skin rash Verified 04/15/20 10:55 [From Bactrim] trimethoprim [From Bactrim] AdvReac Intermediate skin rash Verified 04/15/20 10:55 Consultations 04/15/20 17:28 ED Decision to Admit Stat 04/16/20 11:20 Consult Hematology Routine Consult Neurology Routine Ordered Studies 04/15/20 15:33 CT head/brain wo con Stat Hospital Course (1) Hypotension: Likely multifactorial etiology Several medication changes made during admission Holding lasix and sinemet Alternatively secondary to adrenal insufficiency with steroid use (due dexamethasone with cyclophosphamide tomorrow) Recommend compression stockings rather than lasix for continued treatment of leg edema Advised to monitor home BP (2) Cough: Stable CXR findings. Prior COVID-19 test negative on last admission and his cough has been improving since then. (3) Parkinson disease: Holding sinemet per neurology for possible role in hypoTN Advised to monitor for sx Continue seleginine at usual home dose (4) Cryoglobulinemic vasculitis: Medical management. Hematology consultation and management. Consult wound care for his ongoing multiple vasculitic wounds. (5) Multiple myeloma: Hematology consultation and management. Obviously contributing to pancytopenia. Cyclophosphamide to be held until repeat CBC on Monday to determine if platelets will tolerate resuming tx as per Dr. Antony notes that pt has facial skin eruptions when off for too long and this did develop the night before d/c Pt takes eliquis for DVT/PE proph. This is being held as well given thrombocytopenia and will be re-evaluated on Monday after CBC Last dose was 8/7 AM (6) Fall: Pt was recommended to go to rehab for additional therapy, however he and declined at this time. Pt is high risk for readmission due to above factors. They are aware of the risks of not following rehab recs. Total Time Total Time Spent Total Time Spent (In Minutes): >30 Total Time Includes: Examination of the Patient, Discharge Planning, Medication Reconciliation, Communication With Other Providers and Other Discharge Plan Discharge Items Patient Disposition: Home - Home Health Services Reason For Visit: HYPOTENSION,PANCYTOPENIA Discharge Diagnosis: Hypotension, possibly medication related Activity: Resume your previous activity Non-emergency contact: Primary Care Provider, Neurologist and Oncologist Call non-emergency contact if: you have any medication questions and your symptoms worsen Follow-up/Referrals: David Mcnair DO [Primary Care Provider] - (f/u on 04/24 as scheduled) Odin Dotson MD [Physician] - (later in the month as scheduled) Dick Antony MD [Surgeon] - (04/20 for labs in the office) Diet: Regular Addtl Attending Provider Instructions: You should check your blood pressure daily. It sounds like you get very weak when your blood pressure is lower. If you feel weak, you should also check your blood pressure. Keep track of your readings and take them with your to all of your appointments. You will have your labs checked on Monday at Dr. Antony's office. You should go there for the blood draw. They will tell you what to do with your eliquis and cyclophosphamide dosing based on your blood counts at that time. You will need to monitor for lower extremity swelling now that you are off of the lasix. If you see increased swelling, you should call your primary care doctor for further instructions. You should wear DAYANARA compression stockings to help with the swelling. You should also monitor for change in your Parkinson's symptoms given that your sinemet is being stopped. If you have increase in those symptoms, you should call your neurologist to discuss. You should wear DAYANARA compression stockings to help with the swelling. We will be holding your eliquis temporarily due to your blood counts. This puts you at risk for blood clots in your legs and lungs. If you have increased pain or swelling in your legs or if you have chest pain or shortness of breath, you need to call your oncologist or come to the ED. Please note that you were recommended to go to rehab for additional therapy. If you feel that you need more help than the home health nursing services, you should call your primary care and they may be able to help you go to rehab from home. You may also come to the ED and they might be able to help you with this as well. Pending Studies at Discharge: No Stand-Alone Forms: My [facility], Smoking Cessation Medications and DC Order Prescriptions: Continued metoprolol tartrate 25 mg tablet 6.25 mg PO BID Qty: 30 RF: 0 selegiline HCl 5 mg tablet 5 mg PO BID RF: 0 acyclovir 400 mg tablet 400 mg PO BID RF: 0 docusate sodium [Colace] 100 mg Capsule 300 mg PO HS RF: 0 oxycodone 5 mg tablet 5 mg PO Q4H PRN (Reason: Pain) RF: 0 Velcade 3.5 mg Recon Soln 0 mg IV TH RF: 0 Prevagen 1 cap PO DAILY@1500 RF: 0 aspirin 81 mg tablet,delayed release (DR/EC) 81 mg PO DAILY@1500 RF: 0 simvastatin 20 mg tablet 20 mg PO HS RF: 0 omeprazole 20 mg tablet,delayed release (DR/EC) 20 mg PO QAM RF: 0 gabapentin 400 mg capsule 400 mg PO TID RF: 0 lidocaine 5 % Adhesive Patch,Medicated 1 patch transdermal QAM Qty: 10 RF: 3 dexamethasone 4 mg tablet 20 mg PO TH@0800 RF: 0 doxycycline hyclate 100 mg tablet 100 mg PO DAILY RF: 0 Discontinued Eliquis 2.5 mg tablet 2.5 mg PO BID Qty: 60 RF: 0 furosemide 20 mg tablet 20 mg PO DAILY PRN (Reason: edema) Qty: 30 RF: 2 carbidopa-levodopa [Sinemet] 25-100 mg tablet 1 tab PO TID RF: 0 cyclophosphamide 50 mg Capsule 500 mg PO TH@0800 RF: 0 Discharge Orders: Discharge Order (Routine); Ordered 04/17/20 Ordered By: Zaria Jennings Admission Data Admit Date/Time: 04/15/20 20:17 Attending Provider: Zaria Jennings Admit Provider: Rigoberto Mabry Primary Care Provider: David Mcnair Other Providers: Rigoberto Mabry ; iDck Antony ; Odin Dotson ; [facility] Other Interventions: Discharge Summary Assessment (RN) Last Done: 04/17/20 11:32 DC Date/Time DO NOT enter until pt leaves facility: 04/17/20 13:41 Coding Level of Care Code D/C Day Management >30 mins Diagnoses Hypotension I95.2 Hypotension type: hypotension due to drug Cough R05 Parkinson disease G20 Cryoglobulinemic vasculitis D89.1 Multiple myeloma C90.00 Multiple myeloma remission status: unspecified Fall W19.XXXA
== END 2020-04-17 13:41 | disposition home health service (06) | DRG 315 ==
LOC: ED 15:07 → SUATTDRO 20:17 → 2E 20:17

== ENCOUNTER 2020-04-20 12:40 | Inpatient (IN) ==
--- NOTE | 2020-04-20 13:00 | Emergency Department Note ---
Impression & Plan AMS (altered mental status) ED Provider Note INFORMANT: [Patient] ED PROVIDER(S): Odin Jimenez MD CHIEF COMPLAINT: Confusion PLAN: Disposition: Admitted Condition: [Good] MEDICAL DECISION MAKING: Patient presented emergency department due to confusion. He underwent an extensive work-up. CT imaging of the head did not reveal any acute process. The patient's ECG did not reveal any acute findings either. He had a stable anemia and thrombocytopenia on CBC. The patient's chemistry panel was concernin g for acute renal failure with a market elevation of his creatinine. The patient does note having chronic pains in his legs and the did request he received a dose of his standard oxycodone. He was given one 5 mg tablet. The patient was hydrated. CT imaging of his chest and abdomen/pelvis was performed. No evidence of pneumonia was seen. No obstructing lesions noted regarding the kidneys. Given the acute renal failure further management in the hospital will be necessary. Consultation was made with internal medicine, Dr. pavon. Patient was evaluated in the ER and admitted for further management. Triage Nursing notes reviewed and agree them. [Additional history obtained from] patient's [Prior medical records reviewed] recent visit and admission regarding his hy potension and medication changes noted. Vital Signs: reviewed and remarkable for [no significant abnormalities] Differential diagnosis: Infection, hypoglycemia, electrolyte abnormalities, overdose, toxicologic, cardiac sources, intracerebral event, neurologic, trauma, as well as other pathologies. Diagnostics interpreted by me: ECG: Twelve-lead ECG reveals a normal sinus rhythm at 92 bpm. There is a nonspecific ST abnormality present. No ST elevation or depression. There is a prolonged QT interval. Normal axis. No PVCs or PACs. Cardiac Monitoring: Cardiac monitoring ordered by me: The patient was placed on continuous cardiac monitoring and observed. It revealed a normal sinus rhythm at 89 beats per minute without ectopy or evidence of dysrhythmia. Imaging studies: Chest x-ray shows bibasilar effusions and questionable infiltrative change. Head CT: A noncontrast CT scan of the head was performed and was negative for tumor, fracture, intracranial hemorrhage, or other acute pathology. Chest CT: Motion degraded examination 2. Extensive bilateral calcified pleural plaques 3. Moderate bilateral pleural effusions 4. Dependent lower lung zone airspace opacity statistically atelectatic 5. 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 There is debris present within the trachea and bronchus intermedius. 6. Osteopenia and mottled appearance of the skeleton. While this appearance could be secondary to osteoporosis, true lytic lesions as would be seen in metastatic disease or myeloma cannot be excluded. CT scan of the abdomen and pelvis did not reveal any evidence of acute pathology. I refer you to the EMR for imaging study details. Consultation(s): [facility] Hospitalist service HPI: The patient is a 84 year old male who presents to the Emergency Room with confusion. This started last night and is worsening. The patient's also notes the following associated symptoms, increased edemaweakness, and cough. The patient has tried an extra lasix relieving factors. Current pain is rated as 0/10. Recently admitted for hypotension. Had his diuretic, sinemet and eliquis held. Has MM hx and chemo is currently held as well. Pt denies LOC, headache, fevers, chills, diaphoresis, visual changes, neck pain, chest pain, nausea, vomiting, abdominal pain, back pain, melena, hematochezia, urinary symptoms, numbness, lymphadenopathy, rash, or other complaints. ROS: See above HPI for pertinent positives & negatives. A total of [10] systems reviewed and were otherwise negative. PAST MEDICAL HISTORY:[See Below] PAST SURGICAL HISTORY:[See Below] FAMILY HISTORY:[See Below] SOCIAL HISTORY:[See Below] HOME MEDICATIONS:[See Below] ALLERGIES:[See Below] VITALS:[See Below] PHYSICAL EXAMINATION: GENERAL: Sleepy, arousable, tired-appearing, in no distress HENT: Normocephalic, atraumatic. Oropharynx unremarkable. EYES: Normal conjunctiva. Sclera non-icteric. NECK: Inspection normal. Non-tender. Supple. No nuchal rigidity. FROM. No masses. RESPIRATORY: Clear to auscultation. No wheezes. No rales. Normal respiratory effort. CARDIAC: Normal rate. Normal rhythm. No murmurs. No rubs. Extremities warm and well perfused. Pulses equal. No JVD. GI: Soft, non-distended. No tenderness to palpation. No rebound or guarding. No masses. RECTAL: Deferred. MUSCULOSKELETAL: Atraumatic. Chest examination reveals no tenderness. The back is symmetrical on inspection without obvious abnormality. There is no CVA tenderness to palpation. No joint edema. LOWER EXTREMITIES: Calves are equal size bilaterally and non-tender. 1+ edema. No discoloration. NEURO: Normal sensorium. No sensory or motor deficits noted. SKIN: No rash or jaundice noted. 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 Feels Safe at Home: Yes Allergies Allergies Allergy/AdvReac Type Severity Reaction Status Date / Time Cephalosporins Allergy Intermediate Rash Verified 04/20/20 15:45 doxycycline Allergy Intermediate skin Verified 04/20/20 15:45 irritation Penicillins Allergy Intermediate HIVES Verified 04/20/20 15:45 amoxicillin Allergy Unknown RASH Verified 04/20/20 15:45 sulfamethoxazole AdvReac Intermediate skin rash Verified 04/20/20 15:45 [From Bactrim] trimethoprim [From Bactrim] AdvReac Intermediate skin rash Verified 04/20/20 15:45 Home Meds Home Medications Medication Instructions Recorded Confirmed selegiline HCl 5 mg PO BID 07/01/18 04/20/20 Velcade 0 mg IV TH 03/24/20 04/20/20 acyclovir 400 mg PO BID 03/24/20 04/20/20 aspirin 81 mg PO DAILY 03/24/20 04/20/20 gabapentin 400 mg PO TID 03/24/20 04/20/20 omeprazole 20 mg PO QAM 03/24/20 04/20/20 oxycodone 5 mg PO Q4H PRN 03/24/20 04/20/20 simvastatin 20 mg PO HS 03/24/20 04/20/20 dexamethasone 20 mg PO TH@0800 04/01/20 04/20/20 doxycycline hyclate 100 mg PO DAILY 04/01/20 04/20/20 apixaban [Eliquis] 2.5 mg PO BID 04/20/20 04/20/20 carbidopa-levodopa 1 tab PO TID 04/20/20 04/20/20 cyclophosphamide 50 mg PO UD 04/20/20 04/20/20 furosemide 20 mg PO DAILY 04/20/20 04/20/20 hydrochlorothiazide 0 mg PO DAILY 04/20/20 04/20/20 prochlorperazine maleate 10 mg PO UD PRN 04/20/20 04/20/20 Previous Rx's Medication Instructions Recorded lidocaine 1 patch TRANSDERMAL QAM #10 ea 03/26/20 metoprolol tartrate 25 mg tablet 6.25 mg PO BID #30 tab 03/27/20 Results & Data (ED) Vital Signs Vital Signs - 24 hr 04/20/20 13:00 04/20/20 13:01 04/20/20 13:02 Temperature 36.8 C Temperature Source Oral Pulse Rate 90 100 H Pulse Rate from SpO2 Sensor 89 Respiratory Rate 19 24 Blood Pressure 121/62 123/76 Blood Pressure Mean 79 91 Pulse Oximetry 97 97 Oxygen Delivery Method Room Air Room Air Room Air Sepsis Recent Fever Within 48 Hours No Sepsis New/Unexplained Change in Mental Status No Sepsis Action Taken by Nursing No Action Required 04/20/20 13:15 04/20/20 13:30 04/20/20 13:45 Temperature Temperature Source Pulse Rate 89 88 90 Pulse Rate from SpO2 Sensor 89 89 Respiratory Rate 20 19 22 Blood Pressure 103/68 115/79 116/71 Blood Pressure Mean 81 83 76 Pulse Oximetry 97 97 98 Oxygen Delivery Method Room Air Room Air Room Air Sepsis Recent Fever Within 48 Hours Sepsis New/Unexplained Change in Mental Status Sepsis Action Taken by Nursing 04/20/20 14:00 04/20/20 14:15 04/20/20 14:30 Temperature Temperature Source Pulse Rate 93 H 91 H 90 Pulse Rate from SpO2 Sensor 92 H 92 H Respiratory Rate 16 18 20 Blood Pressure 116/77 132/71 Blood Pressure Mean 99 74 Pulse Oximetry 97 99 Oxygen Delivery Method Room Air Room Air Sepsis Recent Fever Within 48 Hours Sepsis New/Unexplained Change in Mental Status Sepsis Action Taken by Nursing 04/20/20 14:31 04/20/20 14:47 04/20/20 15:00 Temperature Temperature Source Pulse Rate 90 91 H 91 H Pulse Rate from SpO2 Sensor 91 H 90 Respiratory Rate 29 H 20 20 Blood Pressure 122/69 132/74 125/76 Blood Pressure Mean 80 87 93 Pulse Oximetry 96 96 Oxygen Delivery Method Room Air Room Air Room Air Sepsis Recent Fever Within 48 Hours Sepsis New/Unexplained Change in Mental Status Sepsis Action Taken by Nursing 04/20/20 15:15 Temperature Temperature Source Pulse Rate 89 Pulse Rate from SpO2 Sensor 88 Respiratory Rate 20 Blood Pressure 113/74 Blood Pressure Mean 87 Pulse Oximetry 97 Oxygen Delivery Method Room Air Sepsis Recent Fever Within 48 Hours Sepsis New/Unexplained Change in Mental Status Sepsis Action Taken by Nursing Laboratory Data Result diagrams: 04/20/20 12:55 04/20/20 12:55 Lab Results 04/20/20 04/20/20 04/20/20 Range/Units 12:55 12:55 14:25 WBC 7.98 (4.8-10.8) K/uL RBC 2.21 L (4.7-6.1) M/uL Hgb 7.5 L (14.0-18.0) g/dL Hct 22.8 L (42-52) % MCV 103.2 H (80-100) fL MCH 33.9 (25-34) pg MCHC 32.9 (32-36) g/dL RDW Std Deviation 74.5 H (36.4-46.3) fL RDW Coeff of Rahul 20.1 H (11.5-14.5) % Plt Count 32 L (130-400) K/uL MPV 11.0 H (7.4-10.4) fL Absolute Nucleated RBC 0.02 H (0-0) K/uL Nucleated RBC % (auto) 0.2 % Neutrophils % (Manual) 66.9 % Lymphocytes % (Manual) 7.8 % Monocytes % (Manual) 15.7 % Eosinophils % (Manual) 7.0 % Basophils % (Manual) 0.9 % Myelocytes % (Man) 1.7 % Neutrophils # (Manual) 5.34 (1.4-6.5) K/uL Total Absolute Neuts 5.34 (1.4-6.5) K/uL Lymphocytes # (Manual) 0.62 L (1.2-3.4) K/uL Total Abs Lymphocytes 0.62 L (1.2-3.4) K/uL Monocytes # (Manual) 1.25 H (0.11-0.59) K/uL Eosinophils # (Manual) 0.56 H (0-0.5) K/uL Basophils # (Manual) 0.07 (0-0.2) K/uL Myelocytes # (Manual) 0.14 H (0-0) K/uL Toxic Vacuolation 1+ Sodium 137 (136-145) mmol/L Potassium 4.8 (3.5-5.1) mmol/L Chloride 106 (98-107) mmol/L Carbon Dioxide 22 (21-32) mmol/L Anion Gap 9.0 (3-11) BUN 40 H (7-18) mg/dl Creatinine 3.61 H (0.6-1.4) mg/dl Est Cr Clr Drug Dosing 13.3 ml/min Est GFR ( Amer) 16.9 Est GFR (Non-Af Amer) 14.6 BUN/Creatinine Ratio 11.0 (10-20) Glucose 84 (70-99) mg/dl Calcium 7.7 L (8.5-10.1) mg/dl Magnesium 2.2 (1.8-2.4) mg/dl Total Bilirubin 0.5 (0.2-1) mg/dl AST 38 H (15-37) U/L ALT 10 L (12-78) U/L Alkaline Phosphatase 102 (45-117) U/L Troponin I 0.021 (0-0.045) ng/ml NT-Pro-B Natriuret Pep > 41489 H (0-1800) pg/ml Total Protein 6.5 (6.4-8.2) gm/dl Albumin 1.6 L (3.4-5.0) gm/dl Globulin 4.9 H (2.5-4.0) gm/dl Albumin/Globulin Ratio 0.3 L (0.9-2) TSH 2.580 (0.300-4.500) uIu/ml Urine Color Yellow Urine Appearance Cloudy A (Clear) Urine pH 5.0 (4.5-7.5) Ur Specific [place] 1.015 (1.000-1.030) Urine Protein 1+ H (Negative) Urine Glucose (UA) Negative (Negative) Urine Ketones Negative (Negative) Urine Blood Trace H (Negative) Urine Nitrite Negative (Negative) Urine Bilirubin Negative (Negative) Urine Urobilinogen Negative (Negative) Ur Leukocyte Esterase 2+ H (Negative) Urine WBC (Auto) >30 H (0-5) /hpf Urine RBC (Auto) 10-30 H (0-4) /hpf U Hyaline Cast (Auto) 5-10 H (0-5) /lpf U Epithel Cells (Auto) >30 H (0-5) /lpf Urine Bacteria (Auto) Negative (Negative) Calcium Oxalate Crystal Present A (None Prsent) Granular Casts 1-5 H (0) /lpf Urine Mucus Present A (None Prsent) Urine Yeast Not Reportable Administered Medications Discontinued Medications Sodium Chloride (Nss 1000ml) 1,000 mls @ 125 mls/hr IV .Q8H STA Stop: 04/21/20 00:04 Last Admin: 04/20/20 16:23 Dose: 125 mls/hr Documented by: [id number] Oxycodone HCl (Roxicodone Immediate Rel) 5 mg PO NOW STA Stop: 04/20/20 14:01 Last Admin: 04/20/20 14:18 Dose: 5 mg Documented by: [id number] Discharge Plan Visit Data Chief Complaint: Confusion ED Provider: Odin Jimenez Discharge Problem: AMS (altered mental status) Forms Stand Alone Forms: My [facility] Prescriptions Prescriptions: No Action metoprolol tartrate 25 mg tablet 6.25 mg PO BID Qty: 30 RF: 0 selegiline HCl 5 mg tablet 5 mg PO BID RF: 0 acyclovir 400 mg tablet 400 mg PO BID RF: 0 oxycodone 5 mg tablet 5 mg PO Q4H PRN (Reason: Pain) RF: 0 Velcade 3.5 mg Recon Soln 0 mg IV TH RF: 0 aspirin 81 mg tablet,delayed release (DR/EC) 81 mg PO DAILY RF: 0 simvastatin 20 mg tablet 20 mg PO HS RF: 0 omeprazole 20 mg tablet,delayed release (DR/EC) 20 mg PO QAM RF: 0 gabapentin 400 mg capsule 400 mg PO TID RF: 0 lidocaine 5 % Adhesive Patch,Medicated 1 patch transdermal QAM Qty: 10 RF: 3 dexamethasone 4 mg tablet 20 mg PO TH@0800 RF: 0 doxycycline hyclate 100 mg tablet 100 mg PO DAILY RF: 0 prochlorperazine maleate 10 mg tablet 10 mg PO UD PRN (Reason: Nausea) RF: 0 hydrochlorothiazide 25 mg tablet 0 mg PO DAILY RF: 0 furosemide 20 mg tablet 20 mg PO DAILY RF: 0 carbidopa-levodopa 25-100 mg tablet 1 tab PO TID RF: 0 Eliquis 2.5 mg tablet 2.5 mg PO BID RF: 0 cyclophosphamide 50 mg Capsule 50 mg PO UD RF: 0
[2020-04-20 13:10] LABS: Mean Corpuscular Hgb Conc 32.9 g/dL (32-36); Nucleated RBC # (auto) 0.02 K/uL (0-0); Nucleated RBC % (auto) 0.2 %
[2020-04-20 13:15] LABS: Platelet Count 32 K/uL (130-400)
--- NOTE | 2020-04-20 13:24 | XRay Report ---
XR chest 1V portable CLINICAL HISTORY: weakness dyspnea COMPARISON STUDY: 04/15/2020 FINDINGS: Interval development of bilateral parenchymal infiltrative change. This is superimposed upo n pleural plaque formation described previously. There are small bilateral pleural effusions. IMPRESSION: Developing bibasilar parenchymal infiltrates. ACT 112: Negative or not required by law. The above report was generated using voice recognition software. It may contain grammatical, syntax or spelling errors. Electronically signed by: Sorin Lazo M.D. 04/20/2020 1:23 PM
[2020-04-20 13:33] LABS: ALC (manual) 0.62 K/uL (1.2-3.4); ANC (manual) 5.34 K/uL (1.4-6.5); Basophils # (manual) 0.07 K/uL (0-0.2); Basophils % (manual) 0.9 %; Eosinophils # (manual) 0.56 K/uL (0-0.5); Hematocrit (blood only) 22.8 % (42-52); Hemoglobin 7.5 g/dL (14.0-18.0); Lymphocytes # (manual) 0.62 K/uL (1.2-3.4); Lymphocytes % (manual) 7.8 %; Mean Corpuscular Hemoglobin 33.9 pg (25-34); Mean Corpuscular Volume 103.2 fL (80-100); Monocytes # (manual) 1.25 K/uL (0.11-0.59); Monocytes % (manual) 15.7 %; Myelocytes # (manual) 0.14 K/uL (0-0); Myelocytes % (manual) 1.7 %; Neutrophils # (manual) 5.34 K/uL (1.4-6.5); Neutrophils % (manual) 66.9 %; RDW Coefficient of Variation 20.1 % (11.5-14.5); RDW Standard Deviation 74.5 fL (36.4-46.3); Red Blood Count 2.21 M/uL (4.7-6.1); Toxic Vacuolation 1+; White Blood Count 7.98 K/uL (4.8-10.8)
[2020-04-20 13:36] LABS: Alanine Aminotransferase 10 U/L (12-78); Albumin Level 1.6 gm/dl (3.4-5.0); Aspartate Aminotransferase 38 U/L (15-37); Blood Urea Nitrogen 40 mg/dl (7-18); Calcium 7.7 mg/dl (8.5-10.1); Carbon Dioxide 22 mmol/L (21-32); Chloride 106 mmol/L (98-107); Creatinine Clr Calc Pharmacy 13.3 ml/min; Est GFR (African American) 16.9; Est GFR (Non-African American) 14.6; Glucose 84 mg/dl (70-99); Magnesium 2.2 mg/dl (1.8-2.4); Potassium 4.8 mmol/L (3.5-5.1); Sodium 137 mmol/L (136-145)
[2020-04-20 13:59] LABS: Albumin Globulin Ratio 0.3 (0.9-2); Alkaline Phosphatase 102 U/L (45-117); Bilirubin,Total 0.5 mg/dl (0.2-1); Globulin 4.9 gm/dl (2.5-4.0); NT Pro B Type Natriuretic Pept > 35000 pg/ml (0-1800); Total Protein 6.5 gm/dl (6.4-8.2); Troponin I 0.021 ng/ml (0-0.045)
[2020-04-20] MEDS ORDERED: OXYCODONE HCL IR 5 MG TAB (IMMEDIATE RELEASE) PO STA (14:00)
--- NOTE | 2020-04-20 14:46 | CT Scan Report ---
CT head/brain wo con CLINICAL HISTORY: Acute change in mental status COMPARISON STUDY: April 15, 2020 TECHNIQUE: Axial CT of the brain is performed from the vertex to the skull base. IV contrast was not administered for this examination. A dose lowering technique was utilized adhering to the principles of ALARA. CT DOSE: 614.27 mGy.cm FINDINGS: No intra or extra-axial mass lesions are visualized. There is no CT evidence of acute cortical infarc tion. There is no evidence of midline shift. There is no acute hemorrhage. No calvarial fractures ar e visualized. There are patchy white matter hypodensities likely on a small vessel basis. There is no evidence of pathologic ventricular dilatation. There is no evidence of acute sinusitis IMPRESSION: No acute intracranial findings ACT 112: Negative or not required by law. Electronically signed by: Bal Bay M.D. 04/20/2020 2:44 PM
[2020-04-20 15:02] LABS: Appearance Urine Cloudy (Clear); Bacteria Urine Automated Negative (Negative); Bilirubin Urine Negative (Negative); Blood Urine Trace (Negative); Color Urine Yellow; Epithelial Cell Urine Auto >30 /lpf (0-5); Glucose Urine UA Negative (Negative); Ketones Urine Negative (Negative); Leukocyte Esterase Urine 2+ (Negative); Nitrite Urine Negative (Negative); Protein Urine 1+ (Negative); Specific Gravity Urine 1.015 (1.000-1.030); Urobilinogen Urine Negative (Negative); WBC Urine Automated >30 /hpf (0-5)
[2020-04-20 15:18] LABS: Calcium Oxalate Crystals Urine Present (None Prsent); Mucus Urine Present (None Prsent)
[2020-04-20] MEDS ORDERED: SODIUM CHLORIDE 0.9% 1000ML 1,000 ML IV STA (16:05)
--- NOTE | 2020-04-20 16:54 | CT Scan Report ---
CT chest wo con CLINICAL HISTORY: Abnormal chest x-ray. Change in mental status. COMPARISON STUDY: Chest CT dated 03/03/2016, chest x-ray dated 04/20/2020 CT DOSE: 1048.13 mGy.cm TECHNIQUE: CT of the thorax was performed from the thoracic inlet to the lung bases. Images are revi ewed in the axial, sagittal, and coronal planes. IV contrast was not administered for this examinatio n. A dose lowering technique was utilized adhering to the principles of ALARA. FINDINGS: Thyroid: Imaged portions of the thyroid gland are normal in appearance. Thoracic aorta: There is dilatation of the ascending thoracic aorta which measures 41 mm. Heart: The heart is enlarged with coronary calcifications. There is no pericardial effusion. Lungs and pleural spaces: There are extensive bilateral calcified pleural plaques. There are moderate bilateral pleural effusions. There is significant respiratory motion artifact. There are dependent a irspace opacity statistically atelectatic. There is narrowing of the carlton possibly secondary to tra cheomalacia. There is debris present within the trachea and bronchus intermedius Mediastinum: There is no evidence of pathologic mediastinal lymphadenopathy Supriya: There is no evidence of pathologic hilar adenopathy given the limitations of a noncontrast stud y Axilla: There is no evidence of pathologic axillary lymphadenopathy Upper abdomen: Partially visualized upper abdominal viscera is within normal limits. Skeletal structures: The bones are osteopenic. There is been interval development of mild lower thora cic superior endplate compression deformities. The bones have a somewhat mottled appearance and there are several discrete lytic lesions including a 1 cm lytic focus within the manubrium. While this may be secondary to osteoporosis, a true lytic lesion as would be seen in metastatic disease or myeloma cannot be excluded. IMPRESSION: 1. Motion degraded examination 2. Extensive bilateral calcified pleural plaques 3. Moderate bilateral pleural effusions 4. Dependent lower lung zone airspace opacity statistically atelectatic 5. 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 There is debris present within the trachea and bronchus intermedius. 6. Osteopenia and mottled appearance of the skeleton. While this appearance could be secondary to ost eoporosis, true lytic lesions as would be seen in metastatic disease or myeloma cannot be excluded. ACT 112: Negative or not required by law. Electronically signed by: Bal Bay M.D. 04/20/2020 4:52 PM
--- NOTE | 2020-04-20 17:02 | CT Scan Report ---
CT SCAN OF THE ABDOMEN AND PELVIS WITHOUT CONTRAST CLINICAL HISTORY: Acute renal failure. Pain. COMPARISON STUDY: 03/24/2020 TECHNIQUE: CT scan of the abdomen and pelvis was performed from the lung bases to the proximal femurs . Images are reviewed in the axial, sagittal, and coronal planes. IV contrast was not administered fo r this examination. A dose lowering technique was utilized adhering to the principles of ALARA. CT DOSE: FINDINGS: Lower chest: There are moderate bilateral pleural effusions and calcified pleural plaques. There are basilar opacities, likely atelectatic. There are coronary artery calcifications. Liver: There is a 46 mm right lobe hepatic cyst. There is a stable calcification within the central l iver possibly vascular. Gallbladder: The gallbladder is distended. No calculi are visualized. Spleen: Normal in size and attenuation. Pancreas: Unremarkable. Adrenal glands: Unremarkable. Kidneys: There is no hydronephrosis. There are multiple left renal cysts. No calculi are visualized. Bowel: There are no transition zones to indicate bowel obstruction. There is colonic diverticulosis. There is no evidence of acute diverticulitis. There are no findings to indicate acute appendicitis. T he appendix is not visualized with certainty Peritoneum: There is minimal free fluid. No free intraperitoneal air is visualized. Vasculature: The abdominal aorta is normal in course and caliber. Adenopathy: None. Pelvic viscera: There is bladder wall thickening Skeletal structures: The bones are osteopenic. The bones have a mottled appearance. There is a more f ocal lytic lesion within the L1 vertebra. Clinical correlation with regard to metastatic disease/myel wilfredo is recommended. There is diffuse body wall edema. There are mild compression fractures involving the T11-L3 vertebral bodies. The examination is motion degraded. IMPRESSION: 1. Motion degraded examination 2. Moderate bilateral pleural effusions with basilar opacities likely representing compressive atelec tasis. Bilateral calcified pleural plaques 3. No evidence of bowel obstruction. No evidence of free air 4. No evidence of hydronephrosis 5. Extensive sigmoid diverticulosis. No evidence of acute peridiverticular inflammatory change 6. Minimal free fluid 7. Moderate appearance of the bony skeleton. While the findings may simply be secondary to osteoporos is, metastatic disease/myeloma cannot be excluded and clinical correlation in this regard is advocate d ACT 112: Negative or not required by law. Electronically signed by: Bal Bay M.D. 04/20/2020 5:01 PM
--- NOTE | 2020-04-20 19:36 | History & Physical Report ---
Date of Service April 20, 2020 Assessment & Plan (1) CHF (congestive heart failure): Jun Smith is an 84 yo male with complex PMHx of multiple myeloma, CHF, CKD 3a, cryoglobulinemia type I, vasculitis, Parkinson's disease, who presented to the [facility] on 04/20/2020 with AMS, cough, bilateral LE edema. Congestive Heart Failure Exacerbation - physical exam findings, labs and imaging supportive of CHF exacerbation - Lasix 40 mg IV x1, re-assess later in the night for possible second dose. - continue home dose Lopressor - TTE complete ordered Altered Mental Status - A+O to self only, with recent history of sundowning the last several evenings - NPO for now with speech therapy consult for aspiration risk evaluation Urinary Tract Infection - UA cloudy and positive for leukocyte esterase and WBCs - start Ciprofloxacin IV 400 mg Q12H - follow urine cx JULY on CKD Stage 3a - most likely intrinsic injury secondary to CHF exacerbation vs multiple myeloma induced kidney damage - Cr 3.61 - Nephrology consulted Multiple Myeloma - chronic diagnosis, on chemotherapy, follows with Dr. Antony at [facility] - associated anemia (Hgb 7.5) and thrombocytopenia (plt 32 and widespread bruising on exam) - Heme/Onc consulted - home dose Oxycodone and Gabapentin Cryoglobulinemia Type I with vasculitis - heme/onc consulted Parkinson's Disease - home dose Selegiline and Sinemet GERD - home dose Omeprazole Hyperlipidemia - home dose Simvastatin FENGI: NPO pending ST eval, no fluids DVT Prophylaxis: home dose Apixaban 2.5 mg PO BID Code Status: conditional: DNI but okay with resuscitation via compressions/medications Disposition: med/surg with tele (2) Multiple myeloma: (3) Parkinson disease: (4) AMS (altered mental status): (5) Cryoglobulinemia type 1: (6) GERD (gastroesophageal reflux disease): Admission and Anticipated Discharge Date Admission Date: 04/20/2020 History of Present Illness Chief Complaint: AMS, cough, edema Primary Care Provider: David Mcnair DO Jun Smith is an 84 yo male with complex PMHx of multiple myeloma, CHF, CKD 3a, cryoglobulinemia type I, vasculitis, Parkinson's disease, who presented to the [facility] on 04/20/2020 with AMS, cough, bilateral LE edema. Of note, the patient was recently hospitalized here for hypotension and home dose of Lasix was discontinued during that admission - discharged on 04/17. After discharge, the patient developed progressive lower extremity edema and increased work of breathing. Denies chest pain or palpitations. He also developed decreased mental status since discharge, most pronounced in the evenings when he was only A+O to self. He also had polydipsia (drinking ~6L of water per day) secondary to increased thirst, and decreased urine output and increased urgency. Denies dysuria, increased urinary frequency. Denies fever/chills, flank pain, abdominal pain. Denies vision changes, syncope or seizures. Allergies Allergy/AdvReac Type Severity Reaction Status Date / Time Cephalosporins Allergy Intermediate Rash Verified 04/20/20 15:45 doxycycline Allergy Intermediate skin Verified 04/20/20 15:45 irritation Penicillins Allergy Intermediate HIVES Verified 04/20/20 15:45 amoxicillin Allergy Unknown RASH Verified 04/20/20 15:45 sulfamethoxazole AdvReac Intermediate skin rash Verified 04/20/20 15:45 [From Bactrim] trimethoprim [From Bactrim] AdvReac Intermediate skin rash Verified 04/20/20 15:45 Home Medications Home Medications Medication Instructions Recorded Confirmed Type selegiline HCl 5 mg PO BID 07/01/18 04/20/20 History Velcade 0 mg IV TH 03/24/20 04/20/20 History acyclovir 400 mg PO BID 03/24/20 04/20/20 History aspirin 81 mg PO DAILY 03/24/20 04/20/20 History gabapentin 400 mg PO TID 03/24/20 04/20/20 History omeprazole 20 mg PO QAM 03/24/20 04/20/20 History oxycodone 5 mg PO Q4H PRN 03/24/20 04/20/20 History simvastatin 20 mg PO HS 03/24/20 04/20/20 History lidocaine 1 patch TRANSDERMAL QAM #10 ea 03/26/20 04/20/20 Rx metoprolol tartrate 25 mg tablet 6.25 mg PO BID #30 tab 03/27/20 04/20/20 Rx dexamethasone 20 mg PO TH@0800 04/01/20 04/20/20 History doxycycline hyclate 100 mg PO DAILY 04/01/20 04/20/20 History apixaban [Eliquis] 2.5 mg PO BID 04/20/20 04/20/20 History carbidopa-levodopa 1 tab PO TID 04/20/20 04/20/20 History cyclophosphamide 50 mg PO UD 04/20/20 04/20/20 History furosemide 20 mg PO DAILY 04/20/20 04/20/20 History hydrochlorothiazide 0 mg PO DAILY 04/20/20 04/20/20 History prochlorperazine maleate 10 mg PO UD PRN 04/20/20 04/20/20 History Past Med/Surg History Medical History Abnormal EKG (Inactive) Acute renal failure (ARF) (Inactive) Altered mental status (Inactive) Anemia Arthritis (Chronic) Basal cell carcinoma (BCC) Bursitis of right hip Chest pain syndrome (Resolved 05/20/14) Non-ST elevation TX (NSTEMI) (Inactive) Sacroiliac dysfunction Surgical History H/O hernia repair (Resolved) inguinal History of back surgery x 2 History of carpal tunnel surgery History of lumbar fusion Lumbar Vertebral Fusion Family History Mother , in her 70s Coronary heart disease Myocardial infarction Stroke Father , age 94 Glaucoma Unknown Acute urticaria Sister Breast cancer Denies family history of Ovarian cancer Prostate cancer Diabetes Dyslipidemia Colorectal cancer Hypertension Social History Smoking Status: Never smoker Second Hand Exposure: Yes; Hx Alcohol Use: No Hx Substance Use: No Preferred Language: Maltese Communication Ability: Effective Visual Impairment: Limited Hearing Ability: Normal Order Filler Required: No Beliefs That Will Affect Care: None marital status: marital status details: 2 children Current Living Situation: Spouse current occupational status: retired Other Information That Helps Us Care for You: No other: 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 Feels Safe at Home: Yes Safety Concerns: Feels Safe At This Time Review of Systems Constitutional: + fatigue and + weakness; no sweats Eyes: as per Subjective / HPI Ear, Nose, Mouth, Throat: no hearing loss Respiratory: as per Subjective / HPI, + cough, + dyspnea and + dyspnea on exertion; no hemoptysis and no wheezing Cardiovascular: as per Subjective / HPI and + lightheadedness; no chest pain, no palpitations and no syncope Gastrointestinal: as per Subjective / HPI; no abdominal pain Genitourinary: + as per Subjective / HPI; no dysuria and no urinary frequency Musculoskeletal: no body aches Integumentary: bruising Neurologic: + tremor(s) and + confusion; no falls, no seizure-like activity, no syncope and no headache(s) Psychiatric: + hallucinations Endocrine: + polydipsia Hematologic / Lymphatic: + easy bruising Physical Exam Constitutional: + ill appearing, + thin and + cachectic Eyes: PERRL, conjunctivae normal, anicteric sclerae EOM intact bilaterally ENMT: external ear and nose normal, oropharynx normal Neck: normal visual inspection Respiratory: + respiratory distress (mild), + labored breathing and + cough Auscultation: + rhonchi (scattered throughout all lung lopez) Cardiovascular: Rate/Rhythm: regular rate and regular rhythm Heart Sounds: no murmur Vessels: normal peripheral pulses; no JVD Extremities: + edema (2+ pitting to knees bilaterally); no calf tenderness S3 Chest (Breasts): normal inspection/palpation of breasts Gastrointestinal (Abdomen): Inspection/Auscultation: abdomen normal to inspection, + abdomen distended (generalized, mild) and normal bowel sounds Percussion/Palpation: abdomen nontender, no guarding and no abdominal mass Musculoskeletal: Head/Neck/Chest: normocephalic and head atraumatic Skin: scattered purpora and echymoses Neurologic: PERRL, EOMI, accommodation nl, no face palsy, no dysarthria CN's II-XI intact bilaterally and moves all extremities Psychiatric: A+O only to self, responsive to questions but otherwise limited alertness Lymphatic: no cervical lymphadenopathy Results & Data Results & Data ([facility]) Vital Signs (Past 12 Hours) Vital Signs Temp Pulse Resp BP Pulse Ox 04/20/20 15:15 89 20 113/74 97 04/20/20 15:00 91 H 20 125/76 96 04/20/20 14:47 91 H 20 132/74 96 04/20/20 14:31 90 29 H 122/69 04/20/20 14:30 90 20 04/20/20 14:15 91 H 18 132/71 99 04/20/20 14:00 93 H 16 116/77 97 04/20/20 13:45 90 22 116/71 98 04/20/20 13:30 88 19 115/79 97 04/20/20 13:15 89 20 103/68 97 04/20/20 13:02 36.8 C 100 H 24 123/76 97 04/20/20 13:00 90 19 121/62 97 Laboratory Results NT-Pro-BNP >71400 CRP 3.93 ESR 76 Procalcitonin 0.79 Lactate 1.3 UA cloudy, 2+ leukocyte esterase, WBC>30, epithelial cells>30, granular casts, calcium oxylate, mucus Urine Cx pending Diagnostic Findings EKG negative for STEMI CXR: bibasilar parenchymal inflitrates CT Chest: bilateral pleural effusions, atelectasis, osteopenia - cannot rule out metastasis CT Head: No acute intracranial process CT abd/pelv: bilateral pleural effusions, sigmoid diverticulosis CBC w Diff Results Results CBC w Diff: RBC 2.21 M/uL (4.7-6.1) L 04/20/20 WBC 7.98 K/uL (4.8-10.8) 04/20/20 Hgb 7.5 g/dL (14.0-18.0) L 04/20/20 Hct 22.8 % (42-52) L 04/20/20 MCV 103.2 fL (80-100) H 04/20/20 MCH 33.9 pg (25-34) 04/20/20 MCHC 32.9 g/dL (32-36) 04/20/20 RDW Standard Deviation 74.5 fL (36.4-46.3) H 04/20/20 RDW Coefficient of Variation 20.1 % (11.5-14.5) H 04/20/20 Plt Count 32 K/uL (130-400) L 04/20/20 MPV 11.0 fL (7.4-10.4) H 04/20/20 Nucleated Red Blood Cells % (auto) 0.2 % 04/20/20 Nucleated RBC Absolute Count (auto) 0.02 K/uL (0-0) H 04/20/20 Neutrophils (%) (Auto) 79.7 % 04/17/20 Lymphocytes (%) (Auto) 10.8 % 04/17/20 Monocytes # (Auto) 0.29 K/uL (0.11-0.59) 04/17/20 Eosinophils # (Auto) 0.00 K/uL (0-0.5) 04/17/20 Immature Granulocyte % (Auto) 0.3 % 04/17/20 Neutrophils # (Auto) 2.51 K/uL (1.4-6.5) 04/17/20 Lymphocytes # (Auto) 0.34 K/uL (1.2-3.4) L 04/17/20 Monocytes # (Auto) 0.29 K/uL (0.11-0.59) 04/17/20 Eosinophils # (Auto) 0.00 K/uL (0-0.5) 04/17/20 Basophils # (Auto) 0.00 K/uL (0-0.2) 04/17/20 Immature Granulocyte # (Auto) 0.01 K/uL (0.00-0.02) 04/17/20 ANC 5.34 K/uL (1.4-6.5) 04/20/20 ALC 0.62 K/uL (1.2-3.4) L 04/20/20 Neutrophils % (Manual) 66.9 % 04/20/20 Band Neutrophils % Cancelled 04/16/20 Lymphocytes % (Manual) 7.8 % 04/20/20 Reactive Lymphocytes % (Manual) Cancelled 04/16/20 Large Granular Lymphocytes Cancelled 04/16/20 Monocytes % (Manual) 15.7 % 04/20/20 Eosinophils % (Manual) 7.0 % 04/20/20 Basophils % (Manual) 0.9 % 04/20/20 Metamyelocytes % (manual) Cancelled 04/16/20 Myelocytes % (Manual) 1.7 % 04/20/20 Promyelocytes % (Manual) Cancelled 04/16/20 Blast Cells % (Manual) Cancelled 04/16/20 Prolymphocyte % Cancelled 04/16/20 Plasma Cells % (manual) Cancelled 04/16/20 Nucleated Red Blood Cells % Cancelled 04/16/20 Other Cells % Cancelled 04/16/20 Neutrophils # (Manual) 5.34 K/uL (1.4-6.5) 04/20/20 Band Neutrophils # Cancelled 04/16/20 Lymphocytes # (Manual) 0.62 K/uL (1.2-3.4) L 04/20/20 Reactive Lymphocytes # Cancelled 04/16/20 Absolute Large Granular Lymphocytes Cancelled 04/16/20 Monocytes # (Manual) 1.25 K/uL (0.11-0.59) H 04/20/20 Eosinophils # (Manual) 0.56 K/uL (0-0.5) H 04/20/20 Basophils # (Manual) 0.07 K/uL (0-0.2) 04/20/20 Metamyelocytes # (Manual) Cancelled 04/16/20 Myelocytes # (Manual) 0.14 K/uL (0-0) H 04/20/20 Promyelocytes # (Manual) Cancelled 04/16/20 Blast Cells # (Manual) Cancelled 04/16/20 Prolymphocyte # Cancelled 04/16/20 Plasma Cells # (manual) Cancelled 04/16/20 Other Cells # Cancelled 04/16/20 Nucleated RBC Absolute Count (manu) Cancelled 04/16/20 Hyposegmented Neutrophils Cancelled 04/16/20 Hypogranular Neutrophils Cancelled 04/16/20 Hypersegmented Neutrophils Cancelled 04/16/20 Smudge Cells Cancelled 04/16/20 Hypogranular Platelets Cancelled 04/16/20 Giant Platelets 1+ 04/16/20 Platelet Satelliting Cancelled 04/16/20 Clumped Platelets Cancelled 04/16/20 Red Blood Cell Morphology Cancelled 04/16/20 Polychromasia Cancelled 04/16/20 Hypochromasia Cancelled 04/16/20 Poikilocytosis Present 04/16/20 Basophilic Stippling Cancelled 04/16/20 Echinocytes 1+ 04/15/20 Anisocytosis Present 04/16/20 Microcytosis Cancelled 04/16/20 Macrocytosis Cancelled 04/16/20 Spherocytes Cancelled 04/16/20 Pappenheimer Bodies Cancelled 04/16/20 Sickle Cells Cancelled 04/16/20 Target Cells Cancelled 04/16/20 Tear Drop Cells 1+ 04/17/20 Ovalocytes 1+ 04/15/20 Stomatocytes Cancelled 04/16/20 Pham-[place] Bodies Cancelled 04/16/20 Toxic Granulation Cancelled 04/16/20 Toxic Vacuolation 1+ 04/20/20 Dohle Bodies Cancelled 04/16/20 Acanthocytes Cancelled 04/16/20 Beau Rods Cancelled 04/16/20 Rouleau Cancelled 04/16/20 Schistocytes Cancelled 04/16/20 Sezary Cell Cancelled 04/16/20 Hairy Cells Cancelled 04/16/20 RBC Agglutinates Cancelled 04/16/20 Red Cell Morphology Comment Cancelled 04/16/20 Chemistry (BMP) Results BMP Results: Sodium 137 mmol/L (136-145) 04/20/20 Potassium 4.8 mmol/L (3.5-5.1) 04/20/20 Chloride 106 mmol/L (98-107) 04/20/20 BUN 40 mg/dl (7-18) H 04/20/20 Creatinine 3.61 mg/dl (0.6-1.4) H 04/20/20 Glucose 84 mg/dl (70-99) 04/20/20 Coag Studies Results Coagulation Results: PT 13.5 Seconds (9.0-12.0) H 04/15/20 PTT 26.0 Seconds (21.0-31.0) 04/15/20 INR 1.3 (0.9-1.1) H 04/15/20 LFT Results Results Liver Function Test Results: ALT 10 U/L (12-78) L 04/20/20 AST 38 U/L (15-37) H 04/20/20 Alkaline Phosphatase 102 U/L (45-117) 04/20/20 Total Protein 6.5 gm/dl (6.4-8.2) 04/20/20 Albumin 1.6 gm/dl (3.4-5.0) L 04/20/20 Total Bilirubin 0.5 mg/dl (0.2-1) 04/20/20 Code Status & VTE Plan Code Status Conditional: DNI but wants resuscitation with compressions, medications VTE Prophylaxis Plan VTE Prophylaxis will be ordered: Yes Supervising Physician Co-Signing Physician Notes Attending attestation Pt seen and examined in concert with Dr. Lehman. In agreement with the documented findings as noted in the resident documentation with any exceptions or additions as noted here. Resting in bed - harsh sounding breathing without acute shortness of breath and with mild nonproductive cough. Worsening bilateral lower extremity swelling. Prior to admission was drinking 5-6 32oz cups of water/day following discharge, citing thirst that he couldn't improve. Drastic drop in POI and urine output per spouse 1 day [employer]. No recent tx for MM. FHx, Social HX and SHx reviewed with patient and in chart. On examination, multiple vascular appearing lesions of the skin diffusely which are common for untreated MM for him in the setting of cryoglobulinemia. Diffuse rhonchi bilaterally, worse at bases. S1/S2 nl RRR no MCG. Abd NT/ND BS+ve JULY on CKDIIIa - significant increase from baseline/on discharge 3 days prior. Intravascular depletion with 3rd spacing vs. underlying vasculitis driven nephropathy - nephrology and oncology consultations placed. After discussion w [facility] nephrology, trial of IV lasix dose with monitored UOP closely for response. Recheck MM labs per nephro recommendation. If no improvement overnight, strongly consider transfer to tertiary center for vascular/renal/onc support. Worsening edema with bilateral pulmonary effusion - likely 2/2 low albumin, though total protein is low normal (2/2 globulins) - based on above trial of diuresis with close monitoring Altered mental status - metabolic encephalopathy w/ UTI v. decompensation from MM - predominantly in the evening, with visual hallucinations. Stable at time of evaluation. 1:1 if needed. Abnormal UA - concerning for UTI, renal dosing for FQ 2/2 allergies as noted and monitor. Code status - DNI with resuscitation - discussed with family regarding worsening respiratory status with concomitant cardiac decompensation and the concern for resuscitation re: inability to appropriately support breathing in this situation. Family/patient to notify for change, but I felt it would be prudent to discuss considering the effusions. Else see resident documentation as noted. Resident Activity Tracking Resident Involvement: Resident Care Provided Care Provided: Adult Hospital Medicine (1) GERD (gastroesophageal reflux disease) Esophagitis presence: without esophagitis Qualified Code(s): K21.9 - Gastro- esophageal reflux disease without esophagitis
[2020-04-20] MEDS ORDERED: PROCHLORPERAZINE 5 MG in SYRINGE 4 ML IV PRN (20:03)
[2020-04-20] MEDS ORDERED: FUROSEMIDE 40 MG/4 ML VIAL IV STA (21:07)
[2020-04-20] MEDS ORDERED: OXYCODONE HCL IR 5 MG TAB (IMMEDIATE RELEASE) PO PRN (21:36)
--- NOTE | 2020-04-20 21:58 | Nephrology Consultation ---
Date of Consultation April 20, 2020 Assessment & Plan (1) JULY (acute kidney injury): Baseline creatinine 1.0 mg/dL. Oliguric since admission. Increased TBW high but intravascularly likely dry due to underlying malignancy and hypoalbuminemia. Noted third spacing of fluid. Concerning underlying hypotension and autonomic insufficiency (related to parkinson's disease or multiple myeloma?). The acute presentation of renal dysfunction and the marked absence of urine is concerning. Thankfully, metabolic profile is not particularly disconcerting at this time. CT did not demonstrate obstruction. Urine microscopy is notable for WBCs, RBCs, and granular casts. Certainly a component of ATN is p ossible. I cannot exclude possible vasculitis related to cryoglobulin disease. TMA certainly should be considered. Serum viscosity has been requested as well as updated immunoglobulin and serum complement levels + cryoglobulins with cryocrit. History is notable for reported Bence Fisher proteinuria in the past. Uric acid level as well as general labs for hemolysis + peripheral smear have been requested. Furosemide 40 mg IV x 1 dose has been provided. Please document strict I/O's. A repeat metabolic profile has been requested now and tomorrow AM. I discussed the concerning features of Mr. Smith's presentation with the patient and his in detail today. I explained that if plasmapheresis +/- hemodialysis are needed that transfer to a tertiary care center may be necessary. Platelet count has dropped and Jun is notably anemic. IR and appropriate vascular surgery support may be required. (2) AMS (altered mental status): As above, I do have concerns about TMA or hyperviscosity related to myeloma. Low degree of suspicion for infection. Low threshold for additional imaging or neurology consultation. Jun is well known to Dr. Dotson and has had neurologic consultation during multiple recent admissions. 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 Keeping patient warm has been stressed. Hematology consult pending. Evaluation for potential TMA including peripheral smear pending. Multiple findings of POEMS syndrome noted. Unfortunately, treatment has been on hold due to multiple acute hospitalization. (4) Cryoglobulinemia type 1: (5) Parkinson disease: History of Present Illness Reason for Consultation: JULY Requesting Physician: David Benitez MD Attending Physician: David Benitez MD History of Present Illness Mr. 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 He follows in the hematology clinic with Dr. Dick Antony. The initial diagnosis was made after skin lesions started to appear in May of 2019. Multiple diffuse skin lesions persists. Management has included cyclophosphamide, Velcade, and Decadron. Unfortunately, due to recent change in health and multiple recent hospitalizations, treatment has been on hold for several weeks. Jun was admitted to [facility] in November with an NSTEMI and JULY. He was admitted twice in March with a fall at home resulting in a T12 compression fracture, hypotension, and hypercalcemia. Autonomic dysfunction was identified. The patient does have a longstanding history of parkinson's disease. He follows in the neurology clinic with Dr. Dotson. Jun was most recently admitted to [facility] from April 15- with hypotension and confusion. Additional findings during recent hospitalizations include a possible left lower lobe pneumonia which was treated as well as suspected TIA. The patient's overall functional status has declined significantly over the past couple of months. Appetite has been poor. His relates that he is severely deconditioned from his hospitalizations. Home care is being provided by [facility]. During assessment on Monday, notable lower extremity edema was identified. Furosemide had been held during recent hospitalization and IVF provided. A dose of fu rosemide was provided on Monday without significant response. The patient's noted very little urine output in the past 48 hours. Jun has been increasingly confused. He is lethargic with profound weakness. He was referred to the ER today by his PCP. Initial evaluation notable for a serum creatinine of 3.6 mg/dL. Creatinine was 1.0 mg/dL [address] of the abdomen and pelvis did not demonstrate renal obstruction. ~1 L NSS provided in the ER without any change in urine output. CT of the chest demonstrates moderate bilateral pleural effusions. Hemoglobin is 7.5 and relatively stable. Platelet count was 147 on April 04 and 60 on April 15. Platelet count is now 32. I was contacted by Dr. Benitez this evening to review the patient's case. I met with the patient and his in their hospital room this evening. We briefly discussed goals of care and the concerning features of the patient's current presentation. Hematology consultation is pending. Allergies Allergy/AdvReac Type Severity Reaction Status Date / Time Cephalosporins Allergy Intermediate Rash Verified 04/20/20 15:45 doxycycline Allergy Intermediate skin Verified 04/20/20 15:45 irritation Penicillins Allergy Intermediate HIVES Verified 04/20/20 15:45 amoxicillin Allergy Unknown RASH Verified 04/20/20 15:45 sulfamethoxazole AdvReac Intermediate skin rash Verified 04/20/20 15:45 [From Bactrim] trimethoprim [From Bactrim] AdvReac Intermediate skin rash Verified 04/20/20 15:45 Home Medications Home Medications Medication Instructions Recorded Confirmed Type selegiline HCl 5 mg PO BID 07/01/18 04/20/20 History Velcade 0 mg IV TH 03/24/20 04/20/20 History acyclovir 400 mg PO BID 03/24/20 04/20/20 History aspirin 81 mg PO DAILY 03/24/20 04/20/20 History gabapentin 400 mg PO TID 03/24/20 04/20/20 History omeprazole 20 mg PO QAM 03/24/20 04/20/20 History oxycodone 5 mg PO Q4H PRN 03/24/20 04/20/20 History simvastatin 20 mg PO HS 03/24/20 04/20/20 History lidocaine 1 patch TRANSDERMAL QAM #10 ea 03/26/20 04/20/20 Rx metoprolol tartrate 25 mg tablet 6.25 mg PO BID #30 tab 03/27/20 04/20/20 Rx dexamethasone 20 mg PO TH@0800 04/01/20 04/20/20 History doxycycline hyclate 100 mg PO DAILY 04/01/20 04/20/20 History apixaban [Eliquis] 2.5 mg PO BID 04/20/20 04/20/20 History carbidopa-levodopa 1 tab PO TID 04/20/20 04/20/20 History cyclophosphamide 50 mg PO UD 04/20/20 04/20/20 History furosemide 20 mg PO DAILY 04/20/20 04/20/20 History hydrochlorothiazide 0 mg PO DAILY 04/20/20 04/20/20 History prochlorperazine maleate 10 mg PO UD PRN 04/20/20 04/20/20 History Patient History Medical History (Updated 04/20/20 @ 22:30 by Narayan Machuca DO) Abnormal EKG (Inactive) Acute renal failure (ARF) (Inactive) Altered mental status (Inactive) Anemia Arthritis (Chronic) Basal cell carcinoma (BCC) Bursitis of right hip Chest pain syndrome (Resolved 05/20/14) Chronic systolic CHF (congestive heart failure) Cryoglobulinemia type 1 (Acute) Cryoglobulinemic purpura Multiple myeloma (Acute) Non-ST elevation [place] (NSTEMI) (Inactive) Parkinson disease (Acute) Sacroiliac dysfunction Vertebral compression fracture (Acute) Surgical History H/O hernia repair (Resolved) inguinal History of back surgery x 2 History of carpal tunnel surgery History of lumbar fusion Lumbar Vertebral Fusion Family History Mother , in her 70s Coronary heart disease Myocardial infarction Stroke Father , age 94 Glaucoma Unknown Acute urticaria Sister Breast cancer Denies family history of Ovarian cancer Prostate cancer Diabetes Dyslipidemia Colorectal cancer Hypertension Social History Smoking Status: Never smoker Second Hand Exposure: Yes; Hx Alcohol Use: No Hx Substance Use: No Preferred Language: Croatian Communication Ability: Effective Visual Impairment: Limited Hearing Ability: Normal Leather Tanner Required: No Beliefs That Will Affect Care: None marital status: marital status details: 2 children Current Living Situation: Spouse current occupational status: retired Other Information That Helps Us Care for You: No other: 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 No fevers or chills. No bleeding noted. Skin lesions reportedly stable. Physical Exam Constitutional: + ill appearing, + cachectic and + frail appearing Eyes: + anicteric sclerae; no corneal abnormality ENMT: Mouth: no oral mucosal abnormality and oral mucous membranes not dry Neck: normal visual inspection and trachea midline Respiratory: Auscultation: + diminished lung sounds and + rales Cardiovascular: Vessels: + JVD Extremities: + edema (+ 1 LE to the knees) Gastrointestinal (Abdomen): Inspection/Auscultation: + abdomen distended Percussion/Palpation: abdomen soft; no guarding and abdomen not rigid Musculoskeletal: Extremities: + petechiae; no cyanosis Skin: + lesion (multiple vascular lesions involving the extremities and on the ears. ) and + ulcer (of vascular lesion on left knee and ear) Neurologic: awake and + confused Speech / Cognition: + abnormal speech Motor/Sensory: + tremor Psychiatric: Affect: + flat affect Insight: + limited insight Results & Data Vital Signs (Past 12 Hours) Vital Signs Temp Pulse Pulse Resp BP BP Pulse Ox 04/20/20 21:20 120/79 04/20/20 21:08 36.7 C 101 H 17 120/72 93 04/20/20 15:15 89 20 113/74 97 04/20/20 15:00 91 H 20 125/76 96 04/20/20 14:47 91 H 20 132/74 96 04/20/20 14:31 90 29 H 122/69 04/20/20 14:30 90 20 04/20/20 14:15 91 H 18 132/71 99 04/20/20 14:00 93 H 16 116/77 97 04/20/20 13:45 90 22 116/71 98 04/20/20 13:30 88 19 115/79 97 04/20/20 13:15 89 20 103/68 97 04/20/20 13:02 36.8 C 100 H 24 123/76 97 04/20/20 13:00 90 19 121/62 97 Laboratory Results Laboratory Results - last 24 hr 04/20/20 04/20/20 04/20/20 12:55 12:55 14:25 WBC 7.98 RBC 2.21 L Hgb 7.5 L Hct 22.8 L MCV 103.2 H MCH 33.9 MCHC 32.9 RDW Std Deviation 74.5 H RDW Coeff of Rahul 20.1 H Plt Count 32 L MPV 11.0 H Absolute Nucleated RBC 0.02 H Nucleated RBC % (auto) 0.2 Neutrophils % (Manual) 66.9 Lymphocytes % (Manual) 7.8 Monocytes % (Manual) 15.7 Eosinophils % (Manual) 7.0 Basophils % (Manual) 0.9 Myelocytes % (Man) 1.7 Neutrophils # (Manual) 5.34 Total Absolute Neuts 5.34 Lymphocytes # (Manual) 0.62 L Total Abs Lymphocytes 0.62 L Monocytes # (Manual) 1.25 H Eosinophils # (Manual) 0.56 H Basophils # (Manual) 0.07 Myelocytes # (Manual) 0.14 H Toxic Vacuolation 1+ Sodium 137 Potassium 4.8 Chloride 106 Carbon Dioxide 22 Anion Gap 9.0 BUN 40 H Creatinine 3.61 H Est Cr Clr Drug Dosing 13.3 Est GFR ( Amer) 16.9 Est GFR (Non-Af Amer) 14.6 BUN/Creatinine Ratio 11.0 Glucose 84 Calcium 7.7 L Magnesium 2.2 Total Bilirubin 0.5 AST 38 H ALT 10 L Alkaline Phosphatase 102 Troponin I 0.021 NT-Pro-B Natriuret Pep > 10613 H Total Protein 6.5 Albumin 1.6 L Globulin 4.9 H Albumin/Globulin Ratio 0.3 L TSH 2.580 Urine Color Yellow Urine Appearance Cloudy A Urine pH 5.0 Ur Specific [place] 1.015 Urine Protein 1+ H Urine Glucose (UA) Negative Urine Ketones Negative Urine Blood Trace H Urine Nitrite Negative Urine Bilirubin Negative Urine Urobilinogen Negative Ur Leukocyte Esterase 2+ H Urine WBC (Auto) >30 H Urine RBC (Auto) 10-30 H U Hyaline Cast (Auto) 5-10 H U Epithel Cells (Auto) >30 H Urine Bacteria (Auto) Negative Calcium Oxalate Crystal Present A Granular Casts 1-5 H Urine Mucus Present A Urine Yeast Not Reportable PG Care Time/CCT Total # of Minutes Spent Total Time Spent with Patient: Total time spent is greater than 50% in coordination of care (as documented) at patient's floor/unit and/or counseling patient: Coding Level of Care Code 80880 Inpt Consult Level 5 Diagnoses JULY (acute kidney injury) N17.9 AMS (altered mental status) R41.82 Multiple myeloma C90.00 Cryoglobulinemia type 1 D89.1 Parkinson disease G20
[2020-04-20] MEDS: SIMVASTATIN 20 MG TAB PO SCH (22:05)
[2020-04-20] MEDS: METOPROLOL TARTRATE 25 MG TAB PO SCH (22:05)
[2020-04-20] MEDS: SELEGILINE HCL 5 MG TAB PO SCH (22:05)
[2020-04-20] MEDS: GABAPENTIN 400 MG CAP PO SCH (22:06)
[2020-04-20] MEDS: APIXABAN 2.5 MG TAB PO SCH (22:07)
[2020-04-20] MEDS: CARBIDOPA/LEVODOPA 25/100MG TAB PO SCH (22:08)
[2020-04-20] MEDS: CIPROFLOXACIN / D5W 400 MG/200 ML BAG IV SCH (22:50)
[2020-04-20 22:55] LABS: Fibrinogen 209 mg/dl (184-400); INR 1.2 (0.9-1.1); Prothrombin Time 12.6 Seconds (9.0-12.0)
[2020-04-20 23:02] LABS: Alanine Aminotransferase 7 U/L (12-78); Albumin Level 1.6 gm/dl (3.4-5.0); Aspartate Aminotransferase 35 U/L (15-37); BUN Creatinine Ratio 10.9 (10-20); Blood Urea Nitrogen 43 mg/dl (7-18); Calcium 7.6 mg/dl (8.5-10.1); Carbon Dioxide 21 mmol/L (21-32); Chloride 107 mmol/L (98-107); Creatinine Clr Calc Pharmacy 12.2 ml/min; Est GFR (African American) 15.2; Est GFR (Non-African American) 13.2; Glucose 88 mg/dl (70-99); Potassium 4.7 mmol/L (3.5-5.1); Sodium 136 mmol/L (136-145); Uric Acid 9.3 mg/dl (2.6-7.2)
[2020-04-20 23:34] LABS: Albumin Globulin Ratio 0.3 (0.9-2); Alkaline Phosphatase 104 U/L (45-117); Bilirubin,Total 0.5 mg/dl (0.2-1); Creatine Kinase 27 U/L (39-308); Globulin 4.9 gm/dl (2.5-4.0); Immunoglobulin A 40.6 mg/dl (70-400); Immunoglobulin M < 5.3 mg/dl (40-230); Phosphorus 4.3 mg/dl (2.5-4.9); Total Protein 6.5 gm/dl (6.4-8.2)
--- NOTE | 2020-04-21 05:59 | Electrocardiogram Report ---
Test Reason : Blood Pressure : / mmHG Vent. Rate : 092 BPM Atrial Rate : 092 BPM P-R Int : 140 ms QRS Dur : 094 ms QT Int : 372 ms P-R-T Axes : 039 -18 022 degrees QTc Int : 460 ms Normal sinus rhythm Nonspecific ST and T wave abnormality Abnormal ECG When compared with ECG of 15-APR-2020 15:14, Nonspecific T wave abnormality, worse in Inferior leads Confirmed by Hermes Green ([id number]) on 04/21/2020 5:59:16 AM Referred By: REFERRED SELF Confirmed By:Hermes Green
[2020-04-21 06:39] LABS: Hematocrit (blood only) 21.9 % (42-52); Hemoglobin 7.3 g/dL (14.0-18.0); Mean Corpuscular Hgb Conc 33.3 g/dL (32-36); Mean Corpuscular Volume 101.9 fL (80-100); Mean Platelet Volume 12.4 fL (7.4-10.4); Platelet Count 38 K/uL (130-400); RDW Coefficient of Variation 20.3 % (11.5-14.5); RDW Standard Deviation 74.7 fL (36.4-46.3); Red Blood Count 2.15 M/uL (4.7-6.1); White Blood Count 7.47 K/uL (4.8-10.8)
[2020-04-21 07:01] LABS: Anisocytosis Present; Basophils # (auto) 0.02 K/uL (0-0.2); Basophils % (auto) 0.3 %; Eosinophils # (auto) 0.28 K/uL (0-0.5); Eosinophils % (auto) 3.7 %; Giant Platelets 1+; Immature Granulocytes # (auto) 0.07 K/uL (0.00-0.02); Immature Granulocytes % (auto) 0.9 %; Lymphocytes # (auto) 1.34 K/uL (1.2-3.4); Lymphocytes % (auto) 17.9 %; Monocytes # (auto) 0.72 K/uL (0.11-0.59); Monocytes % (auto) 9.6 %; Neutrophils # (auto) 5.04 K/uL (1.4-6.5); Neutrophils % (auto) 67.6 %
[2020-04-21 07:08] LABS: BUN Creatinine Ratio 10.9 (10-20); Creatinine Clr Calc Pharmacy 11.7 ml/min; Est GFR (African American) 14.6; Est GFR (Non-African American) 12.6; Potassium 4.8 mmol/L (3.5-5.1)
[2020-04-21] MEDS: LIDOCAINE 5% 1 PATCH TD SCH (07:48)
[2020-04-21] MEDS ORDERED: DOXYCYCLINE HYCLATE 100 MG CAP PO SCH (09:00)
[2020-04-21] MEDS ORDERED: NORMOSOL-R 500 ML IV ONE ×2 (09:35→13:37)
--- NOTE | 2020-04-21 09:36 | Nephrology Progress Note ---
Date of Service April 21, 2020 Assessment & Plan (1) JULY (acute kidney injury): Baseline creatinine 1.0 mg/dL. There was some improvement in urine output with IV furosemide. Edema improving with feet elevation and compression. Breathing reasonably comfortably. I would like to trial a bolus of a balanced IVF to see how Jun responds to intravascular expansion. Hypoalbuminemia and third spacing of fluids remains a concern. I discussed in detail with the patient and his the possibility of renal function getting worse. His expressed concerns about escalating care and hemodialysis. I have significant reservations about dialysis given other medical comorbidities including multiple myeloma, autonomic dysfunction, parkinson's, and frailty. Unfortunately, I worry that ultimately we will not be able to improve the current condition. If pursuing dialysis is to be considered part of the care plan, I would strongly encourage transfer to a tertiary care facility with vascular surgery/IR and blood bank support. Additionally, I cannot exclude underlying myeloma with cryoglobulinemic vasculitis as a primary driving factor in the patient's current condition. Thankfully, there was no evidence of TMA on peripheral smear and blood counts are stable. Aphersis cannot be provided at [facility] which would be another consideration for treatment. At this time, I will provide a small bolus of IVF and closely monitor. Palliative care consultation has been requested to assist with goals of care. (2) AMS (altered mental status): There does seem to be some improvement today. Baseline is unknown to me. Acuity is too sudden for both onset of mental status changes and kidney dysfunction to be uremic. Serum viscosity pending. No evidence of TMA on peripheral smear. 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 I discussed this with Dr. Antony this morning. It is unclear if Jun will be a candidate for additional treatment. Dr. Antony does not provide coverage for inpatients at [facility]. Dr. Antony agreed that transfer to [facility] would be appropriate for inpatient hematologic care is needed. 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 (5) Parkinson disease: Admission and Anticipated Discharge Date Admission Date: April 20, 2020 Forest Barahona was seen and evaluated with his at the bedside this AM. I discussed the patient's condition with Dr. Antony and Dr. Benitez. Unfortunately, Dr. Antony is not able to see the patient at [facility]. He acknowledged that Mr. Smith's condition is guarded and that he may not be a candidate for additional treatment given multiple medical comorbidities. I had a long conversation with the patient and his this morning. Mr. Smith is more awake this morning. He is speaking in sentences but remains confused. During the conversation, he asked where he was twice and he also asked why his hasn't come to visit him. His expressed reservations about escalating care. She noted that Jun had recently expressed that he does not want to suffer. She plans to update their children later this morning once she has more information. Urine output did increase in response to IV furosemide. Net UOP 400 ml. No fevers or chills. Review of Systems Constitutional: + fatigue; no fever and no chills Eyes: no problem reported Ear, Nose, Mouth, Throat: no problem reported Respiratory: no problem reported Cardiovascular: no problem reported Gastrointestinal: no problem reported Musculoskeletal: no problem reported Integumentary: + lesions, + new lesions and + skin ulcer Neurologic: no problem reported Psychiatric: no problem reported Endocrine: no problem reported Hematologic / Lymphatic: no problem reported Physical Exam Constitutional: + cachectic and + frail appearing Eyes: + anicteric sclerae; no corneal abnormality ENMT: Mouth: no oral mucosal abnormality and oral mucous membranes not dry Neck: normal visual inspection and trachea midline Respiratory: Auscultation: + diminished lung sounds and + rales Cardiovascular: Vessels: + JVD Extremities: + edema (+ 1 LE to the knees) Gastrointestinal (Abdomen): Inspection/Auscultation: + abdomen distended Percussion/Palpation: abdomen soft; no guarding and abdomen not rigid Musculoskeletal: Extremities: + petechiae; no cyanosis Skin: + lesion (multiple vascular lesions involving the extremities and on the ears. ) and + ulcer (of vascular lesion on left knee and ear) Neurologic: awake and + confused Speech / Cognition: + abnormal speech Motor/Sensory: + tremor Psychiatric: Affect: + flat affect Insight: + limited insight Results & Data ([facility]) Vital Signs (Past 12 Hours) Vital Signs Temp Pulse Pulse Resp BP Pulse Ox 04/21/20 07:29 104 H 04/21/20 07:14 36.8 C 100 H 20 119/71 94 04/21/20 03:44 36.3 C L 98 H 20 119/70 95 04/20/20 23:11 36.9 C 109 H 22 117/67 93 04/20/20 22:20 100 H Laboratory Results Laboratory Results - last 24 hr 04/20/20 04/20/20 04/20/20 12:55 12:55 14:25 WBC 7.98 RBC 2.21 L Hgb 7.5 L Hct 22.8 L MCV 103.2 H MCH 33.9 MCHC 32.9 RDW Std Deviation 74.5 H RDW Coeff of Rahul 20.1 H Plt Count 32 L MPV 11.0 H Immature Gran % (Auto) Neut % (Auto) Lymph % (Auto) Toole % (Auto) Eos % (Auto) Baso % (Auto) Neut # (Auto) Lymph # (Auto) Toole # (Auto) Eos # (Auto) Baso # (Auto) Immature Gran # (Auto) Absolute Nucleated RBC 0.02 H Nucleated RBC % (auto) 0.2 Neutrophils % (Manual) 66.9 Lymphocytes % (Manual) 7.8 Monocytes % (Manual) 15.7 Eosinophils % (Manual) 7.0 Basophils % (Manual) 0.9 Myelocytes % (Man) 1.7 Neutrophils # (Manual) 5.34 Total Absolute Neuts 5.34 Lymphocytes # (Manual) 0.62 L Total Abs Lymphocytes 0.62 L Monocytes # (Manual) 1.25 H Eosinophils # (Manual) 0.56 H Basophils # (Manual) 0.07 Myelocytes # (Manual) 0.14 H Toxic Vacuolation 1+ Giant Platelets Anisocytosis Peripher Smr Path Cons Haptoglobin Serum Viscosity PT INR Fibrinogen Sodium 137 Potassium 4.8 Chloride 106 Carbon Dioxide 22 Anion Gap 9.0 BUN 40 H Creatinine 3.61 H Est Cr Clr Drug Dosing 13.3 Est GFR ( Amer) 16.9 Est GFR (Non-Af Amer) 14.6 BUN/Creatinine Ratio 11.0 Glucose 84 Uric Acid Calcium 7.7 L Phosphorus Magnesium 2.2 Total Bilirubin 0.5 AST 38 H ALT 10 L Alkaline Phosphatase 102 Total Creatine Kinase Troponin I 0.021 NT-Pro-B Natriuret Pep > 52216 H Total Protein 6.5 Albumin 1.6 L Globulin 4.9 H Albumin/Globulin Ratio 0.3 L TSH 2.580 Urine Color Yellow Urine Appearance Cloudy A Urine pH 5.0 Ur Specific Sanger 1.015 Urine Protein 1+ H Urine Glucose (UA) Negative Urine Ketones Negative Urine Blood Trace H Urine Nitrite Negative Urine Bilirubin Negative Urine Urobilinogen Negative Ur Leukocyte Esterase 2+ H Urine WBC (Auto) >30 H Urine RBC (Auto) 10-30 H U Hyaline Cast (Auto) 5-10 H U Epithel Cells (Auto) >30 H Urine Bacteria (Auto) Negative Calcium Oxalate Crystal Present A Granular Casts 1-5 H Urine Mucus Present A Urine Yeast Not Reportable IgG IgA IgM Cryoglobulin Cryoglobulin Cryocrit Complement C3 Complement C4 Tot Complement (CH50) 04/20/20 04/20/20 04/20/20 22:28 22:28 22:28 WBC RBC Hgb Hct MCV MCH MCHC RDW Std Deviation RDW Coeff of Rahul Plt Count MPV Immature Gran % (Auto) Neut % (Auto) Lymph % (Auto) Toole % (Auto) Eos % (Auto) Baso % (Auto) Neut # (Auto) Lymph # (Auto) Toole # (Auto) Eos # (Auto) Baso # (Auto) Immature Gran # (Auto) Absolute Nucleated RBC Nucleated RBC % (auto) Neutrophils % (Manual) Lymphocytes % (Manual) Monocytes % (Manual) Eosinophils % (Manual) Basophils % (Manual) Myelocytes % (Man) Neutrophils # (Manual) Total Absolute Neuts Lymphocytes # (Manual) Total Abs Lymphocytes Monocytes # (Manual) Eosinophils # (Manual) Basophils # (Manual) Myelocytes # (Manual) Toxic Vacuolation Giant Platelets Anisocytosis Peripher Smr Path Cons Haptoglobin Pending Serum Viscosity Pending PT INR Fibrinogen Sodium 136 Potassium 4.7 Chloride 107 Carbon Dioxide 21 Anion Gap 8.0 BUN 43 H Creatinine 3.93 H D Est Cr Clr Drug Dosing 12.2 Est GFR ( Amer) 15.2 Est GFR (Non-Af Amer) 13.2 BUN/Creatinine Ratio 10.9 Glucose 88 Uric Acid 9.3 H Calcium 7.6 L Phosphorus 4.3 Magnesium Total Bilirubin 0.5 AST 35 ALT 7 L Alkaline Phosphatase 104 Total Creatine Kinase 27 L Troponin I NT-Pro-B Natriuret Pep Total Protein 6.5 Albumin 1.6 L Globulin 4.9 H Albumin/Globulin Ratio 0.3 L TSH Urine Color Urine Appearance Urine pH Ur Specific Sanger Urine Protein Urine Glucose (UA) Urine Ketones Urine Blood Urine Nitrite Urine Bilirubin Urine Urobilinogen Ur Leukocyte Esterase Urine WBC (Auto) Urine RBC (Auto) U Hyaline Cast (Auto) U Epithel Cells (Auto) Urine Bacteria (Auto) Calcium Oxalate Crystal Granular Casts Urine Mucus Urine Yeast IgG 2530.0 H IgA 40.6 L IgM < 5.3 L Cryoglobulin Cancelled Cryoglobulin Cryocrit Cancelled Complement C3 Pending Complement C4 Pending Tot Complement (CH50) Pending 04/20/20 04/21/20 04/21/20 22:28 06:19 06:19 WBC 7.47 RBC 2.15 L Hgb 7.3 L Hct 21.9 L MCV 101.9 H MCH 34.0 MCHC 33.3 RDW Std Deviation 74.7 H RDW Coeff of Rahul 20.3 H Plt Count 38 L MPV 12.4 H Immature Gran % (Auto) 0.9 Neut % (Auto) 67.6 Lymph % (Auto) 17.9 Toole % (Auto) 9.6 Eos % (Auto) 3.7 Baso % (Auto) 0.3 Neut # (Auto) 5.04 Lymph # (Auto) 1.34 Toole # (Auto) 0.72 H Eos # (Auto) 0.28 Baso # (Auto) 0.02 Immature Gran # (Auto) 0.07 H Absolute Nucleated RBC Nucleated RBC % (auto) Neutrophils % (Manual) Lymphocytes % (Manual) Monocytes % (Manual) Eosinophils % (Manual) Basophils % (Manual) Myelocytes % (Man) Neutrophils # (Manual) Total Absolute Neuts Lymphocytes # (Manual) Total Abs Lymphocytes Monocytes # (Manual) Eosinophils # (Manual) Basophils # (Manual) Myelocytes # (Manual) Toxic Vacuolation Giant Platelets 1+ Anisocytosis Present Peripher Smr Path Cons Haptoglobin Serum Viscosity PT 12.6 H INR 1.2 H Fibrinogen 209 Sodium Potassium Chloride Carbon Dioxide Anion Gap BUN Creatinine Est Cr Clr Drug Dosing Est GFR ( Amer) Est GFR (Non-Af Amer) BUN/Creatinine Ratio Glucose Uric Acid Calcium Phosphorus Magnesium Total Bilirubin AST ALT Alkaline Phosphatase Total Creatine Kinase Troponin I NT-Pro-B Natriuret Pep Total Protein Albumin Globulin Albumin/Globulin Ratio TSH Urine Color Urine Appearance Urine pH Ur Specific Sanger Urine Protein Urine Glucose (UA) Urine Ketones Urine Blood Urine Nitrite Urine Bilirubin Urine Urobilinogen Ur Leukocyte Esterase Urine WBC (Auto) Urine RBC (Auto) U Hyaline Cast (Auto) U Epithel Cells (Auto) Urine Bacteria (Auto) Calcium Oxalate Crystal Granular Casts Urine Mucus Urine Yeast IgG IgA IgM Cryoglobulin Pending Cryoglobulin Cryocrit Pending Complement C3 Complement C4 Tot Complement (CH50) 04/21/20 06:19 WBC RBC Hgb Hct MCV MCH MCHC RDW Std Deviation RDW Coeff of Rahul Plt Count MPV Immature Gran % (Auto) Neut % (Auto) Lymph % (Auto) Toole % (Auto) Eos % (Auto) Baso % (Auto) Neut # (Auto) Lymph # (Auto) Toole # (Auto) Eos # (Auto) Baso # (Auto) Immature Gran # (Auto) Absolute Nucleated RBC Nucleated RBC % (auto) Neutrophils % (Manual) Lymphocytes % (Manual) Monocytes % (Manual) Eosinophils % (Manual) Basophils % (Manual) Myelocytes % (Man) Neutrophils # (Manual) Total Absolute Neuts Lymphocytes # (Manual) Total Abs Lymphocytes Monocytes # (Manual) Eosinophils # (Manual) Basophils # (Manual) Myelocytes # (Manual) Toxic Vacuolation Giant Platelets Anisocytosis Peripher Smr Path Cons Haptoglobin Serum Viscosity PT INR Fibrinogen Sodium 138 Potassium 4.8 Chloride 109 H Carbon Dioxide 21 Anion Gap 8.0 BUN 45 H Creatinine 4.08 H Est Cr Clr Drug Dosing 11.7 Est GFR ( Amer) 14.6 Est GFR (Non-Af Amer) 12.6 BUN/Creatinine Ratio 10.9 Glucose 80 Uric Acid Calcium 7.0 L Phosphorus Magnesium Total Bilirubin AST ALT Alkaline Phosphatase Total Creatine Kinase Troponin I NT-Pro-B Natriuret Pep Total Protein Albumin Globulin Albumin/Globulin Ratio TSH Urine Color Urine Appearance Urine pH Ur Specific Sanger Urine Protein Urine Glucose (UA) Urine Ketones Urine Blood Urine Nitrite Urine Bilirubin Urine Urobilinogen Ur Leukocyte Esterase Urine WBC (Auto) Urine RBC (Auto) U Hyaline Cast (Auto) U Epithel Cells (Auto) Urine Bacteria (Auto) Calcium Oxalate Crystal Granular Casts Urine Mucus Urine Yeast IgG IgA IgM Cryoglobulin Cryoglobulin Cryocrit Complement C3 Complement C4 Tot Complement (CH50) PG Care Time/CCT Total # of Minutes Spent Total Time Spent with Patient: Total time spent is greater than 50% in coordination of care (as documented) at patient's floor/unit and/or counseling patient: Coding Level of Care Code 55904 Subseq Hosp Care Lvl 3 Diagnoses JULY (acute kidney injury) N17.9 AMS (altered mental status) R41.82 Multiple myeloma C90.00 Cryoglobulinemia type 1 D89.1 Parkinson disease G20
--- NOTE | 2020-04-21 11:08 | Fluoroscopy Report ---
FL video swallow HISTORY: assess for aspiration, debris in trachea on CT TECHNIQUE: Video fluoroscopic evaluation of swallowing was performed in the AP and lateral projection s by the speech pathology staff. The patient is fed nectar-thick and thin liquid barium and barium pu dding. FLUOROSCOPY TIME: 1.4 minutes. A cine loop submitted. COMPARISON STUDY: Chest CT 04/20/2020. FINDINGS: Suboptimal pharyngeal constriction with multiple episodes of incomplete epiglottic deflecti on. Moderate residue seen at the vallecula. This results in multiple episodes of aspiration some of w hich demonstrated a delayed cough. IMPRESSION: 1. Multiple episodes of aspiration due to the overall poor pharyngeal constriction and multiple episo brittany of incomplete epiglottic deflection. 2. Please see the speech pathologist report for detailed findings and recommendations. ACT 112: Negative or not required by law. Electronically signed by: Fabian Srinivasan M.D. 04/21/2020 11:07 AM
[2020-04-21] MEDS: ASPIRIN 81 MG ECTAB PO SCH (11:14)
[2020-04-21] MEDS: GABAPENTIN 400 MG CAP PO SCH ×3 (11:14→20:16)
[2020-04-21] MEDS: CARBIDOPA/LEVODOPA 25/100MG TAB PO SCH ×3 (11:14→20:17)
[2020-04-21] MEDS: PANTOprazole 40 MG TAB PO SCH (11:14)
[2020-04-21] MEDS: SELEGILINE HCL 5 MG TAB PO SCH ×2 (11:35→20:16)
[2020-04-21] MEDS: METOPROLOL TARTRATE 25 MG TAB PO SCH ×2 (11:35→20:16)
[2020-04-21] MEDS: APIXABAN 2.5 MG TAB PO SCH (11:35)
[2020-04-21] MEDS ORDERED: ACETAMINOPHEN 1,000 MG/100 ML VIAL IV PRN (15:29)
--- NOTE | 2020-04-21 16:35 | Hospitalist Progress Note ---
Date of Service April 21, 2020 Assessment & Plan (1) CHF (congestive heart failure): Jun Smith is an 84 yo male with complex PMHx of multiple myeloma, CHF, CKD 3a, cryoglobulinemia type I, vasculitis, Parkinson's disease, who was admitted on 04/20 for JULY, UTI, CHF Exacerbation, AMS. Congestive Heart Failure Exacerbation - continue home dose Lopressor 6.25 mg PO BID - hold Lasix given JULY Altered Mental Status - A+O to self only, with recent history of sundowning the last several evenings - NPO Urinary Tract Infection - UA cloudy and positive for leukocyte esterase and WBCs - start Ciprofloxacin IV 400 mg Q12H - follow urine cx JULY on CKD Stage 3a - most likely intrinsic injury secondary to multiple myeloma vs cryoglobulinemia with vasculitis - Cr 3.61 --> 4.08 - Nephrology consulted: recommends transfer to [facility] if patient/family desire aggressive treatment of thrombocytopenia and JULY with plasmapheresis and/or dialysis - started D5NS @ 80cc/hr Multiple Myeloma - chronic diagnosis, on chemotherapy, follows with Dr. Antony at [facility] - Consulted Dr. Antony - same recommendations as nephrology - associated anemia (Hgb 7.5) and thrombocytopenia (plt 32 and widespread bruising on exam) Cryoglobulinemia Type I with vasculitis - Dr. 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, cryoglobulinemia with vasculitis - wound care following, changing dressings as needed - Tylenol IV 1000 mg PRN Q8H ordered for wound-associated pain - consider addition of Morphine vs Dilaudid for severe pain Parkinson's Disease - hold home meds for now as patient is NPO 2/2 high aspiration risk GERD - hold home meds for now as patient is NPO 2/2 high aspiration risk Hyperlipidemia - hold home med for now as patient is NPO 2/2 high aspiration risk FENGI: NPO, D5NS 80cc/hr DVT Prophylaxis: none for now given thrombocytopenia, NPO status, long-term care goals Code Status: DNR/DNI Disposition: med/surg with tele, decision for home palliative care vs hospice pending family discussion (2) Multiple myeloma: (3) Parkinson disease: (4) AMS (altered mental status): (5) Cryoglobulinemia type 1: (6) GERD (gastroesophageal reflux disease): Admission and Anticipated Discharge Date Admission Date: April 20, 2020 Supervising Physician Co-Signing Physician Notes Attending attestation Pt seen and examined in concert with Dr. Lehman. In agreement with the documented findings as noted in the resident documentation with any exceptions or additions as noted here. Resting in bed without overt change in condition or complaint. Patient reports ongoing bilateral foot pain which is primarily of concern and chronic. Minimal UOP overnight despite IV furosemide On examination, multiple vascular appearing lesions of the skin diffusely which are common for untreated MM for him in the setting of cryoglobulinemia. Diffuse rhonchi bilaterally, worse at bases unchanged. S1/S2 nl RRR no MCG. Abd NT/ND BS+ve JULY on CKDIIIa - continues to increase - nephrology and oncology consultations placed. MM labs and viscosity pending. After discussion of options with primary service, nephrology and palliative care family and patient have decided not to escalate care and are considering further de-escalation but wish to discuss further. Will d/c apixaban 2/2 ongoing acute renal failure and low platelet co unt. Worsening edema with bilateral pulmonary effusion - likely 2/2 low albumin, though total protein is low normal (2/2 globulins) - likely more related to decrease in renal function coupled with thirdspacing. Holding IVF for now and monitor. Altered mental status - metabolic encephalopathy w/ UTI v. decompensation from MM - predominantly in the evening, with visual hallucinations. Stable at time of evaluation. 1:1 if needed. Abnormal UA - concerning for UTI, renal dosing for FQ 2/2 allergies as noted and monitor. Chronic LE wound on abx ppx - d/c doxycycline, continue cipro Code status - DNI with resuscitation --> DNR/DNI per palliative Else see resident documentation as noted. Subjective No acute events overnight. Has small UOP and bladder scan showed minimal urine. Swallow study showed patient aspirates both liquids and solids. Remains hemodynamically stable and afebrile. The patient's daughter reports that he continues to have trouble speaking in full sentences and is having trouble breathing; he has bilateral foot pain secondary to chronic wounds Today, I spoke to the patient and his daughter about long-term goals of care. They will speak with the patient's more about these goals later today. Review of Systems Constitutional: no fever Respiratory: as per Subjective / HPI, + cough and + dyspnea Cardiovascular: no chest pain and no palpitations Gastrointestinal: no abdominal pain and no vomiting Genitourinary: + difficulty urinating (with decreased output) Physical Exam Physical Exam: Constitutional: + ill appearing, + thin and + cachectic Neck: normal visual inspection Respiratory: + respiratory distress (mild), + labored breathing and + cough Auscultation: + rhonchi (scattered throughout all lung lopez) Cardiovascular: Rate/Rhythm: regular rate and regular rhythm, S3 Heart Sounds: no murmur Vessels: normal peripheral pulses; Extremities: + edema (2+ pitting to knees bilaterally); no calf tenderness Chest (Breasts): normal inspection/palpation of breasts Gastrointestinal (Abdomen): Inspection/Auscultation: abdomen normal to inspection and normal bowel sounds Percussion/Palpation: abdomen soft, nontender, no guarding and no abdominal mass Skin: scattered purpora and echymoses Psychiatric: A+O only to self, responsive to questions but otherwise limited alertness Lymphatic: no cervical lymphadenopathy Results & Data Results & Data ([facility]) Vital Signs (Past 12 Hours) Vital Signs Temp Pulse Pulse Resp BP Pulse Ox 04/21/20 15:21 36.8 C 103 H 20 120/73 93 04/21/20 12:17 36.6 C 111 H 20 119/75 92 04/21/20 07:29 104 H 04/21/20 07:14 36.8 C 100 H 20 119/71 94 Laboratory Results CK 27 BNP > 35,000 IgG 2530 IgA 40.6 IgM < 5.3 fibrinogen < 0.9 cryoglobulin - pending complement - pending CBC w Diff Results Results CBC w Diff: RBC 2.15 M/uL (4.7-6.1) L 04/21/20 WBC 7.47 K/uL (4.8-10.8) 04/21/20 Hgb 7.3 g/dL (14.0-18.0) L 04/21/20 Hct 21.9 % (42-52) L 04/21/20 MCV 101.9 fL (80-100) H 04/21/20 MCH 34.0 pg (25-34) 04/21/20 MCHC 33.3 g/dL (32-36) 04/21/20 RDW Standard Deviation 74.7 fL (36.4-46.3) H 04/21/20 RDW Coefficient of Variation 20.3 % (11.5-14.5) H 04/21/20 Plt Count 38 K/uL (130-400) L 04/21/20 MPV 12.4 fL (7.4-10.4) H 04/21/20 Nucleated Red Blood Cells % (auto) 0.2 % 04/20/20 Nucleated RBC Absolute Count (auto) 0.02 K/uL (0-0) H 04/20/20 Neutrophils (%) (Auto) 67.6 % 04/21/20 Lymphocytes (%) (Auto) 17.9 % 04/21/20 Monocytes # (Auto) 0.72 K/uL (0.11-0.59) H 04/21/20 Eosinophils # (Auto) 0.28 K/uL (0-0.5) 04/21/20 Immature Granulocyte % (Auto) 0.9 % 04/21/20 Neutrophils # (Auto) 5.04 K/uL (1.4-6.5) 04/21/20 Lymphocytes # (Auto) 1.34 K/uL (1.2-3.4) 04/21/20 Monocytes # (Auto) 0.72 K/uL (0.11-0.59) H 04/21/20 Eosinophils # (Auto) 0.28 K/uL (0-0.5) 04/21/20 Basophils # (Auto) 0.02 K/uL (0-0.2) 04/21/20 Immature Granulocyte # (Auto) 0.07 K/uL (0.00-0.02) H 04/21/20 ANC 5.34 K/uL (1.4-6.5) 04/20/20 ALC 0.62 K/uL (1.2-3.4) L 04/20/20 Neutrophils % (Manual) 66.9 % 04/20/20 Band Neutrophils % Cancelled 04/16/20 Lymphocytes % (Manual) 7.8 % 04/20/20 Reactive Lymphocytes % (Manual) Cancelled 04/16/20 Large Granular Lymphocytes Cancelled 04/16/20 Monocytes % (Manual) 15.7 % 04/20/20 Eosinophils % (Manual) 7.0 % 04/20/20 Basophils % (Manual) 0.9 % 04/20/20 Metamyelocytes % (manual) Cancelled 04/16/20 Myelocytes % (Manual) 1.7 % 04/20/20 Promyelocytes % (Manual) Cancelled 04/16/20 Blast Cells % (Manual) Cancelled 04/16/20 Prolymphocyte % Cancelled 04/16/20 Plasma Cells % (manual) Cancelled 04/16/20 Nucleated Red Blood Cells % Cancelled 04/16/20 Other Cells % Cancelled 04/16/20 Neutrophils # (Manual) 5.34 K/uL (1.4-6.5) 04/20/20 Band Neutrophils # Cancelled 04/16/20 Lymphocytes # (Manual) 0.62 K/uL (1.2-3.4) L 04/20/20 Reactive Lymphocytes # Cancelled 04/16/20 Absolute Large Granular Lymphocytes Cancelled 04/16/20 Monocytes # (Manual) 1.25 K/uL (0.11-0.59) H 04/20/20 Eosinophils # (Manual) 0.56 K/uL (0-0.5) H 04/20/20 Basophils # (Manual) 0.07 K/uL (0-0.2) 04/20/20 Metamyelocytes # (Manual) Cancelled 04/16/20 Myelocytes # (Manual) 0.14 K/uL (0-0) H 04/20/20 Promyelocytes # (Manual) Cancelled 04/16/20 Blast Cells # (Manual) Cancelled 04/16/20 Prolymphocyte # Cancelled 04/16/20 Plasma Cells # (manual) Cancelled 04/16/20 Other Cells # Cancelled 04/16/20 Nucleated RBC Absolute Count (manu) Cancelled 04/16/20 Hyposegmented Neutrophils Cancelled 04/16/20 Hypogranular Neutrophils Cancelled 04/16/20 Hypersegmented Neutrophils Cancelled 04/16/20 Smudge Cells Cancelled 04/16/20 Hypogranular Platelets Cancelled 04/16/20 Giant Platelets 1+ 04/21/20 Platelet Satelliting Cancelled 04/16/20 Clumped Platelets Cancelled 04/16/20 Red Blood Cell Morphology Cancelled 04/16/20 Polychromasia Cancelled 04/16/20 Hypochromasia Cancelled 04/16/20 Poikilocytosis Present 04/16/20 Basophilic Stippling Cancelled 04/16/20 Echinocytes 1+ 04/15/20 Anisocytosis Present 04/21/20 Microcytosis Cancelled 04/16/20 Macrocytosis Cancelled 04/16/20 Spherocytes Cancelled 04/16/20 Pappenheimer Bodies Cancelled 04/16/20 Sickle Cells Cancelled 04/16/20 Target Cells Cancelled 04/16/20 Tear Drop Cells 1+ 04/17/20 Ovalocytes 1+ 04/15/20 Stomatocytes Cancelled 04/16/20 Pham-Hatch Bodies Cancelled 04/16/20 Toxic Granulation Cancelled 04/16/20 Toxic Vacuolation 1+ 04/20/20 Dohle Bodies Cancelled 04/16/20 Acanthocytes Cancelled 04/16/20 Beau Rods Cancelled 04/16/20 Rouleau Cancelled 04/16/20 Schistocytes Cancelled 04/16/20 Sezary Cell Cancelled 04/16/20 Hairy Cells Cancelled 04/16/20 RBC Agglutinates Cancelled 04/16/20 Red Cell Morphology Comment Cancelled 04/16/20 Chemistry (BMP) Results BMP Results: Sodium 138 mmol/L (136-145) 04/21/20 Potassium 4.8 mmol/L (3.5-5.1) 04/21/20 Chloride 109 mmol/L (98-107) H 04/21/20 BUN 45 mg/dl (7-18) H 04/21/20 Creatinine 4.08 mg/dl (0.6-1.4) H 04/21/20 Glucose 80 mg/dl (70-99) 04/21/20 Coag Studies Results Coagulation Results: PT 12.6 Seconds (9.0-12.0) H 04/20/20 PTT 26.0 Seconds (21.0-31.0) 04/15/20 INR 1.2 (0.9-1.1) H 04/20/20 LFT Results Results Liver Function Test Results: ALT 7 U/L (12-78) L 04/20/20 AST 35 U/L (15-37) 04/20/20 Alkaline Phosphatase 104 U/L (45-117) 04/20/20 Total Protein 6.5 gm/dl (6.4-8.2) 04/20/20 Albumin 1.6 gm/dl (3.4-5.0) L 04/20/20 Total Bilirubin 0.5 mg/dl (0.2-1) 04/20/20 Resident Activity Tracking Resident Involvement: Resident Care Provided Care Provided: Adult [facility] Medicine (1) GERD (gastroesophageal reflux disease) Esophagitis presence: without esophagitis Qualified Code(s): K21.9 - Gastro- esophageal reflux disease without esophagitis
[2020-04-21] MEDS: D5W NORMOSOL-R 1,000 ML IV SCH (16:56)
--- NOTE | 2020-04-21 17:31 | Palliative Care Consultation ---
Date of Consultation April 21, 2020 Assessment & Plan (1) Goals of care, counseling/discussion: Patient is an 84-year-old gentleman with a past medical history significant for CHF, multiple myeloma-receiving chemo up until approximately 4 months ago, Parkinson's disease, and cryoglobulinemia with vasculitis. Patient with multiple hospitalizations in the past 4 months, most recent was from 04/15 to 04/17 -patient presented on 04/20 with altered mental status, worsening renal failure and shortness of breath attributed to CHF exacerbation. Patient was also found to have a UA consistent with a UTI -currently on Cipro and doxycycline. -Met with patient and his Ronda Camarillo in room 251. Patient awake, alert and oriented-able to participate in discussion regarding goals of care and CODE STATUS. - reports patient had been doing well up until approximately 4 months ago, has been having continued medical issues related to his cryoglobulin vasculitis as well as his CHF. -With patient's continued deterioration and worsening renal function they were offered transfer to a tertiary care center-after discussion both patient and agree if this is not what they would want to pursue at this time. Patient and 's main concerns are his comfort. -Patient and have been for 64 years, they have a daughter that lives nearby and a son that lives in [place]. -Patient's most distressing symptom is pain in both feet due to vasculitis. Pain is constant, interferes with sleep, improves with oxycodone for short period of time. Discussed trial of low dose fentanyl patch at 12 mcg. -The second most distressing symptom is his shortness of breath and cough which produces blood-tinged sputum -attempting to diuresis is limited by worsening renal function and poor urine output. Patient had 625 cc urine output over the past 24 hours with only 225 cc in the past 12 hours. Complicating his diuresis is an albumin of 1.6. -Patient on admission was noted to be in acute renal failure with a creatinine of 3.61, his prior baseline was 1.0. Creatinine has now increased to 4.08- dialysis was mentioned-discussed with both patient and risks involved including prolonged bleeding with dialysis catheter placement due to a platelet count of 32K. -Discussed addressing his most distressing symptoms and if his pain is controlled patient would like to return home-discussed returning home with home palliative services versus home with hospice. They understand he would have to forego further chemo if he went home with hospice. Chemo has been on hold for the past 4 months. -Discussed CODE STATUS in depth-patient was a DO NOT INTUBATE-he now states he would not want compressions or shock-changed patient's CODE STATUS to DNR -Palliative service will continue to follow and assist patient and with medical decision making. -PPS 30% (2) JULY (acute kidney injury): Continue to monitor renal function and urine output (3) Cryoglobulinemia type 1: (4) Cryoglobulinemic purpura: (5) Chronic systolic CHF (congestive heart failure): -Likely the cause of shortness of breath-continue to diurese as tolerated (6) Parkinson disease: Continue Sinemet and Eldepryl (7) Multiple myeloma: Chemo on hold (8) Acute on chronic renal failure: Monitor renal function, creatinine 4.08 today (9) Hemoptysis: Recommend stopping Eliquis History of Present Illness Reason for Consultation: Address goals of care as well as CODE STATUS Requesting Physician: Dr. Narayan Machuca Attending Physician: David Benitez MD History of Present Illness Patient is an 84-year-old gentleman with a past medical history significant for CHF, multiple myeloma-receiving chemo up until approximately 4 months ago, Parkinson's disease, and cryoglobulinemia with vasculitis. Patient with multiple hospitalizations in the past 4 months, most recent was from 04/15 to 04/17 -patient presented on 04/20 with altered mental status, worsening renal failure and shortness of breath attributed to CHF exacerbation. Patient was also found to have a UA consistent with a UTI. -Met with patient and his Ronda Camarillo in room 251. Patient awake, alert and oriented-able to participate in discussion regarding goals of care and CODE STATUS. - reports patient had been doing well up until approximately 4 months ago, has been having continued medical issues related to his cryoglobulin vasculitis as well as his CHF. -With patient's continued deterioration and worsening renal function they were offered transfer to a tertiary care center-after discussion both patient and agree if this is not what they would want to pursue at this time. Patient and 's main concerns are his comfort. -Patient and have been for 64 years, they have a daughter that lives nearby and a son that lives in [place]. -Patient's most distressing symptom is pain in both feet due to vasculitis. Pain is constant, interferes with sleep, improves with oxycodone for short period of time. Discussed trial of low dose fentanyl patch at 12 mcg. -The second most distressing symptom is his shortness of breath and cough which produces blood-tinged sputum -attempting to diuresis is limited by worsening renal function and poor urine output. Patient had 625 cc urine output over the past 24 hours with only 225 cc in the past 12 hours. Complicating his diuresis is an albumin of 1.6. -Patient on admission was noted to be in acute renal failure with a creatinine of 3.61, his prior baseline was 1.0. Creatinine has now increased to 4.08- dialysis was mentioned-discussed with both patient and risks involved including prolonged bleeding with dialysis catheter placement due to a platelet count of 32K. -Discussed addressing his most distressing symptoms and if his pain is controlled patient would like to return home-discussed returning home with home palliative services versus home with hospice. They understand he would have to forego further chemo if he went home with hospice. Chemo has been on hold for the past 4 months. -Discussed CODE STATUS in depth-patient was a DO NOT INTUBATE-he now states he would not want compressions or shock-changed patient's CODE STATUS to DNR -Palliative service will continue to follow and assist patient and with medical decision making. -PPS 30% Allergies Allergy/AdvReac Type Severity Reaction Status Date / Time Cephalosporins Allergy Intermediate Rash Verified 04/20/20 15:45 doxycycline Allergy Intermediate skin Verified 04/20/20 15:45 irritation Penicillins Allergy Intermediate HIVES Verified 04/20/20 15:45 amoxicillin Allergy Unknown RASH Verified 04/20/20 15:45 sulfamethoxazole AdvReac Intermediate skin rash Verified 04/20/20 15:45 [From Bactrim] trimethoprim [From Bactrim] AdvReac Intermediate skin rash Verified 04/20/20 15:45 Home Medications Home Medications Medication Instructions Recorded Confirmed Type selegiline HCl 5 mg PO BID 07/01/18 04/20/20 History Velcade 0 mg IV TH 03/24/20 04/20/20 History acyclovir 400 mg PO BID 03/24/20 04/20/20 History aspirin 81 mg PO DAILY 03/24/20 04/20/20 History gabapentin 400 mg PO TID 03/24/20 04/20/20 History omeprazole 20 mg PO QAM 03/24/20 04/20/20 History oxycodone 5 mg PO Q4H PRN 03/24/20 04/20/20 History simvastatin 20 mg PO HS 03/24/20 04/20/20 History lidocaine 1 patch TRANSDERMAL QAM #10 ea 03/26/20 04/20/20 Rx metoprolol tartrate 25 mg tablet 6.25 mg PO BID #30 tab 03/27/20 04/20/20 Rx dexamethasone 20 mg PO TH@0800 04/01/20 04/20/20 History doxycycline hyclate 100 mg PO DAILY 04/01/20 04/20/20 History apixaban [Eliquis] 2.5 mg PO BID 04/20/20 04/20/20 History carbidopa-levodopa 1 tab PO TID 04/20/20 04/20/20 History cyclophosphamide 50 mg PO UD 04/20/20 04/20/20 History furosemide 20 mg PO DAILY 04/20/20 04/20/20 History hydrochlorothiazide 0 mg PO DAILY 04/20/20 04/20/20 History prochlorperazine maleate 10 mg PO UD PRN 04/20/20 04/20/20 History Patient History Medical History Abnormal EKG (Inactive) Acute renal failure (ARF) (Inactive) Altered mental status (Inactive) Anemia Arthritis (Chronic) Basal cell carcinoma (BCC) Bursitis of right hip Chest pain syndrome (Resolved 05/20/14) Chronic systolic CHF (congestive heart failure) Cryoglobulinemia type 1 (Acute) Cryoglobulinemic purpura Multiple myeloma (Acute) Non-ST elevation TN (NSTEMI) (Inactive) Parkinson disease (Acute) Sacroiliac dysfunction Vertebral compression fracture (Acute) Surgical History H/O hernia repair (Resolved) inguinal History of back surgery x 2 History of carpal tunnel surgery History of lumbar fusion Lumbar Vertebral Fusion Family History Mother , in her 70s Coronary heart disease Myocardial infarction Stroke Father , age 94 Glaucoma Unknown Acute urticaria Sister Breast cancer Denies family history of Ovarian cancer Prostate cancer Diabetes Dyslipidemia Colorectal cancer Hypertension Social History Smoking Status: Never smoker Second Hand Exposure: Yes; Hx Alcohol Use: No Hx Substance Use: No Preferred Language: Cameroonian Communication Ability: Effective Visual Impairment: Limited Hearing Ability: Normal Wedding Florist Required: No Beliefs That Will Affect Care: None marital status: marital status details: 2 children Current Living Situation: Spouse current occupational status: retired Other Information That Helps Us Care for You: No other: 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 Positive for parkinsonian tremors, vision changes due to scleral edema and large wound on the left knee Physical Exam Physical Exam: PE: Patient awake and alert, appears comfortable at rest HEENT: EOMI, positive scleral edema with visual disturbance, left ear with ischemic lesion Respirations: Unlabored at rest, comfortable on room air, scattered rhonchi bilaterally CV: Tachycardic, positive lower extremity edema Abdomen: Soft, bowel sounds present Skin: Multiple purpura particularly and feet and scattered lesions consistent with cryoglobulin vasculitis Neuro: Alert and oriented x4 Results & Data Vital Signs (Past 12 Hours) Vital Signs Temp Pulse Pulse Resp BP Pulse Ox 04/21/20 15:21 98.2 F 103 H 20 120/73 93 04/21/20 12:17 97.9 F 111 H 20 119/75 92 04/21/20 07:29 104 H 04/21/20 07:14 98.2 F 100 H 20 119/71 94 PG Care Time/CCT Total # of Minutes Spent Total Time Spent with Patient: Total time spent 70 minutes with greater than 50% of the time spent at bedside discussing patient's current medical issues, prognosis as well as goals of care. Collaborated with attending physician Coding Level of Care Code 91853 Inpt Consult Level 3 Diagnoses Goals of care, counseling/discussion Z71.89 JULY (acute kidney injury) N17.9 Cryoglobulinemia type 1 D89.1 Cryoglobulinemic purpura D89.1 Chronic systolic CHF (congestive heart failure) I50.22 Parkinson disease G20 Multiple myeloma C90.00 Acute on chronic renal failure N17.9; N18.9 Hemoptysis R04.2 Time Spent (min) 70
--- NOTE | 2020-04-21 19:04 | XCELERA ---
[id number]
[2020-04-21] MEDS ORDERED: SCOPOLAMINE 1.5 MG TDSY TD SCH (20:00)
[2020-04-21] MEDS: SIMVASTATIN 20 MG TAB PO SCH (20:17)
[2020-04-21] MEDS: CIPROFLOXACIN / D5W 400 MG/200 ML BAG IV SCH (22:03)
[2020-04-22] MEDS: CHECK SCOPOLAMINE PATCH PLACEMENT SCH ×4 (00:24→23:52)
[2020-04-22 06:42] LABS: Hematocrit (blood only) 22.9 % (42-52); Hemoglobin 7.6 g/dL (14.0-18.0); Mean Corpuscular Hemoglobin 33.9 pg (25-34); Mean Corpuscular Hgb Conc 33.2 g/dL (32-36); Mean Corpuscular Volume 102.2 fL (80-100); Nucleated RBC # (auto) 0.04 K/uL (0-0); Nucleated RBC % (auto) 0.8 %; RDW Coefficient of Variation 20.1 % (11.5-14.5); RDW Standard Deviation 74.3 fL (36.4-46.3); Red Blood Count 2.24 M/uL (4.7-6.1); White Blood Count 5.37 K/uL (4.8-10.8)
[2020-04-22 06:45] LABS: Mean Platelet Volume 11.1 fL (7.4-10.4); Platelet Count 39 K/uL (130-400)
[2020-04-22 07:04] LABS: Anisocytosis Present; Basophils # (auto) 0.03 K/uL (0-0.2); Basophils % (auto) 0.6 %; Eosinophils # (auto) 0.31 K/uL (0-0.5); Eosinophils % (auto) 5.8 %; Immature Granulocytes # (auto) 0.08 K/uL (0.00-0.02); Immature Granulocytes % (auto) 1.5 %; Lymphocytes # (auto) 0.24 K/uL (1.2-3.4); Lymphocytes % (auto) 4.5 %; Monocytes % (auto) 3.7 %; Neutrophils # (auto) 4.51 K/uL (1.4-6.5); Neutrophils % (auto) 83.9 %; Toxic Granulation 1+; Toxic Vacuolation 2+
[2020-04-22 07:37] LABS: BUN Creatinine Ratio 11.2 (10-20); Calcium 7.4 mg/dl (8.5-10.1); Creatinine Clr Calc Pharmacy 9.8 ml/min; Est GFR (African American) 11.7; Est GFR (Non-African American) 10.1; Potassium 4.9 mmol/L (3.5-5.1)
[2020-04-22] MEDS: ASPIRIN 81 MG ECTAB PO SCH (07:37)
[2020-04-22] MEDS: SELEGILINE HCL 5 MG TAB PO SCH (07:37)
[2020-04-22] MEDS: GABAPENTIN 400 MG CAP PO SCH (07:38)
[2020-04-22] MEDS: METOPROLOL TARTRATE 25 MG TAB PO SCH (07:38)
[2020-04-22] MEDS: CARBIDOPA/LEVODOPA 25/100MG TAB PO SCH (07:38)
[2020-04-22] MEDS: PANTOprazole 40 MG TAB PO SCH (07:38)
--- NOTE | 2020-04-22 08:12 | Hospitalist Progress Note ---
Date of Service April 22, 2020 Assessment & Plan (1) CHF (congestive heart failure): Jun Smith is an 84 yo male with complex PMHx of multiple myeloma, CHF, CKD 3a, cryoglobulinemia type I, vasculitis, Parkinson's disease, who was admitted on 04/20 for JULY, UTI, CHF Exacerbation, AMS. The patient and his family have decided they would like us to make him as comfortable as possible, and they would like to get him home with hospice care as soon and safely as possible. They have spoken with Palliative care and we have initiated this process as of this morning. Palliative Terminal Care Measures - Atropine solution sublingual application, Scopolamine patch PRN for secretions - Fentanyl patch, Morphine 2 mg I Q3H PRN pain Congestive Heart Failure Exacerbation - holding home dose Lopressor 6.25 mg PO - hold Lasix Altered Mental Status - A+O to self only, with recent history of ing the last several evenings - NPO Urinary Tract Infection - UA cloudy and positive for leukocyte esterase and WBCs - continue Ciprofloxacin IV 400 mg Q12H - follow urine cx JULY on CKD Stage 3a - most likely intrinsic injury secondary to multiple myeloma vs cryogl obulinemia with vasculitis - Cr 3.61 --> 4.90 - discontinued IVFs Multiple Myeloma - chronic diagnosis, on chemotherapy, follows with Dr. Antony at [facility] - Consulted Dr. Antony - same recommendations as nephrology - associated anemia (Hgb 7.5) and thrombocytopenia (plt 32 and widespread bruising on exam) Cryoglobulinemia Type I with vasculitis - Dr. 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, cryoglobulinemia with vasculitis - wound care following, changing dressings as needed Parkinson's Disease - hold home meds GERD - hold home meds Hyperlipidemia - hold home meds FENGI: NPO DVT Prophylaxis: none, hospice Code Status: DNR/DNI Disposition: tentative discharge to home with hospice care tomorrow (2) Multiple myeloma: (3) Parkinson disease: (4) AMS (altered mental status): (5) Cryoglobulinemia type 1: (6) GERD (gastroesophageal reflux disease): Admission and Anticipated Discharge Date Admission Date: April 20, 2020 Supervising Physician Co-Signing Physician Notes Attending attestation Pt seen and examined in concert with Dr. Lehman. In agreement with the documented findings as noted in the resident documentation with any exceptions or additions as noted here. Resting in bed without overt change in condition or complaint. Improved bilateral foot pain with increased pain control. UOP as noted. Family working hospice details with goal of D/C home with hospice tomorrow AM. On examination, multiple vascular appearing lesions of the skin diffusely which are common for untreated MM for him in the setting of cryoglobulinemia. Diffuse rhonchi bilaterally with improvement in transmitted upper airway sounds with scopolamine. S1/S2 nl RRR no MCG. Abd NT/ND BS+ve Comfort measures - secretion management w/ scopolamine patches. Pain management with 12mcg fentanyl patch and PRN roxicodone with IV PRN as required for comfort. D/C chronic medications for preventative means. Avoiding PO medications 2/2 increased aspiration risk. JULY on CKDIIIa - no longer trending BMP, off IVF to avoid fluid overload Worsening edema with bilateral pulmonary effusion - likely 2/2 low albumin, though total protein is low normal (2/2 globulins) atop HFREF (mild) - likely more related to decrease in renal function coupled with thirdspacing. Can do compression for comfort if needed. Elevate LE. Altered mental status - metabolic encephalopathy w/ UTI v. decompensation from MM - predominantly in the evening, with visual hallucinations. Stable at time of evaluation. 1:1 if needed. No recurrence of owning reported. UTI - UCx pending, continuing cipro. Discuss on discharge transition to PO Abnormal UA - concerning for UTI, renal dosing for FQ 2/2 allergies as noted and monitor. Chronic LE wound on abx ppx - d/c doxycycline, continue cipro for now. Code status - DNR/DNI Else see resident documentation as noted. Subjective Patient had progressively increased work of breathing overnight and cannot speak this morning due to increased work of breathing. Today, I spoke to the patient's about long-term goals of care - she would like us to make her comfortable and send him home with hospice care. Review of Systems Eyes: as per Subjective / HPI Respiratory: as per Subjective / HPI, + cough and + dyspnea Genitourinary: + difficulty urinating (with decreased output) Integumentary: bruising Hematologic / Lymphatic: + easy bruising Physical Exam Constitutional: + acute distress, + ill appearing, + thin and + cachectic Neck: normal visual inspection Respiratory: + respiratory distress (mild), + labored breathing and + cough Auscultation: + rhonchi (scattered throughout all lung lopez) Cardiovascular: Rate/Rhythm: regular rate and regular rhythm Heart Sounds: no murmur Vessels: normal peripheral pulses; no JVD Extremities: + edema (2+ pitting to knees bilaterally); no calf tenderness Gastrointestinal (Abdomen): Inspection/Auscultation: abdomen normal to inspection, + abdomen distended (generalized, mild) and normal bowel sounds Percussion/Palpation: abdomen nontender, no guarding and no abdominal mass Lymphatic: no cervical lymphadenopathy Results & Data Results & Data ([facility]) Vital Signs (Past 12 Hours) Vital Signs Temp Pulse Pulse Resp BP Pulse Ox 04/22/20 07:38 36.6 C 109 H 20 153/77 H 95 04/22/20 03:35 36.3 C L 104 H 20 132/73 95 04/22/20 01:41 100 H 04/22/20 00:20 36.5 C 99 H 22 119/70 95 CBC Results Results Complete Blood Count Results: RBC 2.24 M/uL (4.7-6.1) L 04/22/20 WBC 5.37 K/uL (4.8-10.8) 04/22/20 Hgb 7.6 g/dL (14.0-18.0) L 04/22/20 Hct 22.9 % (42-52) L 04/22/20 Plt Count 39 K/uL (130-400) L 04/22/20 Chemistry (BMP) Results BMP Results: Sodium 138 mmol/L (136-145) 04/22/20 Potassium 4.9 mmol/L (3.5-5.1) 04/22/20 Chloride 106 mmol/L (98-107) 04/22/20 BUN 54 mg/dl (7-18) H 04/22/20 Creatinine 4.90 mg/dl (0.6-1.4) H* 04/22/20 Glucose 101 mg/dl (70-99) H 04/22/20 Resident Activity Tracking Resident Involvement: Resident Care Provided Care Provided: Adult [facility] Medicine (1) GERD (gastroesophageal reflux disease) Esophagitis presence: without esophagitis Qualified Code(s): K21.9 - Gastro- esophageal reflux disease without esophagitis
[2020-04-22] MEDS: D5W NORMOSOL-R 1,000 ML IV SCH (09:05)
[2020-04-22] MEDS: LIDOCAINE 5% 1 PATCH TD SCH (09:09)
[2020-04-22] MEDS ORDERED: fentaNYL 12 MCG/HR TDSY TD SCH (09:45)
[2020-04-22] MEDS: ATROPINE SULFATE 1% OP SOLN 5 ML BTL SL PRN ×2 (10:35→22:24)
--- NOTE | 2020-04-22 12:03 | Nephrology Progress Note ---
Date of Service April 22, 2020 Assessment & Plan (1) JULY (acute kidney injury): Baseline creatinine 1.0 mg/dL. Positive fluid balance without improvement in kidney function. Prognosis is unfortunately poor. I would not anticipate improvement at this time. I agree with transition to palliative care. For supportive care a 1 x dose of furosemide 40 mg IV was provided today. Cryo and viscosity pending but not going to change plan of care. IVF has been discontinued. Unfortunately, I would not expect any significant benefit to additional IVF which may only contribute to increased 3rd spacing of fluid and worsening pleural effusions. (2) AMS (altered mental status): Some improvement noted with supportive care but Jun remains unable to participate in meaningful conversation. I discussed the current plan of care in detail with Dr. Benitez yesterday. (3) Multiple myeloma: Family was able to speak to Dr. Antony yesterday and have opted to forgo any additional treatment. (4) Cryoglobulinemia type 1: Warming to comfort. (5) Parkinson disease: Admission and Anticipated Discharge Date Admission Date: April 20, 2020 Subjective No acute events overnight. Goals of care reviewed. Palliative care consultation reviewed. Jun was seen and evaluated with his and son at the bedside today. They are planning to transition to hospice and considering options for returning home. Review of Systems Review of Systems: Unobtainable due to cognitive status Physical Exam Constitutional: + cachectic and + frail appearing Eyes: + anicteric sclerae; no corneal abnormality ENMT: Mouth: no oral mucosal abnormality and oral mucous membranes not dry Neck: normal visual inspection and trachea midline Respiratory: Auscultation: + diminished lung sounds and + rales Cardiovascular: Vessels: + JVD Extremities: + edema (+ 1 LE to the knees) Gastrointestinal (Abdomen): Inspection/Auscultation: + abdomen distended Percussion/Palpation: abdomen soft; no guarding and abdomen not rigid Musculoskeletal: Extremities: + petechiae; no cyanosis Skin: + lesion (multiple vascular lesions involving the extremities and on the ears. ) and + ulcer (of vascular lesion on left knee and ear) Neurologic: awake and + confused Speech / Cognition: + abnormal speech Motor/Sensory: + tremor Psychiatric: Affect: + flat affect Insight: + limited insight Results & Data ([place]) Vital Signs (Past 12 Hours) Vital Signs Temp Pulse Pulse Resp BP Pulse Ox 04/22/20 10:00 106 H 04/22/20 07:38 36.6 C 109 H 20 153/77 H 95 04/22/20 03:35 36.3 C L 104 H 20 132/73 95 04/22/20 01:41 100 H 04/22/20 00:20 36.5 C 99 H 22 119/70 95 Laboratory Results Laboratory Results - last 24 hr 04/22/20 04/22/20 06:23 06:23 WBC 5.37 RBC 2.24 L Hgb 7.6 L Hct 22.9 L MCV 102.2 H MCH 33.9 MCHC 33.2 RDW Std Deviation 74.3 H RDW Coeff of Rahul 20.1 H Plt Count 39 L MPV 11.1 H Immature Gran % (Auto) 1.5 Neut % (Auto) 83.9 Lymph % (Auto) 4.5 Clinch % (Auto) 3.7 Eos % (Auto) 5.8 Baso % (Auto) 0.6 Neut # (Auto) 4.51 Lymph # (Auto) 0.24 L Clinch # (Auto) 0.20 Eos # (Auto) 0.31 Baso # (Auto) 0.03 Immature Gran # (Auto) 0.08 H Absolute Nucleated RBC 0.04 H Nucleated RBC % (auto) 0.8 Toxic Granulation 1+ Toxic Vacuolation 2+ Anisocytosis Present Sodium 138 Potassium 4.9 Chloride 106 Carbon Dioxide 20 L Anion Gap 12.0 H BUN 54 H Creatinine 4.90 H* D Est Cr Clr Drug Dosing 9.8 Est GFR ( Amer) 11.7 Est GFR (Non-Af Amer) 10.1 BUN/Creatinine Ratio 11.2 Glucose 101 H Calcium 7.4 L PG Care Time/CCT Total # of Minutes Spent Total Time Spent with Patient: Total time spent is greater than 50% in coordination of care (as documented) at patient's floor/unit and/or counseling patient: Coding Level of Care Code 43012 Subseq Hosp Care Lvl 3 Diagnoses JULY (acute kidney injury) N17.9 AMS (altered mental status) R41.82 Multiple myeloma C90.00 Cryoglobulinemia type 1 D89.1 Parkinson disease G20
[2020-04-22] MEDS ORDERED: FUROSEMIDE 40 MG in SYRINGE 0 ML IV ONE (12:15)
--- NOTE | 2020-04-22 12:28 | Palliative Care Progress Note ---
Date of Service April 22, 2020 Assessment & Plan (1) Goals of care, counseling/discussion: -I met with the patient in room 284. His was at the bedside. -The patient has increased tremors today, but appears relatively comfortable. -Plan is for patient to be transferred home with hospice services today or early tomorrow based on transportation and logistics. -At this time, patients does not have any questions. 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 Symptom management meds ordered, none administered at this time. -Palliative Care will sign off at this time. Please contact if anything should change. -PPS: 20% (2) Acute on chronic renal failure: (3) AMS (altered mental status): (4) CHF (congestive heart failure): (5) Parkinson disease: Admission and Anticipated Discharge Date Admission Date: April 20, 2020 Subjective Pt sitting in his bed, increased tremors appears comfortable at bedside. see A/P for details Review of Systems Review of Systems: Unobtainable due to reduced consciousness Physical Exam Constitutional: + thin, cooperative and + lethargic Respiratory: normal respiratory effort, lungs clear to auscultation Auscultation: + diminished lung sounds Cardiovascular: RRR, no murmur, no edema Gastrointestinal (Abdomen): normal bowel sounds, soft, nontender, no hepat osplenomegaly Skin: no rashes, warm and dry Psychiatric: Orientation: alert and oriented to person Results & Data ([facility]) Vital Signs (Past 12 Hours) Vital Signs Temp Pulse Pulse Resp BP Pulse Ox 04/22/20 10:00 106 H 04/22/20 07:38 36.6 C 109 H 20 153/77 H 95 04/22/20 03:35 36.3 C L 104 H 20 132/73 95 04/22/20 01:41 100 H PG Care Time/CCT Total # of Minutes Spent Total Time Spent with Patient: Total time spent is greater than 50% in coordination of care (as documented) at patient's floor/unit and/or counseling patient: 25 Coding Level of Care Code 59545 Subseq Hosp Care Lvl 3 Diagnoses Goals of care, counseling/discussion Z71.89 Acute on chronic renal failure N17.9; N18.9 AMS (altered mental status) R41.82 CHF (congestive heart failure) I50.9 Parkinson disease G20 Time Spent (min) 25 Time Spent Midlevel Time spent 25 minutes with > 50% of that time spent assessing the patient, discussing goals of care with the family and IDT.
[2020-04-22] MEDS: CHECK FENTANYL PATCH PLACEMENT SCH ×2 (15:57→23:52)
[2020-04-22] MEDS: MoRPHine SULFATE 2 MG/ML CARP IV PRN (21:47)
[2020-04-22] MEDS ORDERED: LORazepam 0.5 MG/1 ML VIAL IV STA (22:26)
--- NOTE | 2020-04-23 01:17 | Communication Note ---
Date of Service: April 23, 2020 Patient visibly more uncomfortable and rattling with breathing. Giving atropine and .5 mg of ativan, called and informed him and she said she understands that he may pass tonight but her goal is for him to be as comfortable as possible. If anything were to come up. Patient much improved.
[2020-04-23] MEDS: ATROPINE SULFATE 1% OP SOLN 5 ML BTL SL PRN ×3 (02:41→07:59)
[2020-04-23] MEDS: MoRPHine SULFATE 2 MG/ML CARP IV PRN ×2 (02:45→10:14)
[2020-04-23] MEDS ORDERED: LORazepam 1 MG/2 ML VIAL IV STA (05:45)
[2020-04-23] MEDS: CHECK SCOPOLAMINE PATCH PLACEMENT SCH (07:54)
[2020-04-23] MEDS: CHECK FENTANYL PATCH PLACEMENT SCH (07:55)
[2020-04-23] MEDS: LIDOCAINE 5% 1 PATCH TD SCH (07:55)
--- NOTE | 2020-04-23 16:49 | Discharge Summary ---
Date of Service April 23, 2020 Admission HPI Per Admitting Provider Jun Smith is an 84 yo male with complex PMHx of multiple myeloma, CHF, CKD 3a, cryoglobulinemia type I, vasculitis, Parkinson's disease, who presented to the [facility] ED on 04/20/2020 with AMS, cough, bilateral LE edema. Of note, the patient was recently hospitalized here for hypotension and home dose of Lasix was discontinued during that admission - discharged on 04/17. After discharge, the patient developed progressive lower extremity edema and increased work of breathing. Denies chest pain or palpitations. He also developed decreased mental status since discharge, most pronounced in the evenings when he was only A+O to self. He also had polydipsia (drinking ~6L of water per day) secondary to increased thirst, and decreased urine output and increased urgency. Denies dysuria, increased urinary frequency. Denies fever/chills, flank pain, abdominal pain. Denies vision changes, syncope or seizures. Admission Exam Per Admitting Provider Constitutional: + ill appearing, + thin and + cachectic Eyes: PERRL, conjunctivae normal, anicteric sclerae EOM intact bilaterally ENMT: external ear and nose normal, oropharynx normal Neck: normal visual inspection Respiratory: + respiratory distress (mild), + labored breathing and + cough Auscultation: + rhonchi (scattered throughout all lung lopez) Cardiovascular: Rate/Rhythm: regular rate and regular rhythm Heart Sounds: no murmur Vessels: normal peripheral pulses; no JVD Extremities: + edema (2+ pitting to knees bilaterally); no calf tenderness S3 Chest (Breasts): normal inspection/palpation of breasts Gastrointestinal (Abdomen): Inspection/Auscultation: abdomen normal to inspection, + abdomen distended (generalized, mild) and normal bowel sounds Percussion/Palpation: abdomen nontender, no guarding and no abdominal mass Musculoskeletal: Head/Neck/Chest: normocephalic and head atraumatic Skin: scattered purpora and echymoses Neurologic: PERRL, EOMI, accommodation nl, no face palsy, no dysarthria CN's II-XI intact bilaterally and moves all extremities Psychiatric: A+O only to self, responsive to questions but otherwise limited alertness Lymphatic: no cervical lymphadenopathy Principal Diagnosis Acute Kidney Failure Systolic Heart Failure Exacerbation Discharge Exam Constitutional: + acute distress, + ill appearing, + thin and + cachectic Neck: normal visual inspection Respiratory: + respiratory distress (mild), + labored breathing and + cough Auscultation: + rhonchi (scattered throughout all lung lopez) Cardiovascular: Rate/Rhythm: regular rate and regular rhythm Heart Sounds: no murmur Vessels: normal peripheral pulses; no JVD Extremities: + edema (2+ pitting to knees bilaterally); no calf tenderness Gastrointestinal (Abdomen): Inspection/Auscultation: abdomen normal to inspection, + abdomen distended (generalized, mild) and normal bowel sounds Percussion/Palpation: abdomen nontender, no guarding and no abdominal mass Lymphatic: no cervical lymphadenopathy Discharge Data Allergies Allergy/AdvReac Type Severity Reaction Status Date / Time Cephalosporins Allergy Intermediate Rash Verified 04/20/20 15:45 doxycycline Allergy Intermediate skin Verified 04/20/20 15:45 irritation Penicillins Allergy Intermediate HIVES Verified 04/20/20 15:45 amoxicillin Allergy Unknown RASH Verified 04/20/20 15:45 sulfamethoxazole AdvReac Intermediate skin rash Verified 04/20/20 15:45 [From Bactrim] trimethoprim [From Bactrim] AdvReac Intermediate skin rash Verified 04/20/20 15:45 Consultations 04/20/20 19:46 Consult Hematology Routine 04/20/20 21:07 Consult Nephrology Routine 04/21/20 09:33 Consult Palliative Care Routine Ordered Studies 04/20/20 13:00 CT head/brain wo con Stat 04/20/20 16:05 CT abd pelvis wo con Stat CT chest wo con Stat 04/21/20 10:45 FL video swallow Routine Hospital Course (1) Acute on chronic renal failure: Mr. Smith is an 84 yo male with h/o Multiple Myeloma, Cryoglobulinemia Type I with vasculitis, Systolic Heart Failure, and Parkinson's disease who was admitted to [facility] on 04/20/2020 with acute kidney failure and systolic heart failure exacerbation. Acute kidney failure was thought to be due to either Multiple Myeloma or Cryoglobulinemia with vasculitis. We initially treated systolic CHF exacerbation with one dose of Lasix 40 mg IV but he continued to have swollen legs and fluid-congested lungs. He were given IV fluids for acute kidney failure, but he developed steadily increasing Creatinine despite IVFs, and the fluids made his respiratory symptoms and systolic heart failure exacerbation worse. After discussion with his Oncologist, Build Technician and palliative care, patient and his family made the decision to avoid transfer to [facility] for more aggressive treatment of kidney failure with plasmapharesis, and decided to start palliative measures for maximal comfort. His fluids were stopped and all medications were stopped besides for Morphine/Fentanyl PRN for pain, Atropine/Scopolamine PRN to decrease respiratory secretions and for less respiratory distress, and Ativan PRN for anxiety. He was discharged on 04/23/2020 to his home, with hospice care. (2) Chronic systolic CHF (congestive heart failure): (3) AMS (altered mental status): Total Time Total Time Spent Total Time Spent (In Minutes): 30 minutes Total Time Includes: Examination of the Patient, Discharge Planning and Medication Reconciliation Discharge Plan Discharge Items Patient Disposition: Hospice - Home Reason For Visit: CHF EXACERBATION, AMS, UTI, JULY ON CKD Discharge Diagnosis: Acute Renal Failure Heart Failure Aspiration Condition on Discharge: Critical Activity: Per Instructions section Non-emergency contact: Primary Care Provider, Build Technician and Oncologist Call non-emergency contact if: you have any medication questions Follow-up/Referrals: David Mcnair DO [Primary Care Provider] - Diet: Nothing by Mouth Addtl Attending Provider Instructions: You were admitted to [facility] on 04/20/2020 with acute kidney failure and systolic CHF exacerbation. Your acute kidney failure was thought to be due to either your Multiple Myeloma or Cryoglobulinemia with vasculitis. We initially treated your systolic CHF exacerbation with one dose of Lasix 40 mg IV but you continued to have swollen legs and fluid-congested lungs. You were given IV fluids for your acute kidney failure, but you developed worsening kidney failure, and the fluids made your respiratory symptoms and systolic CHF exacerbation worse. After discussion with your Oncologist, Build Technician and palliative care, you and your family made the decision to avoid transfer to [facility] for more aggressive treatment of kidney failure, and you decided to start palliative measures for maximal comfort. Your fluids were stopped and all medications were stopped besides for Morphine and Fentanyl for pain and Atropine/Scopolamine to decrease respiratory secretions and for less respiratory distress. You will be discharged on 04/23/2020 to your home, with hospice. Pending Studies at Discharge: No Stand-Alone Forms: [facility] Medications and DC Order Prescriptions: New morphine 20 mg/5 mL (4 mg/mL) solution 5 mg PO Q3H Qty: 100 RF: 0 morphine 20 mg/5 mL (4 mg/mL) solution 5 mg PO Q3H PRN (Reason: pain) Qty: 100 RF: 0 lorazepam 2 mg/mL concentrate 0.5 mg PO Q6H PRN (Reason: anxiety) Qty: 30 RF: 0 Discontinued metoprolol tartrate 25 mg tablet 6.25 mg PO BID Qty: 30 RF: 0 selegiline HCl 5 mg tablet 5 mg PO BID RF: 0 acyclovir 400 mg tablet 400 mg PO BID RF: 0 oxycodone 5 mg tablet 5 mg PO Q4H PRN (Reason: Pain) RF: 0 Velcade 3.5 mg Recon Soln 0 mg IV TH RF: 0 aspirin 81 mg tablet,delayed release (DR/EC) 81 mg PO DAILY RF: 0 simvastatin 20 mg tablet 20 mg PO HS RF: 0 omeprazole 20 mg tablet,delayed release (DR/EC) 20 mg PO QAM RF: 0 gabapentin 400 mg capsule 400 mg PO TID RF: 0 lidocaine 5 % Adhesive Patch,Medicated 1 patch transdermal QAM Qty: 10 RF: 3 dexamethasone 4 mg tablet 20 mg PO TH@0800 RF: 0 doxycycline hyclate 100 mg tablet 100 mg PO DAILY RF: 0 prochlorperazine maleate 10 mg tablet 10 mg PO UD PRN (Reason: Nausea) RF: 0 hydrochlorothiazide 25 mg tablet 0 mg PO DAILY RF: 0 furosemide 20 mg tablet 20 mg PO DAILY RF: 0 carbidopa-levodopa 25-100 mg tablet 1 tab PO TID RF: 0 Eliquis 2.5 mg tablet 2.5 mg PO BID RF: 0 cyclophosphamide 50 mg Capsule 50 mg PO UD RF: 0 Discharge Orders: Discharge Order (Routine); Ordered 04/23/20 Ordered By: Ludwin Lehman Admission Data Admit Date/Time: 04/20/20 19:14 Attending Provider: David Benitez Admit Provider: Ludwin Lehman Primary Care Provider: David Mcnair Other Providers: Narayan Machuca ; Rashmi Nath ; Dick Antony ; [facility] Other Interventions: Discharge Summary Assessment (RN) Last Done: 04/23/20 10:33 Supervising Physician Co-Signing Physician Notes Attending attestation Pt seen and examined in concert with Dr. Lehman. In agreement with the documented findings as noted in the resident documentation with any exceptions or additions as noted here. Sleeping comfortably off morphine GTT, arousable to voice but not focused for response. On examination, multiple vascular appearing lesions of the skin diffusely which are common for untreated MM for him in the setting of cryoglobulinemia. Diffuse rhonchi bilaterally with improvement in transmitted upper airway sounds with scopolamine. S1/S2 nl RRR no MCG. Eschewed other exam as is going to hospice Comfort measures - secretion management w/ scopolamine patches. Pain management with 12mcg fentanyl patch and PRN roxicodone and ativan PO PRN as required for comfort. D/C'd chronic medications for preventative means. Avoiding PO medications 2/2 increased aspiration risk. JULY on CKDIIIa - no longer trending BMP, off IVF to avoid fluid overload Else see resident documentation as noted. Resident Activity Tracking Resident Involvement: Resident Care Provided Care Provided: Adult Hospital Medicine
[2020-04-25 08:04] LABS: Complement C3 24 mg/dL; Complement Total(CH50) <10 U/mL (31-60); Haptoglobin 124 mg/dL (43-212); Viscosity, Serum 1.4 rel to H2O (1.5-1.9)
[2020-04-27 07:04] LABS: % Cryocrit 7 %; Cryoglobulin, QL Positive (Negative)
== END 2020-04-23 10:48 | disposition hospice, home (50) | DRG 682 ==
LOC: ED 12:40 → 2W 19:14 → 2N 04-21 17:53